=== PATIENT | female | born 1950 | race Caucasian/White ===

== ENCOUNTER 2017-03-05 11:29 | Observation (INO) ==
--- NOTE | 2017-03-05 12:50 | Emergency Department Note ---
Disposition Clinical Impression: Chest pain of uncertain etiology Atrial fibrillation Qualifiers: Atrial fibrillation type: paroxysmal Qualified Code(s): I48.0 - Paroxysmal atrial fibrillation Disposition: Admitted As Inpatient Arrhythmia/Palpitations HPI - General Chief Complaint: ED Arrhythmia/Palpitations Stated Complaint: a-fib rvr Source: patient, EMS Limitations: no limitations Nursing Notes Reviewed: Yes Vital Signs Reviewed: Yes - History of Present Illness HPI Narrative: Mrs. Browning, a 67yo female, presents from home via POV with CC: palpitations with left-sided chest heaviness sided sharp chest pain. Onset this morning, a nonradiating, and she is currently comfortable without pain during this interview. Patient states this feels identical to previous episodes of atrial fibrillation. She has a known history of atrial fibrillation, followed by Dr. Miramontes at [facility]. Rate controlled on Lopressor, anticoagulated on Coumadin for which her last INR was Tuesday, greater than 4. PMH: Hypertension, hyperlipidemia, diabetes, ACS with stents placed, hx CABG, CHF, atrial fibrillation. She did not miss any doses of metoprolol and Coumadin. - Related Data Home Medications Medication Instructions Recorded Confirmed Aspirin 81 mg PO DAILY 03/27/16 03/05/17 Ascorbate Calcium [Vitamin C] 500 mg PO DAILY 05/21/16 03/05/17 Calcium Carbonate/Vitamin D3 1 each PO DAILY 05/21/16 03/05/17 [Caltrate 600 + D Soft Chew Tab] Cholecalciferol (D-3) [Vitamin D] 1,000 unit PO DAILY 05/21/16 03/05/17 Dicyclomine [Bentyl] 10 mg PO DAILY 05/21/16 03/05/17 Duloxetine HCl [Cymbalta] 60 mg PO BID 05/21/16 03/05/17 Esomeprazole Magnesium [Nexium] 40 mg PO 05/21/16 03/05/17 Evolocumab [Repatha Syringe] 140 mg SQ Q2W 05/21/16 03/05/17 Fluticasone Propionate Nasal 50 mcg NS 05/21/16 03/05/17 [Flonase] Fluvastatin Sodium [Lescol Xl] 80 mg PO DAILY 05/21/16 03/05/17 Furosemide [Lasix] 20 mg PO DAILY 05/21/16 03/05/17 Hydrochlorothiazide [Microzide] 25 mg PO DAILY 05/21/16 03/05/17 Loratadine [Claritin] 10 mg PO DAILY 05/21/16 03/05/17 Losartan Potassium [Cozaar] 100 mg PO DAILY 05/21/16 03/05/17 Metformin HCl [Glucophage] 1,000 mg PO DAILY 05/21/16 03/05/17 Nitroglycerin [Nitrostat] 0.4 mg SL Q5M PRN 05/21/16 03/05/17 Vitamin B Complex 1 each PO DAILY PRN 05/21/16 03/05/17 cloNIDine HCl [CloNIDine HCl] 0.1 mg PO BID 05/21/16 03/05/17 clonazePAM [Klonopin] 1 mg PO TID PRN 05/21/16 03/05/17 Fenofibrate,Micronized [Lofibra] 200 mg PO DAILY 05/28/16 03/05/17 Magnesium Chloride [Magnesium Dr] 64 mg PO BID 05/28/16 03/05/17 Potassium Chloride [K-Tab ER] 40 meq PO BID 05/28/16 03/05/17 Prazosin HCl [Minipress] 2 mg PO HS 06/10/16 03/05/17 Gabapentin [Neurontin] 1,200 mg PO TID 06/11/16 03/05/17 Hydrocodone/Acetaminophen [[place] 1 tab PO Q6H PRN 10/11/16 03/05/17 5-325 Tablet] Levothyroxine [Synthroid] 50 mcg PO DAILY 03/05/17 03/05/17 Metoprolol [Lopressor] 50 mg PO BID 03/05/17 03/05/17 Warfarin [Coumadin] 0.5 mg PO Q48H 03/05/17 03/05/17 Warfarin [Coumadin] 1 mg PO Q48H 03/05/17 03/05/17 Allergies Allergy/AdvReac Type Severity Reaction Status Date / Time acetaminophen [From Percocet] Allergy Hallucinati Verified 10/11/16 21:00 ng amlodipine Allergy See Verified 10/11/16 21:00 Comments ibuprofen Allergy Nausea Verified 10/11/16 21:00 metoclopramide [From Reglan] Allergy Nausea Verified 10/11/16 21:00 morphine Allergy Difficulty Verified 10/11/16 21:00 Breathing Oxycodone [From Percocet] Allergy Difficulty Verified 10/11/16 21:00 Breathing propoxyphene Allergy Anxiety Verified 10/11/16 21:00 [From Darvocet-N] [id number] Reductase Allergy See Verified 02/07/17 18:46 Inhibitor Comments [Statins] amitriptyline [From Elavil] AdvReac Headache Verified 10/11/16 21:00 aripiprazole [From Abilify] AdvReac Anxiety Verified 10/11/16 21:00 codeine AdvReac Nausea Verified 10/11/16 21:00 guaifenesin [From Mucinex] AdvReac Headache Verified 10/11/16 21:00 Hydromorphone [From Dilaudid] AdvReac Chills Verified 10/11/16 21:00 isosorbide AdvReac Headache Verified 10/11/16 21:00 Methylphenidate AdvReac Diarrhea Verified 10/11/16 21:00 [From Ritalin] prednisone AdvReac Anxiety Verified 10/11/16 21:00 pregabalin [From Lyrica] AdvReac Diarrhea Verified 10/11/16 21:00 sucralfate AdvReac Diarrhea Verified 10/11/16 21:00 valsartan [From Diovan] AdvReac Muscle Pain Verified 10/11/16 21:00 All systems ED: reviewed and negative except as stated. Constitutional: Denies: fever, chills, weakness Cardiovascular: Reports: palpitations. Denies: chest pain, dyspnea on exertion , orthopnea, edema, syncope, paroxysmal nocturnal dyspnea Respiratory: Denies: cough, dyspnea, wheezes Gastrointestinal: Denies: nausea, vomiting, diarrhea, constipation, hematemesis , melena Genitourinary: Denies: urgency, dysuria Musculoskeletal: Denies: back pain Neurological: Denies: headache, weakness, confusion Past Medical History - Past Medical History Medical history: Reports: atrial fibrillation, CHF, diabetes, hypertension, myocardial infarction Surgical history: Reports: angioplasty/stent, cholecystectomy, coronary bypass ( CABG), hysterectomy, other Psychiatric history: Reports: anxiety, depression, panic disorder, prior suicide attempt, previous psychiatric hospitalization MOBILE UNIT ASSISTANT history: Reports: no MOBILE UNIT ASSISTANT history - Social History Smoking Status: Never smoker Smokeless Tobacco Status: No Alcohol use: Reports: none Drug use: Reports: none Physical Exam Vital signs reviewed: Afebrile, tachycardic, tachypneic, hypertensive. General: Patient is alert, oriented, and in no acute distress. HEENT: No facial asymmetry. Head is normocephalic and atraumatic. Cardiovascular: Heart tachycardic rate and regular rhythm without clicks, rubs, gallops, or murmurs. No JVD. PMI nondisplaced. No pedal edema. Capillar refill brisk. Radial and posterior tibial pulses 2+ and equal bilaterally. Respiratory: Symmetric chest rise with good respiratory effort. Bilateral breath sounds are clear without wheezing, crackles, or rhonchi. Abdomen: Bowel sounds present normoactive x-4 quadrants. Abdomen is soft, nondistended, and nontender. No organomegaly noted. Psych: Patient's affect is appropriate for situation. - General Limitations: no limitations General appearance: alert, in no apparent distress Course Course Narrative: Patient response spontaneously converted back to my evaluation. She is now sinus rhythm. Unsure why her A. Fib broke through her medication. Of greater concern however is her left-sided chest pain in a setting of her extensive cardiac history. Troponin within normal limits at 0.03. Electrolytes unremarkable. Chest x-ray unremarkable. INR is normalized to 2.1. Disposition the patient: She agrees to admission for chest pain with rule out ACS. Vital Signs Temperature 98.1 F 03/05/17 11:30 Pulse Rate 104 03/05/17 11:30 Respiratory Rate 20 03/05/17 11:30 Blood Pressure 163/115 03/05/17 11:30 O2 Sat by Pulse Oximetry 95 03/05/17 11:30 Temperature 98.2 F 03/05/17 16:05 Pulse Rate 87 03/05/17 16:05 Respiratory Rate 16 03/05/17 16:05 Blood Pressure 175/82 03/05/17 16:05 O2 Sat by Pulse Oximetry 92 03/05/17 16:05 Oxygen Delivery Oxygen Delivery Room Air Arrhythmia/Palpitations - Medical Records Medical records reviewed: Yes I reviewed the patient's medical records. - Lab Data Lab results reviewed: Yes I reviewed the patient's lab results. Result diagrams: 03/05/17 12:52 03/05/17 12:52 Lab Results 03/05/17 03/05/17 03/05/17 Range/Units 12:52 12:52 12:52 WBC 11.9 H (4.3-11.1) K/mcL RBC 5.24 H (3.82-4.97) M/mcL Hgb 13.5 (11.5-15.4) g/dL Hct 42.7 (35.3-44.9) % MCV 81.5 L (83.0-100.0) fL MCH 25.8 L (28.0-33.3) pg MCHC 31.6 (31.6-35.5) g/dL RDW 16.5 H (11.5-14.5) % Plt Count 381 (140-400) K/mcL MPV 12.5 H (9.4-12.4) fL Immature Gran % 0.4 (0-4) % Seg Neutrophils % 72.4 % Lymphocytes % 16.8 % Monocytes % 6.8 % Eosinophils % 3.0 % Basophils % 0.6 % Neutrophils # 8.6 (1.6-8.9) K/mcL Lymphocytes # 2.0 (0.6-4.6) K/mcL Monocytes # 0.8 (0.0-1.3) K/mcL Eosinophils # 0.4 (0.0-0.6) K/mcL Basophils # 0.1 (0.0-0.2) K/mcL PT 23.3 H (9.4-12.1) Seconds INR 2.1 APTT 39.4 H (26.0-36.0) Seconds Sodium 140 (136-145) mEq/L Potassium 3.6 (3.5-4.5) mEq/L Chloride 104 (98-109) mEq/L Carbon Dioxide 23 (19-29) mEq/L BUN 14 (7-20) mg/dL Creatinine 0.92 (0.57-1.11) mg/dL Est GFR ( Amer) > 60 (> 60) Est GFR (Non-Af Amer) > 60 (> 60) BUN/Creatinine Ratio 15 (6-26) Glucose 225 H (70-99) mg/dL Calculated Osmolality 298 (280-300) Calcium 9.8 (8.6-10.8) mg/dL Troponin I (0-0.03) ng/mL TSH 0.919 (0.350-4.840) mcIU/mL 03/05/17 Range/Units 12:52 WBC (4.3-11.1) K/mcL RBC (3.82-4.97) M/mcL Hgb (11.5-15.4) g/dL Hct (35.3-44.9) % MCV (83.0-100.0) fL MCH (28.0-33.3) pg MCHC (31.6-35.5) g/dL RDW (11.5-14.5) % Plt Count (140-400) K/mcL MPV (9.4-12.4) fL Immature Gran % (0-4) % Seg Neutrophils % % Lymphocytes % % Monocytes % % Eosinophils % % Basophils % % Neutrophils # (1.6-8.9) K/mcL Lymphocytes # (0.6-4.6) K/mcL Monocytes # (0.0-1.3) K/mcL Eosinophils # (0.0-0.6) K/mcL Basophils # (0.0-0.2) K/mcL PT (9.4-12.1) Seconds INR APTT (26.0-36.0) Seconds Sodium (136-145) mEq/L Potassium (3.5-4.5) mEq/L Chloride (98-109) mEq/L Carbon Dioxide (19-29) mEq/L BUN (7-20) mg/dL Creatinine (0.57-1.11) mg/dL Est GFR ( Amer) (> 60) Est GFR (Non-Af Amer) (> 60) BUN/Creatinine Ratio (6-26) Glucose (70-99) mg/dL Calculated Osmolality (280-300) Calcium (8.6-10.8) mg/dL Troponin I 0.03 (0-0.03) ng/mL TSH (0.350-4.840) mcIU/mL - Radiology Data Radiology results reviewed: Yes I reviewed the patient's radiology results. - EKG Data EKG attestation: Yes I reviewed and interpreted this EKG. EKG results narrative: EKG dated 03/12/1711: 32 show sinus tachycardia with a rate of 104. MT 137, QRS 86, QT/QTC 350/14. Prophylaxis. Q waves present in the inferior lateral leads. Specific ST-T changes. Compared to previous dated 11/04/2016 showing no acute ischemic changes or comparison. Attestation Statement - Attestation Attestation: I, Geovanni Greene, examined this patient and my medical decision-making was reviewed with the CUSTOMER MARKETING INTERN/PA/Advanced Practice Nurse/Resident Physician. I agree with the documented findings, disposition and treatment plan as described except to the extent set forth below. 67-year-old female presents with concerns of atrial fibrillation. Patient states she felt her heart rate racing today, had chest pain and shortness of breath. Patient's cardiac rhythm with EMS showed atrial fibrillation with a rapid ventricular rate. Patient converted to a sinus tachycardic rhythm upon entering the emergency department. She continues to have mild chest pain but denies associated nausea, diaphoresis, shortness of breath. Patient had initial negative troponin. Patient will be admitted the hospital for further care and evaluation of A. fib with RVR and chest pain to rule out ACS.
[2017-03-05 13:26] LABS: Basophils # 0.1 K/mcL (0.0-0.2); Basophils % 0.6 %; Eosinophils # 0.4 K/mcL (0.0-0.6); Hematocrit 42.7 % (35.3-44.9); Hemoglobin 13.5 g/dL (11.5-15.4); Immature Granulocytes % 0.4 % (0-4); Lymphocytes % 16.8 %; Mean Corpuscular HGB Conc 31.6 g/dL (31.6-35.5); Mean Corpuscular Hemoglobin 25.8 pg (28.0-33.3); Mean Corpuscular Volume 81.5 fL (83.0-100.0); Mean Platelet Volume 12.5 fL (9.4-12.4); Monocytes # 0.8 K/mcL (0.0-1.3); Monocytes % 6.8 %; Neutrophils # 8.6 K/mcL (1.6-8.9); Platelet Count 381 K/mcL (140-400); Red Blood Count 5.24 M/mcL (3.82-4.97); Red Cell Distribution Width 16.5 % (11.5-14.5); Segmented Neutrophils % 72.4 %
[2017-03-05 13:39] LABS: INR 2.1; Prothrombin Time 23.3 Seconds (9.4-12.1)
[2017-03-05 13:41] LABS: BUN/Creatinine Ratio 15 (6-26); Blood Urea Nitrogen 14 mg/dL (7-20); Calcium 9.8 mg/dL (8.6-10.8); Carbon Dioxide 23 mEq/L (19-29); Chloride 104 mEq/L (98-109); Glucose 225 mg/dL (70-99); Osmolality,Calculated 298 (280-300); Potassium 3.6 mEq/L (3.5-4.5); Sodium 140 mEq/L (136-145); eGFR For African Americans > 60 (> 60); eGFR For Non-African Americans > 60 (> 60)
[2017-03-05 13:42] LABS: Activated Partial Thrombo Time 39.4 Seconds (26.0-36.0)
[2017-03-05 14:03] LABS: Thyroid Stimulating Hormone 0.919 mcIU/mL (0.350-4.840)
[2017-03-05] MEDS ORDERED: Naloxone 0.4 MG/ML INJ IVP PRN (16:08)
--- NOTE | 2017-03-05 18:04 | Internal Med History&Physical ---
<Ingrid Olivo - Last Filed: 03/05/17 17:58> Date of Encounter: 03/05/17 Time of Encounter: 17:40 Assessment and Plan (1) Atrial fibrillation with RVR Current visit: No Status: Resolved Patient says that she awakened at 10:30 this morning and got up to the bathroom. She said that she felt nervous when she first got up. She said worshipers in the bathroom she noticed that she her heartfelt out of rhythm, she was having palpitations, she said she felt like her heart rate racing. She also reports a dull pressure behind left breast., rated 5 out of 10, with nausea and no radiation. Patient denies shortness of breath, diaphoresis or vomiting. She says that she is normally dyspneic on exertion. She does wear home O2 at night. EKG in the emergency room showed sinus tach with a rate of 104. P referral Veryl was 137, QRS was 86. There specific ST changes. No acute ischemia noted. Patient has history of A. fib in the past. She is rate controlled with beta alondra and also takes Coumadin. History of hypothyroidism. TSH is within normal limits. Last echocardiogram was in August 2016. LVEF 60%, normal LV size and systolic function, normal right ventricular size and function. Initial troponin was 0.03. Will trend through the night. Telemetry Echo in the morning Nothing by mouth after midnight sTress test in the morning (2) CAD (coronary artery disease), [place] coronary artery Current visit: No Status: Chronic Continue beta alondra and aspirin. Prior history of CABG and cardiac stents. Plan as above Qualifiers: [place] vs. transplanted heart: [place] heart Associated angina: with stable angina Qualified Code(s): I25.118 - Atherosclerotic heart disease of [place] coronary artery with other forms of angina pectoris (3) Hypertension Current visit: No Status: Chronic Chronic. Monitor labs. Continue home medications. Qualifiers: Hypertension type: essential hypertension Qualified Code(s): I10 - Essential (primary) hypertension (4) Type 2 diabetes mellitus Current visit: No Status: Chronic A1c ordered for morning. Accu-Chek over 200. Diabetic diet after stress test Sliding-scale insulin Accu-Cheks before meals at bedtime inclusion special educator Qualifiers: Diabetes mellitus complication status: with kidney complications Diabetes mellitus complication detail: with chronic kidney disease Diabetes mellitus retirement insulin use: without retirement use Chronic kidney disease stage: stage 3 (moderate) Qualified Code(s): E11.22 - Type 2 diabetes mellitus with diabetic chronic kidney disease; N18.3 - Chronic kidney disease, stage 3 ( moderate) (5) Hypothyroidism Current visit: No Status: Chronic TSH within normal limits. Continue home medication. Qualifiers: Hypothyroidism type: acquired Qualified Code(s): E03.9 - Hypothyroidism, unspecified (6) Chest pain Current visit: No Status: Acute Plan as above Qualifiers: Chest pain type: precordial chest pain Qualified Code(s): R07.2 - Precordial pain (7) GERD (gastroesophageal reflux disease) Current visit: No Status: Chronic Chronic. Continue home medication. Qualifiers: Esophagitis presence: without esophagitis Qualified Code(s): K21.9 - Gastro -esophageal reflux disease without esophagitis (8) Fibromyalgia Current visit: No Status: Chronic (9) DVT prophylaxis Current visit: No Status: Acute Patient is ambulatory. MONICA santiago. Patient is already on Coumadin. Internal Medicine - H&P: HPI Admitted From: Home Plans for Post Hospital Care: Home History of present illness: Ms. Browning is a 67 year old female with a history of anxiety, CABG, cardiac stents, hypothyroidism, hypertension, ACS, CHF, hypertension, hyperlipidemia, anxiety, rate controlled A. fib with anticoagulation. Patient states that she awakened this morning at 10:30 and had a feeling of anxiety and felt that her heart was out of rhythm. She has a history of A. fib and she said that this felt the same. She came to the emergency department and was A. fib RVR, she converted on her own. She is now normal sinus rhythm. She reported a dull pressure rated a 5 out of 10 under her left breast with nausea. There is no radiation, vomiting, diaphoresis. She said nothing made it worse and nothing made it better. Patient reports dyspnea on exertion which is normal for her. She does wear home oxygen at night she supposed to have a CPAP, however, she is noncompliant. She does report intermittent, short duration chest pressure still at this time. She also reports new peripheral edema to bilateral lower extremities. She states it is better today than it has been in the past, it is maybe +1 nonpitting. Past Med Surg Social Fam HX - Past Medical History Medical history: atrial fibrillation, CHF, diabetes, hypertension, myocardial infarction Psychiatric history: anxiety, depression, panic disorder, prior suicide attempt , previous psychiatric hospitalization - Past Surgical History Surgical History: angioplasty/stent, cholecystectomy, coronary bypass (CABG), hysterectomy, other - Social History Smoking Status: Never smoker Smokeless Tobacco Status: No Alcohol use: none Drug use: none - Family History Mother Adopted: No Family Member Ethnicity: Non- Living Status: Hx Family Cardiac Disorders: Yes Hx Family Neurologic Disorders: Yes (migraines) Father Living Status: Still Living Hx Family Cardiac Disorders: Yes Hx Family Cancer: Yes (skin cancer) Internal Medicine - H&P: Meds Aspirin 81 mg PO DAILY 03/27/16 [History] Ascorbate Calcium [Vitamin C] 500 mg PO DAILY 05/21/16 [History] Calcium Carbonate/Vitamin D3 [Caltrate 600 + D Soft Chew Tab] 1 each PO DAILY [History] Cholecalciferol (D-3) [Vitamin D] 1,000 unit PO DAILY 05/21/16 [History] Dicyclomine [Bentyl] 10 mg PO DAILY 05/21/16 [History] Duloxetine HCl [Cymbalta] 60 mg PO BID 05/21/16 [History] Esomeprazole Magnesium [Nexium] 40 mg PO HS 05/21/16 [History] Evolocumab [Repatha Syringe] 140 mg SQ Q2W 05/21/16 [History] Fluticasone Propionate Nasal [Flonase] 50 mcg NS HS 05/21/16 [History] Fluvastatin Sodium [Lescol Xl] 80 mg PO DAILY 05/21/16 [History] Furosemide [Lasix] 20 mg PO DAILY 05/21/16 [History] Hydrochlorothiazide [Microzide] 25 mg PO DAILY 05/21/16 [History] Loratadine [Claritin] 10 mg PO DAILY 05/21/16 [History] Losartan Potassium [Cozaar] 100 mg PO DAILY 05/21/16 [History] Metformin HCl [Glucophage] 1,000 mg PO DAILY 05/21/16 [History] Nitroglycerin [Nitrostat] 0.4 mg SL Q5M PRN 05/21/16 [History] Vitamin B Complex 1 each PO DAILY PRN 05/21/16 [History] cloNIDine HCl [CloNIDine HCl] 0.1 mg PO BID 05/21/16 [History] clonazePAM [Klonopin] 1 mg PO TID PRN 05/21/16 [History] Fenofibrate,Micronized [Lofibra] 200 mg PO DAILY 05/28/16 [History] Magnesium Chloride [Magnesium Dr] 64 mg PO BID 05/28/16 [History] Potassium Chloride [K-Tab ER] 40 meq PO BID 05/28/16 [History] Prazosin HCl [Minipress] 2 mg PO HS 06/10/16 [History] Gabapentin [Neurontin] 1,200 mg PO TID 06/11/16 [History] Hydrocodone/Acetaminophen [Cornelius 5-325 Tablet] 1 tab PO Q6H PRN 10/11/16 [ History] Levothyroxine [Synthroid] 50 mcg PO DAILY 03/05/17 [History] Metoprolol [Lopressor] 50 mg PO BID 03/05/17 [History] Warfarin [Coumadin] 0.5 mg PO Q48H 03/05/17 [History] Warfarin [Coumadin] 1 mg PO Q48H 03/05/17 [History] Allergies acetaminophen [From Percocet] Allergy (Verified 10/11/16 21:00) Hallucinating amlodipine Allergy (Verified 10/11/16 21:00) See Comments unknown per patient ibuprofen Allergy (Verified 10/11/16 21:00) Nausea metoclopramide [From Reglan] Allergy (Verified 10/11/16 21:00) Nausea morphine Allergy (Verified 10/11/16 21:00) Difficulty Breathing Oxycodone [From Percocet] Allergy (Verified 10/11/16 21:00) Difficulty Breathing propoxyphene [From Darvocet-N] Allergy (Verified 10/11/16 21:00) Anxiety Flggxzt-Lqa-Vlh Reductase Inhibitor [Statins] Allergy (Verified 02/07/17 18:46) See Comments worsens fibromyalgia amitriptyline [From Elavil] Adverse Reaction (Verified 10/11/16 21:00) Headache aripiprazole [From Abilify] Adverse Reaction (Verified 10/11/16 21:00) Anxiety codeine Adverse Reaction (Verified 10/11/16 21:00) Nausea guaifenesin [From Mucinex] Adverse Reaction (Verified 10/11/16 21:00) Headache Hydromorphone [From Dilaudid] Adverse Reaction (Verified 10/11/16 21:00) Chills isosorbide Adverse Reaction (Verified 10/11/16 21:00) Headache Methylphenidate [From Ritalin] Adverse Reaction (Verified 10/11/16 21:00) Diarrhea prednisone Adverse Reaction (Verified 10/11/16 21:00) Anxiety pregabalin [From Lyrica] Adverse Reaction (Verified 10/11/16 21:00) Diarrhea sucralfate Adverse Reaction (Verified 10/11/16 21:00) Diarrhea valsartan [From Diovan] Adverse Reaction (Verified 10/11/16 21:00) Muscle Pain All Systems PM: A 10-system review of systems was performed and is negative for pertinent findings except as documented above in the HPI. - Constitutional Constitutional: no chills, no fatigue, no fever(s), no weakness - EENT Eyes: no diplopia, no pain - Cardiovascular Cardiovascular ROS IM: chest pain, dyspnea on exertion, edema, irregular heart rhythm, palpitations, no diaphoresis, no dyspnea, no lightheadedness, no orthopnea, no paroxysmal nocturnal dyspnea, no syncope, no other - Respiratory Respiratory: dyspnea on exertion, no dyspnea, no wheezing, no pain on inspiration, no chest congestion - Gastrointestinal Gastrointestinal: abdominal pain, nausea, no diarrhea, no vomiting Additional comments: chronic abd pain ,pt states that noone can identify what it is. - Musculoskeletal Musculoskeletal ROS IM: no back pain, no tingling - Integumentary Integumentary IM: no rash - Neurological Neurological ROS: no confusion, no dizziness, no headache(s), no paresthesias, no tingling, no weakness - Constitutional Vitals: Temp Pulse Resp BP Pulse Ox 98.2 F 87 16 175/82 92 03/05/17 16:05 03/05/17 16:05 03/05/17 16:05 03/05/17 16:05 03/05/17 16:48 General appearance: Present: A&O X 3, pleasant, no acute distress, answers questions appropriately - Head Head exam: Present: normal inspection - Eye Eye exam: Present: normal appearance, conjuntiva pink - ENT ENT exam: Present: mucous membranes moist, normal exam, normal external ear exam - Neck Neck exam general surgery: Present: normal inspection. Absent: lymphadenopathy , tenderness - Respiratory Respiratory exam: Present: CTAB. Absent: chest wall tenderness, rales, respiratory distress, rhonchi, stridor, wheezes - Cardiovascular Cardiovascular exam: Present: RRR, +S1, +S2, tachycardia. Absent: diastolic murmur, systolic murmur - GI/Abdominal GI/Abdominal exam: Present: normal bowel sounds, soft. Absent: distended, hepatomegaly, tenderness - Extremities Exam Extremities exam: Present: normal capillary refill, normal inspection, pedal edema, warm, radial pulses palpable and symetrical. Absent: joint swelling, tenderness - Neurological Exam Neurological exam: Present: alert, oriented X3, no focal deficits, strengths equal and symetr throughout. Absent: facial droop, speech deficit Internal Med - H&P Results - Labs CBC & Chem 7: 03/05/17 12:52 03/05/17 12:52 <Serena Fitzgerald - Last Filed: 03/05/17 18:42> Date of Encounter: 03/05/17 Time of Encounter: 18:00 Internal Medicine - H&P: HPI History of present illness: Ms. Browning is a 67 year old female All Systems PM: A 10-system review of systems was performed and is negative for pertinent findings except as documented above in the HPI. - Constitutional Vitals: Temp Pulse Resp BP Pulse Ox 98.2 F 87 16 175/82 92 03/05/17 16:05 03/05/17 16:05 03/05/17 16:05 03/05/17 16:05 03/05/17 16:48 Internal Med - H&P Results - Labs CBC & Chem 7: 03/05/17 12:52 03/05/17 12:52 - Attending Attestation I examined this patient and my medical decision-making was reviewed with the nurse practitioner. I agree with the documented history of present illness, review of systems, past medical, surgical social and family histories and examination findings, disposition and treatment plan as described above except to any changes set forth below. 67-year-old female patient with history of coronary artery disease with PCI and stents and coronary artery bypass grafting, atrial fibrillation and presented to the ER with complaints of chest pain and palpitations. The symptoms began this morning. While she was in the ER she was found to be in rapid A. fib but this corrected while she was in the ER and the patient went back into normal sinus rhythm. She however continued to have dull chest pain on the left side that was nonradiating and constantly present. She denies any shortness of breath. No fever chills or night sweats. No orthopnea. Patient had a cardiac stress test and cardiac catheterization in the past. Her last cardiac stress test was at the end of 2014 or beginning of 2015 and she said that was normal. Her cardiac bypass grafting was in 2013. She has been chest pain-free since her last cardiac stress test. She is on Coumadin for anticoagulation. EKG shows A. fib without any acute ST segment changes. Chest x-ray shows no acute process. Chest pain: Precordial chest pain with high risk for coronary artery disease and ACS. Telemetry. Observation in the hospital. Trend troponins. Cardiac stress test in the morning. Coronary artery disease: Continue home medications for this condition. Atrial fibrillation with RVR: Converted spontaneously to sinus rhythm. Continue rate controlling medications. Continue Coumadin for anticoagulation. Diabetes mellitus type 2: Sliding scale insulin. Diabetic diet. Essential hypertension: Monitor blood pressure. Continue home medications.
[2017-03-05] MEDS ORDERED: Dextrose Gel 15 GM PO PRN ×2 (18:09)
[2017-03-05] MEDS ORDERED: *HR* Dextrose 50 % in Water (Syg) 50 ML SYRINGE IVP PRN (18:09)
[2017-03-05] MEDS ORDERED: D5% in Water 1,000 ML IVC PRN (18:09)
[2017-03-05] MEDS ORDERED: Vitamin B Complex/Vit C/Vit E 1 EACH TABLET PO PRN (18:12)
[2017-03-05] MEDS ORDERED: clonazePAM 1 MG TABLET PO PRN (18:12)
[2017-03-05] MEDS ORDERED: *HR* HYDROcodone/Acet 5/325 mg TABLET PO PRN (18:12)
[2017-03-05] MEDS ORDERED: Nitroglycerin 0.4 MG TAB.SUBL SL PRN (18:12)
[2017-03-05] MEDS ORDERED: EVOLOCUMAB 140 MG SQ SCH (18:15)
[2017-03-05] MEDS ORDERED: *HR* Warfarin 1 MG TABLET PO SCH (18:15)
[2017-03-05] MEDS ORDERED: Insulin LISPRO 300 UNITS/3 ML VIAL SQ SCH (21:00)
[2017-03-05] MEDS ORDERED: Fluticasone Propionate Nasal 50 MCG/SPRAY BOTTLE NS SCH (21:00)
[2017-03-05] MEDS: Gabapentin 400 MG CAPSULE PO SCH (21:39)
[2017-03-05] MEDS: cloNIDine HCl 0.1 MG TABLET PO SCH (21:40)
[2017-03-05] MEDS: MAGNESIUM CHLORIDE 64 MG PO SCH (21:44)
[2017-03-06 03:22] LABS: Basophils # 0.1 K/mcL (0.0-0.2); Basophils % 0.8 %; Eosinophils # 0.4 K/mcL (0.0-0.6); Eosinophils % 5.4 %; Hematocrit 36.2 % (35.3-44.9); Immature Granulocytes % 0.4 % (0-4); Lymphocytes # 2.5 K/mcL (0.6-4.6); Lymphocytes % 31.8 %; Mean Corpuscular HGB Conc 31.2 g/dL (31.6-35.5); Mean Corpuscular Hemoglobin 25.6 pg (28.0-33.3); Mean Corpuscular Volume 81.9 fL (83.0-100.0); Mean Platelet Volume 12.2 fL (9.4-12.4); Monocytes # 0.7 K/mcL (0.0-1.3); Monocytes % 8.2 %; Neutrophils # 4.2 K/mcL (1.6-8.9); Platelet Count 298 K/mcL (140-400); Red Blood Count 4.42 M/mcL (3.82-4.97); Red Cell Distribution Width 16.5 % (11.5-14.5); Segmented Neutrophils % 53.4 %
[2017-03-06 03:24] LABS: Hemoglobin A1C 7.6 %
[2017-03-06 03:32] LABS: BUN/Creatinine Ratio 18 (6-26); Blood Urea Nitrogen 16 mg/dL (7-20); Calcium 9.2 mg/dL (8.6-10.8); Carbon Dioxide 23 mEq/L (19-29); Chloride 107 mEq/L (98-109); Chol/HDL Ratio 3.4 (0-4.9); Cholesterol 102 mg/dL (< 200); Glucose 156 mg/dL (70-99); HDL Cholesterol 30 mg/dL (40-59); LDL Cholesterol,Calculated 53 mg/dL (0-99); Osmolality,Calculated 292 (280-300); Potassium 3.9 mEq/L (3.5-4.5); Sodium 139 mEq/L (136-145); Triglycerides 93 mg/dL (< 150); eGFR For African Americans > 60 (> 60); eGFR For Non-African Americans > 60 (> 60)
[2017-03-06 03:33] LABS: Hemoglobin 11.3 g/dL (11.5-15.4)
[2017-03-06] MEDS ORDERED: Regadenoson 0.4 MG/5 ML SYRINGE IVP ONE (06:26)
[2017-03-06] MEDS: Insulin LISPRO 300 UNITS/3 ML VIAL SQ SCH ×2 (08:13→12:08)
[2017-03-06] MEDS: MAGNESIUM CHLORIDE 64 MG PO SCH (08:14)
[2017-03-06] MEDS: cloNIDine HCl 0.1 MG TABLET PO SCH (08:14)
[2017-03-06] MEDS: Gabapentin 400 MG CAPSULE PO SCH (08:14)
[2017-03-06 08:27] LABS: Bilirubin,Urine Small (Negative); Blood,Urine Negative (Negative); Clarity,Urine Clear (Clear); Color,Urine Dark Yellow (Yellow); Glucose,Urine (UA) Normal (Normal); Ketones,Urine Negative (Negative); Leukocyte Esterase,Urine Moderate (Negative); Nitrite,Urine Negative (Negative); PH,Urine 6.5 pH Units (5.0-8.0); Protein,Urine Trace mg/dL (Neg-Trace); Specific Gravity,Urine 1.029 (1.010-1.025); Urobilinogen,Urine Normal (Normal)
[2017-03-06 08:30] LABS: Hyaline Casts,Urine None Seen per lpf (None-Few); RBC,Urine 0-3 per hpf (0-3); Squamous Epithelial Cell,Urine Many per lpf (None-Few); WBC,Urine 15-30 per hpf (0-3)
[2017-03-06 08:51] LABS: Bacteria,Urine Few per hpf (None-Few); Mucus,Urine Few (Few)
[2017-03-06] MEDS ORDERED: Cholecalciferol (D-3) 1,000 UNIT TABLET PO SCH (09:00)
[2017-03-06] MEDS ORDERED: Loratadine 10 MG TABLET PO SCH (09:00)
[2017-03-06] MEDS ORDERED: hydroCHLOROthiazide 25 MG TABLET PO SCH (09:00)
[2017-03-06] MEDS ORDERED: Fenofibrate 54 MG TABLET PO SCH (09:00)
[2017-03-06] MEDS ORDERED: Ascorbic Acid 500 MG TABLET PO SCH (09:00)
[2017-03-06] MEDS ORDERED: Furosemide 20 MG TABLET PO SCH (09:00)
[2017-03-06] MEDS ORDERED: Aspirin 81 MG TAB.CHEW PO SCH (09:00)
[2017-03-06 12:33] VITALS: BP 176/79
--- NOTE | 2017-03-06 12:47 | Electrocardiograph Report ---
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
--- NOTE | 2017-03-06 12:55 | Electrocardiograph Report ---
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
--- NOTE | 2017-03-06 13:27 | Nuclear Medicine Stress Report ---
Regadenoson Nuclear Stress Name: Kaylee Browning Date of Study: 03/06/2017 Date: 1950 Ht: 63.0 in Medical Record#: [id number] Age: 67 Wt: 203.0 lb Gender: Female Order #: [id number] Location: [facility] Room: [facility] Supervising Provider: Vee Cahmpion CNP Reading Physician: Eyad Miramontes DO, MANDO GRANADOS FASNC Ordering Physician: Glenn Cervantes DO Primary Care Physician: Fabiola Aguilar MD Stress Technologist: Zenaida Nicholson INTERMODAL CUSTOMER SERVICE, CCT Cash Grain Grower: René Pak Indications: Chest Pain Impression: Pharmacologic stress ECG is non-diagnostic for ischemia due to baseline non-specific ST and T changes. Gated EF = 71%. "Slight chest heaviness" reported during Lexiscan infusion. Perfusion imaging was negative for ischemia or infarct. History: Hypertension Prior PCI History of Coronary Artery Bypass Surgery Stress Test Summary: Stress Test Type: Pharmacologic Regadenoson 0.4mg/5ml given IV Baseline Information: Initial Heart Rate: 68 Blood Pressure: 124/72 Stress Information: Test Terminated Due to (primary): As per protocol Maximum Blood Pressure: 138/70 Maximum Heart Rate: 94 Percent Maximum Heart Rate Achieved: 61 Double Product: [id number] METS Reached: 1 Symptoms: HeaVINESS Nuclear Summary: SPECT myocardial perfusion imaging using Tc99m Sestamibi given intravenously was performed at rest and following cardiac stress testing. The resting images were obtained following initial dose of 9.3 mCi. Following stress an additional dose of 30.5 mCi was given at peak exercise or 30 seconds post regadenoson infusion. Medication Given: Time Medication Dose Units Route Findings: Stress Note * Resting ECG demonstrated normal sinus rhythm. * No baseline arrhythmias were noted. * Pharmacologic stress ECG is non-diagnostic for ischemia due to baseline non-specific ST and T changes. * No arrhythmias during stress. * "Slight chest heaviness" reported during Lexiscan infusion. * Normal hemodynamic responses to pharmacologic stress. Study Quality * Study quality is good. Gated EF % * Gated EF = 71%. Left Ventricle * The left ventricle is not dilated. LVEDV = 85 mL. NORMALS * Normal wall motion. * Normal Segmental Perfusion in rest. * Normal segmental perfusion in stress. TID * No evidence of transient ischemic dilatation. TID ratio = 1.16. Lung Uptake * There is no evidence of increase lung uptake. Updated by Eyad Miramontes DO, ROBERTA, MANDO, WENDI on 03/06/2017 1:19:50 PM electronically signed on 03/06/2017 1:21:40 PM with status of Final
--- NOTE | 2017-03-06 13:50 | ECHO - Doppler Report ---
Echocardiogram Name: Kaylee Browning Date of Study: 03/06/2017 Date: 1950 Ht: 63.0 in Medical Record#: [id number] Age: 67 Wt: 200.0 lb Gender: Female BSA: 1.93 Order #: [id number] Location: [facility] Room #: 2NE29 Reading Physician: Eyad Miramontes DO, FACC, MANDO Clubhouse Attendant: DON MccormackT, [facility] Ordering Physician: Ingrid Olivo CNP Primary Physician: Fabiola Aguilar MD Indications: Atrial fibrillation, Chest pain Impressions: LVEF 65%. Normal LV chamber size and function. Mild concentric left ventricular hypertrophy. Mild left ventricular diastolic dysfunction. Atypical septal motion consistent with post-operative status. Normal right ventricular structure and function. Mild pulmonary hypertension. No significant valvular dysfunction. Findings: Study Quality * Technically adequate exam. ECG Findings * Normal sinus rhythm. Left Ventricle * LVEF 65%. * Normal LV chamber size and function. * Mild concentric left ventricular hypertrophy. * Mild left ventricular diastolic dysfunction. * Atypical septal motion consistent with post-operative status. Right Ventricle * Normal right ventricular structure and function. Left Atrium * Moderately dilated left atrium. Right Atrium * Mildly dilated right atrium. Interatrial Septum * No evidence of PFO by color Doppler. Aortic Valve * Aortic valve not well visualized. * No aortic regurgitation. * No aortic stenosis. Mitral Valve * Normal mitral valve structure and function. * No mitral regurgitation. * No mitral stenosis. Tricuspid Valve * Normal tricuspid valve structure and function. * Trace tricuspid regurgitation. * Mild pulmonary hypertension. Pulmonic Valve * Pulmonic valve not well visualized. Aorta * Normally sized aortic root. Pericardium * The pericardium appears normal. IVC * Normal IVC dimensions and inspiratory collapse. Pulmonary Artery * Normal visualized portions of the main pulmonary artery. History Hypertension Diabetes Family History of CAD Myocardial Infarction Congestive Heart Failure Measurements: BP: 176/ 79 2D Normal Values RVIDd: 3.30 cm <2.7 cm IVSd: 1.30 cm 0.6 - 1.0 cm LVIDd: 3.80 cm 3.7 - 5.6 cm LVPWd: 1.40 cm 0.6 - 1.1 cm LVIDs: 2.80 cm 1.5 - 3.6 cm AO: 3.00 cm < 4.0 cm LA: 3.90 cm 2.0 - 4.0cm %FS: 26.30 cm >25 % LA volume: 56 Mitral Valve Dec Time:254.00 msec Peak E:.83 m/sec Peak A:1.25 m/sec E/A Ratio:0.7 Peak E' Lat Ruslan:8.02 cm/s Peak E' Med Ruslan:4.57 cm/s E/E' Lat Ratio:10.3 E/E' Med Ratio:18.1 Aortic Valve AI pressure Half-time: 389.00 msec Tricuspid Valve TV Regurg Peak Grad: 33.00mmHg TV Regurg Peak Ruslan: 2.89m/sec Updated by Eyad Miramontes DO, FACFrederick, WENDI GILMORE on 03/06/2017 1:44:24 PM electronically signed on 03/06/2017 1:44:49 PM with status of Final Wall Motion Miles: 1=Normal, 2=Hypokinesis, 3=Akinesis, 4=Dyskinesis, 5=Aneurysmal, 6=Hyperkinetic, X=Not Visualized (Blank)=Missing
--- NOTE | 2017-03-06 14:05 | Discharge Summary ---
Date of Encounter: 03/06/17 Time of Encounter: 14:02 - Discharge Diagnosis (1) Atrial fibrillation Priority: Primary Status: Acute Qualifiers: Atrial fibrillation type: paroxysmal Qualified Code(s): I48.0 - Paroxysmal atrial fibrillation (2) Chest pain Priority: Secondary Status: Acute Qualifiers: Chest pain type: precordial pain Qualified Code(s): R07.2 - Precordial pain (3) UTI (urinary tract infection) Priority: Primary Status: Acute Comments: Cipro at discharge Qualifiers: Urinary tract infection type: acute cystitis Hematuria presence: without hematuria Qualified Code(s): N30.00 - Acute cystitis without hematuria (4) Hypothyroidism Priority: Secondary Status: Chronic Qualifiers: Hypothyroidism type: acquired Qualified Code(s): E03.9 - Hypothyroidism, unspecified (5) Type 2 diabetes mellitus Priority: Secondary Status: Chronic Qualifiers: Diabetes mellitus complication status: with kidney complications Diabetes mellitus complication detail: with chronic kidney disease Diabetes mellitus shelter insulin use: without long term care administrator use Chronic kidney disease stage: stage 3 (moderate) Qualified Code(s): E11.22 - Type 2 diabetes mellitus with diabetic chronic kidney disease; N18.3 - Chronic kidney disease, stage 3 ( moderate) (6) Hypertension Priority: Secondary Status: Chronic Qualifiers: Hypertension type: essential hypertension Qualified Code(s): I10 - Essential (primary) hypertension (7) CAD (coronary artery disease), [place] coronary artery Priority: Secondary Status: Chronic Qualifiers: [place] vs. transplanted heart: [place] heart Associated angina: with stable angina Qualified Code(s): I25.118 - Atherosclerotic heart disease of [place] coronary artery with other forms of angina pectoris - Discharge Medications Prescriptions: Ciprofloxacin HCl [Cipro] 250 mg PO BID #7 tab Home Medications: Aspirin 81 mg PO DAILY 03/27/16 [History] Ascorbate Calcium [Vitamin C] 500 mg PO DAILY 05/21/16 [History] Calcium Carbonate/Vitamin D3 [Caltrate 600 + D Soft Chew Tab] 1 each PO DAILY [History] Cholecalciferol (D-3) [Vitamin D] 1,000 unit PO DAILY 05/21/16 [History] Dicyclomine [Bentyl] 10 mg PO DAILY 05/21/16 [History] Duloxetine HCl [Cymbalta] 60 mg PO BID 05/21/16 [History] Esomeprazole Magnesium [Nexium] 40 mg PO HS 05/21/16 [History] Evolocumab [Repatha Syringe] 140 mg SQ Q2W 05/21/16 [History] Fluticasone Propionate Nasal [Flonase] 50 mcg NS HS 05/21/16 [History] Fluvastatin Sodium [Lescol Xl] 80 mg PO DAILY 05/21/16 [History] Furosemide [Lasix] 20 mg PO DAILY 05/21/16 [History] Hydrochlorothiazide [Microzide] 25 mg PO DAILY 05/21/16 [History] Loratadine [Claritin] 10 mg PO DAILY 05/21/16 [History] Losartan Potassium [Cozaar] 100 mg PO DAILY 05/21/16 [History] Nitroglycerin [Nitrostat] 0.4 mg SL Q5M PRN 05/21/16 [History] Vitamin B Complex 1 each PO DAILY PRN 05/21/16 [History] cloNIDine HCl [CloNIDine HCl] 0.1 mg PO BID 05/21/16 [History] clonazePAM [Klonopin] 1 mg PO TID PRN 05/21/16 [History] Fenofibrate,Micronized [Lofibra] 200 mg PO DAILY 05/28/16 [History] Magnesium Chloride [Magnesium Dr] 64 mg PO BID 05/28/16 [History] Potassium Chloride [K-Tab ER] 40 meq PO BID 05/28/16 [History] Prazosin HCl [Minipress] 2 mg PO HS 06/10/16 [History] Gabapentin [Neurontin] 1,200 mg PO TID 06/11/16 [History] Hydrocodone/Acetaminophen [[place] 5-325 Tablet] 1 tab PO Q6H PRN 10/11/16 [ History] Levothyroxine [Synthroid] 50 mcg PO DAILY 03/05/17 [History] Metoprolol [Lopressor] 50 mg PO BID 03/05/17 [History] Ciprofloxacin HCl [Cipro] 250 mg PO BID #7 tab 03/06/17 [Rx] Warfarin [Coumadin] 1.5 mg PO MOWEFRSA@1800 tablet 03/06/17 [Rx] Warfarin [Coumadin] 3 mg PO SUTUTH@1800 tablet 03/06/17 [Rx] Allergies/Adverse Reactions: Allergies acetaminophen [From Percocet] Allergy (Verified 10/11/16 21:00) Hallucinating amlodipine Allergy (Verified 10/11/16 21:00) See Comments unknown per patient ibuprofen Allergy (Verified 10/11/16 21:00) Nausea metoclopramide [From Reglan] Allergy (Verified 10/11/16 21:00) Nausea morphine Allergy (Verified 10/11/16 21:00) Difficulty Breathing Oxycodone [From Percocet] Allergy (Verified 10/11/16 21:00) Difficulty Breathing propoxyphene [From Darvocet-N] Allergy (Verified 10/11/16 21:00) Anxiety Upqxfiw-Nhx-Hxv Reductase Inhibitor [Statins] Allergy (Verified 02/07/17 18:46) See Comments worsens fibromyalgia amitriptyline [From Elavil] Adverse Reaction (Verified 10/11/16 21:00) Headache aripiprazole [From Abilify] Adverse Reaction (Verified 10/11/16 21:00) Anxiety codeine Adverse Reaction (Verified 10/11/16 21:00) Nausea guaifenesin [From Mucinex] Adverse Reaction (Verified 10/11/16 21:00) Headache Hydromorphone [From Dilaudid] Adverse Reaction (Verified 10/11/16 21:00) Chills isosorbide Adverse Reaction (Verified 10/11/16 21:00) Headache Methylphenidate [From Ritalin] Adverse Reaction (Verified 10/11/16 21:00) Diarrhea prednisone Adverse Reaction (Verified 10/11/16 21:00) Anxiety pregabalin [From Lyrica] Adverse Reaction (Verified 10/11/16 21:00) Diarrhea sucralfate Adverse Reaction (Verified 10/11/16 21:00) Diarrhea valsartan [From Diovan] Adverse Reaction (Verified 10/11/16 21:00) Muscle Pain Procedures/tests Complete & Pending: Procedures Performed prior 72 hours Category Date Time Status NM lino perf SPECT multi [NM] Routine Exams 03/05/17 18:11 Taken ECG 12 lead ECG [ECG] Routine Y 03/05/17 21:27 Completed EV echocardiogram Routine Y 03/05/17 18:09 Completed SP pharm nuclear stress Routine Y 03/06/17 07:30 Completed Date of admission: 03/05/17 15:04 Primary care physician: Fabiola Aguilar Consults: 03/05/17 18:09 Consult to Sports Official [CONS] Routine Comment: Reason for Consult: hyperglycemia Discharging clinician: Glenn Cervantes Anticipated date of discharge: 03/06/17 - Patient Status Disposition: Home, Self-Care Condition: Good Functional capacity at discharge: independent ambulation Overall status at discharge: patient is progressing back to baseline - Discharge Instructions Follow Up With: Fabiola Aguilar MD [Primary Care Provider] - - Diet and Activity Activity: increase activity as tolerated Diet: advance to your usual diet Hospital course: Ms. Browning is a 67 year old female with multiple medical problems presented to ED due to palpitations. Her heart was racing and in ED she was found to be in rapid a fib. She also was having some chest discomfort. She was placed in observation for further evaluation and treatment. Ms. Browning was placed in observation on med [place]. She was noted to be in sinus tachycardia and ultimately her rate improved. She had no issues overnight and slight increase in troponin. On AM of 03/06 she had nuclear stress test that was negative and echo was OK. On 03/06 she was afebrile with stable vitals. At that time she was felt ready for d/c home. - Time Spent with Patient Total time spent providing and/or coordinating discharge services: 34min - Constitutional Vitals: Temp Pulse Resp BP Pulse Ox 98.3 F 69 20 176/79 93 03/06/17 12:31 03/06/17 12:31 03/06/17 12:31 03/06/17 12:31 03/06/17 12:31 General appearance: Present: A&O X 3, pleasant, no acute distress, answers questions appropriately - Head Head exam: Present: normocephalic - Eye Eye exam: Present: conjuntiva pink - ENT ENT exam: Present: mucous membranes moist - Respiratory Respiratory exam: Present: decreased breath sounds, CTAB - Cardiovascular Cardiovascular exam: Present: RRR. Absent: tachycardia - GI/Abdominal GI/Abdominal exam: Present: soft. Absent: tenderness - Extremities Exam Extremities exam: Present: warm. Absent: tenderness - Neurological Exam Neurological exam: Present: alert, oriented X3 - Skin Skin exam: Present: warm. Absent: rash
--- NOTE | 2017-03-06 14:55 | Physician Discharge Referral ---
Home Health/Hosp Referral Info Transfer to: Home Health Attending Provider: Glenn Cervantes DO Provider in Charge Post Discharge: PCP - Diagnosis (1) Atrial fibrillation Priority: Primary Status: Acute (2) Chest pain Priority: Secondary Status: Acute (3) UTI (urinary tract infection) Priority: Primary Status: Acute (4) Hypothyroidism Priority: Secondary Status: Chronic (5) Type 2 diabetes mellitus Priority: Secondary Status: Chronic (6) Hypertension Priority: Secondary Status: Chronic (7) CAD (coronary artery disease), [place] coronary artery Priority: Secondary Status: Chronic - Respiratory Orders Smoking Cessation: Smoking cessation has been advised. For more information, call the [place] Tobacco Quit Line at 5-947-MJGJ-NOW. - Diet/Nutrition Diet/Nutrition Orders: Cardiac - Activity Activity Orders: Up ad [place] - Services Needed Following services are medically necessary services: Nursing, Physical Therapy, Occupational Therapy - Transfer Medications Prescriptions: Ciprofloxacin HCl [Cipro] 250 mg PO BID #7 tab Home Medications: Aspirin 81 mg PO DAILY 03/27/16 [History] Ascorbate Calcium [Vitamin C] 500 mg PO DAILY 05/21/16 [History] Calcium Carbonate/Vitamin D3 [Caltrate 600 + D Soft Chew Tab] 1 each PO DAILY [History] Cholecalciferol (D-3) [Vitamin D] 1,000 unit PO DAILY 05/21/16 [History] Dicyclomine [Bentyl] 10 mg PO DAILY 05/21/16 [History] Duloxetine HCl [Cymbalta] 60 mg PO BID 05/21/16 [History] Esomeprazole Magnesium [Nexium] 40 mg PO HS 05/21/16 [History] Evolocumab [Repatha Syringe] 140 mg SQ Q2W 05/21/16 [History] Fluticasone Propionate Nasal [Flonase] 50 mcg NS HS 05/21/16 [History] Fluvastatin Sodium [Lescol Xl] 80 mg PO DAILY 05/21/16 [History] Furosemide [Lasix] 20 mg PO DAILY 05/21/16 [History] Hydrochlorothiazide [Microzide] 25 mg PO DAILY 05/21/16 [History] Loratadine [Claritin] 10 mg PO DAILY 05/21/16 [History] Losartan Potassium [Cozaar] 100 mg PO DAILY 05/21/16 [History] Nitroglycerin [Nitrostat] 0.4 mg SL Q5M PRN 05/21/16 [History] Vitamin B Complex 1 each PO DAILY PRN 05/21/16 [History] cloNIDine HCl [CloNIDine HCl] 0.1 mg PO BID 05/21/16 [History] clonazePAM [Klonopin] 1 mg PO TID PRN 05/21/16 [History] Fenofibrate,Micronized [Lofibra] 200 mg PO DAILY 05/28/16 [History] Magnesium Chloride [Magnesium Dr] 64 mg PO BID 05/28/16 [History] Potassium Chloride [K-Tab ER] 40 meq PO BID 05/28/16 [History] Prazosin HCl [Minipress] 2 mg PO HS 06/10/16 [History] Gabapentin [Neurontin] 1,200 mg PO TID 06/11/16 [History] Hydrocodone/Acetaminophen [[place] 5-325 Tablet] 1 tab PO Q6H PRN 10/11/16 [ History] Levothyroxine [Synthroid] 50 mcg PO DAILY 03/05/17 [History] Metoprolol [Lopressor] 50 mg PO BID 03/05/17 [History] Ciprofloxacin HCl [Cipro] 250 mg PO BID #7 tab 03/06/17 [Rx] Warfarin [Coumadin] 1.5 mg PO MOWEFRSA@1800 tablet 03/06/17 [Rx] Warfarin [Coumadin] 3 mg PO SUTUTH@1800 tablet 03/06/17 [Rx] Allergies/Adverse Reactions: Allergies acetaminophen [From Percocet] Allergy (Verified 10/11/16 21:00) Hallucinating amlodipine Allergy (Verified 10/11/16 21:00) See Comments unknown per patient ibuprofen Allergy (Verified 10/11/16 21:00) Nausea metoclopramide [From Reglan] Allergy (Verified 10/11/16 21:00) Nausea morphine Allergy (Verified 10/11/16 21:00) Difficulty Breathing Oxycodone [From Percocet] Allergy (Verified 10/11/16 21:00) Difficulty Breathing propoxyphene [From Darvocet-N] Allergy (Verified 10/11/16 21:00) Anxiety Yfhzboc-Trc-Icq Reductase Inhibitor [Statins] Allergy (Verified 02/07/17 18:46) See Comments worsens fibromyalgia amitriptyline [From Elavil] Adverse Reaction (Verified 10/11/16 21:00) Headache aripiprazole [From Abilify] Adverse Reaction (Verified 10/11/16 21:00) Anxiety codeine Adverse Reaction (Verified 10/11/16 21:00) Nausea guaifenesin [From Mucinex] Adverse Reaction (Verified 10/11/16 21:00) Headache Hydromorphone [From Dilaudid] Adverse Reaction (Verified 10/11/16 21:00) Chills isosorbide Adverse Reaction (Verified 10/11/16 21:00) Headache Methylphenidate [From Ritalin] Adverse Reaction (Verified 10/11/16 21:00) Diarrhea prednisone Adverse Reaction (Verified 10/11/16 21:00) Anxiety pregabalin [From Lyrica] Adverse Reaction (Verified 10/11/16 21:00) Diarrhea sucralfate Adverse Reaction (Verified 10/11/16 21:00) Diarrhea valsartan [From Diovan] Adverse Reaction (Verified 10/11/16 21:00) Muscle Pain Certification: Further, I certify that my clinical findings support that this patient is homebound (i.e. absences from home require considerable and taxing effort and are for medical reasons or alevism services or infrequently or short duration when for other reasons) because: Homebound Reason: Patient requires assistance of a person or device to safely leave home, Leaving home requires considerable and taxing effort due to condition, Severity of cardiac or pulmonary status limits activity tolerance Attestation: My signature below is to certify that this patient is under my care and that I, or nurse practitioner, or a physician's client account assistant working with me, has a face-to -face encounter with this patient.
[2017-03-06] MEDS ORDERED: *HR* Warfarin 3 MG TABLET PO SCH (18:00)
[2017-03-06] MEDS ORDERED: *HR* Warfarin 1 MG TABLET PO SCH (18:00)
[2017-03-07] MEDS ORDERED: *HR* Warfarin 3 MG TABLET PO SCH (18:00)
== END 2017-03-06 15:55 | disposition home health service (06) ==
LOC: EMEROO 11:29 → 2NENU 11:29
PROVIDERS: ADMIT Internal Medicine; ATTEND Internal Medicine

== ENCOUNTER 2017-04-06 14:33 | Observation (INO) ==
[2017-04-06] MEDS ORDERED: Aspirin 81 MG TAB.CHEW PO ONE (15:47)
--- NOTE | 2017-04-06 15:49 | Emergency Department Note ---
Disposition Clinical Impression: Chest pain Qualifiers: Chest pain type: unspecified Qualified Code(s): R07.9 - Chest pain, unspecified Disposition: Admitted As Inpatient Condition: Fair Referrals: Fabiola Aguilar MD [Primary Care Provider] - Forms: ED Satisfaction Letter Time of Disposition: 18:29 Chest Pain HPI - General Chief Complaint: ED Chest Pain Stated Complaint: chest pain// dr. alcala sent Time Seen by Provider: 04/06/17 15:17 Source: patient Limitations: no limitations Vital Signs Reviewed: Yes Nursing Notes Reviewed: Yes - History of Present Illness HPI Narrative: 67-year-old who comes in complaining of chest pain for the last couple of days describes as pressure-like across her chest. Patient has had previous MIs in the past. Patient states she's not had any recent workups. Pt complaint: chest pain Onset (ago): day(s) Duration: intermittent Onset: during rest Pain Location: substernal, left chest Severity: moderate Severity scale (1-10): 7 Quality: tightness, aching Pain Radiation: none Improves with: nothing Worsens with: nothing Context: recent illness Treatments prior to arrival chest pain: aspirin - Related Data Home Medications Medication Instructions Recorded Confirmed Aspirin 81 mg PO DAILY 03/27/16 03/29/17 Ascorbate Calcium [Vitamin C] 500 mg PO DAILY 05/21/16 03/29/17 Calcium Carbonate/Vitamin D3 1 each PO DAILY 05/21/16 03/29/17 [Caltrate 600 + D Soft Chew Tab] Cholecalciferol (D-3) [Vitamin D] 1,000 unit PO DAILY 05/21/16 03/29/17 Dicyclomine [Bentyl] 10 mg PO QID 05/21/16 03/29/17 Duloxetine HCl [Cymbalta] 60 mg PO BID 05/21/16 03/29/17 Esomeprazole Magnesium [Nexium] 40 mg PO HS 05/21/16 03/29/17 Evolocumab [Repatha Syringe] 140 mg SQ Q2W 05/21/16 03/29/17 Fluticasone Propionate Nasal 50 mcg NS DAILY 05/21/16 03/29/17 [Flonase] Fluvastatin Sodium [Lescol Xl] 80 mg PO QPM 05/21/16 03/29/17 Furosemide [Lasix] 20 mg PO DAILY 05/21/16 03/29/17 Hydrochlorothiazide [Microzide] 25 mg PO DAILY 05/21/16 03/29/17 Loratadine [Claritin] 10 mg PO DAILY 05/21/16 03/29/17 Nitroglycerin [Nitrostat] 0.4 mg SL Q8H 05/21/16 03/29/17 Vitamin B Complex 1 each PO DAILY PRN 05/21/16 03/29/17 cloNIDine HCl [CloNIDine HCl] 0.1 mg PO BID 05/21/16 03/29/17 clonazePAM [Klonopin] 1 mg PO TID PRN 05/21/16 03/29/17 Fenofibrate,Micronized [Lofibra] 200 mg PO DAILY 05/28/16 03/29/17 Magnesium Chloride [Magnesium Dr] 64 mg PO BID 05/28/16 03/29/17 Prazosin HCl [Minipress] 2 mg PO HS 06/10/16 03/29/17 Gabapentin [Neurontin] 1,200 mg PO TID 06/11/16 03/29/17 Metoprolol [Lopressor] 100 mg PO BID 03/05/17 03/29/17 Levothyroxine Sodium 0.5 tab PO DAILY 03/29/17 03/29/17 Potassium Chloride [K-Tab ER] 2 - 3 tab PO BID 03/29/17 03/29/17 amLODIPine [Norvasc] 5 mg PO DAILY 03/29/17 03/29/17 Previous Rx's Medication Instructions Recorded Warfarin [Coumadin] 1.5 mg PO MOWEFRSA@1800 tablet 03/06/17 Warfarin [Coumadin] 3 mg PO SUTUTH@1800 tablet 03/06/17 Ciprofloxacin [Cipro] 500 mg PO BID #14 tablet 03/29/17 Phenazopyridine HCl [Pyridium] 200 mg PO TIDAC #30 tab 03/29/17 Allergies Allergy/AdvReac Type Severity Reaction Status Date / Time acetaminophen [From Percocet] Allergy Hallucinati Verified 10/11/16 21:00 ng amlodipine Allergy See Verified 10/11/16 21:00 Comments ibuprofen Allergy Nausea Verified 10/11/16 21:00 metoclopramide [From Reglan] Allergy Nausea Verified 10/11/16 21:00 morphine Allergy Difficulty Verified 10/11/16 21:00 Breathing Oxycodone [From Percocet] Allergy Difficulty Verified 10/11/16 21:00 Breathing propoxyphene Allergy Anxiety Verified 10/11/16 21:00 [From Darvocet-N] Tfidjsu-Vvw-Dmk Reductase Allergy See Verified 02/07/17 18:46 Inhibitor Comments [Statins] amitriptyline [From Elavil] AdvReac Headache Verified 10/11/16 21:00 apixaban [From Eliquis] AdvReac Muscle Pain Verified 04/06/17 15:32 aripiprazole [From Abilify] AdvReac Anxiety Verified 10/11/16 21:00 codeine AdvReac Nausea Verified 10/11/16 21:00 guaifenesin [From Mucinex] AdvReac Headache Verified 10/11/16 21:00 Hydromorphone [From Dilaudid] AdvReac Chills Verified 10/11/16 21:00 isosorbide AdvReac Headache Verified 10/11/16 21:00 Methylphenidate AdvReac Diarrhea Verified 10/11/16 21:00 [From Ritalin] prednisone AdvReac Anxiety Verified 10/11/16 21:00 pregabalin [From Lyrica] AdvReac Diarrhea Verified 10/11/16 21:00 sucralfate AdvReac Diarrhea Verified 10/11/16 21:00 valsartan [From Diovan] AdvReac Muscle Pain Verified 10/11/16 21:00 All systems ED: reviewed and negative except as stated. Constitutional: Denies: fever, chills, weakness, weight change Eyes: Denies: eye pain, eye discharge, vision change ENT ED: Denies: ear pain, throat pain, dental pain, hearing loss, epistaxis, congestion, dysphagia Cardiovascular: Reports: chest pain. Denies: palpitations, dyspnea on exertion , edema, syncope Respiratory: Denies: cough, dyspnea, wheezes, hemoptysis, stridor Gastrointestinal: Denies: abdominal pain, nausea, vomiting, diarrhea, constipation, hematemesis, melena, hematochezia Genitourinary: Denies: dysuria, frequency, hematuria, discharge Musculoskeletal: Denies: back pain, neck pain, arthralgia, myalgia Integumentary: Denies: rash, abrasion, lesions Neurological: Denies: headache, weakness, numbness, paresthesias, confusion, abnormal gait, vertigo Psychiatric: Denies: anxiety, depression, suicidal thoughts, homicidal thoughts , auditory hallucinations, visual hallucinations Endocrine: Denies: fatigue Hematological/Lymphatic: Denies: easy bleeding, easy bruising Allergic/Immunologic: Denies: facial swelling, urticaria Chest Pain PMH - Past Medical History Medical history: Reports: arthritis, atrial fibrillation, CHF, coronary artery disease, diabetes, fibromyalgia, GERD, hyperlipidemia, hypertension, migraine, thyroid disease, other Surgical history: Reports: angioplasty/stent, cataract, cholecystectomy, coronary bypass (CABG) (x2), hysterectomy (partial with left oophorectomy), other Psychiatric history: Reports: anxiety, depression, panic disorder, prior suicide attempt, previous psychiatric hospitalization HOT BREAD BAKER history: Reports: no HOT BREAD BAKER history - Social History Smoking Status: Never smoker Alcohol use: Reports: none Drug use: Reports: none Physical Exam - General Limitations: no limitations General appearance: alert - Head Head exam: atraumatic, normocephalic, normal inspection - Eye Eye exam: Present: normal appearance, PERRL, EOMI - ENT ENT exam: normal exam, normal oropharynx, mucous membranes moist - Neck Neck exam: Present: normal inspection, full ROM, trachea midline - Respiratory Respiratory exam: Present: normal lung sounds bilaterally - Cardiovascular Cardiovascular exam: Present: regular rate, normal rhythm, normal heart sounds - Abdominal Exam Abdominal exam: Present: soft, Non-Tender. Absent: tenderness, distention, guarding, rebound, rigidity - Extremities Exam Extremities exam: Present: normal inspection, full ROM. Absent: tenderness, pedal edema - Expanded Lower Extremity Exam Neurovascular/Tendon exam: Absent: motor deficit, sensory deficit, tendon deficit Gait: observed and normal - Back Exam Back exam: Present: normal inspection, full ROM. Absent: tenderness - Neurological Exam Neurological exam: Present: alert, oriented X3 - Psychiatric Psychiatric exam: Present: normal affect, normal mood - Skin Skin exam: Present: warm, dry, intact, normal color Course - Reevaluation(s) Reevaluation #1: 67-year-old with cardiac risk factors who comes in complaining of chest pain. Workup here included a negative troponin chest x-ray was clear EKG shows no acute change. Patient will be admitted for observation. Time: 18:27 - Consultations Consultation #1: Discussed with Clarisa Castañeda nurse practitioner accepts. Time: 18:29 Vital Signs Temperature 98.1 F 04/06/17 14:35 Pulse Rate 78 04/06/17 14:35 Respiratory Rate 18 04/06/17 14:35 Blood Pressure 173/82 04/06/17 14:35 O2 Sat by Pulse Oximetry 96 04/06/17 14:35 Temperature 98.1 F 04/06/17 14:35 Pulse Rate 54 04/06/17 16:30 Respiratory Rate 16 04/06/17 16:30 Blood Pressure 153/73 04/06/17 16:30 O2 Sat by Pulse Oximetry 98 04/06/17 16:30 Oxygen Delivery Oxygen Delivery Nasal Cannula Chest Pain - Lab Data Lab results reviewed: Yes I reviewed the patient's lab results. Result diagrams: 04/06/17 16:28 04/06/17 16:28 Lab Results 04/06/17 04/06/17 04/06/17 Range/Units 16:28 16:28 16:28 WBC 9.8 (4.3-11.1) K/mcL RBC 4.72 (3.82-4.97) M/mcL Hgb 12.5 (11.5-15.4) g/dL Hct 40.7 (35.3-44.9) % MCV 86.2 (83.0-100.0) fL MCH 26.5 L (28.0-33.3) pg MCHC 30.7 L (31.6-35.5) g/dL RDW 16.8 H (11.5-14.5) % Plt Count 247 (140-400) K/mcL MPV 12.2 (9.4-12.4) fL Immature Gran % 0.3 (0-4) % Seg Neutrophils % 64.1 % Lymphocytes % 21.7 % Monocytes % 8.7 % Eosinophils % 4.2 % Basophils % 1.0 % Neutrophils # 6.3 (1.6-8.9) K/mcL Lymphocytes # 2.1 (0.6-4.6) K/mcL Monocytes # 0.9 (0.0-1.3) K/mcL Eosinophils # 0.4 (0.0-0.6) K/mcL Basophils # 0.1 (0.0-0.2) K/mcL Platelet Estimate Normal (Normal) Immature Plt Fraction 10.7 H (1.1-6.1) % Sodium 141 (136-145) mEq/L Potassium 4.0 (3.5-4.5) mEq/L Chloride 106 (98-109) mEq/L Carbon Dioxide 25 (19-29) mEq/L BUN 17 (7-20) mg/dL Creatinine 1.15 H (0.57-1.11) mg/dL Est GFR ( Amer) 57 L (> 60) Est GFR (Non-Af Amer) 47 L (> 60) BUN/Creatinine Ratio 15 (6-26) Glucose 150 H (70-99) mg/dL Calculated Osmolality 296 (280-300) Calcium 9.9 (8.6-10.8) mg/dL Troponin I 0.02 (0-0.03) ng/mL - Radiology Data Radiology results reviewed: Yes I reviewed the patient's radiology results. Chest X-Ray 04/06/17 15:47 IMPRESSION: No acute cardiopulmonary abnormality. D/ / Joseph Madison MD / Joseph Madison MD Interpreting Provider: Joseph Madison MD - EKG Data EKG attestation: Yes I reviewed and interpreted this EKG. EKG shows normal: sinus rhythm Rate: normal Rhythm: NSR Voltage: c/w LVH Interpretation: no acute changes Heart Score - Score History: Moderately Suspicious EKG: Normal Age: Greater than 65 Risk Factors: Equal/Greater than 3 risk factor or history of atherosclerotic disease Troponin: Less than normal limit HEART Score Total: 5
[2017-04-06 16:39] LABS: Basophils # 0.1 K/mcL (0.0-0.2); Eosinophils # 0.4 K/mcL (0.0-0.6); Eosinophils % 4.2 %; Hematocrit 40.7 % (35.3-44.9); Hemoglobin 12.5 g/dL (11.5-15.4); Immature Granulocytes % 0.3 % (0-4); Immature Platelets 10.7 % (1.1-6.1); Lymphocytes # 2.1 K/mcL (0.6-4.6); Lymphocytes % 21.7 %; Mean Corpuscular HGB Conc 30.7 g/dL (31.6-35.5); Mean Corpuscular Hemoglobin 26.5 pg (28.0-33.3); Mean Corpuscular Volume 86.2 fL (83.0-100.0); Mean Platelet Volume 12.2 fL (9.4-12.4); Monocytes # 0.9 K/mcL (0.0-1.3); Monocytes % 8.7 %; Neutrophils # 6.3 K/mcL (1.6-8.9); Platelet Count 247 K/mcL (140-400); Red Blood Count 4.72 M/mcL (3.82-4.97); Red Cell Distribution Width 16.8 % (11.5-14.5); Segmented Neutrophils % 64.1 %
[2017-04-06 16:49] LABS: Calcium 9.9 mg/dL (8.6-10.8)
[2017-04-06 17:16] LABS: Platelet Estimate Normal (Normal)
[2017-04-06 18:26] LABS: Prothrombin Time 22.1 Seconds (9.4-12.1)
[2017-04-06 18:30] LABS: Activated Partial Thrombo Time 34.7 Seconds (26.0-36.0)
[2017-04-07] MEDS ORDERED: clonazePAM 1 MG TABLET PO PRN (00:05)
[2017-04-07] MEDS ORDERED: *HR* Warfarin 3 MG TABLET PO SCH (00:15)
--- NOTE | 2017-04-07 00:24 | Internal Med History&Physical ---
Date of Encounter: 04/07/17 Time of Encounter: 00:18 Assessment and Plan (1) Paroxysmal a-fib Current visit: Yes Status: Acute Currently normal sinus rhythm. continue anticoagulation with Coumadin. INR 2. (2) Hypertension Current visit: No Status: Chronic Continue home medications. Qualifiers: Hypertension type: essential hypertension Qualified Code(s): I10 - Essential (primary) hypertension (3) Type 2 diabetes mellitus Current visit: No Status: Chronic Sliding scale insulin. Qualifiers: Diabetes mellitus complication status: with kidney complications Diabetes mellitus complication detail: with chronic kidney disease Diabetes mellitus superintendent terminal insulin use: without long-term use Chronic kidney disease stage: stage 3 (moderate) Qualified Code(s): E11.22 - Type 2 diabetes mellitus with diabetic chronic kidney disease; N18.3 - Chronic kidney disease, stage 3 ( moderate) (4) Chest pain Current visit: No Status: Acute Initial troponin normal. electrocardiogram is unchanged from previous. Check serial troponin's. Electrocardiogram. Telemetry monitoring. Cardiology consultation. Patient still having pain I will put nitroderm patch on. Qualifiers: Chest pain type: precordial pain Qualified Code(s): R07.2 - Precordial pain Internal Medicine - H&P: HPI Chief complaint: chest pain History of present illness: Ms. Browning is a 67 year old female with history of cabg presents emergency room stay with chest pain. For the past 2 days patient mentioned that she has been having constant pain not improving was sublingual nitroglycerin. She mentioned that her blood pressure has been elevated the past couple days systolic up to 180s. She denies any clear relation of pain with exertion. No worsening of the pain with inspiration. She had a recent stress test last month showed no evidence of reversible ischemia. She was seen by Dr. Miramontes today cause of constant pain advisor to come to emergency room for further evaluation. Past Med Surg Social Fam HX - Past Medical History Medical history: arthritis, atrial fibrillation, CHF, coronary artery disease, diabetes, fibromyalgia, GERD, hyperlipidemia, hypertension, migraine, thyroid disease, other Psychiatric history: anxiety, depression, panic disorder, prior suicide attempt , previous psychiatric hospitalization - Past Surgical History Surgical History: angioplasty/stent, cataract, cholecystectomy, coronary bypass (CABG), hysterectomy, other - Social History Smoking Status: Never smoker Smokeless Tobacco Status: No Alcohol use: none Drug use: none - Family History Mother Adopted: No Family Member Ethnicity: Non- Living Status: Hx Family Cardiac Disorders: Yes Hx Family Neurologic Disorders: Yes (migraines) Father Living Status: Still Living Hx Family Cardiac Disorders: Yes Hx Family Cancer: Yes (skin cancer) Internal Medicine - H&P: Meds Aspirin 81 mg PO DAILY 03/27/16 [History] Ascorbate Calcium [Vitamin C] 500 mg PO DAILY 05/21/16 [History] Calcium Carbonate/Vitamin D3 [Caltrate 600 + D Soft Chew Tab] 1 each PO DAILY [History] Cholecalciferol (D-3) [Vitamin D] 1,000 unit PO DAILY 05/21/16 [History] Dicyclomine [Bentyl] 10 mg PO BID 05/21/16 [History] Duloxetine HCl [Cymbalta] 60 mg PO BID 05/21/16 [History] Esomeprazole Magnesium [Nexium] 40 mg PO HS 05/21/16 [History] Evolocumab [Repatha Syringe] 140 mg SQ Q2W 05/21/16 [History] Fluticasone Propionate Nasal [Flonase] 50 mcg NS DAILY 05/21/16 [History] Fluvastatin Sodium [Lescol Xl] 80 mg PO QPM 05/21/16 [History] Furosemide [Lasix] 20 mg PO DAILY 05/21/16 [History] Hydrochlorothiazide [Microzide] 25 mg PO DAILY 05/21/16 [History] Loratadine [Claritin] 10 mg PO DAILY 05/21/16 [History] Nitroglycerin [Nitrostat] 0.4 mg SL Q5M PRN 05/21/16 [History] cloNIDine HCl [CloNIDine HCl] 0.1 mg PO BID 05/21/16 [History] clonazePAM [Klonopin] 1 mg PO TID PRN 05/21/16 [History] Fenofibrate,Micronized [Lofibra] 200 mg PO DAILY 05/28/16 [History] Magnesium Chloride [Magnesium Dr] 64 mg PO BID 05/28/16 [History] Prazosin HCl [Minipress] 2 mg PO HS 06/10/16 [History] Gabapentin [Neurontin] 1,200 mg PO TID 06/11/16 [History] Metoprolol [Lopressor] 50 mg PO BID 03/05/17 [History] Levothyroxine Sodium 75 mcg PO DAILY 03/29/17 [History] Potassium Chloride [K-Tab ER] 30 meq PO QAM 03/29/17 [History] amLODIPine [Norvasc] 5 mg PO DAILY 03/29/17 [History] Potassium Chloride [K-Tab ER] 20 meq PO QPM 04/06/17 [History] Warfarin [Coumadin] 1.5 mg PO MOTUWETHFR 04/06/17 [History] Warfarin [Coumadin] 3 mg PO SUSA 04/06/17 [History] Allergies acetaminophen [From Percocet] Allergy (Verified 10/11/16 21:00) Hallucinating amlodipine Allergy (Verified 10/11/16 21:00) See Comments unknown per patient ibuprofen Allergy (Verified 10/11/16 21:00) Nausea metoclopramide [From Reglan] Allergy (Verified 10/11/16 21:00) Nausea morphine Allergy (Verified 10/11/16 21:00) Difficulty Breathing Oxycodone [From Percocet] Allergy (Verified 10/11/16 21:00) Difficulty Breathing propoxyphene [From Darvocet-N] Allergy (Verified 10/11/16 21:00) Anxiety Btqnkjc-Obi-Oyp Reductase Inhibitor [Statins] Allergy (Verified 02/07/17 18:46) See Comments worsens fibromyalgia amitriptyline [From Elavil] Adverse Reaction (Verified 10/11/16 21:00) Headache apixaban [From Eliquis] Adverse Reaction (Verified 04/06/17 15:32) Muscle Pain aripiprazole [From Abilify] Adverse Reaction (Verified 10/11/16 21:00) Anxiety codeine Adverse Reaction (Verified 10/11/16 21:00) Nausea guaifenesin [From Mucinex] Adverse Reaction (Verified 10/11/16 21:00) Headache Hydromorphone [From Dilaudid] Adverse Reaction (Verified 10/11/16 21:00) Chills isosorbide Adverse Reaction (Verified 10/11/16 21:00) Headache Methylphenidate [From Ritalin] Adverse Reaction (Verified 10/11/16 21:00) Diarrhea prednisone Adverse Reaction (Verified 10/11/16 21:00) Anxiety pregabalin [From Lyrica] Adverse Reaction (Verified 10/11/16 21:00) Diarrhea sucralfate Adverse Reaction (Verified 10/11/16 21:00) Diarrhea valsartan [From Diovan] Adverse Reaction (Verified 10/11/16 21:00) Muscle Pain All Systems PM: A 10-system review of systems was performed and is negative for pertinent findings except as documented above in the HPI. Review of systems: 10.2 dual systems is negative except for HPI - Constitutional Vitals: Temp Pulse Resp BP Pulse Ox 99.1 F 56 16 138/84 98 04/06/17 20:18 04/06/17 20:18 04/06/17 20:18 04/06/17 20:18 04/06/17 20:18 Exam: Gen.: patient is alert oriented times 3 cardiac: normal S1 S2 no additional sounds or murmurs chest: no active wheezing or bronchial breathing abdomen soft nontender nondistended normal bowel sounds lower extremity no swelling. Neuro: no new focal deficits Internal Med - H&P Results - Labs CBC & Chem 7: 04/06/17 16:28 04/06/17 16:28
[2017-04-07 06:31] LABS: INR 1.9; Prothrombin Time 20.6 Seconds (9.4-12.1)
[2017-04-07] MEDS: Fenofibrate 54 MG TABLET PO SCH (07:58)
[2017-04-07] MEDS: Nitroglycerin 0.2 MG PATCH.TD24 TD SCH (07:58)
[2017-04-07] MEDS: amLODIPine 5 MG TABLET PO SCH (07:58)
[2017-04-07] MEDS: Ascorbic Acid 500 MG TABLET PO SCH (07:58)
[2017-04-07] MEDS: cloNIDine HCl 0.1 MG TABLET PO SCH ×2 (07:58→21:55)
[2017-04-07] MEDS: Aspirin 81 MG TAB.CHEW PO SCH (07:59)
[2017-04-07] MEDS: Loratadine 10 MG TABLET PO SCH (07:59)
[2017-04-07] MEDS: Furosemide 40 MG TABLET PO SCH (07:59)
[2017-04-07] MEDS: Gabapentin 400 MG CAPSULE PO SCH ×3 (07:59→21:56)
[2017-04-07] MEDS: Fluticasone Propionate Nasal 50 MCG/SPRAY BOTTLE NS SCH (08:08)
--- NOTE | 2017-04-07 11:18 | Cardiology Consult Note ---
Date of Encounter: 04/07/17 Time of Encounter: 10:00 Assessment and Plan (1) Chest pain Current Visit: No Status: Acute Presents with typical and atypical chest pain symptoms. Stress test one month ago negative for ischemia. LHC verses medical managment discussed. Cardiac catheterization 09/02/2016: Left main 80% hazy stenosis. LAD patent stent. D1 mild disease. Circumflex/OM on minimal disease. RCA mid 20% stenosis. SVG to OM1 patent. DE OLIVEIRA to mid LAD patent. LMCA only supplying 1st diagonal artery and there was collaterals and grafts supplying left system. Medical management was recommended for initial treatment. She is intolerant to imdur d/ t headaches. Recent hospital stay for chest pain. Better blood pressure control recommended. [facility] indication, benefit, alternatives, and risks discussed. I will discuss further with Dr. Geovanni Lindo. Qualifiers: Chest pain type: unspecified Qualified Code(s): R07.9 - Chest pain, unspecified (2) CAD (coronary artery disease), [place] coronary artery Current Visit: No Status: Chronic CAD s/p 2v CABG. Cardiac catheterization 09/02/2016: Left main 80% hazy stenosis. LAD patent stent. D1 mild disease. Circumflex/OM on minimal disease. RCA mid 20% stenosis. SVG to OM1 patent. DE OLIVEIRA to mid LAD patent. Continue asa, statin, and bb. Qualifiers: [place] vs. transplanted heart: [place] heart Associated angina: with stable angina Qualified Code(s): I25.118 - Atherosclerotic heart disease of [place] coronary artery with other forms of angina pectoris (3) PAF (paroxysmal atrial fibrillation) Current Visit: No Status: Chronic Currently NSR. Anticoagulated on coumadin. Hold coumadin for possible LHC. (4) Hypertension Current Visit: No Status: Chronic Currently hypertensive. B/p medications (losartan, HCTZ) on hold for mild FAMILIA. Recheck kidney function and start losartan if able. Started on amlodipine. Continue metoprolol and clonidine. Qualifiers: Hypertension type: essential hypertension Qualified Code(s): I10 - Essential (primary) hypertension Discussion w patient/family: The assessment and plan as outlined above was discussed with the patient and/or family members who expressed understanding and agreement. All questions were answered. Thank you for involving us in the care of your patient. Please call with any questions. History of Present Illness Consult date: 04/07/17 Requesting physician: Mark Soto Consult reason: Chest pain Chief complaint: Chest pain History of present illness: Ms. Browning is a 67 year old female with a significant past medical history for CAD s/p CABG x2 vessels, PAF on coumadin, and hypertension. She presented to the hospital with the c/o constant chest pain for 4 days. She describes heaviness across her upper chest that radiates into he left neck and shoulder. Her pain increases with physical activity and improves with rest. She reports taking SL NTG that caused her to have nausea. She c/o dyspnea on exertion. Reports chronic reproducible chest wall pain related to her fibromyalgia. She was currently being treated for UTI. She was seen one month ago at [facility] for chest pain rule out. She underwent a stress test at that time that was negative for ischemia. Previous testing: Stress test: 02/2017- Pharmacologic ECG was non-diagnostic. Perfusion imaging was negative for ischemia or infarct. Echocardiogram 05/07/2015: EF 70%. Mild concentric LVH. Mild pulmonary hypertension. Limited echocardiogram 09/01/2016: EF 60%. Normal LV size and function. Normal RV size and function. Cardiac catheterization 09/02/2016: Left main 80% hazy stenosis. LAD patent stent. D1 mild disease. Circumflex/OM on minimal disease. RCA mid 20% stenosis. SVG to OM1 patent. DE OLIVEIRA to mid LAD patent. Lexiscan nuclear stress test 05/11/2016: Gated EF 72%. Medium-sized, mild intensity, reversible perfusion defect throughout the anterior segments consistent with mild ischemia. Past Med Surg Social Fam HX - Past Medical History Attestation: Yes The following information was validated with the patient. Medical history: arthritis, atrial fibrillation, CHF, coronary artery disease, diabetes, fibromyalgia, GERD, hyperlipidemia, hypertension, migraine, thyroid disease, other Psychiatric history: anxiety, depression, panic disorder, prior suicide attempt , previous psychiatric hospitalization - Past Surgical History Surgical History: angioplasty/stent, cataract, cholecystectomy, coronary bypass (CABG), hysterectomy, other - Social History Smoking Status: Never smoker Smokeless Tobacco Status: No Alcohol use: none Drug use: none - Family History Mother Adopted: No Family Member Ethnicity: Non- Living Status: Hx Family Cardiac Disorders: Yes Hx Family Neurologic Disorders: Yes (migraines) Father Living Status: Still Living Hx Family Cardiac Disorders: Yes Hx Family Cancer: Yes (skin cancer) Medications and Allergies Aspirin 81 mg PO DAILY 03/27/16 [History] Ascorbate Calcium [Vitamin C] 500 mg PO DAILY 05/21/16 [History] Calcium Carbonate/Vitamin D3 [Caltrate 600 + D Soft Chew Tab] 1 each PO DAILY [History] Cholecalciferol (D-3) [Vitamin D] 1,000 unit PO DAILY 05/21/16 [History] Dicyclomine [Bentyl] 10 mg PO BID 05/21/16 [History] Duloxetine HCl [Cymbalta] 60 mg PO BID 05/21/16 [History] Esomeprazole Magnesium [Nexium] 40 mg PO HS 05/21/16 [History] Evolocumab [Repatha Syringe] 140 mg SQ Q2W 05/21/16 [History] Fluticasone Propionate Nasal [Flonase] 50 mcg NS DAILY 05/21/16 [History] Fluvastatin Sodium [Lescol Xl] 80 mg PO QPM 05/21/16 [History] Furosemide [Lasix] 20 mg PO DAILY 05/21/16 [History] Hydrochlorothiazide [Microzide] 25 mg PO DAILY 05/21/16 [History] Loratadine [Claritin] 10 mg PO DAILY 05/21/16 [History] Nitroglycerin [Nitrostat] 0.4 mg SL Q5M PRN 05/21/16 [History] cloNIDine HCl [CloNIDine HCl] 0.1 mg PO BID 05/21/16 [History] clonazePAM [Klonopin] 1 mg PO TID PRN 05/21/16 [History] Fenofibrate,Micronized [Lofibra] 200 mg PO DAILY 05/28/16 [History] Magnesium Chloride [Magnesium Dr] 64 mg PO BID 05/28/16 [History] Prazosin HCl [Minipress] 2 mg PO HS 06/10/16 [History] Gabapentin [Neurontin] 1,200 mg PO TID 06/11/16 [History] Metoprolol [Lopressor] 50 mg PO BID 03/05/17 [History] Levothyroxine Sodium 75 mcg PO DAILY 03/29/17 [History] Potassium Chloride [K-Tab ER] 30 meq PO QAM 03/29/17 [History] amLODIPine [Norvasc] 5 mg PO DAILY 03/29/17 [History] Potassium Chloride [K-Tab ER] 20 meq PO QPM 04/06/17 [History] Warfarin [Coumadin] 1.5 mg PO MOTUWETHFR 04/06/17 [History] Warfarin [Coumadin] 3 mg PO SUSA 04/06/17 [History] Allergies acetaminophen [From Percocet] Allergy (Verified 10/11/16 21:00) Hallucinating amlodipine Allergy (Verified 10/11/16 21:00) See Comments unknown per patient ibuprofen Allergy (Verified 10/11/16 21:00) Nausea metoclopramide [From Reglan] Allergy (Verified 10/11/16 21:00) Nausea morphine Allergy (Verified 10/11/16 21:00) Difficulty Breathing Oxycodone [From Percocet] Allergy (Verified 10/11/16 21:00) Difficulty Breathing propoxyphene [From Darvocet-N] Allergy (Verified 10/11/16 21:00) Anxiety Zncwazu-Cvu-Zec Reductase Inhibitor [Statins] Allergy (Verified 02/07/17 18:46) See Comments worsens fibromyalgia amitriptyline [From Elavil] Adverse Reaction (Verified 10/11/16 21:00) Headache apixaban [From Eliquis] Adverse Reaction (Verified 04/06/17 15:32) Muscle Pain aripiprazole [From Abilify] Adverse Reaction (Verified 10/11/16 21:00) Anxiety codeine Adverse Reaction (Verified 10/11/16 21:00) Nausea guaifenesin [From Mucinex] Adverse Reaction (Verified 10/11/16 21:00) Headache Hydromorphone [From Dilaudid] Adverse Reaction (Verified 10/11/16 21:00) Chills isosorbide Adverse Reaction (Verified 10/11/16 21:00) Headache Methylphenidate [From Ritalin] Adverse Reaction (Verified 10/11/16 21:00) Diarrhea prednisone Adverse Reaction (Verified 10/11/16 21:00) Anxiety pregabalin [From Lyrica] Adverse Reaction (Verified 10/11/16 21:00) Diarrhea sucralfate Adverse Reaction (Verified 10/11/16 21:00) Diarrhea valsartan [From Diovan] Adverse Reaction (Verified 10/11/16 21:00) Muscle Pain All Systems Review: A 10-system review of systems was performed and is negative for pertinent findings except as documented above in the HPI. Physical Examination Vital Signs, Last 4 Hours Temp Pulse Resp BP Pulse Ox 04/07/17 10:55 98.1 F 69 16 171/78 96 04/07/17 07:28 97.8 F 64 16 163/84 98 General: Conversant, No Apparent Distress HEENT: Atraumatic, Normocephaly, Mucus Membranes Moist Neck: No JVD, Normal carotid pulses Cardiac: Reg Rate and Rhythm, Normal S1 and S2, No Murmur Lungs: Normal Breath Sounds, No Wheeze, Rales, Rhonchi Neuro: Alert and responsive, No focal deficits noted Abdomen: Soft, Non-Tender Skin: No rashes noted on visualized skin Musculoskeletal: Other (reproducible chest wall pain. ) Extremities: No Clubbing, No Cyanosis, No Edema, Normal Pulses Results 04/06/17 16:28 04/06/17 16:28 Lab Results 04/07/17 04/07/17 04/07/17 00:31 06:10 06:10 INR 1.9 Troponin I 0.02 0.02 - EKG Interpretation EKG results cardiology: personally reviewed (SR with no acute ST changes.) Consult Discharge Plan - Plan Referrals: Fabiola Aguilar MD [Primary Care Provider] -
[2017-04-07 13:40] LABS: BUN/Creatinine Ratio 20 (6-26); Blood Urea Nitrogen 19 mg/dL (7-20); Carbon Dioxide 27 mEq/L (19-29); Chloride 102 mEq/L (98-109); Glucose 179 mg/dL (70-99); Osmolality,Calculated 295 (280-300); Potassium 3.5 mEq/L (3.5-4.5); Sodium 139 mEq/L (136-145); eGFR For African Americans > 60 (> 60); eGFR For Non-African Americans 57 (> 60)
[2017-04-07 14:04] LABS: INR 1.8; Prothrombin Time 20.2 Seconds (9.4-12.1)
--- NOTE | 2017-04-07 15:03 | Electrocardiograph Report ---
[place] [address] Test Date: 2017-04-06 Pat Name: Kaylee Browning Department: 103 Room: 3B22 Gender: F Manager Project: [facility] : 1950 Requested By: Himanshu Cronin Order Number: [id number] Reading MD: Doc Taylor MD Measurements Intervals [place] Rate: 76 P: 31 MO: 145 QRS: -7 QRSD: 87 T: 112 QT: 406 QTc: 436 Interpretive Statements SINUS RHYTHM LEFT ATRIAL ENLARGEMENT LEFT VENTRICULAR HYPERTROPHY AND ST-T CHANGE Poor R wave progression Electronically Signed On 04-07-2017 15:01:45 EDT by Doc Taylor MD
[2017-04-07 15:25] LABS: Bilirubin,Urine Negative (Negative); Blood,Urine Negative (Negative); Clarity,Urine Clear (Clear); Color,Urine Yellow (Yellow); Glucose,Urine (UA) Normal (Normal); Ketones,Urine Negative (Negative); Leukocyte Esterase,Urine Negative (Negative); Nitrite,Urine Negative (Negative); PH,Urine 6.5 pH Units (5.0-8.0); Protein,Urine Negative (Neg-Trace); Urobilinogen,Urine Normal (Normal)
--- NOTE | 2017-04-07 16:24 | Event Note ---
Date of Encounter: 04/07/17 Time of Encounter: 14:30 Patient seen and examined. On examination, patient sitting upright in bed watching television. Patient stating she continues to have a little bit of pressure across her chest but she states it is not overtly painful, just feels like a little bit of pressure. Chest x-ray negative. Cardiology on board. They have recommended medical management after reviewing her heart catheter from August. Patient is unable to take Imdur with side effects of headache and nausea. We will continue her nitro patch and continue upon discharge if she is able to tolerate it. We will add Ranexa back and, she was on Ranexa before but is not currently taking it and she does not remember why she would have stopped it. She claims to never heard of this medication. Renal functioning stable, not enough values for chronic kidney disease stage III diagnosis, mild acute kidney injury noted, will trend. We will observe her overnight and likely discharge tomorrow pending clinical outcomes. Patient is also endorsing dysuria and bladder spasms. In review of her chart, her urine culture from 03/29/17 was negative so unclear why the patient was given a round of Cipro. We will recheck a urinalysis. If it is normal, we will start her on bladder spasm medicine as well as Pyridium for possible interstitial cystitis or another noninfectious etiology. Recommend her follow up outpatient with the urologist. ITS Impressions Chest X-Ray 04/06/17 15:47 IMPRESSION: No acute cardiopulmonary abnormality. D/ / Joseph Madison MD / Joseph Madison MD Interpreting Provider: Joseph Madison MD
[2017-04-07] MEDS ORDERED: Ondansetron 4 MG/2 ML VIAL IVP PRN (16:29)
[2017-04-07] MEDS: Ranolazine 500 MG TAB.ER.12H PO SCH (16:54)
[2017-04-07] MEDS ORDERED: [UNRECOGNIZED DRUG - OTHER] PO SCH (18:00)
[2017-04-07] MEDS ORDERED: Warfarin perPT PO PRN (18:00)
[2017-04-07] MEDS: *HR* Warfarin 3 MG TABLET PO SCH (18:04)
[2017-04-07] MEDS ORDERED: Ranolazine 500 MG TAB.ER.12H PO SCH (21:00)
[2017-04-08] MEDS: Ranolazine 500 MG TAB.ER.12H PO SCH ×2 (05:30→17:23)
[2017-04-08 05:41] LABS: INR 1.9; Prothrombin Time 20.4 Seconds (9.4-12.1)
[2017-04-08 05:52] LABS: Calcium 9.8 mg/dL (8.6-10.8)
[2017-04-08] MEDS: Nitroglycerin 0.2 MG PATCH.TD24 TD SCH (06:27)
[2017-04-08] MEDS: Furosemide 40 MG TABLET PO SCH (08:33)
[2017-04-08] MEDS: cloNIDine HCl 0.1 MG TABLET PO SCH ×2 (08:34→21:41)
[2017-04-08] MEDS: amLODIPine 5 MG TABLET PO SCH (08:34)
[2017-04-08] MEDS: Fluticasone Propionate Nasal 50 MCG/SPRAY BOTTLE NS SCH (08:39)
[2017-04-08] MEDS: Ascorbic Acid 500 MG TABLET PO SCH (08:40)
[2017-04-08] MEDS: Fenofibrate 54 MG TABLET PO SCH (08:40)
[2017-04-08] MEDS: Gabapentin 400 MG CAPSULE PO SCH ×3 (08:40→21:40)
[2017-04-08] MEDS: Loratadine 10 MG TABLET PO SCH (08:41)
[2017-04-08] MEDS: Aspirin 81 MG TAB.CHEW PO SCH (08:41)
[2017-04-08] MEDS ORDERED: 0.9 % Sodium Chloride 1,000 ML IVC SCH ×2 (09:00→19:15)
[2017-04-08] MEDS ORDERED: 0.9 % Sodium Chloride 500 ML IVC SCH (09:49)
--- NOTE | 2017-04-08 10:20 | Cardiology Progress Note ---
Date of Encounter: 04/08/17 Time of Encounter: 10:18 Assessment and Plan (1) Chest pain Current Visit: No Status: Acute Presents with typical and atypical chest pain symptoms. Stress test one month ago negative for ischemia. LHC verses medical managment discussed. Cardiac catheterization 09/02/2016: Left main 80% hazy stenosis. LAD patent stent. D1 mild disease. Circumflex/OM on minimal disease. RCA mid 20% stenosis. SVG to OM1 patent. DE OLIVEIRA to mid LAD patent. LMCA only supplying 1st diagonal artery and there was collaterals and grafts supplying left system. Medical management was recommended for initial treatment. Dr. Doc Taylor reviewed records and recommended continued medical management if no ischemia seen on non-invasive testing. She is intolerant to imdur d/t headaches. NTG TD patch applied and she reports she is tolerating well. Continue in out-pt setting. Ranexa added. Increase to 1000 mg BID. Better blood pressure control recommended. Out-pt f/u with her assistant grocery will be coordinated by [facility] in 2-3 weeks. Cardiology will sign off. Call with questions. Qualifiers: Chest pain type: unspecified Qualified Code(s): R07.9 - Chest pain, unspecified (2) CAD (coronary artery disease), [place] coronary artery Current Visit: No Status: Chronic CAD s/p 2v CABG. Cardiac catheterization 09/02/2016: Left main 80% hazy stenosis. LAD patent stent. D1 mild disease. Circumflex/OM on minimal disease. RCA mid 20% stenosis. SVG to OM1 patent. DE OLIVEIRA to mid LAD patent. Continue asa, statin, and bb. As of note she is on repatha and lescol at home. Discontinue lipitor. Reports reaction in the past. Qualifiers: [place] vs. transplanted heart: [place] heart Associated angina: with stable angina Qualified Code(s): I25.118 - Atherosclerotic heart disease of [place] coronary artery with other forms of angina pectoris (3) PAF (paroxysmal atrial fibrillation) Current Visit: No Status: Chronic Currently NSR. Anticoagulated on coumadin. Ok to restart coumadin. No LHC planned. Goal INR 2.0-3.0. No bridging needed. (4) Hypertension Current Visit: No Status: Chronic B/p improved. B/p medications (losartan, HCTZ) on hold for mild FAMILIA. Started on amlodipine. Continue metoprolol, clonidine, and NTG patch. Qualifiers: Hypertension type: essential hypertension Qualified Code(s): I10 - Essential (primary) hypertension (5) Acute renal injury Current Visit: No Status: Acute Agree with holding losartaan and HCTZ. Consider IV hydration. Your IM care. Discussion w patient/family: The assessment and plan as outlined above was discussed with the patient and/or family members who expressed understanding and agreement. All questions were answered. Thank you for involving us in the care of your patient. Please call with any questions. Subjective Principal diagnosis: Chest pain Interval history: Reports improvement in chest pain. Describe one episode this morning when going to the bathroom. Objective Vital Signs, Last 4 Hours Temp Pulse Resp BP Pulse Ox 04/08/17 08:30 97.7 F 65 16 102/64 93 04/08/17 06:57 97.5 F L 61 14 143/85 99 General: Conversant, No Apparent Distress HEENT: Atraumatic, Normocephaly, Mucus Membranes Moist Neck: No JVD, Normal carotid pulses Cardiac: Reg Rate and Rhythm, Normal S1 and S2, No Murmur Lungs: Normal Breath Sounds, No Wheeze, Rales, Rhonchi Neuro: Alert and responsive, No focal deficits noted Abdomen: Soft, Non-Tender Skin: No rashes noted on visualized skin Musculoskeletal: No Chest Wall Tenderness Extremities: No Clubbing, No Cyanosis, No Edema, Normal Pulses Results 04/06/17 16:28 04/08/17 05:17 Lab Results 04/07/17 04/07/17 04/08/17 13:17 13:17 05:17 INR 1.8 1.9 Sodium 139 Potassium 3.5 Chloride 102 Carbon Dioxide 27 BUN 19 Creatinine 0.97 Glucose 179 H Calcium 10.0 04/08/17 05:17 INR Sodium 140 Potassium 4.0 Chloride 103 Carbon Dioxide 29 BUN 28 H Creatinine 1.79 H D Glucose 193 H Calcium 9.8 - EKG Interpretation EKG results cardiology: personally reviewed Consult Discharge Plan - Plan Referrals: Fabiola Aguilar MD [Primary Care Provider] - 04/15/17 10:45 am
[2017-04-08] MEDS ORDERED: Ranolazine 500 MG TAB.ER.12H PO SCH (10:30)
[2017-04-08 14:45] LABS: Calcium 9.4 mg/dL (8.6-10.8); Potassium 3.8 mEq/L (3.5-4.5)
[2017-04-08] MEDS: *HR* Warfarin 3 MG TABLET PO SCH (17:23)
[2017-04-08 17:52] LABS: Calcium 9.7 mg/dL (8.6-10.8); Potassium 3.9 mEq/L (3.5-4.5)
--- NOTE | 2017-04-08 19:02 | Internal Med Progress Note ---
Date of Encounter: 04/08/17 Time of Encounter: 10:30 (and 1430) - Assessment and plan (1) Acute renal injury Current Visit: No Status: Acute Assessment and plan: Unknown causation, gentle IV fluids, observe overnight, recheck in the morning. (2) Chest pain Current Visit: No Status: Resolved Assessment and plan: Patient currently denies chest pain or shortness of breath. Chest x-ray negative. Seen and evaluated by cardiology who recommended medical management. She cannot tolerate Imdur. She is tolerating nitroglycerin patch well and this will be continued upon discharge. Ranexa has also been added to her regimen and she will follow up outpatient with cardiology in 2-3 weeks. ITS Impressions Chest X-Ray 04/06/17 15:47 IMPRESSION: No acute cardiopulmonary abnormality. D/ / Joseph Madison MD / Joseph Madison MD Interpreting Provider: Joseph Madison MD Qualifiers: Chest pain type: unspecified Qualified Code(s): R07.9 - Chest pain, unspecified (3) Depression Current Visit: No Status: Chronic Assessment and plan: Patient has a flat affect. She denied suicidal ideation. She did tell her nurse however that she is close to getting to her breaking point. Her was recently admitted to residential status post TURP. She states her father is also coming home to live with her. She seems overwhelmed, we will continue to investigate an attempt to obtain resources for her. Qualifiers: Depression Type: unspecified Qualified Code(s): F32.9 - Major depressive disorder, single episode, unspecified (4) CAD (coronary artery disease), [place] coronary artery Current Visit: No Status: Chronic Qualifiers: [place] vs. transplanted heart: [place] heart Associated angina: with stable angina Qualified Code(s): I25.118 - Atherosclerotic heart disease of [place] coronary artery with other forms of angina pectoris (5) Hypertension Current Visit: No Status: Chronic Assessment and plan: Controlled, we will continue to trend Qualifiers: Hypertension type: essential hypertension Qualified Code(s): I10 - Essential (primary) hypertension (6) Type 2 diabetes mellitus Current Visit: No Status: Chronic Assessment and plan: Controlled with a recent A1c of 7.6%. Continue sliding scale while admitted. Qualifiers: Diabetes mellitus complication status: with kidney complications Diabetes mellitus complication detail: with chronic kidney disease Diabetes mellitus intermediate teacher insulin use: without intermediate teacher use Chronic kidney disease stage: stage 3 (moderate) Qualified Code(s): E11.22 - Type 2 diabetes mellitus with diabetic chronic kidney disease; N18.3 - Chronic kidney disease, stage 3 ( moderate) (7) Hypothyroidism Current Visit: No Status: Chronic Assessment and plan: TSH checked last month, normal Qualifiers: Hypothyroidism type: acquired Qualified Code(s): E03.9 - Hypothyroidism, unspecified (8) PAF (paroxysmal atrial fibrillation) Current Visit: No Status: Chronic Assessment and plan: Rate controlled. Anticoagulated with Coumadin (9) GERD (gastroesophageal reflux disease) Current Visit: No Status: Chronic Assessment and plan: Denies current symptoms Qualifiers: Esophagitis presence: without esophagitis Qualified Code(s): K21.9 - Gastro -esophageal reflux disease without esophagitis (10) DVT prophylaxis Current Visit: No Status: Acute Assessment and plan: On Coumadin. INR 1.9 today, pharmacy to dose (11) Fibromyalgia Current Visit: No Status: Chronic (12) Anxiety Current Visit: No Status: Chronic (13) UTI (urinary tract infection) Current Visit: No Status: Ruled-out Assessment and plan: Ruled out. No indication for antibiotics. Suspect she has interstitial cystitis. Started on ditropan and Pyridium, patient's dysuria is lessened greatly today. Qualifiers: Urinary tract infection type: acute cystitis Hematuria presence: without hematuria Qualified Code(s): N30.00 - Acute cystitis without hematuria (14) Diastolic heart failure Current Visit: Yes Status: Chronic Assessment and plan: Recent echocardiogram revealing preserved ejection fraction with mild diastolic dysfunction. She is on diuretics at home. She is euvolemic on examination. Chronic diastolic heart failure, no acute exacerbation - Subjective Interval history: Patient seen and examined. On examination, patient sitting upright in bed. Patient alert and oriented x3 and currently denies pain or concerns. - Constitutional Vitals: Temp Pulse Resp BP Pulse Ox 98.2 F 73 16 110/63 97 04/08/17 18:29 04/08/17 18:29 04/08/17 18:29 04/08/17 18:29 04/08/17 18:29 General appearance: Present: A&O X 3, pleasant, no acute distress, answers questions appropriately - Head Head exam: Present: atraumatic, normocephalic - Eye Eye exam: Present: PERRL, conjuntiva pink, sclera anicteric Pupils: Present: PERRL - Neck Neck exam general surgery: Present: supple, trachea midline. Absent: lymphadenopathy - Respiratory Respiratory exam: Present: CTAB. Absent: accessory muscle use, rales, respiratory distress, rhonchi, wheezes - Cardiovascular Cardiovascular exam: Present: RRR, +S1, +S2. Absent: diastolic murmur, gallop, rubs, systolic murmur - GI/Abdominal GI/Abdominal exam: Present: normal bowel sounds, soft, tenderness (lower abd), no peritoneal signs. Absent: distended - Extremities Exam Extremities exam: Present: warm, radial pulses palpable and symetrical. Absent : calf tenderness, cyanotic, pedal edema - Neurological Exam Neurological exam: Present: alert, CN II-XII intact, oriented X3, no focal deficits, strengths equal and symetr throughout. Absent: pronater drift, facial droop, speech deficit - Psychiatric Psychiatric exam: Present: flat affect. Absent: suicidal ideation - Skin Skin exam: Present: dry, intact, normal color, warm Internal Medicine: Result - Labs CBC & Chem 7: 04/06/17 16:28 04/08/17 17:35 Labs: BMP 04/08/17 04/08/17 04/08/17 05:17 14:28 17:35 Sodium 140 140 139 Potassium 4.0 3.8 3.9 Chloride 103 105 104 Carbon Dioxide 29 26 27 BUN 28 H 34 H 34 H Creatinine 1.79 H D 1.86 H 1.60 H Glucose 193 H 211 H 193 H Calcium 9.8 9.4 9.7 - ABG Interpretation ABG results: PT/INR, D-dimer PT 20.4 Seconds (9.4-12.1) H 04/08/17 05:17 Consult Discharge Plan - Plan Referrals: Fabiola Aguilar MD [Primary Care Provider] - 04/15/17 10:45 am
[2017-04-08] MEDS ORDERED: *HR* Dextrose 50 % in Water (Syg) 50 ML SYRINGE IVP PRN (19:28)
[2017-04-08] MEDS ORDERED: D5% in Water 1,000 ML IVC PRN (19:28)
[2017-04-08] MEDS ORDERED: Dextrose Gel 15 GM PO PRN ×2 (19:28)
[2017-04-08] MEDS ORDERED: Insulin LISPRO 300 UNITS/3 ML VIAL SQ SCH (21:00)
[2017-04-09] MEDS: Ranolazine 500 MG TAB.ER.12H PO SCH (06:24)
[2017-04-09 06:52] LABS: INR 2.4; Prothrombin Time 26.5 Seconds (9.4-12.1)
[2017-04-09 07:14] LABS: Calcium 9.1 mg/dL (8.6-10.8); Potassium 4.2 mEq/L (3.5-4.5)
[2017-04-09] MEDS: Fluticasone Propionate Nasal 50 MCG/SPRAY BOTTLE NS SCH (08:36)
[2017-04-09] MEDS: Gabapentin 400 MG CAPSULE PO SCH (08:37)
[2017-04-09] MEDS: cloNIDine HCl 0.1 MG TABLET PO SCH (08:37)
[2017-04-09] MEDS: Loratadine 10 MG TABLET PO SCH (08:37)
[2017-04-09] MEDS: Fenofibrate 54 MG TABLET PO SCH (08:37)
[2017-04-09] MEDS: Ascorbic Acid 500 MG TABLET PO SCH (08:37)
[2017-04-09] MEDS: Aspirin 81 MG TAB.CHEW PO SCH (08:38)
[2017-04-09] MEDS: amLODIPine 5 MG TABLET PO SCH (08:38)
[2017-04-09] MEDS: Nitroglycerin 0.2 MG PATCH.TD24 TD SCH (08:39)
[2017-04-09] MEDS: Insulin LISPRO 300 UNITS/3 ML VIAL SQ SCH ×2 (08:40→12:19)
[2017-04-09 11:38] VITALS: BP 119/70
--- NOTE | 2017-04-09 12:53 | Discharge Summary ---
Date of Encounter: 04/09/17 Time of Encounter: 10:30 - Discharge Diagnosis (1) Acute renal injury Priority: Primary Status: Acute Comments: improving on day of discharge; followup outpatient (2) Chest pain Priority: Primary Status: Resolved Comments: Patient denied chest pain or shortness of breath while admitted. Chest x-ray negative. Seen and evaluated by cardiology who recommended medical management. She cannot tolerate Imdur. She is tolerating nitroglycerin patch well and this will be continued upon discharge. Ranexa has also been added to her regimen and she will follow up outpatient with cardiology in 2-3 weeks. ITS Impressions Chest X-Ray 04/06/17 15:47 IMPRESSION: No acute cardiopulmonary abnormality. D/ / Joseph Madison MD / Joseph Madison MD Interpreting Provider: Joseph Madison MD Qualifiers: Chest pain type: unspecified Qualified Code(s): R07.9 - Chest pain, unspecified (3) Depression Priority: Secondary Status: Chronic Comments: Patient denies suicidal ideation. She did tell her nurse however that she is close to getting to her breaking point. Her was recently admitted to correction status post TURP. She states her father is also coming home to live with her. She seems overwhelmed, and she was given resources per aids social worker Qualifiers: Depression Type: unspecified Qualified Code(s): F32.9 - Major depressive disorder, single episode, unspecified (4) CAD (coronary artery disease), [place] coronary artery Priority: Secondary Status: Chronic Qualifiers: [place] vs. transplanted heart: [place] heart Associated angina: with stable angina Qualified Code(s): I25.118 - Atherosclerotic heart disease of [place] coronary artery with other forms of angina pectoris (5) Hypertension Priority: Secondary Status: Chronic Comments: Controlled, follow-up outpatient Qualifiers: Hypertension type: essential hypertension Qualified Code(s): I10 - Essential (primary) hypertension (6) Type 2 diabetes mellitus Priority: Secondary Status: Chronic Comments: Controlled with a recent A1c of 7.6%. Follow-up outpatient Qualifiers: Diabetes mellitus complication status: with kidney complications Diabetes mellitus complication detail: with chronic kidney disease Diabetes mellitus nursing home insulin use: without nursing home use Chronic kidney disease stage: stage 3 (moderate) Qualified Code(s): E11.22 - Type 2 diabetes mellitus with diabetic chronic kidney disease; N18.3 - Chronic kidney disease, stage 3 ( moderate) (7) Hypothyroidism Priority: Secondary Status: Chronic Comments: TSH checked last month, normal Qualifiers: Hypothyroidism type: acquired Qualified Code(s): E03.9 - Hypothyroidism, unspecified (8) PAF (paroxysmal atrial fibrillation) Priority: Secondary Status: Chronic Comments: Rate controlled. Anticoagulated with Coumadin (9) GERD (gastroesophageal reflux disease) Priority: Secondary Status: Chronic Comments: Denied current symptoms Qualifiers: Esophagitis presence: without esophagitis Qualified Code(s): K21.9 - Gastro -esophageal reflux disease without esophagitis (10) DVT prophylaxis Priority: Primary Status: Acute Comments: Therapeutic on Coumadin (11) Fibromyalgia Priority: Secondary Status: Chronic (12) Anxiety Priority: Secondary Status: Chronic (13) UTI (urinary tract infection) Priority: Primary Status: Ruled-out Comments: Ruled out. No indication for antibiotics. Suspect she has interstitial cystitis. Started on ditropan and Pyridium, patient's dysuria is lessened greatly. Recommend follow-up with a urologist Qualifiers: Urinary tract infection type: acute cystitis Hematuria presence: without hematuria Qualified Code(s): N30.00 - Acute cystitis without hematuria (14) Diastolic heart failure Priority: Secondary Status: Chronic Comments: Recent echocardiogram revealing preserved ejection fraction with mild diastolic dysfunction. She is on diuretics at home. She is euvolemic on examination. Chronic diastolic heart failure, no acute exacerbation (15) Caregiver role strain Priority: Primary Status: Acute - Discharge Medications Prescriptions: Nitroglycerin 0.2 mg TD 0730 PRN #14 patch.td24 PRN Reason: Chest Pain Oxybutynin [Ditropan] 2.5 mg PO BID #30 tablet Phenazopyridine [Pyridium] 200 mg PO TID PRN #40 tablet PRN Reason: Dysuria Ranolazine [Ranexa] 1,000 mg PO Q12H #120 tab.er.12h Home Medications: Aspirin 81 mg PO DAILY 03/27/16 [History] Ascorbate Calcium [Vitamin C] 500 mg PO DAILY 05/21/16 [History] Calcium Carbonate/Vitamin D3 [Caltrate 600 + D Soft Chew Tab] 1 each PO DAILY [History] Cholecalciferol (D-3) [Vitamin D] 1,000 unit PO DAILY 05/21/16 [History] Dicyclomine [Bentyl] 10 mg PO BID 05/21/16 [History] Duloxetine HCl [Cymbalta] 60 mg PO BID 05/21/16 [History] Esomeprazole Magnesium [Nexium] 40 mg PO HS 05/21/16 [History] Evolocumab [Repatha Syringe] 140 mg SQ Q2W 05/21/16 [History] Fluticasone Propionate Nasal [Flonase] 50 mcg NS DAILY 05/21/16 [History] Fluvastatin Sodium [Lescol Xl] 80 mg PO QPM 05/21/16 [History] Furosemide [Lasix] 20 mg PO DAILY 05/21/16 [History] Hydrochlorothiazide [Microzide] 25 mg PO DAILY 05/21/16 [History] Loratadine [Claritin] 10 mg PO DAILY 05/21/16 [History] Nitroglycerin [Nitrostat] 0.4 mg SL Q5M PRN 05/21/16 [History] cloNIDine HCl [CloNIDine HCl] 0.1 mg PO BID 05/21/16 [History] clonazePAM [Klonopin] 1 mg PO TID PRN 05/21/16 [History] Fenofibrate,Micronized [Lofibra] 200 mg PO DAILY 05/28/16 [History] Magnesium Chloride [Magnesium Dr] 64 mg PO BID 05/28/16 [History] Prazosin HCl [Minipress] 2 mg PO HS 06/10/16 [History] Gabapentin [Neurontin] 1,200 mg PO TID 06/11/16 [History] Metoprolol [Lopressor] 50 mg PO BID 03/05/17 [History] Levothyroxine Sodium 75 mcg PO DAILY 03/29/17 [History] Potassium Chloride [K-Tab ER] 30 meq PO QAM 03/29/17 [History] amLODIPine [Norvasc] 5 mg PO DAILY 03/29/17 [History] Potassium Chloride [K-Tab ER] 20 meq PO QPM 04/06/17 [History] Warfarin [Coumadin] 1.5 mg PO MOTUWETHFR 04/06/17 [History] Warfarin [Coumadin] 3 mg PO SUSA 04/06/17 [History] Nitroglycerin 0.2 mg TD 0730 PRN #14 patch.td24 04/09/17 [Rx] Oxybutynin [Ditropan] 2.5 mg PO BID #30 tablet 04/09/17 [Rx] Phenazopyridine [Pyridium] 200 mg PO TID PRN #40 tablet 04/09/17 [Rx] Ranolazine [Ranexa] 1,000 mg PO Q12H #120 tab.er.12h 04/09/17 [Rx] Allergies/Adverse Reactions: Allergies acetaminophen [From Percocet] Allergy (Verified 10/11/16 21:00) Hallucinating amlodipine Allergy (Verified 10/11/16 21:00) See Comments unknown per patient ibuprofen Allergy (Verified 10/11/16 21:00) Nausea metoclopramide [From Reglan] Allergy (Verified 10/11/16 21:00) Nausea morphine Allergy (Verified 10/11/16 21:00) Difficulty Breathing Oxycodone [From Percocet] Allergy (Verified 10/11/16 21:00) Difficulty Breathing propoxyphene [From Darvocet-N] Allergy (Verified 10/11/16 21:00) Anxiety [id number] Reductase Inhibitor [Statins] Allergy (Verified 02/07/17 18:46) See Comments worsens fibromyalgia amitriptyline [From Elavil] Adverse Reaction (Verified 10/11/16 21:00) Headache apixaban [From Eliquis] Adverse Reaction (Verified 04/06/17 15:32) Muscle Pain aripiprazole [From Abilify] Adverse Reaction (Verified 10/11/16 21:00) Anxiety codeine Adverse Reaction (Verified 10/11/16 21:00) Nausea guaifenesin [From Mucinex] Adverse Reaction (Verified 10/11/16 21:00) Headache Hydromorphone [From Dilaudid] Adverse Reaction (Verified 10/11/16 21:00) Chills isosorbide Adverse Reaction (Verified 10/11/16 21:00) Headache Methylphenidate [From Ritalin] Adverse Reaction (Verified 10/11/16 21:00) Diarrhea prednisone Adverse Reaction (Verified 10/11/16 21:00) Anxiety pregabalin [From Lyrica] Adverse Reaction (Verified 10/11/16 21:00) Diarrhea sucralfate Adverse Reaction (Verified 10/11/16 21:00) Diarrhea valsartan [From Diovan] Adverse Reaction (Verified 10/11/16 21:00) Muscle Pain Date of admission: 04/06/17 18:35 Primary care physician: Fabiola Aguilar Consults: 04/07/17 00:03 Consult to Cardiology [CONS] Routine Comment: Consulting Provider: [facility] Reason for Consult: chest pain Call Completed: No 04/08/17 20:19 Consult to Records Management Director [CONS] Routine Reason for SW Consult: Caregiver role strain needs resources Discharging clinician: Nicki Card Anticipated date of discharge: 04/09/17 - Patient Status Disposition: Home, Self-Care Condition: Fair Functional capacity at discharge: independent ambulation Overall status at discharge: patient is progressing back to baseline - Discharge Instructions Follow Up With: Fabiola Aguilar MD [Primary Care Provider] - 04/15/17 10:45 am [facility] [Provider Group] Additional Instructions: Follow-up with primary care provider as scheduled. Follow-up with cardiology in 2-3 weeks - Diet and Activity Activity: increase activity as tolerated Diet: diabetic diet, low fat, low cholesterol, low salt diet Hospital course: Ms. Browning is a 67 year old female with past medical history of diastolic heart failure, atrial fibrillation on Coumadin, CAD status post CABG, diabetes, fibromyalgia, GERD, hyperlipidemia, hypertension, migraines, thyroid disease, panic disorder, previous psychiatric hospitalization, prior suicide attempt. Patient presented to the emergency department chief complaint chest pain 2 days. Patient stated the pain was constant and did not improve with her sublingual nitroglycerin. She also noted that her blood pressure was elevated with systolic up to the 180s. Patient had a negative stress test last month. She was seen by her service center representative on the day of presentation for a follow-up appointment and was directed to present to the emergency department due to the constant pain. Workup in the emergency department unremarkable. Chest x-ray negative. Patient was admitted to the hospitalist service for further evaluation and management. Patient denied chest pain or shortness of breath throughout this admission. She was seen and evaluated by cardiology who recommended medical management. Of note, she cannot tolerate Imdur secondary to headache and nausea. She was tolerating nitroglycerin patch while admitted and this was continued upon discharge. Cardiology also added Ranexa to her regimen and she will follow up outpatient with them. During this admission, patient continued to endorse dysuria. She was seen several weeks ago for the same complaint and despite having a negative urine culture on 03/29/17, she was treated with a round of Cipro. Repeat urinalysis normal. No indication for antibiotics. Upon further discussion with the patient, her symptoms are consistent with interstitial cystitis and she was started on dig or dutta and Pyridium and her dysuria resolved. She did have mild acute kidney injury that started to resolve on day of discharge with gentle IV fluids. She was euvolemic on examination. Just prior to discharge, patient informed staff that she did not want to go home. She stated that she wanted to stay in the hospital. She stated that she "would not mind going down to 1A." she stated that her was recently placed in inpatient rehabilitation after he had a urological surgery. She stated that she is tired and does not want to visit him in the correction. She states that her father was recently sent home from a correction. She states that he lives in the same apartment complex as a dining room server and she states that she does not want help him out either. She simply does not want to see her , take care of her , or see her father or take care of her father. She states that she is tired and does not want do it. She requested to stay in the hospital so that she could have a break from her caregiver duties. She denied suicidal ideation. She denied a planned. When told that we cannot provide respite care from an inpatient perspective, patient stating that she would "get to my breaking point soon." Patient stating that she was not currently at her breaking point and again she denied suicidal ideation with several different providers. She was discharged on a Tuesday so the on-call aids social worker was called and on the next Tuesday, she will be mailing the patient a lot of helpful resources regarding resources available to her and possible respite care. There was no indication for psychiatry consult or for an inpatient psychiatric hospitalization given that she was not suicidal or homicidal. She simply stated that she was tired and did not want to take care of her or her father. She needs resources and possibly respite care. She was discharged home in stable condition with close outpatient follow-up recommended. ITS Impressions Chest X-Ray 04/06/17 15:47 IMPRESSION: No acute cardiopulmonary abnormality. D/ / Joseph Madison MD / Joseph Madison MD Interpreting Provider: Joseph Madison MD - Time Spent with Patient Total time spent providing and/or coordinating discharge services: - Constitutional Vitals: Temp Pulse Resp BP Pulse Ox 98.1 F 55 16 119/70 95 04/09/17 11:37 04/09/17 11:37 04/09/17 11:37 04/09/17 11:37 04/09/17 11:37 General appearance: Present: A&O X 3, pleasant, no acute distress, answers questions appropriately - Head Head exam: Present: atraumatic, normocephalic - Eye Eye exam: Present: PERRL, conjuntiva pink, sclera anicteric Pupils: Present: PERRL - Neck Neck exam general surgery: Present: supple, trachea midline. Absent: lymphadenopathy - Respiratory Respiratory exam: Present: CTAB. Absent: accessory muscle use, rales, respiratory distress, rhonchi, wheezes - Cardiovascular Cardiovascular exam: Present: RRR, +S1, +S2. Absent: diastolic murmur, gallop, rubs, systolic murmur - GI/Abdominal GI/Abdominal exam: Present: normal bowel sounds, soft, no peritoneal signs. Absent: distended, tenderness - Extremities Exam Extremities exam: Present: warm, radial pulses palpable and symetrical. Absent : calf tenderness, cyanotic, pedal edema - Neurological Exam Neurological exam: Present: alert, CN II-XII intact, oriented X3, no focal deficits, strengths equal and symetr throughout. Absent: pronater drift, facial droop, speech deficit - Psychiatric Psychiatric exam: Present: depressed. Absent: suicidal ideation - Skin Skin exam: Present: dry, intact, pallor, warm
[2017-04-09] MEDS ORDERED: *HR* Warfarin 3 MG TABLET PO SCH (18:00)
[2017-04-10 16:14] LABS: CK-BB (CK isoenzymes) 0 % (0-0); CK-MB (CK isoenzymes) 0 % (0-4); CK-MM (CK-isoenzymes) 100 % (96-100)
[2017-04-10 16:14] LABS: CK-BB (CK isoenzymes) 0 % (0-0); CK-MB (CK isoenzymes) 0 % (0-4); CK-MM (CK-isoenzymes) 100 % (96-100)
[2017-04-11 09:17] LABS: CK Total (Ck Isoenzymes) 85 U/L (20-180)
[2017-04-11 09:17] LABS: CK Total (Ck Isoenzymes) 94 U/L (20-180)
== END 2017-04-09 14:23 | disposition home health service (06) ==
LOC: 3BNU 14:33 → EMEROO 14:33 → 3BNU 19:31
PROVIDERS: ADMIT Nurse Practitioner Acute Care; ATTEND Nurse Practitioner Family

== ENCOUNTER 2017-04-19 11:38 | Observation (INO) ==
[2017-04-19] MEDS ORDERED: Ondansetron 4 MG/2 ML VIAL IVP ONE (11:42)
[2017-04-19] MEDS ORDERED: diazePAM 10 MG/2 ML SYRINGE IVP ONE (11:42)
--- NOTE | 2017-04-19 11:45 | Emergency Department Note ---
Disposition Clinical Impression: Vertigo Disposition: Admitted As Inpatient Condition: Good Referrals: NO,PCP [Non-Partnered Physician] - Forms: ED Satisfaction Letter Time of Disposition: 13:32 Dizziness HPI - General Chief Complaint: ED Dizziness Stated Complaint: Dizziness, PAZ Time Seen by Provider: 04/19/17 11:43 Source: patient, EMS Mode of arrival: EMS Limitations: no limitations Nursing Notes Reviewed: Yes Vital Signs Reviewed: Yes - History of Present Illness HPI Narrative: Patient presents by EMS from home complaining of dizziness. She describes the "room spinning." She also notes nausea without vomiting. Headache. Constipation. Symptoms present for the past 2 weeks since she was started on Ranexa and topical nitroglycerin patch. She denies focal weakness. Pt Subjective Complaint: dizziness Onset (ago): week(s) Timing: sudden onset, intermittent Description: "room spinning" History of similar episodes: No History of trauma: No Severity: severe Improves with: remaining still, other (Closing eyes) Worsens with: movement, position Associated symptoms: Reports: nausea - Related Data Home Medications Medication Instructions Recorded Confirmed Aspirin 81 mg PO DAILY 03/27/16 04/06/17 Ascorbate Calcium [Vitamin C] 500 mg PO DAILY 05/21/16 04/06/17 Calcium Carbonate/Vitamin D3 1 each PO DAILY 05/21/16 04/06/17 [Caltrate 600 + D Soft Chew Tab] Cholecalciferol (D-3) [Vitamin D] 1,000 unit PO DAILY 05/21/16 04/06/17 Dicyclomine [Bentyl] 10 mg PO BID 05/21/16 04/06/17 Duloxetine HCl [Cymbalta] 60 mg PO BID 05/21/16 04/06/17 Esomeprazole Magnesium [Nexium] 40 mg PO HS 05/21/16 04/06/17 Evolocumab [Repatha Syringe] 140 mg SQ Q2W 05/21/16 04/06/17 Fluticasone Propionate Nasal 50 mcg NS DAILY 05/21/16 04/06/17 [Flonase] Fluvastatin Sodium [Lescol Xl] 80 mg PO QPM 05/21/16 04/06/17 Furosemide [Lasix] 20 mg PO DAILY 05/21/16 04/06/17 Hydrochlorothiazide [Microzide] 25 mg PO DAILY 05/21/16 04/06/17 Loratadine [Claritin] 10 mg PO DAILY 05/21/16 04/06/17 Nitroglycerin [Nitrostat] 0.4 mg SL Q5M PRN 05/21/16 04/06/17 cloNIDine HCl [CloNIDine HCl] 0.1 mg PO BID 05/21/16 04/06/17 clonazePAM [Klonopin] 1 mg PO TID PRN 05/21/16 04/06/17 Fenofibrate,Micronized [Lofibra] 200 mg PO DAILY 05/28/16 04/06/17 Magnesium Chloride [Magnesium Dr] 64 mg PO BID 05/28/16 04/06/17 Prazosin HCl [Minipress] 2 mg PO HS 06/10/16 04/06/17 Gabapentin [Neurontin] 1,200 mg PO TID 06/11/16 04/06/17 Metoprolol [Lopressor] 50 mg PO BID 03/05/17 04/06/17 Levothyroxine Sodium 75 mcg PO DAILY 03/29/17 04/06/17 Potassium Chloride [K-Tab ER] 30 meq PO QAM 03/29/17 04/06/17 amLODIPine [Norvasc] 5 mg PO DAILY 03/29/17 04/06/17 Potassium Chloride [K-Tab ER] 20 meq PO QPM 04/06/17 04/06/17 Warfarin [Coumadin] 1.5 mg PO MOTUWETHFR 04/06/17 04/06/17 Warfarin [Coumadin] 3 mg PO SUSA 04/06/17 04/06/17 Previous Rx's Medication Instructions Recorded Nitroglycerin 0.2 mg TD 0730 PRN #14 patch.td24 04/09/17 Oxybutynin [Ditropan] 2.5 mg PO BID #30 tablet 04/09/17 Phenazopyridine [Pyridium] 200 mg PO TID PRN #40 tablet 04/09/17 Ranolazine [Ranexa] 1,000 mg PO Q12H #120 tab.er.12h 04/09/17 Azithromycin [Azithromycin 6-Tab 250 mg PO PER PKG DI #6 tab 04/10/17 Pack] Benzonatate [Tessalon] 200 mg PO TID PRN #30 capsule 04/10/17 GuaiFENesin ER [Mucinex] 1,200 mg PO BID #20 tbbp.12hr 04/10/17 Allergies Allergy/AdvReac Type Severity Reaction Status Date / Time acetaminophen [From Percocet] Allergy Hallucinati Verified 10/11/16 21:00 ng amlodipine Allergy See Verified 10/11/16 21:00 Comments ibuprofen Allergy Nausea Verified 10/11/16 21:00 metoclopramide [From Reglan] Allergy Nausea Verified 10/11/16 21:00 morphine Allergy Difficulty Verified 10/11/16 21:00 Breathing Oxycodone [From Percocet] Allergy Difficulty Verified 10/11/16 21:00 Breathing propoxyphene Allergy Anxiety Verified 10/11/16 21:00 [From Darvocet-N] Lwhtcje-Pyl-Zdd Reductase Allergy See Verified 02/07/17 18:46 Inhibitor Comments [Statins] amitriptyline [From Elavil] AdvReac Headache Verified 10/11/16 21:00 apixaban [From Eliquis] AdvReac Muscle Pain Verified 04/06/17 15:32 aripiprazole [From Abilify] AdvReac Anxiety Verified 10/11/16 21:00 codeine AdvReac Nausea Verified 10/11/16 21:00 guaifenesin [From Mucinex] AdvReac Headache Verified 10/11/16 21:00 Hydromorphone [From Dilaudid] AdvReac Chills Verified 10/11/16 21:00 isosorbide AdvReac Headache Verified 10/11/16 21:00 Methylphenidate AdvReac Diarrhea Verified 10/11/16 21:00 [From Ritalin] prednisone AdvReac Anxiety Verified 10/11/16 21:00 pregabalin [From Lyrica] AdvReac Diarrhea Verified 10/11/16 21:00 sucralfate AdvReac Diarrhea Verified 10/11/16 21:00 valsartan [From Diovan] AdvReac Muscle Pain Verified 10/11/16 21:00 All systems ED: reviewed and negative except as stated. Constitutional: Reports: as per HPI Eyes: Reports: as per HPI ENT ED: Reports: as per HPI Cardiovascular: Reports: as per HPI Respiratory: Reports: as per HPI Gastrointestinal: Reports: nausea, constipation Genitourinary: Reports: as per HPI Musculoskeletal: Reports: as per HPI Integumentary: Reports: as per HPI Neurological: Reports: headache, other (Dizziness) Psychiatric: Reports: as per HPI Endocrine: Reports: as per HPI Hematological/Lymphatic: Reports: as per HPI Allergic/Immunologic: Reports: as per HPI Past Medical History - Past Medical History Source: patient Medical history: Reports: arthritis, atrial fibrillation, CHF, coronary artery disease, diabetes, fibromyalgia, GERD, hyperlipidemia, hypertension, migraine, thyroid disease, other Surgical history: Reports: angioplasty/stent, cataract, cholecystectomy, coronary bypass (CABG), hysterectomy, other Psychiatric history: Reports: anxiety, depression, panic disorder, prior suicide attempt, previous psychiatric hospitalization [employer] 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[employer]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 - Social History Smoking Status: Never smoker Smokeless Tobacco Status: No Alcohol use: Reports: none Drug use: Reports: none Physical Exam Patient holding her eyes tightly shut - General Limitations: no limitations General appearance: alert, in no apparent distress - Head Head exam: atraumatic - Eye Eye exam: Present: normal appearance, PERRL - ENT ENT exam: normal exam - Neck Neck exam: Present: normal inspection, full ROM - Chest Chest inspection: Present: normal inspection, symmetric chest wall rise - Respiratory Respiratory exam: Present: normal lung sounds bilaterally - Cardiovascular Cardiovascular exam: Present: regular rate, normal rhythm, normal heart sounds - Rectal Exam Rectal exam: Present: deferred - Extremities Exam Extremities exam: Present: normal inspection - Neurological Exam Neurological exam: Present: alert, oriented X3, CN II-XII intact - Psychiatric Psychiatric exam: Present: anxious - Skin Skin exam: Present: warm, dry, intact Course Course Narrative: Patient presents with positional intermittent dizziness over the past 2 weeks. She has a nonfocal neurologic examination. She thinks her symptoms are secondary to starting Ranexa 2 weeks ago. Workup including head CT and labs initiated. I will treat the patient with meclizine, Valium, Zofran - Reevaluation(s) Reevaluation #1: Patient resting comfortably. Appears in no acute distress Reevaluation #2: Patient ambulated but felt dizzy. I we will request admission to the medicine service because the patient lives at home alone and is a fall risk Vital Signs Temperature 98.4 F 04/19/17 11:39 Pulse Rate 71 04/19/17 11:39 Respiratory Rate 20 04/19/17 11:39 Blood Pressure 197/74 04/19/17 11:39 O2 Sat by Pulse Oximetry 96 04/19/17 11:39 Temperature 98.4 F 04/19/17 11:39 Pulse Rate 59 04/19/17 12:47 Respiratory Rate 18 04/19/17 12:47 Blood Pressure 193/93 04/19/17 12:47 O2 Sat by Pulse Oximetry 94 04/19/17 12:47 Oxygen Delivery Oxygen Delivery Room Air Dizziness - Lab Data Lab results reviewed: Yes I reviewed the patient's lab results. Result diagrams: 04/19/17 11:56 04/19/17 11:56 Lab Results 04/19/17 04/19/17 04/19/17 Range/Units 11:56 11:56 11:56 WBC 10.3 (4.3-11.1) K/mcL RBC 4.11 (3.82-4.97) M/mcL Hgb 10.9 L (11.5-15.4) g/dL Hct 34.5 L (35.3-44.9) % MCV 83.9 (83.0-100.0) fL MCH 26.5 L (28.0-33.3) pg MCHC 31.6 (31.6-35.5) g/dL RDW 17.0 H (11.5-14.5) % Plt Count 359 (140-400) K/mcL MPV 11.5 (9.4-12.4) fL Immature Gran % 0.4 (0-4) % Seg Neutrophils % 65.7 % Lymphocytes % 17.5 % Monocytes % 9.3 % Eosinophils % 6.3 % Basophils % 0.8 % Neutrophils # 6.8 (1.6-8.9) K/mcL Lymphocytes # 1.8 (0.6-4.6) K/mcL Monocytes # 1.0 (0.0-1.3) K/mcL Eosinophils # 0.7 H (0.0-0.6) K/mcL Basophils # 0.1 (0.0-0.2) K/mcL PT 17.5 H (9.4-12.1) Seconds INR 1.6 Sodium 139 (136-145) mEq/L Potassium 4.0 (3.5-4.5) mEq/L Chloride 106 (98-109) mEq/L Carbon Dioxide 25 (19-29) mEq/L BUN 16 (7-20) mg/dL Creatinine 1.01 (0.57-1.11) mg/dL Est GFR ( Amer) > 60 (> 60) Est GFR (Non-Af Amer) 55 L (> 60) BUN/Creatinine Ratio 16 (6-26) Glucose 158 H (70-99) mg/dL Calculated Osmolality 292 (280-300) Calcium 9.8 (8.6-10.8) mg/dL Magnesium 1.4 L (1.6-2.6) mg/dL Total Bilirubin 0.5 (0.2-1.2) mg/dL AST 17 (5-34) Units/L ALT 11 (0-55) Units/L Alkaline Phosphatase 73 (38-126) Units/L Troponin I (0-0.03) ng/mL Serum Total Protein 7.1 (6.0-8.3) g/dL Albumin 3.5 (3.5-5.0) g/dL Globulin 3.6 H (2.4-3.5) g/dL Albumin/Globulin Ratio 1.0 L (1.1-2.2) 04/19/17 Range/Units 11:56 WBC (4.3-11.1) K/mcL RBC (3.82-4.97) M/mcL Hgb (11.5-15.4) g/dL Hct (35.3-44.9) % MCV (83.0-100.0) fL MCH (28.0-33.3) pg MCHC (31.6-35.5) g/dL RDW (11.5-14.5) % Plt Count (140-400) K/mcL MPV (9.4-12.4) fL Immature Gran % (0-4) % Seg Neutrophils % % Lymphocytes % % Monocytes % % Eosinophils % % Basophils % % Neutrophils # (1.6-8.9) K/mcL Lymphocytes # (0.6-4.6) K/mcL Monocytes # (0.0-1.3) K/mcL Eosinophils # (0.0-0.6) K/mcL Basophils # (0.0-0.2) K/mcL PT (9.4-12.1) Seconds INR Sodium (136-145) mEq/L Potassium (3.5-4.5) mEq/L Chloride (98-109) mEq/L Carbon Dioxide (19-29) mEq/L BUN (7-20) mg/dL Creatinine (0.57-1.11) mg/dL Est GFR ( Amer) (> 60) Est GFR (Non-Af Amer) (> 60) BUN/Creatinine Ratio (6-26) Glucose (70-99) mg/dL Calculated Osmolality (280-300) Calcium (8.6-10.8) mg/dL Magnesium (1.6-2.6) mg/dL Total Bilirubin (0.2-1.2) mg/dL AST (5-34) Units/L ALT (0-55) Units/L Alkaline Phosphatase (38-126) Units/L Troponin I 0.01 (0-0.03) ng/mL Serum Total Protein (6.0-8.3) g/dL Albumin (3.5-5.0) g/dL Globulin (2.4-3.5) g/dL Albumin/Globulin Ratio (1.1-2.2) - Radiology Data Radiology results reviewed: Yes I reviewed the patient's radiology results. - EKG Data EKG attestation: Yes I reviewed and interpreted this EKG. EKG results narrative: Normal sinus rhythm rate 61 MN 162 QRS 100 QT/QTc 460/463 left atrial enlargement left ventricular hypertrophy
[2017-04-19 12:02] LABS: Basophils # 0.1 K/mcL (0.0-0.2); Basophils % 0.8 %; Eosinophils # 0.7 K/mcL (0.0-0.6); Eosinophils % 6.3 %; Hematocrit 34.5 % (35.3-44.9); Hemoglobin 10.9 g/dL (11.5-15.4); Immature Granulocytes % 0.4 % (0-4); Lymphocytes # 1.8 K/mcL (0.6-4.6); Lymphocytes % 17.5 %; Mean Corpuscular HGB Conc 31.6 g/dL (31.6-35.5); Mean Corpuscular Hemoglobin 26.5 pg (28.0-33.3); Mean Corpuscular Volume 83.9 fL (83.0-100.0); Mean Platelet Volume 11.5 fL (9.4-12.4); Monocytes % 9.3 %; Neutrophils # 6.8 K/mcL (1.6-8.9); Platelet Count 359 K/mcL (140-400); Red Blood Count 4.11 M/mcL (3.82-4.97); Segmented Neutrophils % 65.7 %
[2017-04-19 12:08] LABS: INR 1.6; Prothrombin Time 17.5 Seconds (9.4-12.1)
[2017-04-19 12:17] LABS: Alanine Aminotransferase 11 Units/L (0-55); Albumin 3.5 g/dL (3.5-5.0); Alkaline Phosphatase 73 Units/L (38-126); Aspartate Amino Transferase 17 Units/L (5-34); BUN/Creatinine Ratio 16 (6-26); Bilirubin,Total 0.5 mg/dL (0.2-1.2); Blood Urea Nitrogen 16 mg/dL (7-20); Calcium 9.8 mg/dL (8.6-10.8); Carbon Dioxide 25 mEq/L (19-29); Chloride 106 mEq/L (98-109); Globulin 3.6 g/dL (2.4-3.5); Glucose 158 mg/dL (70-99); Magnesium 1.4 mg/dL (1.6-2.6); Osmolality,Calculated 292 (280-300); Sodium 139 mEq/L (136-145); Total Protein 7.1 g/dL (6.0-8.3); eGFR For African Americans > 60 (> 60); eGFR For Non-African Americans 55 (> 60)
[2017-04-19] MEDS ORDERED: Naloxone 0.4 MG/ML INJ IVP PRN (15:50)
[2017-04-19] MEDS ORDERED: Acetaminophen 325 MG TABLET PO PRN (15:50)
[2017-04-19] MEDS ORDERED: clonazePAM 1 MG TABLET PO PRN (15:52)
[2017-04-19] MEDS ORDERED: Nitroglycerin 0.4 MG TAB.SUBL SL PRN (15:52)
[2017-04-19] MEDS ORDERED: Nitroglycerin 0.2 MG PATCH.TD24 TD SCH (16:17)
--- NOTE | 2017-04-19 16:21 | Internal Med History&Physical ---
<Kamlesh Villatoro T - Last Filed: 04/19/17 18:06> Date of Encounter: 04/19/17 Internal Medicine - H&P: HPI History of present illness: Ms. Browning is a 67 year old female Internal Medicine - H&P: Meds Aspirin 81 mg PO DAILY 03/27/16 [History] Ascorbate Calcium [Vitamin C] 500 mg PO DAILY 05/21/16 [History] Calcium Carbonate/Vitamin D3 [Caltrate 600 + D Soft Chew Tab] 1 tab PO DAILY [History] Cholecalciferol (D-3) [Vitamin D] 1,000 unit PO DAILY 05/21/16 [History] Dicyclomine [Bentyl] 10 mg PO BID 05/21/16 [History] Duloxetine HCl [Cymbalta] 60 mg PO BID 05/21/16 [History] Esomeprazole Magnesium [Nexium] 40 mg PO HS 05/21/16 [History] Evolocumab [Repatha Syringe] 140 mg SQ Q2W 05/21/16 [History] Fluticasone Propionate Nasal [Flonase] 1 spray NS DAILY 05/21/16 [History] Fluvastatin Sodium [Lescol Xl] 80 mg PO QPM 05/21/16 [History] Furosemide [Lasix] 20 mg PO DAILY 05/21/16 [History] Hydrochlorothiazide [Microzide] 25 mg PO DAILY 05/21/16 [History] Loratadine [Claritin] 10 mg PO DAILY 05/21/16 [History] Nitroglycerin [Nitrostat] 0.4 mg SL Q5M PRN 05/21/16 [History] cloNIDine HCl [CloNIDine HCl] 0.1 mg PO BID 05/21/16 [History] clonazePAM [Klonopin] 1 mg PO TID PRN 05/21/16 [History] Fenofibrate,Micronized [Lofibra] 200 mg PO DAILY 05/28/16 [History] Magnesium Chloride [Magnesium Dr] 64 mg PO BID 05/28/16 [History] Prazosin HCl [Minipress] 2 mg PO HS 06/10/16 [History] Gabapentin [Neurontin] 1,200 mg PO TID 06/11/16 [History] Metoprolol [Lopressor] 50 mg PO BID 03/05/17 [History] Levothyroxine Sodium 75 mcg PO DAILY 03/29/17 [History] Potassium Chloride [K-Tab ER] 30 meq PO QAM 03/29/17 [History] amLODIPine [Norvasc] 5 mg PO DAILY 03/29/17 [History] Potassium Chloride [K-Tab ER] 20 meq PO QPM 04/06/17 [History] Warfarin [Coumadin] 1.5 mg PO MOTUWETHFR 04/06/17 [History] Warfarin [Coumadin] 3 mg PO SUSA 04/06/17 [History] Nitroglycerin 0.2 mg TD 0730 PRN #14 patch.td24 04/09/17 [Rx] Oxybutynin [Ditropan] 2.5 mg PO BID #30 tablet 04/09/17 [Rx] Phenazopyridine [Pyridium] 200 mg PO TID PRN #40 tablet 04/09/17 [Rx] Ranolazine [Ranexa] 1,000 mg PO Q12H #120 tab.er.12h 04/09/17 [Rx] Benzonatate [Tessalon] 200 mg PO TID PRN #30 capsule 04/10/17 [Rx] GuaiFENesin ER [Mucinex] 1,200 mg PO BID #20 tbbp.12hr 04/10/17 [Rx] Allergies acetaminophen [From Percocet] Allergy (Verified 10/11/16 21:00) Hallucinating ibuprofen Allergy (Verified 10/11/16 21:00) Nausea metoclopramide [From Reglan] Allergy (Verified 10/11/16 21:00) Nausea morphine Allergy (Verified 10/11/16 21:00) Difficulty Breathing Oxycodone [From Percocet] Allergy (Verified 10/11/16 21:00) Difficulty Breathing propoxyphene [From Darvocet-N] Allergy (Verified 10/11/16 21:00) Anxiety Jrbteir-Cyf-Lfb Reductase Inhibitor [Statins] Allergy (Verified 02/07/17 18:46) See Comments worsens fibromyalgia amitriptyline [From Elavil] Adverse Reaction (Verified 10/11/16 21:00) Headache apixaban [From Eliquis] Adverse Reaction (Verified 04/06/17 15:32) Muscle Pain aripiprazole [From Abilify] Adverse Reaction (Verified 10/11/16 21:00) Anxiety codeine Adverse Reaction (Verified 10/11/16 21:00) Nausea guaifenesin [From Mucinex] Adverse Reaction (Verified 10/11/16 21:00) Headache Hydromorphone [From Dilaudid] Adverse Reaction (Verified 10/11/16 21:00) Chills isosorbide Adverse Reaction (Verified 10/11/16 21:00) Headache Methylphenidate [From Ritalin] Adverse Reaction (Verified 10/11/16 21:00) Diarrhea prednisone Adverse Reaction (Verified 10/11/16 21:00) Anxiety pregabalin [From Lyrica] Adverse Reaction (Verified 10/11/16 21:00) Diarrhea sucralfate Adverse Reaction (Verified 10/11/16 21:00) Diarrhea valsartan [From Diovan] Adverse Reaction (Verified 10/11/16 21:00) Muscle Pain All Systems PM: A 10-system review of systems was performed and is negative for pertinent findings except as documented above in the HPI. - Constitutional Vitals: Temp Pulse Resp BP Pulse Ox 97.8 F 59 15 178/72 90 04/19/17 15:33 04/19/17 15:33 04/19/17 15:33 04/19/17 15:33 04/19/17 15:33 Internal Med - H&P Results - Labs CBC & Chem 7: 04/19/17 11:56 04/19/17 11:56 - Attending Attestation Patient is independently seen and examined Plan of care discussed with MELO Rodríguez Ms. Browning is a 67 year old female with past medical history of diastolic heart failure, atrial fibrillation on Coumadin, CAD status post CABG, diabetes, fibromyalgia, GERD, hyperlipidemia, hypertension, migraines, thyroid disease, panic disorder, previous psychiatric hospitalization, prior suicide attempt. Recently discharged after being worked up for chest pain with a negative stress test, represented with complains of dizziness and almost falling, described as vertigo-like. During prior admission, documentation reveals patient did not want to be discharged home as she claims she lived alone and her was in SNF. Physical exam: VSS at this time, no nystagmus, ataxic gait, no facial paralysis , no speech deficits, chest is clear, abdomen is benign, no pedal edema Labs and imaging reviewed, unremarkable Assessment: Vertigo-Obtain Head MRI, possibly BPPV, hold nitro, renexa, monitor BP. Fall risk. Other chronic medical conditions are stable, rest of details as in [employer] documentation <MarcosDiamond - Last Filed: 04/19/17 18:08> Date of Encounter: 04/19/17 Time of Encounter: 16:18 Assessment and Plan (1) Vertigo Current visit: Yes Status: Acute Patient reports dizziness, lightheadedness, nausea and headache daily since her discharge on 04/09. She reports it starts soon after taking her morning medications, and then gets better in the late afternoon. She reports the room spins and she also feels like she might pass out. It gets worse with position change and head movement. She thinks it is related to her new medications, Ranexa and/or the nitro patch. Head CT negative for acute abnormality. Will hold both Ranexa and nitro patch. MRI of head and brain without contrast orthostatic vital signs. (2) Hypertension Current visit: Yes Status: Chronic Patient has been hypertensive since arrival with blood pressures running 150s- 190s/80s-90s. Holding her nitro patch due to dizziness which started when she started the nitro patch. Continue other home medications and will have Hydralazine PRN for SBP > 160 or DBP > 100. Qualifiers: Hypertension type: essential hypertension Qualified Code(s): I10 - Essential (primary) hypertension (3) Type 2 diabetes mellitus Current visit: Yes Status: Chronic diabetic, heart healthy diet check blood sugars ACHS sliding scale correction dose ACHS hypoglycemic protocol. Qualifiers: Diabetes mellitus complication status: without complication Diabetes mellitus detention insulin use: without detention use Qualified Code(s): E11.9 - Type 2 diabetes mellitus without complications (4) Coronary artery disease Current visit: Yes Status: Chronic Patient with history of CAD s/p CABG and stent placement. She did not tolerate imdur due to headaches and was recently started on nitro patch and Ranexa during previous hospitalization (discharge 04/09). Patient reports she has been having dizziness, lightheadedness, headache and nausea since her discharge. Will hold the nitro and Ranexa. Continue aspirin, metoprolol, statin, and fenofibrate. Qualifiers: Coronary Disease-Associated Artery/Lesion type: bypass graft, autologous vein Associated angina: without angina Qualified Code(s): I25.810 - Atherosclerosis of coronary artery bypass graft(s) without angina pectoris (5) Paroxysmal a-fib Current visit: Yes Status: Acute Patient in NSR at this time. Continue home dose of metoprolol for rate control and coumadin for anti-coagulation. (6) Diastolic heart failure Current visit: Yes Status: Chronic Patient with diastolic congestive heart failure. Appears euvolemic on exam. Continue home dose of lasix. Qualifiers: Heart failure chronicity: chronic Qualified Code(s): I50.32 - Chronic diastolic (congestive) heart failure (7) DVT prophylaxis Current visit: Yes Status: Acute anti-embolic stockings Patient on coumadine for afib. additional pharmacologic prophylaxis contraindicated. Internal Medicine - H&P: HPI Chief complaint: dizziness Admitted From: Emergency Dept Plans for Post Hospital Care: Home History of present illness: Ms. Browning is a 67 year old female with A. fib on Coumadin, diastolic congestive heart failure, coronary artery disease status post CABG and stent placement, diabetes, hypertension, hyperlipidemia, hypothyroid, anxiety, and depression presented to the emergency department today with complaints of dizziness and lightheadedness, nausea and headache. Patient reports that she was discharged 10 days ago a new medication which includes Ranexa and a nitroglycerin patch and since that time she has been experiencing dizziness and headaches on a daily basis, starting after taking her morning medication and and getting better in the afternoon. Today she has nausea which seems to worsen as the dizziness worsens headache also goes away once the dizziness goes away. She describes a sensation of the room spinning, as well as feeling lightheaded and like she might pass out. She denies any chest pain, palpitations, increased shortness of breath, numbness or tingling, focal weakness, vomiting, abdominal pain, or diarrhea. Evaluation in the emergency department included a head CT which was negative for any acute abnormality. Labs revealed anemia which is consistent with her recent baseline, hypomagnesemia with magnesium of 1.4. On exam, patient alert and oriented, in no acute distress. Cranial nerves intact, no nystagmus, no pronator drift, and strength equal bilaterally. Lungs are clear bilaterally to auscultation, heart had regular rate and rhythm. Past Med Surg Social Fam HX - Past Medical History Medical history: arthritis, atrial fibrillation, CHF, coronary artery disease, diabetes, fibromyalgia, GERD, hyperlipidemia, hypertension, migraine, thyroid disease, other Psychiatric history: anxiety, depression, panic disorder, prior suicide attempt , previous psychiatric hospitalization - Past Surgical History Surgical History: angioplasty/stent, cataract, cholecystectomy, coronary bypass (CABG), hysterectomy, other - Social History Smoking Status: Never smoker Smokeless Tobacco Status: No Alcohol use: none Drug use: none - Family History Mother Adopted: No Family Member Ethnicity: Non- Living Status: Hx Family Cardiac Disorders: Yes Hx Family Neurologic Disorders: Yes (migraines) Father Living Status: Still Living Hx Family Cardiac Disorders: Yes Hx Family Cancer: Yes (skin cancer) All Systems PM: A 10-system review of systems was performed and is negative for pertinent findings except as documented above in the HPI. - Constitutional Constitutional: no chills, no fever(s), no night sweats - EENT Eyes: no change in vision, no discharge, no pain, no photophobia Ears: no ear discharge, no ear pain, no tinnitus Nose, mouth and throat: no dysphagia, no nasal discharge, no neck pain, no sore throat - Cardiovascular Cardiovascular ROS IM: lightheadedness, no chest pain, no diaphoresis, no dyspnea, no palpitations, no syncope - Respiratory Respiratory: no cough, no dyspnea, no wheezing, no excessive phlegm production - Gastrointestinal Gastrointestinal: nausea, no abdominal pain, no diarrhea, no hematemesis, no hematochezia, no melena, no vomiting - Genitourinary Genitourinary: no change in urinary stream, no dysuria, no flank pain, no hematuria - Musculoskeletal Musculoskeletal ROS IM: no numbness, no tingling - Integumentary Integumentary IM: no rash, no unusual bruising - Neurological Neurological ROS: dizziness, no confusion, no convulsions, no focal weakness, no numbness, no tingling, no tremor(s) - Hematologic/Lymphatic Hematologic/Lymphatic: no easy bruising - Constitutional Vitals: Temp Pulse Resp BP Pulse Ox 97.8 F 59 15 178/72 90 04/19/17 15:33 04/19/17 15:33 04/19/17 15:33 04/19/17 15:33 04/19/17 15:33 General appearance: Present: A&O X 3, pleasant - Head Head exam: Present: atraumatic, normocephalic - Eye Eye exam: Present: PERRL, conjuntiva pink, sclera anicteric. Absent: nystagmus Pupils: Present: PERRL - Neck Neck exam general surgery: Present: supple, trachea midline. Absent: lymphadenopathy - Respiratory Respiratory exam: Present: CTAB. Absent: accessory muscle use, rales, rhonchi, wheezes - Cardiovascular Cardiovascular exam: Present: RRR, +S1, +S2. Absent: diastolic murmur, gallop, rubs, systolic murmur - GI/Abdominal GI/Abdominal exam: Present: normal bowel sounds, soft, no peritoneal signs. Absent: distended, tenderness - Extremities Exam Extremities exam: Present: warm, radial pulses palpable and symetrical. Absent : calf tenderness, cyanotic, pedal edema - Neurological Exam Neurological exam: Present: CN II-XII intact, oriented X3, no focal deficits. Absent: pronater drift, facial droop, speech deficit - Skin Skin exam: Present: dry, intact Internal Med - H&P Results - Labs CBC & Chem 7: 04/19/17 11:56 04/19/17 11:56 Labs: All Lab Results (24 Hours) 04/19/17 04/19/17 04/19/17 Range/Units 11:56 11:56 11:56 WBC 10.3 (4.3-11.1) K/mcL RBC 4.11 (3.82-4.97) M/mcL Hgb 10.9 L (11.5-15.4) g/dL Hct 34.5 L (35.3-44.9) % MCV 83.9 (83.0-100.0) fL MCH 26.5 L (28.0-33.3) pg MCHC 31.6 (31.6-35.5) g/dL RDW 17.0 H (11.5-14.5) % Plt Count 359 (140-400) K/mcL MPV 11.5 (9.4-12.4) fL Immature Gran % 0.4 (0-4) % Seg Neutrophils % 65.7 % Lymphocytes % 17.5 % Monocytes % 9.3 % Eosinophils % 6.3 % Basophils % 0.8 % Neutrophils # 6.8 (1.6-8.9) K/mcL Lymphocytes # 1.8 (0.6-4.6) K/mcL Monocytes # 1.0 (0.0-1.3) K/mcL Eosinophils # 0.7 H (0.0-0.6) K/mcL Basophils # 0.1 (0.0-0.2) K/mcL PT 17.5 H (9.4-12.1) Seconds INR 1.6 Sodium 139 (136-145) mEq/L Potassium 4.0 (3.5-4.5) mEq/L Chloride 106 (98-109) mEq/L Carbon Dioxide 25 (19-29) mEq/L BUN 16 (7-20) mg/dL Creatinine 1.01 (0.57-1.11) mg/dL Est GFR ( Amer) > 60 (> 60) Est GFR (Non-Af Amer) 55 L (> 60) BUN/Creatinine Ratio 16 (6-26) Glucose 158 H (70-99) mg/dL Calculated Osmolality 292 (280-300) Calcium 9.8 (8.6-10.8) mg/dL Magnesium 1.4 L (1.6-2.6) mg/dL Total Bilirubin 0.5 (0.2-1.2) mg/dL AST 17 (5-34) Units/L ALT 11 (0-55) Units/L Alkaline Phosphatase 73 (38-126) Units/L Troponin I (0-0.03) ng/mL Serum Total Protein 7.1 (6.0-8.3) g/dL Albumin 3.5 (3.5-5.0) g/dL Globulin 3.6 H (2.4-3.5) g/dL Albumin/Globulin Ratio 1.0 L (1.1-2.2) 04/19/17 Range/Units 11:56 WBC (4.3-11.1) K/mcL RBC (3.82-4.97) M/mcL Hgb (11.5-15.4) g/dL Hct (35.3-44.9) % MCV (83.0-100.0) fL MCH (28.0-33.3) pg MCHC (31.6-35.5) g/dL RDW (11.5-14.5) % Plt Count (140-400) K/mcL MPV (9.4-12.4) fL Immature Gran % (0-4) % Seg Neutrophils % % Lymphocytes % % Monocytes % % Eosinophils % % Basophils % % Neutrophils # (1.6-8.9) K/mcL Lymphocytes # (0.6-4.6) K/mcL Monocytes # (0.0-1.3) K/mcL Eosinophils # (0.0-0.6) K/mcL Basophils # (0.0-0.2) K/mcL PT (9.4-12.1) Seconds INR Sodium (136-145) mEq/L Potassium (3.5-4.5) mEq/L Chloride (98-109) mEq/L Carbon Dioxide (19-29) mEq/L BUN (7-20) mg/dL Creatinine (0.57-1.11) mg/dL Est GFR ( Amer) (> 60) Est GFR (Non-Af Amer) (> 60) BUN/Creatinine Ratio (6-26) Glucose (70-99) mg/dL Calculated Osmolality (280-300) Calcium (8.6-10.8) mg/dL Magnesium (1.6-2.6) mg/dL Total Bilirubin (0.2-1.2) mg/dL AST (5-34) Units/L ALT (0-55) Units/L Alkaline Phosphatase (38-126) Units/L Troponin I 0.01 (0-0.03) ng/mL Serum Total Protein (6.0-8.3) g/dL Albumin (3.5-5.0) g/dL Globulin (2.4-3.5) g/dL Albumin/Globulin Ratio (1.1-2.2) - Diagnostic Studies CT scan - head Additional comments: Head CT 04/19/17 11:41 IMPRESSION: No acute intracranial abnormality. D/ / Alpesh Love MD / Alpesh Love MD Interpreting Provider: Alpesh Love MD
[2017-04-19] MEDS ORDERED: D5% in Water 1,000 ML IVC PRN (16:39)
[2017-04-19] MEDS ORDERED: Dextrose Gel 15 GM PO PRN ×2 (16:39)
[2017-04-19] MEDS ORDERED: *HR* Dextrose 50 % in Water (Syg) 50 ML SYRINGE IVP PRN (16:39)
[2017-04-19] MEDS: amLODIPine 5 MG TABLET PO SCH (16:58)
[2017-04-19] MEDS ORDERED: *HR* Warfarin 3 MG TABLET PO SCH (18:00)
[2017-04-19] MEDS ORDERED: Ranolazine 500 MG TAB.ER.12H PO SCH (18:00)
[2017-04-19] MEDS: cloNIDine HCl 0.1 MG TABLET PO SCH (21:24)
[2017-04-19] MEDS: Gabapentin 400 MG CAPSULE PO SCH (21:24)
[2017-04-19] MEDS: Insulin LISPRO 300 UNITS/3 ML VIAL SQ SCH (21:27)
[2017-04-20 04:42] LABS: Basophils # 0.1 K/mcL (0.0-0.2); Basophils % 0.9 %; Eosinophils # 0.7 K/mcL (0.0-0.6); Eosinophils % 8.3 %; Hematocrit 35.2 % (35.3-44.9); Immature Granulocytes % 0.4 % (0-4); Lymphocytes # 2.3 K/mcL (0.6-4.6); Lymphocytes % 28.5 %; Mean Corpuscular HGB Conc 31.3 g/dL (31.6-35.5); Mean Corpuscular Hemoglobin 26.4 pg (28.0-33.3); Mean Corpuscular Volume 84.4 fL (83.0-100.0); Mean Platelet Volume 11.9 fL (9.4-12.4); Monocytes # 0.6 K/mcL (0.0-1.3); Monocytes % 7.3 %; Neutrophils # 4.4 K/mcL (1.6-8.9); Platelet Count 337 K/mcL (140-400); Red Blood Count 4.17 M/mcL (3.82-4.97); Red Cell Distribution Width 17.2 % (11.5-14.5); Segmented Neutrophils % 54.6 %
[2017-04-20 04:53] LABS: BUN/Creatinine Ratio 15 (6-26); Blood Urea Nitrogen 14 mg/dL (7-20); Calcium 9.7 mg/dL (8.6-10.8); Carbon Dioxide 24 mEq/L (19-29); Chloride 106 mEq/L (98-109); Glucose 126 mg/dL (70-99); Osmolality,Calculated 288 (280-300); Potassium 4.1 mEq/L (3.5-4.5); Sodium 138 mEq/L (136-145); eGFR For African Americans > 60 (> 60); eGFR For Non-African Americans 58 (> 60)
[2017-04-20] MEDS: Insulin LISPRO 300 UNITS/3 ML VIAL SQ SCH ×4 (07:57→21:16)
[2017-04-20] MEDS: cloNIDine HCl 0.1 MG TABLET PO SCH ×2 (09:56→21:19)
[2017-04-20] MEDS: Aspirin 81 MG TAB.CHEW PO SCH (09:56)
[2017-04-20] MEDS: Gabapentin 400 MG CAPSULE PO SCH ×3 (09:57→21:19)
[2017-04-20] MEDS: Furosemide 20 MG TABLET PO SCH (09:57)
[2017-04-20] MEDS: hydroCHLOROthiazide 25 MG TABLET PO SCH (09:57)
[2017-04-20] MEDS: Magnesium Oxide 400 MG TABLET PO SCH (09:57)
[2017-04-20] MEDS: amLODIPine 5 MG TABLET PO SCH (09:58)
[2017-04-20] MEDS: Fenofibrate 54 MG TABLET PO SCH (09:58)
[2017-04-20] MEDS: Fluticasone Propionate Nasal 50 MCG/SPRAY BOTTLE NS SCH (09:59)
--- NOTE | 2017-04-20 11:50 | Internal Med Progress Note ---
Date of Encounter: 04/20/17 Time of Encounter: 09:15 - Assessment and plan (1) Vertigo Current Visit: Yes Status: Acute Assessment and plan: Likely secondary to recent addition of Ranexa and nitroglycerin patch to her regimen. She could not start Imdur because of a past intolerance with nausea and vomiting as a reaction. Both of these medications has been held, her dizziness has improved but she is not back to her baseline. We will observe overnight and possibly discharge tomorrow pending clinical outcomes. Meclizine as needed. Head CT negative. No signs of acute infection. Brain MRI also negative for acute processes. ITS Impressions Head CT 04/19/17 11:41 IMPRESSION: No acute intracranial abnormality. D/ / Alpesh Love MD / Alpesh Love MD Interpreting Provider: Alpesh Love MD Brain MRI 04/19/17 16:21 IMPRESSION: Mild chronic white matter microvascular ischemic changes. D/ / Julio Cesar To MD / Julio Cesar To MD Interpreting Provider: Julio Cesar To MD (2) CAD (coronary artery disease), [place] coronary artery Current Visit: No Status: Chronic Assessment and plan: Patient denies chest pain or shortness of breath Qualifiers: [place] vs. transplanted heart: [place] heart Associated angina: with stable angina Qualified Code(s): I25.118 - Atherosclerotic heart disease of [place] coronary artery with other forms of angina pectoris (3) Hypertension Current Visit: Yes Status: Chronic Assessment and plan: uncontrolled. At home, she is on Clonidine 0.1mg BID, amlodipine 5mg daily, Ranexa 1000mg BID, metoprolol 50mg BID, HCTZ 25mg daily, furosemide 20mg daily. We are holding her Ranexa as this may be contributing to her dizziness. Will increase her amlodipine. Cannot increase metoprolol as her HR has been in the high 50s. Will also consider increasing her clonidine. Qualifiers: Hypertension type: essential hypertension Qualified Code(s): I10 - Essential (primary) hypertension (4) Type 2 diabetes mellitus Current Visit: No Status: Chronic Assessment and plan: Controlled with a recent A1c of 7.6%. Continue sliding scale while admitted. Qualifiers: Diabetes mellitus complication status: with kidney complications Diabetes mellitus complication detail: with chronic kidney disease Diabetes mellitus alf insulin use: without long term care administrator use Chronic kidney disease stage: stage 3 (moderate) Qualified Code(s): E11.22 - Type 2 diabetes mellitus with diabetic chronic kidney disease; N18.3 - Chronic kidney disease, stage 3 ( moderate) (5) Hypomagnesemia Current Visit: No Status: Acute Assessment and plan: Repleted, we will recheck with a.m. labs. (6) Hypothyroidism Current Visit: No Status: Chronic Assessment and plan: TSH checked last month, normal Qualifiers: Hypothyroidism type: acquired Qualified Code(s): E03.9 - Hypothyroidism, unspecified (7) PAF (paroxysmal atrial fibrillation) Current Visit: No Status: Chronic Assessment and plan: Rate controlled, anticoagulated with Coumadin, subtherapeutic. Pharmacy to dose Coumadin, will add IPCs for DVT prophylaxis while admitted until she is therapeutic. (8) GERD (gastroesophageal reflux disease) Current Visit: No Status: Chronic Assessment and plan: Denies current symptoms Qualifiers: Esophagitis presence: without esophagitis Qualified Code(s): K21.9 - Gastro -esophageal reflux disease without esophagitis (9) DVT prophylaxis Current Visit: Yes Status: Acute Assessment and plan: Subtherapeutic INR on Coumadin, will add IPCs until therapeutic (10) Accelerated essential hypertension Current Visit: No Status: Resolved Assessment and plan: See prior note for hypertension (11) Fibromyalgia Current Visit: No Status: Chronic (12) Acute renal injury Current Visit: No Status: Acute Assessment and plan: Very mild, creatinine normal. In review for chart, she has had some normal renal functioning values over the last several months although she appears to be trending towards chronic kidney disease, will trend while admitted and have her follow up outpatient. (13) Anxiety Current Visit: No Status: Chronic Assessment and plan: Mood and affect stable (14) Depression Current Visit: No Status: Chronic Qualifiers: Depression Type: unspecified Qualified Code(s): F32.9 - Major depressive disorder, single episode, unspecified (15) Diastolic heart failure Current Visit: Yes Status: Chronic Assessment and plan: Chronic diastolic heart failure. No acute exacerbation. Euvolemic on examination and denies shortness of breath above her norm. Home furosemide dosage continued, will monitor. Qualifiers: Heart failure chronicity: chronic Qualified Code(s): I50.32 - Chronic diastolic (congestive) heart failure (16) Caregiver role strain Current Visit: No Status: Acute Assessment and plan: Last time she was admitted, patient was struggling with her recently being placed in an ECF for dementia as well as her father recently being discharged home, her father lives in an adjacent apartment to her ears. Patient was having caregiver strain because she did not feel that she wanted to visit her in the long-term every day and she also did not want to take care of her father. At this point, her remains in a long-term and her father is now back in an ECF. She states things are better but she is still stressed out and again states that she would like to stay in the hospital as long as possible. She will be observed overnight for her dizziness and her Ranexa and nitroglycerin patch have been held as possible causes, will trend. - Subjective Interval history: Patient seen and examined. On examination, patient initially asleep and awakened easily to voice. Patient stating she ate her breakfast and slept well last night. She states that she is still dizzy with ambulation- she states that she feels off balance. While supine in bed, she is still endorsing mild dizziness. Denies sensation of room spinning. She overall states she is feeling better, but is not back to her baseline. - Constitutional Vitals: Temp Pulse Resp BP Pulse Ox 98.3 F 59 15 179/75 93 04/20/17 11:02 04/20/17 11:02 04/20/17 11:02 04/20/17 11:02 04/20/17 11:02 General appearance: Present: A&O X 3, pleasant, no acute distress, obese, answers questions appropriately - Head Head exam: Present: atraumatic, normocephalic - Eye Eye exam: Present: EOMI, PERRL, conjuntiva pink, sclera anicteric. Absent: nystagmus Pupils: Present: PERRL - Neck Neck exam general surgery: Present: supple, trachea midline. Absent: lymphadenopathy - Respiratory Respiratory exam: Present: CTAB. Absent: accessory muscle use, rales, respiratory distress, rhonchi, wheezes - Cardiovascular Cardiovascular exam: Present: RRR, +S1, +S2. Absent: diastolic murmur, gallop, rubs, systolic murmur - GI/Abdominal GI/Abdominal exam: Present: normal bowel sounds, soft, no peritoneal signs. Absent: distended, tenderness - Extremities Exam Extremities exam: Present: warm, radial pulses palpable and symetrical. Absent : calf tenderness, cyanotic, pedal edema - Neurological Exam Neurological exam: Present: alert, CN II-XII intact, oriented X3, no focal deficits, strengths equal and symetr throughout. Absent: pronater drift, facial droop, speech deficit - Expanded Neurological Exam Neurological exam expanded: Present: protecting the airway Patient oriented to: Present: person, place, time Speech: Present: fluid speech Cranial Nerves: EOM's intact PM: Normal, gag reflex PM: Normal, nystagmus PM: Normal Cerebellar function: finger to nose: Normal Neuro motor strength exam: LUE: 5, RUE: 5, LLE: 5, RLE: 5 Coma Scale Eye Opening: Spontaneous Coma Scale Motor Response: Obeys Commands Coma Scale Verbal Response: Oriented Coma Scale Total: 15 - Skin Skin exam: Present: dry, intact, pallor, warm Internal Medicine: Result - Labs CBC & Chem 7: 04/20/17 04:14 04/20/17 04:14 Labs: Short CBC 04/20/17 Range/Units 04:14 WBC 8.1 (4.3-11.1) K/mcL Hgb 11.0 L (11.5-15.4) g/dL Hct 35.2 L (35.3-44.9) % Plt Count 337 (140-400) K/mcL Neutrophils # 4.4 (1.6-8.9) K/mcL BMP 04/20/17 04:14 Sodium 138 Potassium 4.1 Chloride 106 Carbon Dioxide 24 BUN 14 Creatinine 0.96 Glucose 126 H Calcium 9.7 - ABG Interpretation ABG results: PT/INR, D-dimer PT 17.5 Seconds (9.4-12.1) H 04/19/17 11:56 - Impressions Impressions Brain MRI 04/19/17 16:21 IMPRESSION: Mild chronic white matter microvascular ischemic changes. D/ / Julio Cesar To MD / Julio Cesar To MD Interpreting Provider: Julio Cesar To MD Consult Discharge Plan - Plan Referrals: Fabiola Aguilar MD [Primary Care Provider] -
[2017-04-20] MEDS ORDERED: amLODIPine 5 MG TABLET PO ONE (12:18)
[2017-04-20 12:51] LABS: INR 1.8; Prothrombin Time 19.3 Seconds (9.4-12.1)
--- NOTE | 2017-04-20 17:20 | Electrocardiograph Report ---
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 : 1950 Requested By: Shon Montero Order Number: [id number] Reading MD: Haris Marx MD Measurements Intervals [place] Rate: 61 P: 31 GA: 162 QRS: -10 QRSD: 100 T: 98 QT: 460 QTc: 463 Interpretive Statements SINUS RHYTHM WITH OCCASIONAL SUPRAVENTRICULAR PREMATURE COMPLEXES POSSIBLE LEFT ATRIAL ENLARGEMENT LEFT VENTRICULAR HYPERTROPHY AND ST-T CHANGE Electronically Signed On 04-20-2017 17:18:31 EDT by Haris Marx MD
[2017-04-20] MEDS ORDERED: Warfarin perPT PO PRN (18:00)
[2017-04-20] MEDS ORDERED: *HR* Warfarin 3 MG TABLET PO SCH (18:00)
[2017-04-21 03:15] LABS: INR 1.6; Prothrombin Time 17.6 Seconds (9.4-12.1)
[2017-04-21 03:31] LABS: BUN/Creatinine Ratio 17 (6-26); Blood Urea Nitrogen 18 mg/dL (7-20); Calcium 9.8 mg/dL (8.6-10.8); Carbon Dioxide 28 mEq/L (19-29); Chloride 102 mEq/L (98-109); Glucose 145 mg/dL (70-99); Magnesium 1.5 mg/dL (1.6-2.6); Osmolality,Calculated 290 (280-300); Potassium 3.9 mEq/L (3.5-4.5); Sodium 138 mEq/L (136-145); eGFR For African Americans > 60 (> 60); eGFR For Non-African Americans 52 (> 60)
[2017-04-21] MEDS: Insulin LISPRO 300 UNITS/3 ML VIAL SQ SCH ×3 (07:26→17:55)
[2017-04-21] MEDS ORDERED: amLODIPine 5 MG TABLET PO SCH (09:00)
[2017-04-21] MEDS: Aspirin 81 MG TAB.CHEW PO SCH (09:49)
[2017-04-21] MEDS: Fluticasone Propionate Nasal 50 MCG/SPRAY BOTTLE NS SCH (09:50)
[2017-04-21] MEDS: hydroCHLOROthiazide 25 MG TABLET PO SCH (09:50)
[2017-04-21] MEDS: Furosemide 20 MG TABLET PO SCH (09:50)
[2017-04-21] MEDS: Magnesium Oxide 400 MG TABLET PO SCH (09:51)
[2017-04-21] MEDS: Gabapentin 400 MG CAPSULE PO SCH ×2 (09:51→14:05)
[2017-04-21] MEDS: Fenofibrate 54 MG TABLET PO SCH (09:52)
[2017-04-21] MEDS ORDERED: cloNIDine HCl 0.1 MG TABLET PO SCH (15:00)
[2017-04-21 15:32] VITALS: BP 134/67
--- NOTE | 2017-04-21 16:10 | Consult Note ---
Date of Encounter: 04/21/17 Time of Encounter: 15:30 Assessment & Recommendation (1) Major depression, recurrent Status: Acute Assessment & Recommendation: Patient may benefit from elective psychiatric hospitalization for stabilization of her depression. Thank you for consultation Qualifiers: Active/Remission status: currently active Major depression episode severity : severe Psychotic features: without psychotic features Qualified Code(s): F33.2 - Major depressive disorder, recurrent severe without psychotic features History of Present Illness Patient: new to practice Requesting Physician: Nicki Barnes Reason for consult: Severe depression History of present illness: Ms. Browning is a 67 year old female admitted to the hospital for evaluation and treatment of dizziness and vertigo. Patient has complex medical history and history of psychiatric treatment for depression and she is actively treated and followed up in a mental health clinic. Psychiatric consultation was requested to evaluate its severe depression and possible need for inpatient stabilization. Patient is stressed I would by multiple stressors including current placement of her in [place] [facility] and she she felt overwhelmed by his stressors and expressed need for stabilization in the hospital. Patient had previous hospitalization and she benefits from treatments in that the environment. She did not express any suicidal thoughts or intentions. CC: Nicki Barnes Past Med Surg Social Fam HX - Past Medical History Medical history: arthritis, atrial fibrillation, CHF, coronary artery disease, diabetes, fibromyalgia, GERD, hyperlipidemia, hypertension, migraine, thyroid disease, other - Past Psychiatric History Psychiatric history: Reports: depression, previous psychiatric hospitalization - Past Surgical History Surgical History: angioplasty/stent, cataract, cholecystectomy, coronary bypass (CABG), hysterectomy, other - Social History Smoking Status: Never smoker Smokeless Tobacco Status: No Alcohol use: none Drug use: none - Family History Mother Adopted: No Family Member Ethnicity: Non- Living Status: Hx Family Cardiac Disorders: Yes Hx Family Neurologic Disorders: Yes (migraines) Father Living Status: Still Living Hx Family Cardiac Disorders: Yes Hx Family Cancer: Yes (skin cancer) Medications & Allergies Aspirin 81 mg PO DAILY 03/27/16 [History] Ascorbate Calcium [Vitamin C] 500 mg PO DAILY 05/21/16 [History] Calcium Carbonate/Vitamin D3 [Caltrate 600 + D Soft Chew Tab] 1 tab PO DAILY [History] Cholecalciferol (D-3) [Vitamin D] 1,000 unit PO DAILY 05/21/16 [History] Dicyclomine [Bentyl] 10 mg PO BID 05/21/16 [History] Duloxetine HCl [Cymbalta] 60 mg PO BID 05/21/16 [History] Esomeprazole Magnesium [Nexium] 40 mg PO HS 05/21/16 [History] Evolocumab [Repatha Syringe] 140 mg SQ Q2W 05/21/16 [History] Fluticasone Propionate Nasal [Flonase] 1 spray NS DAILY 05/21/16 [History] Fluvastatin Sodium [Lescol Xl] 80 mg PO QPM 05/21/16 [History] Furosemide [Lasix] 20 mg PO DAILY 05/21/16 [History] Hydrochlorothiazide [Microzide] 25 mg PO DAILY 05/21/16 [History] Loratadine [Claritin] 10 mg PO DAILY 05/21/16 [History] Nitroglycerin [Nitrostat] 0.4 mg SL Q5M PRN 05/21/16 [History] clonazePAM [Klonopin] 1 mg PO TID PRN 05/21/16 [History] Fenofibrate,Micronized [Lofibra] 200 mg PO DAILY 05/28/16 [History] Prazosin HCl [Minipress] 2 mg PO HS 06/10/16 [History] Gabapentin [Neurontin] 1,200 mg PO TID 06/11/16 [History] Levothyroxine Sodium 75 mcg PO DAILY 03/29/17 [History] Potassium Chloride [K-Tab ER] 30 meq PO QAM 03/29/17 [History] Potassium Chloride [K-Tab ER] 20 meq PO QPM 04/06/17 [History] Warfarin [Coumadin] 1.5 mg PO MOTUWETHFR 04/06/17 [History] Warfarin [Coumadin] 3 mg PO SUSA 04/06/17 [History] Oxybutynin [Ditropan] 2.5 mg PO BID #30 tablet 04/09/17 [Rx] Phenazopyridine [Pyridium] 200 mg PO TID PRN #40 tablet 04/09/17 [Rx] Benzonatate [Tessalon] 200 mg PO TID PRN #30 capsule 04/10/17 [Rx] GuaiFENesin ER [Mucinex] 1,200 mg PO BID #20 tbbp.12hr 04/10/17 [Rx] Metoprolol [Lopressor] 12.5 mg PO BID #30 tablet 04/21/17 [Rx] amLODIPine [Norvasc] 10 mg PO DAILY 04/21/17 [History] cloNIDine HCl [CloNIDine HCl] 0.1 mg PO TID #90 tablet 04/21/17 [Rx] Allergies acetaminophen [From Percocet] Allergy (Verified 10/11/16 21:00) Hallucinating ibuprofen Allergy (Verified 10/11/16 21:00) Nausea metoclopramide [From Reglan] Allergy (Verified 10/11/16 21:00) Nausea morphine Allergy (Verified 10/11/16 21:00) Difficulty Breathing Oxycodone [From Percocet] Allergy (Verified 10/11/16 21:00) Difficulty Breathing propoxyphene [From Darvocet-N] Allergy (Verified 10/11/16 21:00) Anxiety Oxjyqok-Eyr-Agk Reductase Inhibitor [Statins] Allergy (Verified 02/07/17 18:46) See Comments worsens fibromyalgia amitriptyline [From Elavil] Adverse Reaction (Verified 10/11/16 21:00) Headache apixaban [From Eliquis] Adverse Reaction (Verified 04/06/17 15:32) Muscle Pain aripiprazole [From Abilify] Adverse Reaction (Verified 10/11/16 21:00) Anxiety codeine Adverse Reaction (Verified 10/11/16 21:00) Nausea guaifenesin [From Mucinex] Adverse Reaction (Verified 10/11/16 21:00) Headache Hydromorphone [From Dilaudid] Adverse Reaction (Verified 10/11/16 21:00) Chills isosorbide Adverse Reaction (Verified 10/11/16 21:00) Headache Methylphenidate [From Ritalin] Adverse Reaction (Verified 10/11/16 21:00) Diarrhea prednisone Adverse Reaction (Verified 10/11/16 21:00) Anxiety pregabalin [From Lyrica] Adverse Reaction (Verified 10/11/16 21:00) Diarrhea sucralfate Adverse Reaction (Verified 10/11/16 21:00) Diarrhea valsartan [From Diovan] Adverse Reaction (Verified 10/11/16 21:00) Muscle Pain Mental Status Exam Patient orientation: Yes Person, Yes Time, Yes Place Level of alertness: Alert Patient appearance: Appropriate, Well Groomed Behavior: calm, cooperative, anxious, tearful Psychomotor activity: Slowed Eye contact: Maintains Eye Contact Mood description: Euthymic/stable, Depressed Affect description: congruent with mood, constricted Speech pattern: Normal rate, Normal rhythm, Normal tone Speech volume: Normal Thought process: Linear, Goal Oriented Thought content: No Suicidal ideation, No Homicidal ideation, No Overt delusions Perceptual disturbances: No Auditory hallucinations, No Visual hallucinations Attention span: Capable of Focused Attention Memory description: Grossly Intact Patient reliability: Reliable Historian Intelligence estimate: Average Judgment: Limited Insight: Partial Results - Vital Signs Vital signs: Temp Pulse Resp BP Pulse Ox 97.7 F 70 12 134/67 95 04/21/17 15:31 04/21/17 15:31 04/21/17 15:31 04/21/17 15:31 04/21/17 15:31 - Labs Labs: Laboratory Last Values WBC 8.1 K/mcL (4.3-11.1) 04/20/17 04:14 RBC 4.17 M/mcL (3.82-4.97) 04/20/17 04:14 Hgb 11.0 g/dL (11.5-15.4) L 04/20/17 04:14 Hct 35.2 % (35.3-44.9) L 04/20/17 04:14 MCV 84.4 fL (83.0-100.0) 04/20/17 04:14 MCH 26.4 pg (28.0-33.3) L 04/20/17 04:14 MCHC 31.3 g/dL (31.6-35.5) L 04/20/17 04:14 RDW 17.2 % (11.5-14.5) H 04/20/17 04:14 Plt Count 337 K/mcL (140-400) 04/20/17 04:14 MPV 11.9 fL (9.4-12.4) 04/20/17 04:14 Immature Gran % 0.4 % (0-4) 04/20/17 04:14 Seg Neutrophils % 54.6 % 04/20/17 04:14 Lymphocytes % 28.5 % 04/20/17 04:14 Monocytes % 7.3 % 04/20/17 04:14 Eosinophils % 8.3 % 04/20/17 04:14 Basophils % 0.9 % 04/20/17 04:14 Neutrophils # 4.4 K/mcL (1.6-8.9) 04/20/17 04:14 Lymphocytes # 2.3 K/mcL (0.6-4.6) 04/20/17 04:14 Monocytes # 0.6 K/mcL (0.0-1.3) 04/20/17 04:14 Eosinophils # 0.7 K/mcL (0.0-0.6) H 04/20/17 04:14 Basophils # 0.1 K/mcL (0.0-0.2) 04/20/17 04:14 PT 17.6 Seconds (9.4-12.1) H 04/21/17 03:01 INR 1.6 04/21/17 03:01 Sodium 138 mEq/L (136-145) 04/21/17 03:01 Potassium 3.9 mEq/L (3.5-4.5) 04/21/17 03:01 Chloride 102 mEq/L (98-109) 04/21/17 03:01 Carbon Dioxide 28 mEq/L (19-29) 04/21/17 03:01 BUN 18 mg/dL (7-20) 04/21/17 03:01 Creatinine 1.06 mg/dL (0.57-1.11) 04/21/17 03:01 Est GFR ( Amer) > 60 (> 60) 04/21/17 03:01 Est GFR (Non-Af Amer) 52 (> 60) L 04/21/17 03:01 BUN/Creatinine Ratio 17 (6-26) 04/21/17 03:01 Glucose 145 mg/dL (70-99) H 04/21/17 03:01 POC Glucose 208 (58-89) H 04/21/17 10:53 Calculated Osmolality 290 (280-300) 04/21/17 03:01 Calcium 9.8 mg/dL (8.6-10.8) 04/21/17 03:01 Magnesium 1.5 mg/dL (1.6-2.6) L 04/21/17 03:01 Total Bilirubin 0.5 mg/dL (0.2-1.2) 04/19/17 11:56 AST 17 Units/L (5-34) 04/19/17 11:56 ALT 11 Units/L (0-55) 04/19/17 11:56 Alkaline Phosphatase 73 Units/L (38-126) 04/19/17 11:56 Troponin I 0.01 ng/mL (0-0.03) 04/19/17 11:56 Serum Total Protein 7.1 g/dL (6.0-8.3) 04/19/17 11:56 Albumin 3.5 g/dL (3.5-5.0) 04/19/17 11:56 Globulin 3.6 g/dL (2.4-3.5) H 04/19/17 11:56 Albumin/Globulin Ratio 1.0 (1.1-2.2) L 04/19/17 11:56 Consult Discharge Plan - Plan Instructions: Vertigo (GEN), Hypertension (GEN), Dizziness (GEN) Additional Instructions: Follow-up with primary care provider as scheduled Referrals: Fabiola Aguilar MD [Primary Care Provider] - 04/27/17 3:30 pm Prescriptions: cloNIDine HCl [CloNIDine HCl] 0.1 mg PO TID #90 tablet Metoprolol [Lopressor] 12.5 mg PO BID #30 tablet
[2017-04-21] MEDS ORDERED: *HR* Warfarin 3 MG TABLET PO ONE (18:00)
--- NOTE | 2017-04-21 18:28 | Discharge Summary ---
Date of Encounter: 04/21/17 Time of Encounter: 09:30 - Discharge Diagnosis (1) Vertigo Priority: Primary Status: Resolved (2) CAD (coronary artery disease), [place] coronary artery Priority: Secondary Status: Chronic Comments: patient denied chest pain or shortness of breath. Qualifiers: [place] vs. transplanted heart: [place] heart Associated angina: with stable angina Qualified Code(s): I25.118 - Atherosclerotic heart disease of [place] coronary artery with other forms of angina pectoris (3) Hypertension Priority: Secondary Status: Chronic Comments: uncontrolled. At home, she is on Clonidine 0.1mg BID- increased to TID, amlodipine 5mg daily- increased to 10mg daily. Ranexa 1000mg BID- stopped 2/2 side effects, metoprolol 50mg BID, HCTZ 25mg daily, furosemide 20mg daily. Normotensive at time of discharge with improved heart rate of 70 Qualifiers: Hypertension type: essential hypertension Qualified Code(s): I10 - Essential (primary) hypertension (4) Type 2 diabetes mellitus Priority: Secondary Status: Chronic Comments: Controlled with a recent A1c of 7.6%. 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 Follow-up outpatient. Potassium normal. (6) Hypothyroidism Priority: Secondary Status: Chronic Comments: TSH checked last month, normal Qualifiers: Hypothyroidism type: acquired Qualified Code(s): E03.9 - Hypothyroidism, unspecified (7) PAF (paroxysmal atrial fibrillation) Priority: Secondary Status: Chronic Comments: Rate controlled, anticoagulated with Coumadin, subtherapeutic. IPCs for DVT prophylaxis while admitted. Follow-up outpatient. (8) GERD (gastroesophageal reflux disease) Priority: Secondary Status: Chronic Comments: Denied current symptoms Qualifiers: Esophagitis presence: without esophagitis Qualified Code(s): K21.9 - Gastro -esophageal reflux disease without esophagitis (9) DVT prophylaxis Priority: Primary Status: Acute Comments: Subtherapeutic INR on Coumadin, IPCs added as well (10) Accelerated essential hypertension Priority: Primary Status: Resolved (11) Fibromyalgia Priority: Secondary Status: Chronic (12) Acute renal injury Priority: Primary Status: Acute Comments: Very mild, creatinine normal. In review for chart, she has had some normal renal functioning values over the last several months although she appears to be trending towards chronic kidney disease, remained stable while admitted. Follow-up outpatient. Creatinine remained normal. (13) Anxiety Priority: Secondary Status: Chronic (14) Depression Priority: Secondary Status: Chronic Comments: Uncontrolled. While she denies suicidal ideation, she stated she was severely depressed and wanted to be transferred to inpatient psychiatric unit. Qualifiers: Depression Type: unspecified Qualified Code(s): F32.9 - Major depressive disorder, single episode, unspecified (15) Diastolic heart failure Priority: Secondary Status: Chronic Comments: Chronic diastolic heart failure. No acute exacerbation. Euvolemic on examination and denied shortness of breath above her norm. Home furosemide dosage continued. Qualifiers: Heart failure chronicity: chronic Qualified Code(s): I50.32 - Chronic diastolic (congestive) heart failure (16) Caregiver role strain Priority: Primary Status: Acute - Discharge Medications Prescriptions: amLODIPine [Norvasc] 10 mg PO DAILY #60 tablet cloNIDine HCl [CloNIDine HCl] 0.1 mg PO TID #90 tablet Metoprolol [Lopressor] 12.5 mg PO BID #30 tablet Home Medications: Aspirin 81 mg PO DAILY 03/27/16 [History] Ascorbate Calcium [Vitamin C] 500 mg PO DAILY 05/21/16 [History] Calcium Carbonate/Vitamin D3 [Caltrate 600 + D Soft Chew Tab] 1 tab PO DAILY [History] Cholecalciferol (D-3) [Vitamin D] 1,000 unit PO DAILY 05/21/16 [History] Dicyclomine [Bentyl] 10 mg PO BID 05/21/16 [History] Duloxetine HCl [Cymbalta] 60 mg PO BID 05/21/16 [History] Esomeprazole Magnesium [Nexium] 40 mg PO HS 05/21/16 [History] Evolocumab [Repatha Syringe] 140 mg SQ Q2W 05/21/16 [History] Fluticasone Propionate Nasal [Flonase] 1 spray NS DAILY 05/21/16 [History] Fluvastatin Sodium [Lescol Xl] 80 mg PO QPM 05/21/16 [History] Furosemide [Lasix] 20 mg PO DAILY 05/21/16 [History] Hydrochlorothiazide [Microzide] 25 mg PO DAILY 05/21/16 [History] Loratadine [Claritin] 10 mg PO DAILY 05/21/16 [History] Nitroglycerin [Nitrostat] 0.4 mg SL Q5M PRN 05/21/16 [History] clonazePAM [Klonopin] 1 mg PO TID PRN 05/21/16 [History] Fenofibrate,Micronized [Lofibra] 200 mg PO DAILY 05/28/16 [History] Magnesium Chloride [Magnesium Dr] 64 mg PO BID 05/28/16 [History] Prazosin HCl [Minipress] 2 mg PO HS 06/10/16 [History] Gabapentin [Neurontin] 1,200 mg PO TID 06/11/16 [History] Levothyroxine Sodium 75 mcg PO DAILY 03/29/17 [History] Potassium Chloride [K-Tab ER] 30 meq PO QAM 03/29/17 [History] Potassium Chloride [K-Tab ER] 20 meq PO QPM 04/06/17 [History] Warfarin [Coumadin] 1.5 mg PO MOTUWETHFR 04/06/17 [History] Warfarin [Coumadin] 3 mg PO SUSA 04/06/17 [History] Nitroglycerin 0.2 mg TD 0730 PRN #14 patch.td24 04/09/17 [Rx] Oxybutynin [Ditropan] 2.5 mg PO BID #30 tablet 04/09/17 [Rx] Phenazopyridine [Pyridium] 200 mg PO TID PRN #40 tablet 04/09/17 [Rx] Benzonatate [Tessalon] 200 mg PO TID PRN #30 capsule 04/10/17 [Rx] GuaiFENesin ER [Mucinex] 1,200 mg PO BID #20 tbbp.12hr 04/10/17 [Rx] Metoprolol [Lopressor] 12.5 mg PO BID #30 tablet 04/21/17 [Rx] amLODIPine [Norvasc] 10 mg PO DAILY #60 tablet 04/21/17 [Rx] cloNIDine HCl [CloNIDine HCl] 0.1 mg PO TID #90 tablet 04/21/17 [Rx] Allergies/Adverse Reactions: Allergies acetaminophen [From Percocet] Allergy (Verified 10/11/16 21:00) Hallucinating ibuprofen Allergy (Verified 10/11/16 21:00) Nausea metoclopramide [From Reglan] Allergy (Verified 10/11/16 21:00) Nausea morphine Allergy (Verified 10/11/16 21:00) Difficulty Breathing Oxycodone [From Percocet] Allergy (Verified 10/11/16 21:00) Difficulty Breathing propoxyphene [From Darvocet-N] Allergy (Verified 10/11/16 21:00) Anxiety Paxazpb-Ylz-Tgs Reductase Inhibitor [Statins] Allergy (Verified 02/07/17 18:46) See Comments worsens fibromyalgia amitriptyline [From Elavil] Adverse Reaction (Verified 10/11/16 21:00) Headache apixaban [From Eliquis] Adverse Reaction (Verified 04/06/17 15:32) Muscle Pain aripiprazole [From Abilify] Adverse Reaction (Verified 10/11/16 21:00) Anxiety codeine Adverse Reaction (Verified 10/11/16 21:00) Nausea guaifenesin [From Mucinex] Adverse Reaction (Verified 10/11/16 21:00) Headache Hydromorphone [From Dilaudid] Adverse Reaction (Verified 10/11/16 21:00) Chills isosorbide Adverse Reaction (Verified 10/11/16 21:00) Headache Methylphenidate [From Ritalin] Adverse Reaction (Verified 10/11/16 21:00) Diarrhea prednisone Adverse Reaction (Verified 10/11/16 21:00) Anxiety pregabalin [From Lyrica] Adverse Reaction (Verified 10/11/16 21:00) Diarrhea sucralfate Adverse Reaction (Verified 10/11/16 21:00) Diarrhea valsartan [From Diovan] Adverse Reaction (Verified 10/11/16 21:00) Muscle Pain Procedures/tests Complete & Pending: Procedures Performed prior 72 hours Category Date Time Status MR head/brain wo con [MR] Routine MRI 04/19/17 16:21 Completed Date of admission: 04/19/17 14:30 Primary care physician: Fabiola Aguilar Consults: 04/20/17 16:24 Consult to Psychiatry [CONS] Routine Consulting Provider: Psychiatry Clara Reason for Consult: flat affect. patient stating she is severely depressed. denies suicidal ideations as they are against her islam. patient requesting inpatient psychiatric admission. Time Notified: 16:25 Call Completed: Yes Discharging clinician: Nicki Card Anticipated date of discharge: 04/21/17 (transferring down to 1A) - Patient Status Disposition: Transfer Psychiatric Hosp Condition: Good Functional capacity at discharge: independent ambulation Overall status at discharge: patient is progressing back to baseline - Discharge Instructions Follow Up With: Fabiola Aguilar MD [Primary Care Provider] - 04/27/17 3:30 pm Additional Instructions: Follow-up with primary care provider as scheduled - Diet and Activity Activity: increase activity as tolerated Diet: diabetic diet, low fat, low cholesterol, low salt diet Hospital course: Ms. Browning is a 67 year old female with past medical history of diastolic heart failure, atrial fibrillation on Coumadin, CAD status post CABG, diabetes, fibromyalgia, GERD, hyperlipidemia, hypertension, migraines, thyroid disease, panic disorder, previous psychiatric hospitalization, prior suicide attempt. Patient was recently discharged after being worked up for chest pain and during that admission, she had a negative stress test. She was started on Ranexa and on a nitroglycerin patch as she was unable to tolerate Imdur secondary to nausea and vomiting. She presented to the emergency department chief complaint dizziness and almost falling with vertigo-like symptoms. During this admission from last week as well as during this admission, patient continually stated that she was experiencing caregiver role strain and stated that she was extremely stressed. Her is recently placed in a half-way as was her father and she stated that she was too stressed out with all of the paperwork and having to travel a lot to visit them, and she stated that she needed time off. Workup in the emergency department unremarkable. Head CT negative. Patient was admitted to the hospitalist service for further evaluation and management. Brain MRI negative for acute processes. Patient had no focal neurological weakness is present during this admission. Her symptoms abated by the second day of admission as her Ranexa and nitroglycerin patch were both held. Likely the causative factors. Blood pressure is difficult to control, her metoprolol was decreased secondary to bradycardia and her blood pressure was uncontrolled so her clonidine and her amlodipine dosages were both increased. She was normotensive at time of discharge. Acute neurological etiologies were ruled out and this was likely side effect of the 2 new medications that were stopped and then her symptoms subsided. We were preparing to discharge her, when the patient stated that she wanted to be admitted down to the psychiatric inpatient unit. She stated that she was extremely depressed. She denied suicidal ideation but stated that she still wanted to be inpatient psychiatric unit. Psychiatry was brought on board who agreed to take her down in the psychiatric unit. She is discharged on inpatient psychiatry in stable condition with close outpatient follow-up recommended. ITS Impressions Head CT 04/19/17 11:41 IMPRESSION: No acute intracranial abnormality. D/ / Alpesh Love MD / Alpesh Love MD Interpreting Provider: Alpesh Love MD Brain MRI 04/19/17 16:21 IMPRESSION: Mild chronic white matter microvascular ischemic changes. D/ / Julio Cesar To MD / Julio Cesar To MD Interpreting Provider: Julio Cesar To MD - Time Spent with Patient Total time spent providing and/or coordinating discharge services: - Constitutional Vitals: Temp Pulse Resp BP Pulse Ox 97.7 F 70 12 134/67 95 04/21/17 15:31 04/21/17 15:31 04/21/17 15:31 04/21/17 15:31 04/21/17 15:31 General appearance: Present: A&O X 3, pleasant, no acute distress, obese, answers questions appropriately - Head Head exam: Present: atraumatic, normocephalic - Eye Eye exam: Present: PERRL, conjuntiva pink, sclera anicteric Pupils: Present: PERRL - Neck Neck exam general surgery: Present: supple, trachea midline. Absent: lymphadenopathy - Respiratory Respiratory exam: Present: CTAB. Absent: accessory muscle use, rales, respiratory distress, rhonchi, wheezes - Cardiovascular Cardiovascular exam: Present: RRR, +S1, +S2. Absent: diastolic murmur, gallop, rubs, systolic murmur - GI/Abdominal GI/Abdominal exam: Present: normal bowel sounds, soft, no peritoneal signs. Absent: distended, tenderness - Extremities Exam Extremities exam: Present: warm, radial pulses palpable and symetrical. Absent : calf tenderness, cyanotic, pedal edema - Neurological Exam Neurological exam: Present: alert, CN II-XII intact, normal gait, oriented X3, no focal deficits, strengths equal and symetr throughout. Absent: pronater drift, facial droop, speech deficit - Psychiatric Psychiatric exam: Present: depressed, flat affect. Absent: suicidal ideation - Skin Skin exam: Present: dry, intact, normal color, warm
[2017-04-23] MEDS ORDERED: *HR* Warfarin 3 MG TABLET PO SCH ×2 (18:00)
== END 2017-04-21 20:30 ==
LOC: 3BNU 11:38 → EMEROO 11:38 → 3BNU 15:20
PROVIDERS: ADMIT Internal Medicine; ATTEND Nurse Practitioner Family

== ENCOUNTER 2017-07-05 13:04 | Observation (INO) ==
--- NOTE | 2017-07-05 13:29 | Emergency Department Note ---
Disposition Clinical Impression: Chest pain Qualifiers: Chest pain type: unspecified Qualified Code(s): R07.9 - Chest pain, unspecified Disposition: Still a Patient Condition: Fair Forms: ED Satisfaction Letter Time of Disposition: 14:06 Chest Pain HPI - General Chief Complaint: ED Chest Pain Stated Complaint: Chest Pain Time Seen by Provider: 07/05/17 13:26 Source: patient, EMS Limitations: no limitations - History of Present Illness HPI Narrative: Alert and oriented nontoxic-appearing 67-year-old female presents for evaluation of substernal chest pain that awoke her from her sleep earlier this morning. She rates his pain a 4 out of 10 on a 10 point scale describes it as sharp in nature. There is no radiation of this pain. There is no migration of this pain. The pain is made worsened with exertion and is alleviated with rest. She denies any dyspnea, hemoptysis, cough, fever, or abdominal pain. She does complain of being slightly nauseated. Pt complaint: chest pain Onset (ago): hour(s) Duration: constant Onset: awoke with symptoms Pain Location: substernal Severity: moderate Severity scale (1-10): 4 Quality: sharp Pain Radiation: none Improves with: rest Worsens with: exertion Associated symptoms: Reports: nausea. Denies: dyspnea, palpitations, fever, cough Treatments prior to arrival chest pain: aspirin (Aspirin, 324 mg given by EMS personnel) - Related Data Home Medications Medication Instructions Recorded Confirmed Aspirin 81 mg PO DAILY 03/27/16 04/21/17 Ascorbate Calcium [Vitamin C] 500 mg PO DAILY 05/21/16 04/21/17 Calcium Carbonate/Vitamin D3 1 tab PO DAILY 05/21/16 04/21/17 [Caltrate 600 + D Soft Chew Tab] Cholecalciferol (D-3) [Vitamin D] 1,000 unit PO DAILY 05/21/16 04/21/17 Dicyclomine [Bentyl] 10 mg PO BID 05/21/16 04/21/17 Esomeprazole Magnesium [Nexium] 40 mg PO HS 05/21/16 04/21/17 Evolocumab [Repatha Syringe] 140 mg SQ Q2W 05/21/16 04/21/17 Fluticasone Propionate Nasal 1 spray NS DAILY 05/21/16 04/21/17 [Flonase] Fluvastatin Sodium [Lescol Xl] 80 mg PO QPM 05/21/16 04/21/17 Furosemide [Lasix] 20 mg PO DAILY 05/21/16 04/21/17 Hydrochlorothiazide [Microzide] 25 mg PO DAILY 05/21/16 04/21/17 Loratadine [Claritin] 10 mg PO DAILY 05/21/16 04/21/17 Nitroglycerin [Nitrostat] 0.4 mg SL Q5M PRN 05/21/16 04/21/17 clonazePAM [Klonopin] 1 mg PO TID PRN 05/21/16 04/21/17 Fenofibrate,Micronized [Lofibra] 200 mg PO DAILY 05/28/16 04/21/17 Gabapentin [Neurontin] 1,200 mg PO TID 06/11/16 04/21/17 Levothyroxine Sodium 75 mcg PO DAILY 03/29/17 04/21/17 Potassium Chloride [K-Tab ER] 30 meq PO QAM 03/29/17 04/21/17 Potassium Chloride [K-Tab ER] 20 meq PO QPM 04/06/17 04/21/17 Warfarin [Coumadin] 1.5 mg PO MOTUWETHFR 04/06/17 04/21/17 Warfarin [Coumadin] 3 mg PO SUSA 04/06/17 04/21/17 amLODIPine [Norvasc] 10 mg PO DAILY 04/21/17 04/21/17 Previous Rx's Medication Instructions Recorded Oxybutynin [Ditropan] 2.5 mg PO BID #30 tablet 04/09/17 Phenazopyridine [Pyridium] 200 mg PO TID PRN #40 tablet 04/09/17 Metoprolol [Lopressor] 12.5 mg PO BID #30 tablet 04/21/17 cloNIDine HCl [CloNIDine HCl] 0.1 mg PO TID #90 tablet 04/21/17 DULoxetine [Cymbalta] 90 mg PO DAILY #90 capsule. 04/27/17 Escitalopram [Lexapro] 10 mg PO DAILY #30 tablet 04/27/17 Prazosin HCl [Minipress] 2 mg PO HS #30 capsule 04/27/17 traZODone [TraZODone] 50 mg PO HS PRN #30 tablet 04/27/17 Allergies Allergy/AdvReac Type Severity Reaction Status Date / Time acetaminophen [From Percocet] Allergy Hallucinati Verified 10/11/16 21:00 ng ibuprofen Allergy Nausea Verified 10/11/16 21:00 metoclopramide [From Reglan] Allergy Nausea Verified 10/11/16 21:00 morphine Allergy Difficulty Verified 10/11/16 21:00 Breathing Oxycodone [From Percocet] Allergy Difficulty Verified 10/11/16 21:00 Breathing propoxyphene Allergy Anxiety Verified 10/11/16 21:00 [From Darvocet-N] Fzmosrq-Pao-Jdo Reductase Allergy See Verified 02/07/17 18:46 Inhibitor Comments [Statins] amitriptyline [From Elavil] AdvReac Headache Verified 10/11/16 21:00 apixaban [From Eliquis] AdvReac Muscle Pain Verified 04/06/17 15:32 aripiprazole [From Abilify] AdvReac Anxiety Verified 10/11/16 21:00 codeine AdvReac Nausea Verified 10/11/16 21:00 guaifenesin [From Mucinex] AdvReac Headache Verified 10/11/16 21:00 Hydromorphone [From Dilaudid] AdvReac Chills Verified 10/11/16 21:00 isosorbide AdvReac Headache Verified 10/11/16 21:00 Methylphenidate AdvReac Diarrhea Verified 10/11/16 21:00 [From Ritalin] prednisone AdvReac Anxiety Verified 10/11/16 21:00 pregabalin [From Lyrica] AdvReac Diarrhea Verified 10/11/16 21:00 sucralfate AdvReac Diarrhea Verified 10/11/16 21:00 valsartan [From Diovan] AdvReac Muscle Pain Verified 10/11/16 21:00 All systems ED: reviewed and negative except as stated. Constitutional: Denies: fever, chills, weakness, weight change Eyes: Denies: eye pain, eye discharge, vision change ENT ED: Denies: ear pain, throat pain, dental pain, hearing loss, epistaxis, congestion, dysphagia Cardiovascular: Reports: as per HPI, chest pain. Denies: palpitations, dyspnea on exertion, edema, syncope Respiratory: Denies: cough, dyspnea, wheezes, hemoptysis, stridor Gastrointestinal: Reports: as per HPI, nausea. Denies: abdominal pain, vomiting , diarrhea, constipation, hematemesis, melena, hematochezia Genitourinary: Denies: dysuria, frequency, hematuria, discharge Musculoskeletal: Denies: back pain, neck pain, arthralgia, myalgia Integumentary: Denies: rash, abrasion, lesions Neurological: Denies: headache, weakness, numbness, paresthesias, confusion, abnormal gait, vertigo Psychiatric: Denies: anxiety, depression, suicidal thoughts, homicidal thoughts , auditory hallucinations, visual hallucinations Endocrine: Denies: fatigue Hematological/Lymphatic: Denies: easy bleeding, easy bruising Allergic/Immunologic: Denies: facial swelling, urticaria Chest Pain PMH - Past Medical History Medical history: Reports: arthritis, atrial fibrillation, CHF, coronary artery disease, diabetes, fibromyalgia, GERD, hyperlipidemia, hypertension, migraine, thyroid disease, other Surgical history: Reports: angioplasty/stent, cataract, cholecystectomy, coronary bypass (CABG), hysterectomy, other Psychiatric history: Reports: depression, prior suicide attempt, previous psychiatric hospitalization JAIL GUARD history: Reports: no JAIL GUARD history - Social History Smoking Status: Never smoker Alcohol use: Reports: none Drug use: Reports: none Physical Exam - General Limitations: no limitations General appearance: alert, in no apparent distress - Head Head exam: atraumatic, normocephalic, normal inspection - Eye Eye exam: Present: normal appearance, PERRL, EOMI. Absent: nystagmus - ENT ENT exam: mucous membranes moist - Neck Neck exam: Present: normal inspection, full ROM, trachea midline - Chest Chest inspection: Present: normal inspection, symmetric chest wall rise - Respiratory Respiratory exam: Present: normal lung sounds bilaterally. Absent: respiratory distress, wheezes, stridor, accessory muscle use, prolonged expiratory phase - Cardiovascular Cardiovascular exam: Present: regular rate, normal rhythm, normal heart sounds - Abdominal Exam Abdominal exam: Present: soft, Non-Tender, normal bowel sounds - Extremities Exam Extremities exam: Present: normal inspection, full ROM. Absent: tenderness, pedal edema - Neurological Exam Neurological exam: Present: alert, oriented X3 - Psychiatric Psychiatric exam: Present: normal affect, normal mood - Skin Skin exam: Present: warm, dry, intact, normal color Course Vital Signs Temperature 98.2 F 07/05/17 13:05 Pulse Rate 64 07/05/17 13:05 Respiratory Rate 17 07/05/17 13:05 Blood Pressure 128/79 07/05/17 13:05 O2 Sat by Pulse Oximetry 95 07/05/17 13:05 Temperature 98.2 F 07/05/17 13:05 Pulse Rate 64 07/05/17 13:42 Respiratory Rate 18 07/05/17 13:42 Blood Pressure 133/74 07/05/17 13:42 O2 Sat by Pulse Oximetry 99 07/05/17 13:42 Oxygen Delivery Oxygen Delivery Nasal Cannula Chest Pain - Medical Records Medical records reviewed: Yes I reviewed the patient's medical records. - Lab Data Result diagrams: 07/05/17 13:24 07/05/17 13:24 Lab Results 07/05/17 07/05/17 07/05/17 Range/Units 13:24 13:24 13:24 WBC 10.9 (4.3-11.1) K/mcL RBC 4.73 (3.82-4.97) M/mcL Hgb 12.2 (11.5-15.4) g/dL Hct 38.8 (35.3-44.9) % MCV 82.0 L (83.0-100.0) fL MCH 25.8 L (28.0-33.3) pg MCHC 31.4 L (31.6-35.5) g/dL RDW 14.6 H (11.5-14.5) % Plt Count 358 (140-400) K/mcL MPV 11.1 (9.4-12.4) fL Immature Gran % 0.5 (0-4) % Seg Neutrophils % 69.1 % Lymphocytes % 16.7 % Monocytes % 8.1 % Eosinophils % 4.9 % Basophils % 0.7 % Neutrophils # 7.6 (1.6-8.9) K/mcL Lymphocytes # 1.8 (0.6-4.6) K/mcL Monocytes # 0.9 (0.0-1.3) K/mcL Eosinophils # 0.5 (0.0-0.6) K/mcL Basophils # 0.1 (0.0-0.2) K/mcL PT 77.5 H* (9.4-12.1) Seconds INR 6.9 H* APTT 62.7 H (26.0-36.0) Seconds Sodium 139 (136-145) mEq/L Potassium 3.3 L (3.5-4.5) mEq/L Chloride 102 (98-109) mEq/L Carbon Dioxide 27 (19-29) mEq/L BUN 17 (7-20) mg/dL Creatinine 1.14 H (0.57-1.11) mg/dL Est GFR ( Amer) 58 L (> 60) Est GFR (Non-Af Amer) 48 L (> 60) BUN/Creatinine Ratio 15 (6-26) Glucose 283 H (70-99) mg/dL Calculated Osmolality 300 (280-300) Calcium 9.9 (8.6-10.8) mg/dL Troponin I (0-0.03) ng/mL B-Natriuretic Peptide (0-100) pg/mL 07/05/17 07/05/17 Range/Units 13:24 13:24 WBC (4.3-11.1) K/mcL RBC (3.82-4.97) M/mcL Hgb (11.5-15.4) g/dL Hct (35.3-44.9) % MCV (83.0-100.0) fL MCH (28.0-33.3) pg MCHC (31.6-35.5) g/dL RDW (11.5-14.5) % Plt Count (140-400) K/mcL MPV (9.4-12.4) fL Immature Gran % (0-4) % Seg Neutrophils % % Lymphocytes % % Monocytes % % Eosinophils % % Basophils % % Neutrophils # (1.6-8.9) K/mcL Lymphocytes # (0.6-4.6) K/mcL Monocytes # (0.0-1.3) K/mcL Eosinophils # (0.0-0.6) K/mcL Basophils # (0.0-0.2) K/mcL PT (9.4-12.1) Seconds INR APTT (26.0-36.0) Seconds Sodium (136-145) mEq/L Potassium (3.5-4.5) mEq/L Chloride (98-109) mEq/L Carbon Dioxide (19-29) mEq/L BUN (7-20) mg/dL Creatinine (0.57-1.11) mg/dL Est GFR ( Amer) (> 60) Est GFR (Non-Af Amer) (> 60) BUN/Creatinine Ratio (6-26) Glucose (70-99) mg/dL Calculated Osmolality (280-300) Calcium (8.6-10.8) mg/dL Troponin I 0.00 (0-0.03) ng/mL B-Natriuretic Peptide 35 (0-100) pg/mL S.[email or web address] - Nicole Situation: Demographics, MOA Background: Presenting Complaint, Relevant PMH, Meds, & Allergies Assessment: Vital Signs, Course and respsone to treatment, Exam Concerns, Patient/Family Expectation, Pertinant Lab Results, Outstanding Labs Recommendation: Barrier(s) to disposition, Recommendation based on pending studies, treatments, or consults SDago Report Given to: Dr. Jerad Rivera Repor Time: 14:05
[2017-07-05 13:32] LABS: Basophils # 0.1 K/mcL (0.0-0.2); Basophils % 0.7 %; Eosinophils # 0.5 K/mcL (0.0-0.6); Eosinophils % 4.9 %; Hematocrit 38.8 % (35.3-44.9); Hemoglobin 12.2 g/dL (11.5-15.4); Immature Granulocytes % 0.5 % (0-4); Lymphocytes # 1.8 K/mcL (0.6-4.6); Lymphocytes % 16.7 %; Mean Corpuscular HGB Conc 31.4 g/dL (31.6-35.5); Mean Corpuscular Hemoglobin 25.8 pg (28.0-33.3); Mean Platelet Volume 11.1 fL (9.4-12.4); Monocytes # 0.9 K/mcL (0.0-1.3); Monocytes % 8.1 %; Neutrophils # 7.6 K/mcL (1.6-8.9); Platelet Count 358 K/mcL (140-400); Red Blood Count 4.73 M/mcL (3.82-4.97); Red Cell Distribution Width 14.6 % (11.5-14.5); Segmented Neutrophils % 69.1 %
[2017-07-05 13:39] LABS: Activated Partial Thrombo Time 62.7 Seconds (26.0-36.0)
[2017-07-05 13:43] LABS: Calcium 9.9 mg/dL (8.6-10.8); Potassium 3.3 mEq/L (3.5-4.5)
[2017-07-05 13:51] LABS: INR 6.9; Prothrombin Time 77.5 Seconds (9.4-12.1)
--- NOTE | 2017-07-05 14:57 | Emergency Department Note ---
Disposition Clinical Impression: Chest pain Qualifiers: Chest pain type: unspecified Qualified Code(s): R07.9 - Chest pain, unspecified Disposition: Admitted As Inpatient Condition: Fair Time of Disposition: 15:11 Chest Pain HPI - General Chief Complaint: ED Chest Pain Stated Complaint: Chest Pain Time Seen by Provider: 07/05/17 13:26 Source: patient, EMS Limitations: no limitations Vital Signs Reviewed: Yes Nursing Notes Reviewed: Yes - History of Present Illness HPI Narrative: Patient is a 67-year-old female with a history of CABG 3 years ago complains of chest pain started 7 hours ago. Patient states pain workup and sleep with chest pressure mid substernal 6/10 with no radiation to neck or arms. Patient took aspirin and nitroglycerin patch. Patient states pain was reduced to 3/10. Patient states she does not take nitroglycerin pills because makes her vomit. Patient is allergic to isosorbide Pain Location: substernal Severity scale (1-10): 0 Quality: sharp Improves with: rest Worsens with: exertion Associated symptoms: Reports: nausea. Denies: dyspnea, palpitations, fever, cough - Related Data Home Medications Medication Instructions Recorded Confirmed Aspirin 81 mg PO DAILY 03/27/16 07/05/17 Ascorbate Calcium [Vitamin C] 500 mg PO DAILY 05/21/16 07/05/17 Calcium Carbonate/Vitamin D3 1 tab PO DAILY 05/21/16 07/05/17 [Caltrate 600 + D Soft Chew Tab] Cholecalciferol (D-3) [Vitamin D] 1,000 unit PO DAILY 05/21/16 07/05/17 Dicyclomine [Bentyl] 10 mg PO BID 05/21/16 07/05/17 Esomeprazole Magnesium [Nexium] 40 mg PO HS 05/21/16 07/05/17 Evolocumab [Repatha Syringe] 140 mg SQ Q2W 05/21/16 07/05/17 Fluticasone Propionate Nasal 1 spray NS DAILY 05/21/16 07/05/17 [Flonase] Fluvastatin Sodium [Lescol Xl] 80 mg PO QPM 05/21/16 07/05/17 Furosemide [Lasix] 20 mg PO DAILY 05/21/16 07/05/17 Hydrochlorothiazide [Microzide] 25 mg PO DAILY 05/21/16 07/05/17 Loratadine [Claritin] 10 mg PO DAILY 05/21/16 07/05/17 Nitroglycerin [Nitrostat] 0.4 mg SL Q5M PRN 05/21/16 07/05/17 clonazePAM [Klonopin] 1 mg PO TID PRN 05/21/16 07/05/17 Fenofibrate,Micronized [Lofibra] 200 mg PO DAILY 05/28/16 07/05/17 Gabapentin [Neurontin] 1,200 mg PO TID 06/11/16 07/05/17 Levothyroxine Sodium 112.5 mcg PO QAM 03/29/17 07/05/17 Potassium Chloride [K-Tab ER] 30 meq PO QAM 03/29/17 07/05/17 Potassium Chloride [K-Tab ER] 20 meq PO QPM 04/06/17 07/05/17 Warfarin [Coumadin] 1.5 mg PO TUSA 04/06/17 07/05/17 Warfarin [Coumadin] 3 mg PO SUMOWEFR 04/06/17 07/05/17 amLODIPine [Norvasc] 5 mg PO DAILY 04/21/17 07/05/17 Losartan Potassium [Cozaar] 100 mg PO DAILY 07/05/17 07/05/17 Magnesium 60 mg PO DAILY 07/05/17 07/05/17 Metformin HCl [Glucophage] 1,000 mg PO QAM 07/05/17 07/05/17 Vitamin B Complex [B Complex] 1 each PO DAILY 07/05/17 07/05/17 Previous Rx's Medication Instructions Recorded Oxybutynin [Ditropan] 2.5 mg PO BID #30 tablet 04/09/17 Metoprolol [Lopressor] 12.5 mg PO BID #30 tablet 04/21/17 cloNIDine HCl [CloNIDine HCl] 0.1 mg PO TID #90 tablet 04/21/17 DULoxetine [Cymbalta] 90 mg PO DAILY #90 capsule. 04/27/17 Escitalopram [Lexapro] 10 mg PO DAILY #30 tablet 04/27/17 Prazosin HCl [Minipress] 2 mg PO HS #30 capsule 04/27/17 traZODone [TraZODone] 50 mg PO HS PRN #30 tablet 04/27/17 Allergies Allergy/AdvReac Type Severity Reaction Status Date / Time acetaminophen [From Percocet] Allergy Hallucinati Verified 10/11/16 21:00 ng ibuprofen Allergy Nausea Verified 10/11/16 21:00 metoclopramide [From Reglan] Allergy Nausea Verified 10/11/16 21:00 morphine Allergy Difficulty Verified 10/11/16 21:00 Breathing Oxycodone [From Percocet] Allergy Difficulty Verified 10/11/16 21:00 Breathing propoxyphene Allergy Anxiety Verified 10/11/16 21:00 [From Darvocet-N] [id number] Reductase Allergy See Verified 02/07/17 18:46 Inhibitor Comments [Statins] amitriptyline [From Elavil] AdvReac Headache Verified 10/11/16 21:00 apixaban [From Eliquis] AdvReac Muscle Pain Verified 04/06/17 15:32 aripiprazole [From Abilify] AdvReac Anxiety Verified 10/11/16 21:00 codeine AdvReac Nausea Verified 10/11/16 21:00 guaifenesin [From Mucinex] AdvReac Headache Verified 10/11/16 21:00 Hydromorphone [From Dilaudid] AdvReac Chills Verified 10/11/16 21:00 isosorbide AdvReac Headache Verified 10/11/16 21:00 Methylphenidate AdvReac Diarrhea Verified 10/11/16 21:00 [From Ritalin] prednisone AdvReac Anxiety Verified 10/11/16 21:00 pregabalin [From Lyrica] AdvReac Diarrhea Verified 10/11/16 21:00 sucralfate AdvReac Diarrhea Verified 10/11/16 21:00 valsartan [From Diovan] AdvReac Muscle Pain Verified 10/11/16 21:00 All systems ED: reviewed and negative except as stated. Review of Systems: As Per HPI Constitutional: Denies: fever, chills, weakness, weight change Eyes: Denies: eye pain, eye discharge, vision change ENT ED: Denies: ear pain, throat pain, dental pain, hearing loss, epistaxis, congestion, dysphagia Cardiovascular: Reports: as per HPI, chest pain. Denies: palpitations, dyspnea on exertion, edema, syncope Respiratory: Denies: cough, dyspnea, wheezes, hemoptysis, stridor Gastrointestinal: Reports: as per HPI, nausea. Denies: abdominal pain, vomiting , diarrhea, constipation, hematemesis, melena, hematochezia Genitourinary: Denies: dysuria, frequency, hematuria, discharge Musculoskeletal: Denies: back pain, neck pain, arthralgia, myalgia Integumentary: Denies: rash, abrasion, lesions Neurological: Denies: headache, weakness, numbness, paresthesias, confusion, abnormal gait, vertigo Psychiatric: Denies: anxiety, depression, suicidal thoughts, homicidal thoughts , auditory hallucinations, visual hallucinations Endocrine: Denies: fatigue Hematological/Lymphatic: Denies: easy bleeding, easy bruising Allergic/Immunologic: Denies: facial swelling, urticaria Chest Pain PMH - Past Medical History Medical history: Reports: arthritis, atrial fibrillation, CHF, coronary artery disease, diabetes, fibromyalgia, GERD, hyperlipidemia, hypertension, migraine, thyroid disease, other Surgical history: Reports: angioplasty/stent, cataract, cholecystectomy, coronary bypass (CABG), hysterectomy, other Psychiatric history: Reports: depression, prior suicide attempt, previous psychiatric hospitalization [employer] history: Reports: no [employer] history - Social History Smoking Status: Never smoker Alcohol use: Reports: none Drug use: Reports: none Physical Exam 67-year-old female is alert and oriented 3 and in no acute distress. Patient laying in the bed comfortably and nondiaphoretic - General Limitations: no limitations General appearance: alert, in no apparent distress - Head Head exam: atraumatic, normocephalic, normal inspection - Eye Eye exam: Present: normal appearance, PERRL, EOMI - ENT ENT exam: normal exam, normal oropharynx, mucous membranes moist - Neck Neck exam: Absent: normal inspection (Patient has midline sternal scar from CABG ) - Chest Chest inspection: Present: normal inspection, symmetric chest wall rise - Respiratory Respiratory exam: Present: normal lung sounds bilaterally. Absent: respiratory distress, wheezes - Cardiovascular Cardiovascular exam: Present: regular rate, normal rhythm, normal heart sounds - Abdominal Exam Abdominal exam: Present: soft, Non-Tender. Absent: tenderness, distention, guarding, rebound, rigidity - Extremities Exam Extremities exam: Present: normal inspection, full ROM. Absent: tenderness, pedal edema - Expanded Lower Extremity Exam Neurovascular/Tendon exam: Present: normal capillary refill - Back Exam Back exam: Present: normal inspection. Absent: tenderness, CVA tenderness (R), CVA tenderness (L) - Neurological Exam Neurological exam: Present: alert, oriented X3, CN II-XII intact Course - Reevaluation(s) Reevaluation #1: Patient seen and examined. CBC, BMP, troponin, chest x-ray ordered, BNP and PT- INR ordered as well because patient on Coumadin. Time: 13:13 Reevaluation #2: Patient's pain is down from 6/10-3/10 still no blood with her nitroglycerin patch on. We will change in place Nitropaste. Patient otherwise is doing well. Time: 15:00 - Consultations Consultation #1: Dr. Lindo of cardiology was consulted and he requests admission to medicine and he will see her in for 1511 hrs. Time: 15:10 Consultation #2: Dr. Waller the hospitalist has accepted the patient for admission Time: 17:00 Vital Signs Temperature 98.2 F 07/05/17 13:05 Pulse Rate 64 07/05/17 13:05 Respiratory Rate 17 07/05/17 13:05 Blood Pressure 128/79 07/05/17 13:05 O2 Sat by Pulse Oximetry 95 07/05/17 13:05 Temperature 98.2 F 07/05/17 13:05 Pulse Rate 58 07/05/17 18:30 Respiratory Rate 18 07/05/17 18:56 Blood Pressure 138/86 07/05/17 18:56 O2 Sat by Pulse Oximetry 98 07/05/17 18:30 Oxygen Delivery Oxygen Delivery Nasal Cannula Chest Pain - [facility] Narrative Medical decision making narrative: Patient with history of CABG present with chest pain concerning for ACS/HI/ unstable angina. Also and in differential is pulmonary embolism, the patient does not complain of any shortness of breath. Patient does complain of dyspnea on exertion with worsening chest pain. Patient's O2 sats are normal for her. Patient states pain currently 3/10. Patient took aspirin and nitroglycerin patch at home. Patient is has vomiting with nitroglycerin pills. Patient is on Coumadin. Patient's labs refracted no elevation of troponin, EKG showed no signs of ischemia. Patient's INR was supratherapeutic at 6.9. Patient shows an elevation of her BUN and creatinine for acute kidney injury. Chest x-ray shows enlarged cardiac silhouette which per her read as been seen on previous x-rays and is currently stable. No other abnormalities found. Spoke to cardiology. Dr. Lindo of cardiology states admitted to medicine and they will see her on the floor. Patient being admitted for an STEMI/unstable angina Patient was accepted for admission Dr. Waller the hospitalist has accepted the patient for admission - Lab Data Lab results reviewed: Yes I reviewed the patient's lab results. Lab results narrative: Short CBC 07/05/17 Range/Units 13:24 WBC 10.9 (4.3-11.1) K/mcL Hgb 12.2 (11.5-15.4) g/dL Hct 38.8 (35.3-44.9) % Plt Count 358 (140-400) K/mcL Neutrophils # 7.6 (1.6-8.9) K/mcL BMP 07/05/17 Range/Units 13:24 Sodium 139 (136-145) mEq/L Potassium 3.3 L (3.5-4.5) mEq/L Chloride 102 (98-109) mEq/L Carbon Dioxide 27 (19-29) mEq/L BUN 17 (7-20) mg/dL Creatinine 1.14 H (0.57-1.11) mg/dL Glucose 283 H (70-99) mg/dL Calcium 9.9 (8.6-10.8) mg/dL Cardiac Enzymes 07/05/17 Range/Units 13:24 Troponin I 0.00 (0-0.03) ng/mL Result diagrams: 07/05/17 13:24 07/05/17 13:24 Lab Results 07/05/17 07/05/17 07/05/17 Range/Units 13:24 13:24 13:24 WBC 10.9 (4.3-11.1) K/mcL RBC 4.73 (3.82-4.97) M/mcL Hgb 12.2 (11.5-15.4) g/dL Hct 38.8 (35.3-44.9) % MCV 82.0 L (83.0-100.0) fL MCH 25.8 L (28.0-33.3) pg MCHC 31.4 L (31.6-35.5) g/dL RDW 14.6 H (11.5-14.5) % Plt Count 358 (140-400) K/mcL MPV 11.1 (9.4-12.4) fL Immature Gran % 0.5 (0-4) % Seg Neutrophils % 69.1 % Lymphocytes % 16.7 % Monocytes % 8.1 % Eosinophils % 4.9 % Basophils % 0.7 % Neutrophils # 7.6 (1.6-8.9) K/mcL Lymphocytes # 1.8 (0.6-4.6) K/mcL Monocytes # 0.9 (0.0-1.3) K/mcL Eosinophils # 0.5 (0.0-0.6) K/mcL Basophils # 0.1 (0.0-0.2) K/mcL PT 77.5 H* (9.4-12.1) Seconds INR 6.9 H* APTT 62.7 H (26.0-36.0) Seconds Sodium 139 (136-145) mEq/L Potassium 3.3 L (3.5-4.5) mEq/L Chloride 102 (98-109) mEq/L Carbon Dioxide 27 (19-29) mEq/L BUN 17 (7-20) mg/dL Creatinine 1.14 H (0.57-1.11) mg/dL Est GFR ( Amer) 58 L (> 60) Est GFR (Non-Af Amer) 48 L (> 60) BUN/Creatinine Ratio 15 (6-26) Glucose 283 H (70-99) mg/dL Calculated Osmolality 300 (280-300) Calcium 9.9 (8.6-10.8) mg/dL Troponin I (0-0.03) ng/mL B-Natriuretic Peptide (0-100) pg/mL Urine Color (Yellow) Urine Clarity (Clear) Urine pH (5.0-8.0) pH Units Ur Specific [place] (1.010-1.025) Urine Protein (Neg-Trace) mg/dL Urine Glucose (UA) (Normal) mg/dL Urine Ketones (Negative) mg/dL Urine Blood (Negative) Urine Nitrite (Negative) Urine Bilirubin (Negative) Urine Urobilinogen (Normal) mg/dL Ur Leukocyte Esterase (Negative) Ur Culture Indicated? (NO) 07/05/17 07/05/17 07/05/17 Range/Units 13:24 13:24 15:17 WBC (4.3-11.1) K/mcL RBC (3.82-4.97) M/mcL Hgb (11.5-15.4) g/dL Hct (35.3-44.9) % MCV (83.0-100.0) fL MCH (28.0-33.3) pg MCHC (31.6-35.5) g/dL RDW (11.5-14.5) % Plt Count (140-400) K/mcL MPV (9.4-12.4) fL Immature Gran % (0-4) % Seg Neutrophils % % Lymphocytes % % Monocytes % % Eosinophils % % Basophils % % Neutrophils # (1.6-8.9) K/mcL Lymphocytes # (0.6-4.6) K/mcL Monocytes # (0.0-1.3) K/mcL Eosinophils # (0.0-0.6) K/mcL Basophils # (0.0-0.2) K/mcL PT (9.4-12.1) Seconds INR APTT (26.0-36.0) Seconds Sodium (136-145) mEq/L Potassium (3.5-4.5) mEq/L Chloride (98-109) mEq/L Carbon Dioxide (19-29) mEq/L BUN (7-20) mg/dL Creatinine (0.57-1.11) mg/dL Est GFR ( Amer) (> 60) Est GFR (Non-Af Amer) (> 60) BUN/Creatinine Ratio (6-26) Glucose (70-99) mg/dL Calculated Osmolality (280-300) Calcium (8.6-10.8) mg/dL Troponin I 0.00 (0-0.03) ng/mL B-Natriuretic Peptide 35 (0-100) pg/mL Urine Color Yellow (Yellow) Urine Clarity Clear (Clear) Urine pH 6.0 (5.0-8.0) pH Units Ur Specific [place] 1.027 H (1.010-1.025) Urine Protein Negative (Neg-Trace) mg/dL Urine Glucose (UA) >=1000 H (Normal) mg/dL Urine Ketones Negative (Negative) mg/dL Urine Blood Negative (Negative) Urine Nitrite Negative (Negative) Urine Bilirubin Negative (Negative) Urine Urobilinogen Normal (Normal) mg/dL Ur Leukocyte Esterase Negative (Negative) Ur Culture Indicated? NO (NO) - Radiology Data Radiology results reviewed: Yes I reviewed the patient's radiology results. Chest X-Ray 07/05/17 13:13 IMPRESSION: 1. Persistently enlarged cardiac silhouette. 2. Otherwise, no acute cardiopulmonary abnormality. D/ / Genaro Lisa MD / Genaro Lisa MD Interpreting Provider: Genaro Lisa MD - EKG Data EKG attestation: Yes I reviewed and interpreted this EKG. EKG results narrative: EKG taken 2016 at 1306 hrs. shows sinus rhythm at a rate of [address] patient's in any leads, patient has inverted T waves in 1 aVL which are seen on previous EKG taken 04/19/2017 which shows no signs ischemia Heart Score - Score History: Moderately Suspicious EKG: Non Specific repolarisation Disturbance Age: Greater than 65 Risk Factors: Equal/Greater than 3 risk factor or history of atherosclerotic disease Troponin: Less than normal limit HEART Score Total: 6
[2017-07-05] MEDS ORDERED: Nitroglycerin 0.4 MG TAB.SUBL SL PRN ×2 (15:01→20:03)
[2017-07-05] MEDS ORDERED: Nitroglycerin 1 INCH/GM PACKET TP ONE (15:01)
[2017-07-05 15:33] LABS: Bilirubin,Urine Negative (Negative); Blood,Urine Negative (Negative); Clarity,Urine Clear (Clear); Color,Urine Yellow (Yellow); Glucose,Urine (UA) >=1000 mg/dL (Normal); Ketones,Urine Negative (Negative); Leukocyte Esterase,Urine Negative (Negative); Nitrite,Urine Negative (Negative); Protein,Urine Negative (Neg-Trace); Specific Gravity,Urine 1.027 (1.010-1.025); Urobilinogen,Urine Normal (Normal)
--- NOTE | 2017-07-05 15:52 | Emergency Department Note ---
START Narrative - START START: I examined this patient and my medical decision-making was reviewed with the Resident Physician. I agree with the documented findings, disposition and treatment plan as described except to the extent set forth below. Chest pain, could represent anginal significance. Plan to admit for provocative testing versus stranding of cardiac biomarkers. EKG stable at time of admission.
[2017-07-05] MEDS ORDERED: Naloxone 0.4 MG/ML INJ IVP PRN (20:00)
[2017-07-05] MEDS ORDERED: Ondansetron 4 MG/2 ML VIAL IVP PRN (20:00)
[2017-07-05] MEDS ORDERED: traZODone 50 MG TABLET PO PRN (20:03)
--- NOTE | 2017-07-05 20:07 | Internal Med History&Physical ---
Date of Encounter: 07/05/17 Time of Encounter: 20:00 Assessment and Plan (1) Chest pain Current visit: No Status: Acute Atypical chest pain - rule out ACS Continue Aspirin, TriCor Troponin - negative, cycle troponin EKG - no acute ST-T changes, sinus rhythm BN peptide - 35 Chest x-ray - cardiomegaly, otherwise negative Cardiology consult Cardiac telemetry, continue to monitor closely Qualifiers: Chest pain type: unspecified Qualified Code(s): R07.9 - Chest pain, unspecified (2) CAD (coronary artery disease), [place] coronary artery Current visit: No Status: Chronic Coronary artery disease status post CABG and status post stents - stable Recent stress test negative for ischemia Seen by cardiology recently, recommend optimal medical management Qualifiers: [place] vs. transplanted heart: [place] heart Associated angina: with stable angina Qualified Code(s): I25.118 - Atherosclerotic heart disease of [place] coronary artery with other forms of angina pectoris (3) Hypertension Current visit: No Status: Chronic Essential hypertension, controlled, continue home meds, monitor Qualifiers: Hypertension type: essential hypertension Qualified Code(s): I10 - Essential (primary) hypertension (4) Type 2 diabetes mellitus Current visit: No Status: Chronic Diabetes mellitus type 2, [id number], hyperglycemia Continue glucose checks, insulin sliding scale Qualifiers: Diabetes mellitus complication status: with kidney complications Diabetes mellitus complication detail: with chronic kidney disease Diabetes mellitus jail insulin use: without predatory animal exterminator use Chronic kidney disease stage: stage 3 (moderate) Qualified Code(s): E11.22 - Type 2 diabetes mellitus with diabetic chronic kidney disease; N18.3 - Chronic kidney disease, stage 3 ( moderate) (5) Atrial fibrillation Current visit: No Status: Chronic Chronic atrial fibrillation - rate controlled Continue Metoprolol Patient is anticoagulated with Warfarin, INR is supratherapeutic, hold Warfarin Qualifiers: Atrial fibrillation type: chronic Qualified Code(s): I48.2 - Chronic atrial fibrillation (6) Supratherapeutic INR Current visit: Yes Status: Acute Supratherapeutic INR - no active bleeding, H&H stable Hold Warfarin, repeat labs in a.m. Vit K if patient develops any signs of bleeding (7) Hyperlipidemia Current visit: Yes Status: Chronic Patient is on TriCor, Repatha and Fluvastatin at home Qualifiers: Hyperlipidemia type: unspecified Qualified Code(s): E78.5 - Hyperlipidemia , unspecified Internal Medicine - H&P: HPI Chief complaint: Chest pain Admitted From: Emergency Dept Plans for Post Hospital Care: Home History of present illness: Ms. Browning is a 67 year old female with past medical history of coronary artery disease status post stent, status post CABG, CHF, atrial fibrillation, diabetes , hyperlipidemia, GERD, hypertension, thyroid disease and migraine headache. Patient presents to the ED with complaint of chest pain that started this morning at around 7:30 AM. Patient examined on the med/surg floor. She is awake and alert. She is able to provide all history. Family member is at bedside. Patient states she developed chest pain suddenly this morning. She describes it as chest pressure which is substernal. No radiation to neck or arms. She did take aspirin and nitroglycerin which helped with the pain. No aggravating factors. Patient complained of mild nausea. Denies shortness of breath, denies palpitations denies cough or any other problems. No other associated symptoms. ` Initial workup in the ED is negative. Troponin is EKG shows normal sinus rhythm with no acute ST-T changes. ED physician has discussed with Dr. Lindo of cardiology. Advised to admit patient. Patient does have supratherapeutic INR. CODE STATUS full code. Past Med Surg Social Fam HX - Past Medical History Medical history: arthritis, atrial fibrillation, CHF, coronary artery disease, diabetes, fibromyalgia, GERD, hyperlipidemia, hypertension, migraine, thyroid disease, other Psychiatric history: depression, prior suicide attempt, previous psychiatric hospitalization - Past Surgical History Surgical History: angioplasty/stent, cataract, cholecystectomy, coronary bypass (CABG), hysterectomy, other - Social History Smoking Status: Never smoker Smokeless Tobacco Status: No Alcohol use: none Drug use: none - Family History Mother Adopted: No Family Member Ethnicity: Non- Living Status: Hx Family Cardiac Disorders: Yes Hx Family Neurologic Disorders: Yes (migraines) Father Living Status: Still Living Hx Family Cardiac Disorders: Yes Hx Family Cancer: Yes (skin cancer) Internal Medicine - H&P: Meds Aspirin 81 mg PO DAILY 03/27/16 [History] Ascorbate Calcium [Vitamin C] 500 mg PO DAILY 05/21/16 [History] Calcium Carbonate/Vitamin D3 [Caltrate 600 + D Soft Chew Tab] 1 tab PO DAILY [History] Cholecalciferol (D-3) [Vitamin D] 1,000 unit PO DAILY 05/21/16 [History] Dicyclomine [Bentyl] 10 mg PO BID 05/21/16 [History] Esomeprazole Magnesium [Nexium] 40 mg PO HS 05/21/16 [History] Evolocumab [Repatha Syringe] 140 mg SQ Q2W 05/21/16 [History] Fluticasone Propionate Nasal [Flonase] 1 spray NS DAILY 05/21/16 [History] Fluvastatin Sodium [Lescol Xl] 80 mg PO QPM 05/21/16 [History] Furosemide [Lasix] 20 mg PO DAILY 05/21/16 [History] Hydrochlorothiazide [Microzide] 25 mg PO DAILY 05/21/16 [History] Loratadine [Claritin] 10 mg PO DAILY 05/21/16 [History] Nitroglycerin [Nitrostat] 0.4 mg SL Q5M PRN 05/21/16 [History] clonazePAM [Klonopin] 1 mg PO TID PRN 05/21/16 [History] Fenofibrate,Micronized [Lofibra] 200 mg PO DAILY 05/28/16 [History] Gabapentin [Neurontin] 1,200 mg PO TID 06/11/16 [History] Levothyroxine Sodium 112.5 mcg PO QAM 03/29/17 [History] Potassium Chloride [K-Tab ER] 30 meq PO QAM 03/29/17 [History] Potassium Chloride [K-Tab ER] 20 meq PO QPM 04/06/17 [History] Warfarin [Coumadin] 1.5 mg PO TUSA 04/06/17 [History] Warfarin [Coumadin] 3 mg PO SUMOWETHFR 04/06/17 [History] Oxybutynin [Ditropan] 2.5 mg PO BID #30 tablet 04/09/17 [Rx] Metoprolol [Lopressor] 12.5 mg PO BID #30 tablet 04/21/17 [Rx] amLODIPine [Norvasc] 5 mg PO DAILY 04/21/17 [History] cloNIDine HCl [CloNIDine HCl] 0.1 mg PO TID #90 tablet 04/21/17 [Rx] DULoxetine [Cymbalta] 90 mg PO DAILY #90 capsule. 04/27/17 [Rx] Escitalopram [Lexapro] 10 mg PO DAILY #30 tablet 04/27/17 [Rx] Prazosin HCl [Minipress] 2 mg PO HS #30 capsule 04/27/17 [Rx] traZODone [TraZODone] 50 mg PO HS PRN #30 tablet 04/27/17 [Rx] Losartan Potassium [Cozaar] 100 mg PO DAILY 07/05/17 [History] Magnesium 60 mg PO DAILY 07/05/17 [History] Metformin HCl [Glucophage] 1,000 mg PO QAM 07/05/17 [History] Vitamin B Complex [B Complex] 1 each PO DAILY 07/05/17 [History] 3 Allergy/AdvReac Type Severity Reaction Status Date / Time acetaminophen [From Percocet] Allergy Hallucinati Verified 10/11/16 21:00 ng ibuprofen Allergy Nausea Verified 10/11/16 21:00 metoclopramide [From Reglan] Allergy Nausea Verified 10/11/16 21:00 morphine Allergy Difficulty Verified 10/11/16 21:00 Breathing Oxycodone [From Percocet] Allergy Difficulty Verified 10/11/16 21:00 Breathing propoxyphene Allergy Anxiety Verified 10/11/16 21:00 [From Darvocet-N] Yecbhdl-Jre-Igi Reductase Allergy See Verified 02/07/17 18:46 Inhibitor Comments [Statins] amitriptyline [From Elavil] AdvReac Headache Verified 10/11/16 21:00 apixaban [From Eliquis] AdvReac Muscle Pain Verified 04/06/17 15:32 aripiprazole [From Abilify] AdvReac Anxiety Verified 10/11/16 21:00 codeine AdvReac Nausea Verified 10/11/16 21:00 guaifenesin [From Mucinex] AdvReac Headache Verified 10/11/16 21:00 Hydromorphone [From Dilaudid] AdvReac Chills Verified 10/11/16 21:00 isosorbide AdvReac Headache Verified 10/11/16 21:00 Methylphenidate AdvReac Diarrhea Verified 10/11/16 21:00 [From Ritalin] prednisone AdvReac Anxiety Verified 10/11/16 21:00 pregabalin [From Lyrica] AdvReac Diarrhea Verified 10/11/16 21:00 sucralfate AdvReac Diarrhea Verified 10/11/16 21:00 valsartan [From Diovan] AdvReac Muscle Pain Verified 10/11/16 21:00 All Systems PM: A 10-system review of systems was performed and is negative for pertinent findings except as documented above in the HPI. - Constitutional Constitutional: no fatigue, no fever(s), no weakness - EENT Eyes: no blurry vision - Cardiovascular Cardiovascular ROS IM: chest pain, lightheadedness, no dyspnea, no dyspnea on exertion, no edema, no orthopnea - Respiratory Respiratory: no cough, no dyspnea, no hemoptysis, no chest congestion - Gastrointestinal Gastrointestinal: no abdominal pain, no belching, no bloating, no cramping, no diarrhea, no melena, no nausea, no vomiting - Genitourinary Genitourinary: no dysuria - Musculoskeletal Musculoskeletal ROS IM: back pain - Neurological Neurological ROS: no abnormal gait, no confusion, no convulsions, no disequilibrium, no dizziness, no loss of vision, no numbness, no tingling - Constitutional Vitals: Temp Pulse Resp BP Pulse Ox 98.1 F 58 16 104/62 95 07/05/17 19:25 07/05/17 19:25 07/05/17 19:25 07/05/17 19:25 07/05/17 19:25 General appearance: Present: A&O X 3, pleasant, no acute distress, answers questions appropriately - Head Head exam: Present: atraumatic - Eye Eye exam: Present: EOMI - ENT ENT exam: Present: mucous membranes moist - Respiratory Respiratory exam: Present: CTAB. Absent: chest wall tenderness, rales, rhonchi , wheezes, tachypnea - Cardiovascular Cardiovascular exam: Present: RRR, +S1, +S2 - GI/Abdominal GI/Abdominal exam: Present: soft. Absent: distended, firm, guarding, tenderness - Extremities Exam Extremities exam: Present: radial pulses palpable and symmetrical. Absent: calf tenderness, cyanotic, pedal edema - Neurological Exam Neurological exam: Present: alert, oriented X3, no focal deficits. Absent: facial droop, speech deficit Internal Med - H&P Results - Labs CBC & Chem 7: 07/05/17 13:24 07/05/17 13:24
[2017-07-05] MEDS ORDERED: D5% in Water 1,000 ML IVC PRN (20:31)
[2017-07-05] MEDS ORDERED: *HR* Dextrose 50 % in Water (Syg) 50 ML SYRINGE IVP PRN (20:31)
[2017-07-05] MEDS ORDERED: Dextrose Gel 15 GM PO PRN ×2 (20:31)
[2017-07-05] MEDS: Insulin LISPRO 300 UNITS/3 ML VIAL SQ SCH (21:49)
[2017-07-05] MEDS: Gabapentin 400 MG CAPSULE PO SCH (21:49)
[2017-07-06 02:30] LABS: INR 7.2; Prothrombin Time 80.7 Seconds (9.4-12.1)
[2017-07-06 02:31] LABS: BUN/Creatinine Ratio 20 (6-26); Blood Urea Nitrogen 20 mg/dL (7-20); Calcium 9.6 mg/dL (8.6-10.8); Carbon Dioxide 30 mEq/L (19-29); Chloride 103 mEq/L (98-109); Chol/HDL Ratio 2.5 (0-4.9); Cholesterol 94 mg/dL (< 200); Glucose 197 mg/dL (70-99); HDL Cholesterol 37 mg/dL (40-59); LDL Cholesterol,Calculated 43 mg/dL (0-99); Magnesium 1.2 mg/dL (1.6-2.6); Osmolality,Calculated 298 (280-300); Potassium 3.5 mEq/L (3.5-4.5); Sodium 140 mEq/L (136-145); Triglycerides 71 mg/dL (< 150); eGFR For African Americans > 60 (> 60); eGFR For Non-African Americans 55 (> 60)
[2017-07-06] MEDS: Famotidine 20 MG/2 ML VIAL IVP SCH ×2 (05:56→16:35)
[2017-07-06] MEDS: Insulin LISPRO 300 UNITS/3 ML VIAL SQ SCH ×4 (08:07→20:24)
--- NOTE | 2017-07-06 08:47 | Cardiology Consult Note ---
Date of Encounter: 07/06/17 Time of Encounter: 08:41 Assessment and Plan (1) CAD (coronary artery disease), [place] coronary artery Current Visit: No Status: Chronic H/o 2V CABG. Last LHC 08/2016 showed patent 2/2 bypass grafts there was a hazy 80% stenosis in the LMCA. The patent bypass grafts supplied the LAD and LCX territory. The LMCA may have effected a small om branch. Medical management was recommended. Recent TTE showed preserved EF. Echocardiogram 05/07/2015: EF 70%. Mild concentric LVH. Mild pulmonary hypertension. Reports symptoms improved with the addition of NTg patch up until yesterday morning. Continue asa, stain, and bb. Continue NTG patch. Intolerant to imdur and ranexa. Qualifiers: [place] vs. transplanted heart: [place] heart Associated angina: with stable angina Qualified Code(s): I25.118 - Atherosclerotic heart disease of [place] coronary artery with other forms of angina pectoris (2) Chest pain Current Visit: No Status: Acute Atypical chest pain symptoms. Troponin negative x3 and EKG with no change from previous. Patient reports depression and panic attacks since recent of her father. Recommend continued treatment of anxiety and depression. Patient has known CAD as described above. No indication for repeat LHC at this time. She is on maximal tolerable medical therapy from heart standpoint. Intolerant to imdur and ranexa due to side effects. Continue NTG patch. Close -out pt follow-up recommended. Qualifiers: Chest pain type: unspecified Qualified Code(s): R07.9 - Chest pain, unspecified (3) PAF (paroxysmal atrial fibrillation) Current Visit: No Status: Chronic H/o PAF. Reported HR 150 at home. HR 64 bpm NSR on presentation. 24 hour telemetry shows avg HR 62 bpm. Minimum hr 50 bpm at 0130. Maximum was 84 bpm at 1200. No recurrent afib seen. Continue coumadin therapy. Restart once INR 3.0 or less. Currently supra-therapeutic. Reports missing coumadin clinic appt recently. Last INR 06/13/17. Importance of compliance discussed and she voiced understanding. Discussion w patient/family: The assessment and plan as outlined above was discussed with the patient and/or family members who expressed understanding and agreement. All questions were answered. Thank you for involving us in the care of your patient. Please call with any questions. History of Present Illness Consult date: 07/06/17 Requesting physician: Mendoza Carpenter Consult reason: Chest pain Chief complaint: Chest pain History of present illness: Ms. Browning is a 67 year old female with a past medical history significant for CAD s/p CABG x2 vessels, PAF on coumadin, and hypertension. She presents to [facility] with recurrent chest pain. Multiple hospital admissions for chest pain. Last HC 08/2016 showed patent 2/2 bypass grafts. There was 80% hazy left main disease. Bypass to the LAD and Cx was patent. Medical managment recommended. She is unfortunatly intolerant to imdur and ranexa due to dizziness. She was started on NTG patch and was tolerating well. During this hospital stay troponin negative x 3. EKG with no acute change. She is found to have supratherapeutic INR at 7.2. she c/o sharp left sided non radiating pain that was associated with palpitations and SOB that woke her from her sleep yesterday morning. She took her morning meds and applied her NTG patch. States that he symptoms faded away shortly after. She says she is having frequent panic attacks after he father suddenly one month ago. Her was also placed in a correction. She did take her vital sign at home and found HR in the 150's and b/p 150/ 100. Previous testing: Stress test: 02/2017- Pharmacologic ECG was non-diagnostic. Perfusion imaging was negative for ischemia or infarct. Echocardiogram 05/07/2015: EF 70%. Mild concentric LVH. Mild pulmonary hypertension. Limited echocardiogram 09/01/2016: EF 60%. Normal LV size and function. Normal RV size and function. Cardiac catheterization 09/02/2016: Left main 80% hazy stenosis. LAD patent stent. D1 mild disease. Circumflex/OM on minimal disease. RCA mid 20% stenosis. SVG to OM 1 patent. DE OLIVEIRA to mid LAD patent. Lexiscan nuclear stress test 05/11/2016: Gated EF 72%. Medium-sized, mild intensity, reversible perfusion defect throughout the anterior segments consistent with mild ischemia. Past Med Surg Social Fam HX - Past Medical History Medical history: arthritis, atrial fibrillation, CHF, coronary artery disease, diabetes, fibromyalgia, GERD, hyperlipidemia, hypertension, migraine, thyroid disease, other Psychiatric history: depression, prior suicide attempt, previous psychiatric hospitalization - Past Surgical History Surgical History: angioplasty/stent, cataract, cholecystectomy, coronary bypass (CABG), hysterectomy, other - Social History Smoking Status: Never smoker Smokeless Tobacco Status: No Alcohol use: none Drug use: none - Family History Mother Adopted: No Family Member Ethnicity: Non- Living Status: Hx Family Cardiac Disorders: Yes Hx Family Neurologic Disorders: Yes (migraines) Father Living Status: Still Living Hx Family Cardiac Disorders: Yes Hx Family Cancer: Yes (skin cancer) Medications and Allergies Aspirin 81 mg PO DAILY 03/27/16 [History] Ascorbate Calcium [Vitamin C] 500 mg PO DAILY 05/21/16 [History] Calcium Carbonate/Vitamin D3 [Caltrate 600 + D Soft Chew Tab] 1 tab PO DAILY [History] Cholecalciferol (D-3) [Vitamin D] 1,000 unit PO DAILY 05/21/16 [History] Dicyclomine [Bentyl] 10 mg PO BID 05/21/16 [History] Esomeprazole Magnesium [Nexium] 40 mg PO HS 05/21/16 [History] Evolocumab [Repatha Syringe] 140 mg SQ Q2W 05/21/16 [History] Fluticasone Propionate Nasal [Flonase] 1 spray NS DAILY 05/21/16 [History] Fluvastatin Sodium [Lescol Xl] 80 mg PO QPM 05/21/16 [History] Furosemide [Lasix] 20 mg PO DAILY 05/21/16 [History] Hydrochlorothiazide [Microzide] 25 mg PO DAILY 05/21/16 [History] Loratadine [Claritin] 10 mg PO DAILY 05/21/16 [History] Nitroglycerin [Nitrostat] 0.4 mg SL Q5M PRN 05/21/16 [History] clonazePAM [Klonopin] 1 mg PO TID PRN 05/21/16 [History] Fenofibrate,Micronized [Lofibra] 200 mg PO DAILY 05/28/16 [History] Gabapentin [Neurontin] 1,200 mg PO TID 06/11/16 [History] Levothyroxine Sodium 112.5 mcg PO QAM 03/29/17 [History] Potassium Chloride [K-Tab ER] 30 meq PO QAM 03/29/17 [History] Potassium Chloride [K-Tab ER] 20 meq PO QPM 04/06/17 [History] Warfarin [Coumadin] 1.5 mg PO TUSA 04/06/17 [History] Warfarin [Coumadin] 3 mg PO SUMOWETHFR 04/06/17 [History] Oxybutynin [Ditropan] 2.5 mg PO BID #30 tablet 04/09/17 [Rx] Metoprolol [Lopressor] 12.5 mg PO BID #30 tablet 04/21/17 [Rx] amLODIPine [Norvasc] 5 mg PO DAILY 04/21/17 [History] cloNIDine HCl [CloNIDine HCl] 0.1 mg PO TID #90 tablet 04/21/17 [Rx] DULoxetine [Cymbalta] 90 mg PO DAILY #90 capsule. 04/27/17 [Rx] Escitalopram [Lexapro] 10 mg PO DAILY #30 tablet 04/27/17 [Rx] Prazosin HCl [Minipress] 2 mg PO HS #30 capsule 04/27/17 [Rx] traZODone [TraZODone] 50 mg PO HS PRN #30 tablet 04/27/17 [Rx] Losartan Potassium [Cozaar] 100 mg PO DAILY 07/05/17 [History] Magnesium 60 mg PO DAILY 07/05/17 [History] Metformin HCl [Glucophage] 1,000 mg PO QAM 07/05/17 [History] Vitamin B Complex [B Complex] 1 each PO DAILY 07/05/17 [History] 3 Allergy/AdvReac Type Severity Reaction Status Date / Time acetaminophen [From Percocet] Allergy Hallucinati Verified 10/11/16 21:00 ng ibuprofen Allergy Nausea Verified 10/11/16 21:00 metoclopramide [From Reglan] Allergy Nausea Verified 10/11/16 21:00 morphine Allergy Difficulty Verified 10/11/16 21:00 Breathing Oxycodone [From Percocet] Allergy Difficulty Verified 10/11/16 21:00 Breathing propoxyphene Allergy Anxiety Verified 10/11/16 21:00 [From Darvocet-N] Eazeief-Oyk-Abo Reductase Allergy See Verified 02/07/17 18:46 Inhibitor Comments [Statins] amitriptyline [From Elavil] AdvReac Headache Verified 10/11/16 21:00 apixaban [From Eliquis] AdvReac Muscle Pain Verified 04/06/17 15:32 aripiprazole [From Abilify] AdvReac Anxiety Verified 10/11/16 21:00 codeine AdvReac Nausea Verified 10/11/16 21:00 guaifenesin [From Mucinex] AdvReac Headache Verified 10/11/16 21:00 Hydromorphone [From Dilaudid] AdvReac Chills Verified 10/11/16 21:00 isosorbide AdvReac Headache Verified 10/11/16 21:00 Methylphenidate AdvReac Diarrhea Verified 10/11/16 21:00 [From Ritalin] prednisone AdvReac Anxiety Verified 10/11/16 21:00 pregabalin [From Lyrica] AdvReac Diarrhea Verified 10/11/16 21:00 sucralfate AdvReac Diarrhea Verified 10/11/16 21:00 valsartan [From Diovan] AdvReac Muscle Pain Verified 10/11/16 21:00 All Systems Review: A 10-system review of systems was performed and is negative for pertinent findings except as documented above in the HPI. Physical Examination Vital Signs, Last 4 Hours Temp Pulse Resp BP Pulse Ox 07/06/17 06:41 98.4 F 62 14 136/82 98 General: Conversant, No Apparent Distress HEENT: Atraumatic, Normocephaly, Mucus Membranes Moist Neck: No JVD, Normal carotid pulses Cardiac: Reg Rate and Rhythm, Normal S1 and S2, No Murmur Lungs: Normal Breath Sounds, No Wheeze, Rales, Rhonchi Neuro: Alert and responsive, No focal deficits noted Abdomen: Soft, Non-Tender Skin: No rashes noted on visualized skin Musculoskeletal: No Chest Wall Tenderness Extremities: No Clubbing, No Cyanosis, No Edema, Normal Pulses Results 07/05/17 13:24 07/06/17 01:57 Lab Results 07/05/17 07/06/17 07/06/17 20:34 01:57 01:57 INR 7.2 H* Sodium Potassium Chloride Carbon Dioxide BUN Creatinine Glucose Calcium Magnesium Troponin I 0.01 0.01 07/06/17 01:57 INR Sodium 140 Potassium 3.5 Chloride 103 Carbon Dioxide 30 H BUN 20 Creatinine 1.00 Glucose 197 H Calcium 9.6 Magnesium 1.2 L Troponin I Chest X-Ray 07/05/17 13:13 IMPRESSION: 1. Persistently enlarged cardiac silhouette. 2. Otherwise, no acute cardiopulmonary abnormality. D/ / Genaro Lisa MD / Genaro Lisa MD Interpreting Provider: Genaro Lisa MD - Imaging and Cardiology Echo: report reviewed Cardiac cath: report reviewed - EKG Interpretation EKG results cardiology: personally reviewed (NSR with no acute ST changes. LVH as seen on previous EKG.) Consult Discharge Plan - Plan Referrals: Fabiloa Aguilar MD [Primary Care Provider] -
[2017-07-06] MEDS: Aspirin 81 MG TAB.CHEW PO SCH (10:54)
[2017-07-06] MEDS: Cholecalciferol (D-3) 1,000 UNIT TABLET PO SCH (10:55)
[2017-07-06] MEDS: Fenofibrate 54 MG TABLET PO SCH (10:55)
[2017-07-06] MEDS: Furosemide 40 MG TABLET PO SCH (10:56)
[2017-07-06] MEDS: amLODIPine 5 MG TABLET PO SCH (10:56)
[2017-07-06] MEDS: Ascorbic Acid 500 MG TABLET PO SCH (10:56)
[2017-07-06] MEDS: hydroCHLOROthiazide 25 MG TABLET PO SCH (10:57)
[2017-07-06] MEDS: Gabapentin 400 MG CAPSULE PO SCH ×3 (10:58→20:23)
[2017-07-06] MEDS: Vitamin B Complex/Vit C/Vit E 1 EACH TABLET PO SCH (10:58)
[2017-07-06] MEDS: MAGNESIUM PO SCH (11:07)
[2017-07-06] MEDS ORDERED: Magnesium Sulfate 2 GM in D5% in Water 100 ML IVPB ONE (13:04)
[2017-07-06] MEDS: hydrOXYzine pamoate 25 MG CAPSULE PO PRN (14:03)
--- NOTE | 2017-07-06 15:56 | Electrocardiograph Report ---
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
--- NOTE | 2017-07-06 18:25 | Internal Med Progress Note ---
Date of Encounter: 07/06/17 Time of Encounter: 13:50 - Assessment and plan (1) Chest pain Current Visit: No Status: Acute Assessment and plan: Patient presents with atypical chest pain symptoms 3/10 chest pressure that has been constant for the last 2 days. Resume nausea or vomiting, no diaphoresis or shortness of breath. Pain is located in the left chest immediately left sternal border with no radiation. She reports it is better with rest and worse with exertion. She also reports increasing anxiety recently her father one month ago has dementia and has been placed in a alf. She states that she is lonely at home has no one to talk to. Physical history two-vessel CABG, left heart catheter done 2015 showed patent bypass grafts and a hazy 80% stenosis in the LMCA. Troponins are negative 3, EKG with no change from prior. She has been seen by cardiology in the see no indication for repeat LHC. She has been tried on Imdur and Ranexa and is intolerant due to side effects. She will continue Nitropatch. She will be followed closely by cardiology in the clinic. Continue telemetry Nitroglycerin patches as needed for pain Monitor labs and vital signs Patient will most likely discharge in the morning. Qualifiers: Chest pain type: unspecified Qualified Code(s): R07.9 - Chest pain, unspecified (2) CAD (coronary artery disease), [place] coronary artery Current Visit: Yes Status: Chronic Assessment and plan: Plan as above. Qualifiers: [place] vs. transplanted heart: [place] heart Associated angina: with stable angina Qualified Code(s): I25.118 - Atherosclerotic heart disease of [place] coronary artery with other forms of angina pectoris (3) Hypertension Current Visit: Yes Status: Chronic Assessment and plan: Well-controlled in inpatient setting. Continue home medications. Qualifiers: Hypertension type: essential hypertension Qualified Code(s): I10 - Essential (primary) hypertension (4) Type 2 diabetes mellitus Current Visit: No Status: Chronic Assessment and plan: A1c 7.6 in February. We will reorder for the morning. Continue sliding scale insulin, diabetic diet, Accu-Cheks before meals at bedtime. Qualifiers: Diabetes mellitus complication status: with kidney complications Diabetes mellitus complication detail: with chronic kidney disease Diabetes mellitus prison insulin use: without exterminator use Chronic kidney disease stage: stage 3 (moderate) Qualified Code(s): E11.22 - Type 2 diabetes mellitus with diabetic chronic kidney disease; N18.3 - Chronic kidney disease, stage 3 ( moderate) (5) Paroxysmal a-fib Current Visit: Yes Status: Acute Assessment and plan: Primary history. Patient states that her heart rate was 150 at home. Rate was within normal limits and EKG was normal sinus. Per cardiology, 24-hour telemetry shows average heart rate of 62 with a minimum of 15 and a maximum of 84. There has been no A. fib since admission. Continue Coumadin therapy. Currently she is supratherapeutic and will need to be restarted once the INR reaches 3.0 or less. Patient states that she missed a Coumadin clinic appointment recently and her last INR was 06/13/2017. Patient verbalized understanding of importance of ensuring all lab draws and appointments are done. (6) Diastolic heart failure Current Visit: Yes Status: Chronic Assessment and plan: History. No acute exacerbation at this time. Qualifiers: Heart failure chronicity: chronic Qualified Code(s): I50.32 - Chronic diastolic (congestive) heart failure (7) Supratherapeutic INR Current Visit: Yes Status: Acute Assessment and plan: INR is elevated at this time. Patient reports that she had missed a Coumadin clinic appointment recently. Patient will need to hold Coumadin, frequent lab draws, restart Coumadin when INR is 3.0 or less. (8) DVT prophylaxis Current Visit: Yes Status: Acute Assessment and plan: Patient is supratherapeutic on Coumadin. She is also ambulatory in the room. - Time Spent With Patient less than 15 minutes - Subjective Interval history: Patient was seen and assessed at 1350. Patient reports 3/10 pressure in left chest immediately left of the sternal border. She denies nausea, vomiting, diaphoresis or shortness of breath. His been constant for the last 2 days. She states it is better with rest, worse with exertion. Patient reports increased anxiety recently due to of father and worsening health condition of who is now in a alf with advanced dementia. She has been seen by cardiology and they have signed off. We will continue to monitor patient most likely discharge in the morning. Patient states that she is having anxiety and that her Klonopin is not really helping. We will attempt Vistaril tonight and see how it affects her. - Constitutional Vitals: Temp Pulse Resp BP Pulse Ox 97.5 F L 62 14 133/79 91 07/06/17 14:56 07/06/17 14:56 07/06/17 14:56 07/06/17 14:56 07/06/17 14:56 General appearance: Present: A&O X 3, pleasant, no acute distress, obese, answers questions appropriately - Head Head exam: Present: atraumatic, normal inspection, normocephalic - Eye Eye exam: Present: normal appearance, conjuntiva pink, sclera anicteric - Neck Neck exam general surgery: Present: supple, trachea midline. Absent: lymphadenopathy - Respiratory Respiratory exam: Present: CTAB. Absent: accessory muscle use, rales, rhonchi, wheezes - Cardiovascular Cardiovascular exam: Present: RRR, +S1, +S2. Absent: diastolic murmur, gallop, rubs, systolic murmur - GI/Abdominal GI/Abdominal exam: Present: normal bowel sounds, soft, no peritoneal signs. Absent: distended, hepatomegaly, tenderness - Extremities Exam Extremities exam: Present: normal inspection, warm, radial pulses palpable and symmetrical. Absent: calf tenderness, cyanotic, pedal edema - Neurological Exam Neurological exam: Present: alert, oriented X3, no focal deficits. Absent: altered, facial droop, speech deficit - Skin Skin exam: Present: dry, intact, normal color, warm. Absent: rash Internal Medicine: Result - Labs CBC & Chem 7: 07/05/17 13:24 07/06/17 01:57 Labs: BMP 07/06/17 01:57 Sodium 140 Potassium 3.5 Chloride 103 Carbon Dioxide 30 H BUN 20 Creatinine 1.00 Glucose 197 H Calcium 9.6 Cardiac Enzymes 07/05/17 07/06/17 07/06/17 Range/Units 20:34 01:57 08:53 Troponin I 0.01 0.01 0.01 (0-0.03) ng/mL - ABG Interpretation ABG results: PT/INR, D-dimer PT 80.7 Seconds (9.4-12.1) H* 07/06/17 01:57 Consult Discharge Plan - Plan Referrals: Fabiola Aguilar MD [Primary Care Provider] -
[2017-07-06 19:19] LABS: Basophils # 0.1 K/mcL (0.0-0.2); Eosinophils # 0.5 K/mcL (0.0-0.6); Eosinophils % 5.5 %; Hematocrit 38.1 % (35.3-44.9); Hemoglobin 12.1 g/dL (11.5-15.4); Immature Granulocytes % 0.5 % (0-4); Lymphocytes # 2.3 K/mcL (0.6-4.6); Lymphocytes % 23.3 %; Mean Corpuscular HGB Conc 31.8 g/dL (31.6-35.5); Mean Corpuscular Volume 81.9 fL (83.0-100.0); Mean Platelet Volume 11.2 fL (9.4-12.4); Monocytes # 0.7 K/mcL (0.0-1.3); Monocytes % 6.8 %; Neutrophils # 6.1 K/mcL (1.6-8.9); Platelet Count 347 K/mcL (140-400); Red Blood Count 4.65 M/mcL (3.82-4.97); Red Cell Distribution Width 14.6 % (11.5-14.5); Segmented Neutrophils % 62.9 %
[2017-07-06 19:27] LABS: INR 5.5; Prothrombin Time 61.2 Seconds (9.4-12.1)
[2017-07-07] MEDS: Famotidine 20 MG/2 ML VIAL IVP SCH (05:52)
[2017-07-07 07:00] LABS: Potassium 3.6 mEq/L (3.5-4.5)
[2017-07-07 07:01] LABS: Prothrombin Time 51.3 Seconds (9.4-12.1)
[2017-07-07 07:02] LABS: INR 4.6
[2017-07-07 07:21] LABS: Basophils # 0.1 K/mcL (0.0-0.2); Basophils % 0.9 %; Eosinophils # 0.5 K/mcL (0.0-0.6); Eosinophils % 5.5 %; Hematocrit 37.1 % (35.3-44.9); Hemoglobin 11.7 g/dL (11.5-15.4); Immature Granulocytes % 0.4 % (0-4); Lymphocytes # 2.9 K/mcL (0.6-4.6); Lymphocytes % 29.6 %; Mean Corpuscular HGB Conc 31.5 g/dL (31.6-35.5); Mean Corpuscular Hemoglobin 26.4 pg (28.0-33.3); Mean Corpuscular Volume 83.7 fL (83.0-100.0); Mean Platelet Volume 11.9 fL (9.4-12.4); Monocytes # 0.7 K/mcL (0.0-1.3); Monocytes % 7.1 %; Neutrophils # 5.5 K/mcL (1.6-8.9); Platelet Count 317 K/mcL (140-400); Red Blood Count 4.43 M/mcL (3.82-4.97); Red Cell Distribution Width 14.8 % (11.5-14.5); Segmented Neutrophils % 56.5 %
[2017-07-07] MEDS: Vitamin B Complex/Vit C/Vit E 1 EACH TABLET PO SCH (09:25)
[2017-07-07] MEDS: amLODIPine 5 MG TABLET PO SCH (09:25)
[2017-07-07] MEDS: Fenofibrate 54 MG TABLET PO SCH (09:25)
[2017-07-07] MEDS: Gabapentin 400 MG CAPSULE PO SCH (09:25)
[2017-07-07] MEDS: Cholecalciferol (D-3) 1,000 UNIT TABLET PO SCH (09:25)
[2017-07-07] MEDS: hydroCHLOROthiazide 25 MG TABLET PO SCH (09:26)
[2017-07-07] MEDS: Ascorbic Acid 500 MG TABLET PO SCH (09:27)
[2017-07-07] MEDS: Furosemide 40 MG TABLET PO SCH (09:27)
[2017-07-07] MEDS: Aspirin 81 MG TAB.CHEW PO SCH (09:28)
[2017-07-07] MEDS: Insulin LISPRO 300 UNITS/3 ML VIAL SQ SCH ×2 (09:28→13:32)
[2017-07-07] MEDS: MAGNESIUM PO SCH (09:29)
[2017-07-07 10:23] LABS: Hemoglobin A1C 7.3 %
[2017-07-07] MEDS: hydrOXYzine pamoate 25 MG CAPSULE PO PRN (10:53)
[2017-07-07 11:07] VITALS: BP 135/78
--- NOTE | 2017-07-07 12:08 | Discharge Summary ---
Date of Encounter: 07/07/17 Time of Encounter: 08:45 - Discharge Diagnosis (1) Chest pain Priority: Primary Status: Acute Comments: Pt denies chest pain today. She will continue nitroglycerin patch and follow up with cardiology in the clinic. Qualifiers: Chest pain type: unspecified Qualified Code(s): R07.9 - Chest pain, unspecified (2) CAD (coronary artery disease), [place] coronary artery Priority: Secondary Status: Chronic Comments: Continue home medications. Pt is pain free today. Qualifiers: [place] vs. transplanted heart: [place] heart Associated angina: with stable angina Qualified Code(s): I25.118 - Atherosclerotic heart disease of [place] coronary artery with other forms of angina pectoris (3) Hypertension Priority: Secondary Status: Chronic Comments: Well controlled in inpatient setting. continue normal home medications. Qualifiers: Hypertension type: essential hypertension Qualified Code(s): I10 - Essential (primary) hypertension (4) Type 2 diabetes mellitus Priority: Secondary Status: Chronic Comments: A1c 7.3. Continue home medications and accuchecks at home. Qualifiers: Diabetes mellitus complication status: with kidney complications Diabetes mellitus complication detail: with chronic kidney disease Diabetes mellitus senior living insulin use: without senior living use Chronic kidney disease stage: stage 3 (moderate) Qualified Code(s): E11.22 - Type 2 diabetes mellitus with diabetic chronic kidney disease; N18.3 - Chronic kidney disease, stage 3 ( moderate) (5) Paroxysmal a-fib Priority: Secondary Status: Chronic Comments: Per pt history, NSR on monitor, apical regular. Pt will continue coumadin. I spoke with Briana, pharmacist, at Coumadin clinic today. Pt will need to go there tomorrow for doses for the weekend. Briana recommends that she take 1.5mg po daily on tuesday, Tuesday, and Tuesday. If she does not go tomorrow, she will have to go on Tuesday. (6) Diastolic heart failure Priority: Secondary Status: Chronic Comments: Per pt history. No acute exacerbation. Continue home medications. Qualifiers: Heart failure chronicity: chronic Qualified Code(s): I50.32 - Chronic diastolic (congestive) heart failure (7) Supratherapeutic INR Priority: Secondary Status: Acute Comments: 4.6 today. Pt will need decreased dose on the weekend, and will need to follow up with Coumadin clinic either tomorrow or Tuesday. (8) DVT prophylaxis Priority: Secondary Status: Acute Comments: Pt on Coumadin. Pt is also ambulatory (9) CKD (chronic kidney disease) stage 3, GFR 30-59 ml/min Priority: Secondary Status: Chronic Comments: Chronic. Avoid nephrotoxins. Follow up with PCP. (10) Anxiety Priority: Secondary Status: Chronic Comments: Continue home medications. STop Klonipin and start Hydroxyzine. (11) Depression Priority: Secondary Status: Chronic Comments: Chronic. Continue home medications. Qualifiers: Depression Type: major depressive disorder Major depression recurrence: recurrent Active/Remission status: currently active Major depression episode severity: severe Psychotic features: without psychotic features Qualified Code(s): F33.2 - Major depressive disorder, recurrent severe without psychotic features - Discharge Medications Prescriptions: hydrOXYzine pamoate [HydrOXYzine Pamoate] 25 mg PO BID PRN #10 PRN Reason: Anxiety Home Medications: Aspirin 81 mg PO DAILY 03/27/16 [History] Ascorbate Calcium [Vitamin C] 500 mg PO DAILY 05/21/16 [History] Calcium Carbonate/Vitamin D3 [Caltrate 600 + D Soft Chew Tab] 1 tab PO DAILY [History] Cholecalciferol (D-3) [Vitamin D] 1,000 unit PO DAILY 05/21/16 [History] Dicyclomine [Bentyl] 10 mg PO BID 05/21/16 [History] Esomeprazole Magnesium [Nexium] 40 mg PO HS 05/21/16 [History] Evolocumab [Repatha Syringe] 140 mg SQ Q2W 05/21/16 [History] Fluticasone Propionate Nasal [Flonase] 1 spray NS DAILY 05/21/16 [History] Fluvastatin Sodium [Lescol Xl] 80 mg PO QPM 05/21/16 [History] Furosemide [Lasix] 20 mg PO DAILY 05/21/16 [History] Hydrochlorothiazide [Microzide] 25 mg PO DAILY 05/21/16 [History] Loratadine [Claritin] 10 mg PO DAILY 05/21/16 [History] Nitroglycerin [Nitrostat] 0.4 mg SL Q5M PRN 05/21/16 [History] Fenofibrate,Micronized [Lofibra] 200 mg PO DAILY 05/28/16 [History] Gabapentin [Neurontin] 1,200 mg PO TID 06/11/16 [History] Levothyroxine Sodium 112.5 mcg PO QAM 03/29/17 [History] Potassium Chloride [K-Tab ER] 30 meq PO QAM 03/29/17 [History] Potassium Chloride [K-Tab ER] 20 meq PO QPM 04/06/17 [History] Warfarin [Coumadin] 1.5 mg PO TUSA 04/06/17 [History] Warfarin [Coumadin] 3 mg PO SUMOWEFR 04/06/17 [History] Oxybutynin [Ditropan] 2.5 mg PO BID #30 tablet 04/09/17 [Rx] Metoprolol [Lopressor] 12.5 mg PO BID #30 tablet 04/21/17 [Rx] amLODIPine [Norvasc] 5 mg PO DAILY 04/21/17 [History] cloNIDine HCl [CloNIDine HCl] 0.1 mg PO TID #90 tablet 04/21/17 [Rx] DULoxetine [Cymbalta] 90 mg PO DAILY #90 capsule. 04/27/17 [Rx] Escitalopram [Lexapro] 10 mg PO DAILY #30 tablet 04/27/17 [Rx] Prazosin HCl [Minipress] 2 mg PO HS #30 capsule 04/27/17 [Rx] traZODone [TraZODone] 50 mg PO HS PRN #30 tablet 04/27/17 [Rx] Losartan Potassium [Cozaar] 100 mg PO DAILY 07/05/17 [History] Magnesium 60 mg PO DAILY 07/05/17 [History] Metformin HCl [Glucophage] 1,000 mg PO QAM 07/05/17 [History] Vitamin B Complex [B Complex] 1 each PO DAILY 07/05/17 [History] hydrOXYzine pamoate [HydrOXYzine Pamoate] 25 mg PO BID PRN #10 07/07/17 [Rx] Allergies/Adverse Reactions: 3 Allergy/AdvReac Type Severity Reaction Status Date / Time acetaminophen [From Percocet] Allergy Hallucinati Verified 10/11/16 21:00 ng ibuprofen Allergy Nausea Verified 10/11/16 21:00 metoclopramide [From Reglan] Allergy Nausea Verified 10/11/16 21:00 morphine Allergy Difficulty Verified 10/11/16 21:00 Breathing Oxycodone [From Percocet] Allergy Difficulty Verified 10/11/16 21:00 Breathing propoxyphene Allergy Anxiety Verified 10/11/16 21:00 [From Darvocet-N] Awsssqh-Cen-Rgg Reductase Allergy See Verified 02/07/17 18:46 Inhibitor Comments [Statins] amitriptyline [From Elavil] AdvReac Headache Verified 10/11/16 21:00 apixaban [From Eliquis] AdvReac Muscle Pain Verified 04/06/17 15:32 aripiprazole [From Abilify] AdvReac Anxiety Verified 10/11/16 21:00 codeine AdvReac Nausea Verified 10/11/16 21:00 guaifenesin [From Mucinex] AdvReac Headache Verified 10/11/16 21:00 Hydromorphone [From Dilaudid] AdvReac Chills Verified 10/11/16 21:00 isosorbide AdvReac Headache Verified 10/11/16 21:00 Methylphenidate AdvReac Diarrhea Verified 10/11/16 21:00 [From Ritalin] prednisone AdvReac Anxiety Verified 10/11/16 21:00 pregabalin [From Lyrica] AdvReac Diarrhea Verified 10/11/16 21:00 sucralfate AdvReac Diarrhea Verified 10/11/16 21:00 valsartan [From Diovan] AdvReac Muscle Pain Verified 10/11/16 21:00 Procedures/tests Complete & Pending: Procedures Performed prior 72 hours Category Date Time Status ECG 12 lead ECG [ECG] AM 0600 Y 07/06/17 06:00 Ordered Date of admission: 07/05/17 18:15 Primary care physician: Fabiola Aguilar Consults: 07/05/17 20:07 Consult to Cardiology [CONS] Routine Comment: Consulting Provider: Cardiology Clara Reason for Consult: chest pain Call Completed: Yes 07/06/17 11:46 Consult to Materials Engineering Technician [CONS] Routine Reason for SW Consult: Possible need to change HH Discharging clinician: Ingrid Olivo Anticipated date of discharge: 07/07/17 - Patient Status Disposition: Home, Self-Care Condition: Fair Overall status at discharge: patient is back to baseline - Discharge Instructions Follow Up With: Fabiola Aguilar MD [Primary Care Provider] - Additional Instructions: Follow up with PCP in the next 7-10 days for a follow up visit. Return to the ER as needed for any other problems or concerns or if your symptoms return or worsen. Take your medications as you normally would. Resume your normal activities as tolerated. You need to go to the Coumadin clinic tomorrow. You will need to take 1.5mg on Tuesday, Tuesday and Tuesday. If you do not make it to the coumadin clinic tomorrow, you have to go Tuesday. You do not need an appointment. - Diet and Activity Activity: resume usual activities as tolerated Diet: advance to your usual diet Hospital course: Ms. Browning is a 67 year old female with history of anxiety, depression, paroxysmal A. fib, diastolic heart failure, hypertension, type 2 diabetes, coronary artery disease who presented to the emergency department with chest pain. She presented with 3/10 chest pain that has been constant for 2 days prior to arrival, onset approximately 1 week before that was intermittent. She denies nausea, vomiting, diaphoresis, or shortness of breath. The pain was located in the left chest immediately left of the sternal border without radiation. She stated that the pain was better with rest and worse with exertion. Patient has multiple life stressors recently including the of her father one month ago and her has dementia and is in a [facility], she is struggling with being able to see him and balance daily life. Patient arrives with supratherapeutic INR 6.9. Coumadin was stopped and at this time INRs 4.6. Patient has been nonadherent with appointments at Coumadin clinic due to depression from above-mentioned sources. I called the Coumadin clinic to discuss plan of care, they wanted to hold Coumadin again today, take 1.5 mg for the next 3 days, they would like for her to come tomorrow for a visit , however she does not she definitely has to go on Tuesday. Patient reports that she has been taking clonazepam 1 mg 4 anxiety, she states is not really helping. I have switched her particular correction to hydroxyzine 25 mg by mouth twice a day only as needed. She reports that she did get good relief from that yesterday. I have encouraged her to discard the clonazepam and we discussed that she should not take them together due to the risk of respiratory suppression. She verbalized understanding. Patient has a history of two-vessel CABG with a left heart catheter done in August, showed patent bypass grafts and a hazy 80% stenosis in the LMCA. Her troponins were negative 3, EKG with no change from prior. She was evaluated by cardiology and there was no indication for any further treatment or repeat [facility]. She is intolerant of Imdur and Ranexa due to side effects and will continue using nitroglycerin patches as needed. She will need close following in the clinic with cardiology. Patient appears to have some degree of CKD. Creatinine is 1.13, GFR is 48. This actually appears to be near patient's baseline. She will need to follow-up with primary care closer monitoring of renal function. All other labs are within normal limits, her vital signs are stable. Patient is ready for discharge. - Time Spent with Patient Total time spent providing and/or coordinating discharge services: Less than 30 minutes - Constitutional Vitals: Temp Pulse Resp BP Pulse Ox 98.3 F 61 16 135/78 93 07/07/17 11:02 07/07/17 11:02 07/07/17 11:02 07/07/17 11:02 07/07/17 11:02 General appearance: Present: A&O X 3, pleasant, no acute distress, obese, answers questions appropriately - Head Head exam: Present: atraumatic, normal inspection, normocephalic - Eye Eye exam: Present: conjuntiva pink, sclera anicteric - Neck Neck exam general surgery: Present: normal inspection, supple, trachea midline. Absent: lymphadenopathy - Respiratory Respiratory exam: Present: CTAB. Absent: accessory muscle use, rales, rhonchi, wheezes - Cardiovascular Cardiovascular exam: Present: RRR, +S1, +S2. Absent: diastolic murmur, gallop, rubs, systolic murmur - GI/Abdominal GI/Abdominal exam: Present: normal bowel sounds, soft, no peritoneal signs. Absent: distended, hepatomegaly, tenderness - Extremities Exam Extremities exam: Present: normal capillary refill, warm, radial pulses palpable and symmetrical. Absent: calf tenderness, cyanotic, pedal edema - Neurological Exam Neurological exam: Present: oriented X3, no focal deficits. Absent: facial droop, speech deficit - Skin Skin exam: Present: dry, intact, normal color, warm
--- NOTE | 2017-07-07 16:28 | Physician Discharge Referral ---
Home Health/Hosp Referral Info Transfer to: Home Health Provider in Charge Post Discharge: PCP - Diagnosis (1) Chest pain Priority: Primary Status: Acute (2) CAD (coronary artery disease), [place] coronary artery Priority: Secondary Status: Chronic (3) Hypertension Priority: Secondary Status: Chronic (4) Type 2 diabetes mellitus Priority: Secondary Status: Chronic (5) Paroxysmal a-fib Priority: Secondary Status: Chronic (6) Diastolic heart failure Priority: Secondary Status: Chronic (7) Supratherapeutic INR Priority: Secondary Status: Acute (8) DVT prophylaxis Priority: Secondary Status: Acute (9) CKD (chronic kidney disease) stage 3, GFR 30-59 ml/min Priority: Secondary Status: Chronic (10) Anxiety Priority: Secondary Status: Chronic (11) Depression Priority: Secondary Status: Chronic - Respiratory Orders Oxygen / L per min Smoking Cessation: Smoking cessation has been advised. For more information, call the [place] Tobacco Quit Line at 2-739-OHCT-NOW. - Diet/Nutrition Diet/Nutrition Orders: Regular - Activity Activity Orders: Up ad [place] - Services Needed Following services are medically necessary services: Nursing, Home Health Aide, Physical Therapy, Occupational Therapy - Transfer Medications Prescriptions: hydrOXYzine pamoate [HydrOXYzine Pamoate] 25 mg PO BID PRN #10 PRN Reason: Anxiety Home Medications: Aspirin 81 mg PO DAILY 03/27/16 [History] Ascorbate Calcium [Vitamin C] 500 mg PO DAILY 05/21/16 [History] Calcium Carbonate/Vitamin D3 [Caltrate 600 + D Soft Chew Tab] 1 tab PO DAILY [History] Cholecalciferol (D-3) [Vitamin D] 1,000 unit PO DAILY 05/21/16 [History] Dicyclomine [Bentyl] 10 mg PO BID 05/21/16 [History] Esomeprazole Magnesium [Nexium] 40 mg PO HS 05/21/16 [History] Evolocumab [Repatha Syringe] 140 mg SQ Q2W 05/21/16 [History] Fluticasone Propionate Nasal [Flonase] 1 spray NS DAILY 05/21/16 [History] Fluvastatin Sodium [Lescol Xl] 80 mg PO QPM 05/21/16 [History] Furosemide [Lasix] 20 mg PO DAILY 05/21/16 [History] Hydrochlorothiazide [Microzide] 25 mg PO DAILY 05/21/16 [History] Loratadine [Claritin] 10 mg PO DAILY 05/21/16 [History] Nitroglycerin [Nitrostat] 0.4 mg SL Q5M PRN 05/21/16 [History] Fenofibrate,Micronized [Lofibra] 200 mg PO DAILY 05/28/16 [History] Gabapentin [Neurontin] 1,200 mg PO TID 06/11/16 [History] Levothyroxine Sodium 112.5 mcg PO QAM 03/29/17 [History] Potassium Chloride [K-Tab ER] 30 meq PO QAM 03/29/17 [History] Potassium Chloride [K-Tab ER] 20 meq PO QPM 04/06/17 [History] Warfarin [Coumadin] 1.5 mg PO TUSA 04/06/17 [History] Warfarin [Coumadin] 3 mg PO SUMOWETHFR 04/06/17 [History] Oxybutynin [Ditropan] 2.5 mg PO BID #30 tablet 04/09/17 [Rx] Metoprolol [Lopressor] 12.5 mg PO BID #30 tablet 04/21/17 [Rx] amLODIPine [Norvasc] 5 mg PO DAILY 04/21/17 [History] cloNIDine HCl [CloNIDine HCl] 0.1 mg PO TID #90 tablet 04/21/17 [Rx] DULoxetine [Cymbalta] 90 mg PO DAILY #90 capsule. 04/27/17 [Rx] Escitalopram [Lexapro] 10 mg PO DAILY #30 tablet 04/27/17 [Rx] Prazosin HCl [Minipress] 2 mg PO HS #30 capsule 04/27/17 [Rx] traZODone [TraZODone] 50 mg PO HS PRN #30 tablet 04/27/17 [Rx] Losartan Potassium [Cozaar] 100 mg PO DAILY 07/05/17 [History] Magnesium 60 mg PO DAILY 07/05/17 [History] Metformin HCl [Glucophage] 1,000 mg PO QAM 07/05/17 [History] Vitamin B Complex [B Complex] 1 each PO DAILY 07/05/17 [History] hydrOXYzine pamoate [HydrOXYzine Pamoate] 25 mg PO BID PRN #10 07/07/17 [Rx] Allergies/Adverse Reactions: 3 Allergy/AdvReac Type Severity Reaction Status Date / Time acetaminophen [From Percocet] Allergy Hallucinati Verified 10/11/16 21:00 ng ibuprofen Allergy Nausea Verified 10/11/16 21:00 metoclopramide [From Reglan] Allergy Nausea Verified 10/11/16 21:00 morphine Allergy Difficulty Verified 10/11/16 21:00 Breathing Oxycodone [From Percocet] Allergy Difficulty Verified 10/11/16 21:00 Breathing propoxyphene Allergy Anxiety Verified 10/11/16 21:00 [From Darvocet-N] [id number]-Hds Reductase Allergy See Verified 02/07/17 18:46 Inhibitor Comments [Statins] amitriptyline [From Elavil] AdvReac Headache Verified 10/11/16 21:00 apixaban [From Eliquis] AdvReac Muscle Pain Verified 04/06/17 15:32 aripiprazole [From Abilify] AdvReac Anxiety Verified 10/11/16 21:00 codeine AdvReac Nausea Verified 10/11/16 21:00 guaifenesin [From Mucinex] AdvReac Headache Verified 10/11/16 21:00 Hydromorphone [From Dilaudid] AdvReac Chills Verified 10/11/16 21:00 isosorbide AdvReac Headache Verified 10/11/16 21:00 Methylphenidate AdvReac Diarrhea Verified 10/11/16 21:00 [From Ritalin] prednisone AdvReac Anxiety Verified 10/11/16 21:00 pregabalin [From Lyrica] AdvReac Diarrhea Verified 10/11/16 21:00 sucralfate AdvReac Diarrhea Verified 10/11/16 21:00 valsartan [From Diovan] AdvReac Muscle Pain Verified 10/11/16 21:00 Certification: Further, I certify that my clinical findings support that this patient is homebound (i.e. absences from home require considerable and taxing effort and are for medical reasons or caodaism services or infrequently or short duration when for other reasons) because: Homebound Reason: Patient requires assistance of a person or device to safely leave home Attestation: My signature below is to certify that this patient is under my care and that I, or nurse practitioner, or a physician's political science research assistant working with me, has a face-to -face encounter with this patient.
--- NOTE | 2017-07-11 17:26 | Electrocardiograph Report ---
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
== END 2017-07-07 15:03 | disposition home or self-care (01) ==
LOC: 3BNU 13:04 → EMEROO 13:04 → 3BNU 19:01
PROVIDERS: ADMIT Internal Medicine; ATTEND Registered Nurse

== ENCOUNTER 2017-12-08 23:32 | Observation (INO) ==
[2017-12-09 01:04] LABS: Basophils # 0.1 K/mcL (0.0-0.2); Basophils % 0.9 %; Eosinophils # 0.8 K/mcL (0.0-0.6); Eosinophils % 6.4 %; Hematocrit 39.4 % (35.3-44.9); Hemoglobin 12.5 g/dL (11.5-15.4); Immature Granulocytes % 0.5 % (0-4); Lymphocytes # 3.4 K/mcL (0.6-4.6); Lymphocytes % 28.6 %; Mean Corpuscular HGB Conc 31.7 g/dL (31.6-35.5); Mean Corpuscular Volume 85.1 fL (83.0-100.0); Monocytes % 7.9 %; Neutrophils # 6.7 K/mcL (1.6-8.9); Platelet Count 370 K/mcL (140-400); Red Blood Count 4.63 M/mcL (3.82-4.97); Segmented Neutrophils % 55.7 %
[2017-12-09 01:23] LABS: BUN/Creatinine Ratio 22 (6-26); Blood Urea Nitrogen 22 mg/dL (8-23); Calcium 9.4 mg/dL (8.6-10.3); Carbon Dioxide 27 mEq/L (23-29); Chloride 98 mEq/L (98-107); Glucose 274 mg/dL (70-105); Osmolality,Calculated 301 (280-300); Potassium 3.1 mEq/L (3.5-5.1); Sodium 139 mEq/L (136-145); eGFR For African Americans > 60 (> 60); eGFR For Non-African Americans 55 (> 60)
[2017-12-09 01:26] LABS: Bilirubin,Urine Small (Negative); Blood,Urine Negative (Negative); Clarity,Urine Clear (Clear); Color,Urine Yellow (Yellow); Glucose,Urine (UA) Normal (Normal); Ketones,Urine Negative (Negative); Leukocyte Esterase,Urine Small (Negative); Nitrite,Urine Negative (Negative); PH,Urine 6.5 pH Units (5.0-8.0); Protein,Urine Negative (Neg-Trace); Specific Gravity,Urine 1.019 (1.010-1.025); Urobilinogen,Urine Normal (Normal)
[2017-12-09 01:29] LABS: Bacteria,Urine None Seen per hpf (None-Few); Hyaline Casts,Urine None Seen per lpf (None-Few); Squamous Epithelial Cell,Urine Moderate per lpf (None-Few)
[2017-12-09] MEDS ORDERED: *HR* FentaNYL (PF) 100 MCG/2 ML VIAL IVP ONE (03:51)
--- NOTE | 2017-12-09 04:17 | Emergency Department Note ---
Disposition Clinical Impression: Chest pain Qualifiers: Chest pain type: unspecified Qualified Code(s): R07.9 - Chest pain, unspecified Disposition: Home, Self-Care Condition: Good Referrals: Fabiola Aguilar MD [Primary Care Provider] - Time of Disposition: 06:28 Chest Pain HPI - General Chief Complaint: ED General Medical Stated Complaint: hypotension Time Seen by Provider: 12/09/17 00:54 Source: patient Limitations: no limitations Vital Signs Reviewed: Yes Nursing Notes Reviewed: Yes - History of Present Illness HPI Narrative: 67-year-old female complains of low blood pressure, and chest pressure. She states her chest pressure started approximately 5 hours prior to her arrival. She mentioned she was sorting through some bills, and moving boxes when the pressure started. She states it has been consistent. She had checked her blood pressure and mentions it was 97/50. She has not contacted her primary care provider's office, which had advised her to come to the emergency department. She does mention that she is having some difficulty breathing. She does mention a history of syncope, and states that she had 2 episodes in the past 2 weeks. Most recent was approximate 4 days ago, when she was at home and passed out momentarily. The week prior to that, she was moving, with her daughter, head pain short syncopal episode as well. She denies any fall to the ground, prolonged downtime, weakness, confusion, numbness, tingling. She does mention a history of CABG; she is followed by Dr. Miramontes, last seen 3 months ago; past medical history also includes A. fib, for which he takes Coumadin, diabetes, thyroid disorder. Pt complaint: chest pain Severity scale (1-10): 4 - Related Data Home Medications Medication Instructions Recorded Confirmed Aspirin 81 mg PO DAILY 03/27/16 07/05/17 Ascorbate Calcium [Vitamin C] 500 mg PO DAILY 05/21/16 07/05/17 Calcium Carbonate/Vitamin D3 1 tab PO DAILY 05/21/16 07/05/17 [Caltrate 600 + D Soft Chew Tab] Cholecalciferol (D-3) [Vitamin D] 1,000 unit PO DAILY 05/21/16 07/05/17 Dicyclomine [Bentyl] 10 mg PO BID 05/21/16 07/05/17 Esomeprazole Magnesium [Nexium] 40 mg PO HS 05/21/16 07/05/17 Evolocumab [Repatha Syringe] 140 mg SQ Q2W 05/21/16 07/05/17 Fluticasone Propionate Nasal 1 spray NS DAILY 05/21/16 07/05/17 [Flonase] Fluvastatin Sodium [Lescol Xl] 80 mg PO QPM 05/21/16 07/05/17 Furosemide [Lasix] 20 mg PO DAILY 05/21/16 07/05/17 Hydrochlorothiazide [Microzide] 25 mg PO DAILY 05/21/16 07/05/17 Loratadine [Claritin] 10 mg PO DAILY 05/21/16 07/05/17 Nitroglycerin [Nitrostat] 0.4 mg SL Q5M PRN 05/21/16 07/05/17 Fenofibrate,Micronized [Lofibra] 200 mg PO DAILY 05/28/16 07/05/17 Gabapentin [Neurontin] 1,200 mg PO TID 06/11/16 07/05/17 Levothyroxine Sodium 112.5 mcg PO QAM 03/29/17 07/05/17 Potassium Chloride [K-Tab ER] 30 meq PO QAM 03/29/17 07/05/17 Potassium Chloride [K-Tab ER] 20 meq PO QPM 04/06/17 07/05/17 Warfarin [Coumadin] 1.5 mg PO TUSA 04/06/17 07/05/17 Warfarin [Coumadin] 3 mg PO SUMOWETHFR 04/06/17 07/05/17 amLODIPine [Norvasc] 5 mg PO DAILY 04/21/17 07/05/17 Losartan Potassium [Cozaar] 100 mg PO DAILY 07/05/17 07/05/17 Magnesium 60 mg PO DAILY 07/05/17 07/05/17 Metformin HCl [Glucophage] 1,000 mg PO QAM 07/05/17 07/05/17 Vitamin B Complex [B Complex] 1 each PO DAILY 07/05/17 07/05/17 Previous Rx's Medication Instructions Recorded Oxybutynin [Ditropan] 2.5 mg PO BID #30 tablet 04/09/17 Metoprolol [Lopressor] 12.5 mg PO BID #30 tablet 04/21/17 cloNIDine HCl [CloNIDine HCl] 0.1 mg PO TID #90 tablet 04/21/17 DULoxetine [Cymbalta] 90 mg PO DAILY #90 capsule. 04/27/17 Escitalopram [Lexapro] 10 mg PO DAILY #30 tablet 04/27/17 Prazosin HCl [Minipress] 2 mg PO HS #30 capsule 04/27/17 traZODone [TraZODone] 50 mg PO HS PRN #30 tablet 04/27/17 hydrOXYzine pamoate [HydrOXYzine 25 mg PO BID PRN #10 07/07/17 Pamoate] Allergies Allergy/AdvReac Type Severity Reaction Status Date / Time acetaminophen [From Percocet] Allergy Hallucinati Verified 10/11/16 21:00 ng ibuprofen Allergy Nausea Verified 10/11/16 21:00 metoclopramide [From Reglan] Allergy Nausea Verified 10/11/16 21:00 morphine Allergy Difficulty Verified 10/11/16 21:00 Breathing Oxycodone [From Percocet] Allergy Difficulty Verified 10/11/16 21:00 Breathing propoxyphene Allergy Anxiety Verified 10/11/16 21:00 [From Darvocet-N] Uvqylnb-[id number]-Auf Reductase Allergy See Verified 02/07/17 18:46 Inhibitor Comments [Statins] amitriptyline [From Elavil] AdvReac Headache Verified 10/11/16 21:00 apixaban [From Eliquis] AdvReac Muscle Pain Verified 04/06/17 15:32 aripiprazole [From Abilify] AdvReac Anxiety Verified 10/11/16 21:00 codeine AdvReac Nausea Verified 10/11/16 21:00 guaifenesin [From Mucinex] AdvReac Headache Verified 10/11/16 21:00 Hydromorphone [From Dilaudid] AdvReac Chills Verified 10/11/16 21:00 isosorbide AdvReac Headache Verified 10/11/16 21:00 Methylphenidate AdvReac Diarrhea Verified 10/11/16 21:00 [From Ritalin] prednisone AdvReac Anxiety Verified 10/11/16 21:00 pregabalin [From Lyrica] AdvReac Diarrhea Verified 10/11/16 21:00 sucralfate AdvReac Diarrhea Verified 10/11/16 21:00 valsartan [From Diovan] AdvReac Muscle Pain Verified 10/11/16 21:00 Review of Systems: All systems ED: reviewed and negative except as stated. Constitutional: Denies: fever, chills ENT ED: Denies: throat pain Cardiovascular:see HPI Respiratory: Denies: see HPI, wheezes Gastrointestinal: Denies: nausea, vomiting Musculoskeletal: Denies: back pain, neck pain Integumentary: Denies: rash Neurological: Denies: headache, weakness Endocrine: Denies: fatigue Hematological/Lymphatic: Denies: easy bleeding Allergic/Immunologic: Denies: facial swelling All systems ED: reviewed and negative except as stated. 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 Absent: conjunctival injection - ENT ENT exam: normal exam, normal oropharynx, mucous membranes moist - Neck Neck exam: Present: normal inspection - Chest Chest inspection: Present: normal inspection, symmetric chest wall rise - Respiratory Respiratory exam: Present: normal lung sounds bilaterally. Absent: respiratory distress, wheezes, stridor, accessory muscle use - Cardiovascular Cardiovascular exam: Present: regular rate, normal rhythm, normal heart sounds - Abdominal Exam Abdominal exam: Present: soft, Non-Tender - Extremities Exam Extremities exam: Present: normal inspection, full ROM, normal capillary refill - Back Exam Back exam: Present: full ROM - Neurological Exam Neurological exam: Present: alert, oriented X3 - Psychiatric Psychiatric exam: Present: normal affect, normal mood - Skin Skin exam: Present: warm, dry, intact, normal color, rash. Absent: cyanosis, diaphoresis Course Course Narrative: 67-year-old female diabetic with known history of CAD presents with chest pressure, difficulty breathing, shortness of breath. Her symptoms appear to have been started with exertion. She also describes 2 episodes of syncope in the past 2 weeks. She has history of A. fib, CABG, thyroid disorders, CHF. Vitals within normal limits. EKG appears to be consistent with her past. I do feel her history is concerning no episodes, hypertension, chest pressure. Initial orders placed by nursing protocol. We will add in coags, TSH, and BNP. - Reevaluation(s) Reevaluation #1: Discussed with Dr. Sifuentes who agreed for decision to admit. Time: 04:26 Vital Signs Temperature 98.8 F 12/08/17 23:33 Pulse Rate 83 12/08/17 23:33 Respiratory Rate 16 12/08/17 23:33 Blood Pressure 157/78 12/08/17 23:33 O2 Sat by Pulse Oximetry 94 12/08/17 23:33 Temperature 98.8 F 12/08/17 23:33 Pulse Rate 74 12/09/17 04:42 Respiratory Rate 18 12/09/17 04:42 Blood Pressure 152/83 12/09/17 04:42 O2 Sat by Pulse Oximetry 91 12/09/17 04:42 Oxygen Delivery Oxygen Delivery Room Air Chest Pain - MDM Narrative Medical decision making narrative: Chest X-Ray 12/09/17 00:54 IMPRESSION: No acute cardiopulmonary abnormality. Cardiomegaly. D/ / Kamran Crystal MD / Kamran Crystal MD Interpreting Provider: Kamran Crystal MD Laboratory Tests 12/09/17 12/09/17 12/09/17 00:10 00:10 00:10 WBC 12.0 H RBC 4.63 Hgb 12.5 Hct 39.4 MCV 85.1 MCH 27.0 L MCHC 31.7 RDW 15.0 H Plt Count 370 MPV 12.0 Immature Gran % 0.5 Seg Neutrophils % 55.7 Lymphocytes % 28.6 Monocytes % 7.9 Eosinophils % 6.4 Basophils % 0.9 Neutrophils # 6.7 Lymphocytes # 3.4 Monocytes # 1.0 Eosinophils # 0.8 H Basophils # 0.1 PT INR APTT Sodium 139 Potassium 3.1 L Chloride 98 Carbon Dioxide 27 BUN 22 Creatinine 1.01 Est GFR ( Amer) > 60 Est GFR (Non-Af Amer) 55 L BUN/Creatinine Ratio 22 Glucose 274 H Calculated Osmolality 301 H Calcium 9.4 Troponin I < 0.03 B-Natriuretic Peptide TSH Urine Color Urine Clarity Urine pH Ur Specific [place] Urine Protein Urine Glucose (UA) Urine Ketones Urine Blood Urine Nitrite Urine Bilirubin Urine Urobilinogen Ur Leukocyte Esterase Urine Microscopic RBC Urine Microscopic WBC Ur Squamous Epith Cells Urine Bacteria Hyaline Casts Ur Culture Indicated? 12/09/17 12/09/17 12/09/17 00:10 00:10 00:10 WBC RBC Hgb Hct MCV MCH MCHC RDW Plt Count MPV Immature Gran % Seg Neutrophils % Lymphocytes % Monocytes % Eosinophils % Basophils % Neutrophils # Lymphocytes # Monocytes # Eosinophils # Basophils # PT 22.5 H INR 2.1 APTT 39.3 H Sodium Potassium Chloride Carbon Dioxide BUN Creatinine Est GFR ( Amer) Est GFR (Non-Af Amer) BUN/Creatinine Ratio Glucose Calculated Osmolality Calcium Troponin I B-Natriuretic Peptide 74 TSH 1.585 Urine Color Urine Clarity Urine pH Ur Specific [place] Urine Protein Urine Glucose (UA) Urine Ketones Urine Blood Urine Nitrite Urine Bilirubin Urine Urobilinogen Ur Leukocyte Esterase Urine Microscopic RBC Urine Microscopic WBC Ur Squamous Epith Cells Urine Bacteria Hyaline Casts Ur Culture Indicated? 12/09/17 01:09 WBC RBC Hgb Hct MCV MCH MCHC RDW Plt Count MPV Immature Gran % Seg Neutrophils % Lymphocytes % Monocytes % Eosinophils % Basophils % Neutrophils # Lymphocytes # Monocytes # Eosinophils # Basophils # PT INR APTT Sodium Potassium Chloride Carbon Dioxide BUN Creatinine Est GFR ( Amer) Est GFR (Non-Af Amer) BUN/Creatinine Ratio Glucose Calculated Osmolality Calcium Troponin I B-Natriuretic Peptide TSH Urine Color Yellow Urine Clarity Clear Urine pH 6.5 Ur Specific [place] 1.019 Urine Protein Negative Urine Glucose (UA) Normal Urine Ketones Negative Urine Blood Negative Urine Nitrite Negative Urine Bilirubin Small H Urine Urobilinogen Normal Ur Leukocyte Esterase Small H Urine Microscopic RBC 5-15 H Urine Microscopic WBC 5-15 H Ur Squamous Epith Cells Moderate H Urine Bacteria None Seen Hyaline Casts None Seen Ur Culture Indicated? YES A - Lab Data Lab results reviewed: Yes I reviewed the patient's lab results. Result diagrams: 12/09/17 00:10 12/09/17 00:10 Lab Results 12/09/17 12/09/17 12/09/17 Range/Units 00:10 00:10 00:10 WBC 12.0 H (4.3-11.1) K/mcL RBC 4.63 (3.82-4.97) M/mcL Hgb 12.5 (11.5-15.4) g/dL Hct 39.4 (35.3-44.9) % MCV 85.1 (83.0-100.0) fL MCH 27.0 L (28.0-33.3) pg MCHC 31.7 (31.6-35.5) g/dL RDW 15.0 H (11.5-14.5) % Plt Count 370 (140-400) K/mcL MPV 12.0 (9.4-12.4) fL Immature Gran % 0.5 (0-4) % Seg Neutrophils % 55.7 % Lymphocytes % 28.6 % Monocytes % 7.9 % Eosinophils % 6.4 % Basophils % 0.9 % Neutrophils # 6.7 (1.6-8.9) K/mcL Lymphocytes # 3.4 (0.6-4.6) K/mcL Monocytes # 1.0 (0.0-1.3) K/mcL Eosinophils # 0.8 H (0.0-0.6) K/mcL Basophils # 0.1 (0.0-0.2) K/mcL PT (9.4-12.1) Seconds INR APTT (26.0-36.0) Seconds Sodium 139 (136-145) mEq/L Potassium 3.1 L (3.5-5.1) mEq/L Chloride 98 (98-107) mEq/L Carbon Dioxide 27 (23-29) mEq/L BUN 22 (8-23) mg/dL Creatinine 1.01 (0.60-1.20) mg/dL Est GFR ( Amer) > 60 (> 60) Est GFR (Non-Af Amer) 55 L (> 60) BUN/Creatinine Ratio 22 (6-26) Glucose 274 H (70-105) mg/dL Calculated Osmolality 301 H (280-300) Calcium 9.4 (8.6-10.3) mg/dL Troponin I < 0.03 (< 0.04) ng/mL B-Natriuretic Peptide (Less than 100) pg/mL TSH (0.340-5.600) mcIU/mL Urine Color (Yellow) Urine Clarity (Clear) Urine pH (5.0-8.0) pH Units Ur Specific [place] (1.010-1.025) Urine Protein (Neg-Trace) mg/dL Urine Glucose (UA) (Normal) mg/dL Urine Ketones (Negative) mg/dL Urine Blood (Negative) Urine Nitrite (Negative) Urine Bilirubin (Negative) Urine Urobilinogen (Normal) mg/dL Ur Leukocyte Esterase (Negative) Urine Microscopic RBC (0-3) per hpf Urine Microscopic WBC (0-3) per hpf Ur Squamous Epith Cells (None-Few) per lpf Urine Bacteria (None-Few) per hpf Hyaline Casts (None-Few) per lpf Ur Culture Indicated? (NO) 12/09/17 12/09/17 12/09/17 Range/Units 00:10 00:10 00:10 WBC (4.3-11.1) K/mcL RBC (3.82-4.97) M/mcL Hgb (11.5-15.4) g/dL Hct (35.3-44.9) % MCV (83.0-100.0) fL MCH (28.0-33.3) pg MCHC (31.6-35.5) g/dL RDW (11.5-14.5) % Plt Count (140-400) K/mcL MPV (9.4-12.4) fL Immature Gran % (0-4) % Seg Neutrophils % % Lymphocytes % % Monocytes % % Eosinophils % % Basophils % % Neutrophils # (1.6-8.9) K/mcL Lymphocytes # (0.6-4.6) K/mcL Monocytes # (0.0-1.3) K/mcL Eosinophils # (0.0-0.6) K/mcL Basophils # (0.0-0.2) K/mcL PT 22.5 H (9.4-12.1) Seconds INR 2.1 APTT 39.3 H (26.0-36.0) Seconds Sodium (136-145) mEq/L Potassium (3.5-5.1) mEq/L Chloride (98-107) mEq/L Carbon Dioxide (23-29) mEq/L BUN (8-23) mg/dL Creatinine (0.60-1.20) mg/dL Est GFR ( Amer) (> 60) Est GFR (Non-Af Amer) (> 60) BUN/Creatinine Ratio (6-26) Glucose (70-105) mg/dL Calculated Osmolality (280-300) Calcium (8.6-10.3) mg/dL Troponin I (< 0.04) ng/mL B-Natriuretic Peptide 74 (Less than 100) pg/mL TSH 1.585 (0.340-5.600) mcIU/mL Urine Color (Yellow) Urine Clarity (Clear) Urine pH (5.0-8.0) pH Units Ur Specific [place] (1.010-1.025) Urine Protein (Neg-Trace) mg/dL Urine Glucose (UA) (Normal) mg/dL Urine Ketones (Negative) mg/dL Urine Blood (Negative) Urine Nitrite (Negative) Urine Bilirubin (Negative) Urine Urobilinogen (Normal) mg/dL Ur Leukocyte Esterase (Negative) Urine Microscopic RBC (0-3) per hpf Urine Microscopic WBC (0-3) per hpf Ur Squamous Epith Cells (None-Few) per lpf Urine Bacteria (None-Few) per hpf Hyaline Casts (None-Few) per lpf Ur Culture Indicated? (NO) 12/09/17 Range/Units 01:09 WBC (4.3-11.1) K/mcL RBC (3.82-4.97) M/mcL Hgb (11.5-15.4) g/dL Hct (35.3-44.9) % MCV (83.0-100.0) fL MCH (28.0-33.3) pg MCHC (31.6-35.5) g/dL RDW (11.5-14.5) % Plt Count (140-400) K/mcL MPV (9.4-12.4) fL Immature Gran % (0-4) % Seg Neutrophils % % Lymphocytes % % Monocytes % % Eosinophils % % Basophils % % Neutrophils # (1.6-8.9) K/mcL Lymphocytes # (0.6-4.6) K/mcL Monocytes # (0.0-1.3) K/mcL Eosinophils # (0.0-0.6) K/mcL Basophils # (0.0-0.2) K/mcL PT (9.4-12.1) Seconds INR APTT (26.0-36.0) Seconds Sodium (136-145) mEq/L Potassium (3.5-5.1) mEq/L Chloride (98-107) mEq/L Carbon Dioxide (23-29) mEq/L BUN (8-23) mg/dL Creatinine (0.60-1.20) mg/dL Est GFR ( Amer) (> 60) Est GFR (Non-Af Amer) (> 60) BUN/Creatinine Ratio (6-26) Glucose (70-105) mg/dL Calculated Osmolality (280-300) Calcium (8.6-10.3) mg/dL Troponin I (< 0.04) ng/mL B-Natriuretic Peptide (Less than 100) pg/mL TSH (0.340-5.600) mcIU/mL Urine Color Yellow (Yellow) Urine Clarity Clear (Clear) Urine pH 6.5 (5.0-8.0) pH Units Ur Specific [place] 1.019 (1.010-1.025) Urine Protein Negative (Neg-Trace) mg/dL Urine Glucose (UA) Normal (Normal) mg/dL Urine Ketones Negative (Negative) mg/dL Urine Blood Negative (Negative) Urine Nitrite Negative (Negative) Urine Bilirubin Small H (Negative) Urine Urobilinogen Normal (Normal) mg/dL Ur Leukocyte Esterase Small H (Negative) Urine Microscopic RBC 5-15 H (0-3) per hpf Urine Microscopic WBC 5-15 H (0-3) per hpf Ur Squamous Epith Cells Moderate H (None-Few) per lpf Urine Bacteria None Seen (None-Few) per hpf Hyaline Casts None Seen (None-Few) per lpf Ur Culture Indicated? YES A (NO) - Radiology Data Radiology results reviewed: Yes I reviewed the patient's radiology results. - EKG Data EKG attestation: Yes I reviewed and interpreted this EKG. EKG results narrative: normal rate and rhythm. Nonspecific ST-T changes Attestation Statement - Attestation Attestation: I, Delonte Sifuentes MD, personally evaluated this patient and discussed their management with the midlevel provicer, PAC/V[employer]. I reviewed the midlevel provider 's note and agree with the documented findings, medical decision making, and plan of care. 67-year-old female with history of CABG and multiple coronary artery stents presents to the emergency department complaining that her blood pressure is been running low for the past few weeks. It was low at home this evening and she called her PCP who advised her to come to the emergency department to be checked. She has not had hypotension here in the emergency department. She also complains however of some chest pressure and discomfort and some shortness of breath. She also states that she has had 2 episodes of passing out over the past week. On examination patient is a well-developed well-nourished well-appearing elderly female in no acute distress. She is alert and oriented 3. There is no cyanosis or diaphoresis. Chest is nontender to palpation. Breath sounds are clear and equal bilaterally. Heart regular rate and rhythm. Abdomen is soft and nontender with normal bowel sounds. Labs reviewed. Chest x-ray negative. EKG shows a normal sinus rhythm with some nonspecific ST and T-wave changes however no significant change from prior EKG. The hospitalist, Dr. Catalan, was consulted and accepted admission of the patient.
[2017-12-09 04:23] LABS: INR 2.1; Prothrombin Time 22.5 Seconds (9.4-12.1)
[2017-12-09 04:26] LABS: Activated Partial Thrombo Time 39.3 Seconds (26.0-36.0)
[2017-12-09] MEDS ORDERED: Naloxone 0.4 MG/ML INJ IVP PRN (05:54)
[2017-12-09] MEDS ORDERED: traZODone 50 MG TABLET PO PRN (05:57)
[2017-12-09] MEDS ORDERED: hydrOXYzine pamoate 25 MG CAPSULE PO PRN (05:57)
[2017-12-09] MEDS ORDERED: Nitroglycerin 0.4 MG TAB.SUBL SL PRN (05:57)
[2017-12-09] MEDS ORDERED: EVOLOCUMAB 140 MG SQ SCH (06:00)
--- NOTE | 2017-12-09 06:08 | Internal Med History&Physical ---
Date of Encounter: 12/09/17 Time of Encounter: 06:05 Assessment and Plan (1) Chest pain of uncertain etiology Current visit: No Status: Acute 67-year-old female who has multiple comorbid conditions Admitted with chest pain/shortness of breath. Previous extensive cardiac history EKG: Nonspecific ST-T changes Echocardiogram: 02/2017: EF 65%, normal right ventricular structure and function , mild pulmonary hypertension. Stress test: 02/2017: EF 72%, there is a medium-sized mild intermittent intensity reversible perfusion defect to anterior wall. Patient had a cardiac catheter after this Plan: Admit as observation. Cycle troponin. Restart home medication. If troponin positive then please call cardiology. Of note: I have examined this patient in the emergency department room #15 Patient's son was at bedside. Plan of care explained at length. Patient verbalizes understanding. (2) Atrial fibrillation Current visit: No Status: Chronic Patient is known to have atrial fibrillation. Rate control: Metoprolol Anticoagulation: Warfarin Qualifiers: Atrial fibrillation type: chronic Qualified Code(s): I48.2 - Chronic atrial fibrillation (3) CAD (coronary artery disease), [place] coronary artery Current visit: No Status: Chronic See above Qualifiers: [place] vs. transplanted heart: [place] heart Associated angina: with stable angina Qualified Code(s): I25.118 - Atherosclerotic heart disease of [place] coronary artery with other forms of angina pectoris (4) GERD (gastroesophageal reflux disease) Current visit: No Status: Chronic Possible GERD exacerbation Patient may need outpatient EGD. Qualifiers: Esophagitis presence: without esophagitis Qualified Code(s): K21.9 - Gastro -esophageal reflux disease without esophagitis (5) Hyperlipidemia Current visit: No Status: Chronic On statin Qualifiers: Hyperlipidemia type: unspecified Qualified Code(s): E78.5 - Hyperlipidemia , unspecified (6) Hypertension Current visit: No Status: Chronic Blood pressure is within acceptable range. Qualifiers: Hypertension type: essential hypertension Qualified Code(s): I10 - Essential (primary) hypertension Internal Medicine - H&P: HPI Chief complaint: chest pain Admitted From: Emergency Dept Plans for Post Hospital Care: Home History of present illness: Ms. Browning is a 67 year old female whose primary care doctor is Dr. Alexandra Card and her material coordinator is Dr. Miramontes. Patient has background history of diabetes, hypertension, dyslipidemia, coronary artery disease with stent and morbid obesity. Patient woke up this morning and noted that she has ongoing retrosternal chest discomfort which was nonradiating and localized not associated with the any radiation to begin with. Patient noted that F her chest pain was radiating to left arm. Patient also complains of shortness of breath/occasional dizziness but denies any symptoms of passing out. Patient denies abdominal pain, nausea, vomiting, dizziness and diarrhea. Patient was evaluated in the emergency room and basic labs were drawn along with that x-ray chest was done. Patient has a extensive cardiac history and in view of that patient was hospitalized for chest pain to rule out myocardial infarction protocol. Reason for admission is chest pain to rule out myocardial infarction Family history: Noncontributory Past Med Surg Social Fam HX - Past Medical History Medical history: arthritis, atrial fibrillation, CHF, coronary artery disease, diabetes, fibromyalgia, GERD, hyperlipidemia, hypertension, migraine, thyroid disease, other Psychiatric history: depression, prior suicide attempt, previous psychiatric hospitalization - Past Surgical History Surgical History: angioplasty/stent, cataract, cholecystectomy, coronary bypass (CABG), hysterectomy, other - Social History Smoking Status: Never smoker Smokeless Tobacco Status: No Alcohol use: none Drug use: none - Family History Mother Adopted: No Family Member Ethnicity: Non- Living Status: Hx Family Cardiac Disorders: Yes Hx Family Neurologic Disorders: Yes (migraines) Father Living Status: Still Living Hx Family Cardiac Disorders: Yes Hx Family Cancer: Yes (skin cancer) Internal Medicine - H&P: Meds Aspirin 81 mg PO DAILY 03/27/16 [History] Ascorbate Calcium [Vitamin C] 500 mg PO DAILY 05/21/16 [History] Calcium Carbonate/Vitamin D3 [Caltrate 600 + D Soft Chew Tab] 1 tab PO DAILY [History] Cholecalciferol (D-3) [Vitamin D] 1,000 unit PO DAILY 05/21/16 [History] Dicyclomine [Bentyl] 10 mg PO BID 05/21/16 [History] Esomeprazole Magnesium [Nexium] 40 mg PO HS 05/21/16 [History] Evolocumab [Repatha Syringe] 140 mg SQ Q2W 05/21/16 [History] Fluticasone Propionate Nasal [Flonase] 1 spray NS DAILY 05/21/16 [History] Fluvastatin Sodium [Lescol Xl] 80 mg PO QPM 05/21/16 [History] Furosemide [Lasix] 20 mg PO DAILY 05/21/16 [History] Hydrochlorothiazide [Microzide] 25 mg PO DAILY 05/21/16 [History] Loratadine [Claritin] 10 mg PO DAILY 05/21/16 [History] Nitroglycerin [Nitrostat] 0.4 mg SL Q5M PRN 05/21/16 [History] Fenofibrate,Micronized [Lofibra] 200 mg PO DAILY 05/28/16 [History] Gabapentin [Neurontin] 1,200 mg PO TID 06/11/16 [History] Levothyroxine Sodium 112.5 mcg PO QAM 03/29/17 [History] Potassium Chloride [K-Tab ER] 30 meq PO QAM 03/29/17 [History] Potassium Chloride [K-Tab ER] 20 meq PO QPM 04/06/17 [History] Warfarin [Coumadin] 1.5 mg PO [facility]USA 04/06/17 [History] Warfarin [Coumadin] 3 mg PO [facility] 04/06/17 [History] Oxybutynin [Ditropan] 2.5 mg PO BID #30 tablet 04/09/17 [Rx] Metoprolol [Lopressor] 12.5 mg PO BID #30 tablet 04/21/17 [Rx] amLODIPine [Norvasc] 5 mg PO DAILY 04/21/17 [History] cloNIDine HCl [CloNIDine HCl] 0.1 mg PO TID #90 tablet 04/21/17 [Rx] DULoxetine [Cymbalta] 90 mg PO DAILY #90 capsule. 04/27/17 [Rx] Escitalopram [Lexapro] 10 mg PO DAILY #30 tablet 04/27/17 [Rx] Prazosin HCl [Minipress] 2 mg PO HS #30 capsule 04/27/17 [Rx] traZODone [TraZODone] 50 mg PO HS PRN #30 tablet 04/27/17 [Rx] Losartan Potassium [Cozaar] 100 mg PO DAILY 07/05/17 [History] Magnesium 60 mg PO DAILY 07/05/17 [History] Metformin HCl [Glucophage] 1,000 mg PO QAM 07/05/17 [History] Vitamin B Complex [B Complex] 1 each PO DAILY 07/05/17 [History] hydrOXYzine pamoate [HydrOXYzine Pamoate] 25 mg PO BID PRN #10 07/07/17 [Rx] 3 Allergy/AdvReac Type Severity Reaction Status Date / Time acetaminophen [From Percocet] Allergy Hallucinati Verified 10/11/16 21:00 ng ibuprofen Allergy Nausea Verified 10/11/16 21:00 metoclopramide [From Reglan] Allergy Nausea Verified 10/11/16 21:00 morphine Allergy Difficulty Verified 10/11/16 21:00 Breathing Oxycodone [From Percocet] Allergy Difficulty Verified 10/11/16 21:00 Breathing propoxyphene Allergy Anxiety Verified 10/11/16 21:00 [From Darvocet-N] Udyqupy-Fnj-[id number] Reductase Allergy See Verified 02/07/17 18:46 Inhibitor Comments [Statins] amitriptyline [From Elavil] AdvReac Headache Verified 10/11/16 21:00 apixaban [From Eliquis] AdvReac Muscle Pain Verified 04/06/17 15:32 aripiprazole [From Abilify] AdvReac Anxiety Verified 10/11/16 21:00 codeine AdvReac Nausea Verified 10/11/16 21:00 guaifenesin [From Mucinex] AdvReac Headache Verified 10/11/16 21:00 Hydromorphone [From Dilaudid] AdvReac Chills Verified 10/11/16 21:00 isosorbide AdvReac Headache Verified 10/11/16 21:00 Methylphenidate AdvReac Diarrhea Verified 10/11/16 21:00 [From Ritalin] prednisone AdvReac Anxiety Verified 10/11/16 21:00 pregabalin [From Lyrica] AdvReac Diarrhea Verified 10/11/16 21:00 sucralfate AdvReac Diarrhea Verified 10/11/16 21:00 valsartan [From Diovan] AdvReac Muscle Pain Verified 10/11/16 21:00 All Systems PM: A 10-system review of systems was performed and is negative for pertinent findings except as documented above in the HPI. - Constitutional Constitutional: no chills, no fever(s), no night sweats - EENT Eyes: no change in vision, no discharge, no pain, no photophobia Ears: no ear discharge, no ear pain, no tinnitus Nose, mouth and throat: no dysphagia, no nasal discharge, no neck pain, no sore throat - Cardiovascular Cardiovascular ROS IM: chest pain, diaphoresis, dyspnea, lightheadedness, syncope - Respiratory Respiratory: no cough, no dyspnea, no wheezing, no excessive phlegm production - Gastrointestinal Gastrointestinal: no abdominal pain, no diarrhea, no hematemesis, no hematochezia, no melena, no nausea, no vomiting - Genitourinary Genitourinary: no change in urinary stream, no dysuria, no flank pain, no hematuria - Musculoskeletal Musculoskeletal ROS IM: no numbness, no tingling - Integumentary Integumentary IM: no rash, no unusual bruising - Neurological Neurological ROS: no confusion, no convulsions, no focal weakness, no numbness, no tingling, no tremor(s) - Hematologic/Lymphatic Hematologic/Lymphatic: no easy bruising - Constitutional Vitals: Temp Pulse Resp BP Pulse Ox 98.8 F 74 18 152/83 91 12/08/17 23:33 12/09/17 04:42 12/09/17 04:42 12/09/17 04:42 12/09/17 04:42 - Head Head exam: Present: atraumatic, normocephalic - Eye Eye exam: Present: PERRL, conjuntiva pink, sclera anicteric Pupils: Present: PERRL - Neck Neck exam general surgery: Present: supple, trachea midline. Absent: lymphadenopathy - Respiratory Respiratory exam: Present: CTAB. Absent: accessory muscle use, rales, rhonchi, wheezes - Cardiovascular Cardiovascular exam: Present: RRR, +S1, +S2. Absent: diastolic murmur, gallop, rubs, systolic murmur - GI/Abdominal GI/Abdominal exam: Present: normal bowel sounds, soft, no peritoneal signs. Absent: distended, tenderness - Extremities Exam Extremities exam: Present: warm, radial pulses palpable and symmetrical. Absent : calf tenderness, cyanotic, pedal edema - Neurological Exam Neurological exam: Present: CN II-XII intact, oriented X3, no focal deficits. Absent: pronater drift, facial droop, speech deficit - Skin Skin exam: Present: dry, intact Internal Med - H&P Results - Labs CBC & Chem 7: 12/09/17 00:10 12/09/17 00:10
[2017-12-09] MEDS ORDERED: cloNIDine HCl 0.1 MG TABLET PO SCH (09:00)
[2017-12-09] MEDS ORDERED: Ascorbic Acid 500 MG TABLET PO SCH (09:00)
[2017-12-09] MEDS ORDERED: Loratadine 10 MG TABLET PO SCH (09:00)
[2017-12-09] MEDS ORDERED: Aspirin 81 MG TAB.CHEW PO SCH (09:00)
[2017-12-09] MEDS ORDERED: MAGNESIUM PO SCH (09:00)
[2017-12-09] MEDS ORDERED: Gabapentin 400 MG CAPSULE PO SCH (09:00)
[2017-12-09] MEDS ORDERED: hydroCHLOROthiazide 25 MG TABLET PO SCH (09:00)
[2017-12-09] MEDS ORDERED: Cholecalciferol (D-3) 1,000 UNIT TABLET PO SCH (09:00)
[2017-12-09] MEDS ORDERED: amLODIPine 5 MG TABLET PO SCH (09:00)
[2017-12-09] MEDS ORDERED: Furosemide 40 MG TABLET PO SCH (09:00)
--- NOTE | 2017-12-09 11:21 | Discharge Summary ---
Date of Encounter: 12/09/17 Time of Encounter: 11:17 - Discharge Diagnosis (1) Chest pain Priority: Primary Status: Acute Qualifiers: Chest pain type: unspecified Qualified Code(s): R07.9 - Chest pain, unspecified (2) Atrial fibrillation Priority: Secondary Status: Chronic Qualifiers: Atrial fibrillation type: paroxysmal Qualified Code(s): I48.0 - Paroxysmal atrial fibrillation (3) GERD (gastroesophageal reflux disease) Priority: Secondary Status: Chronic Qualifiers: Esophagitis presence: without esophagitis Qualified Code(s): K21.9 - Gastro -esophageal reflux disease without esophagitis (4) Hyperlipidemia Priority: Secondary Status: Chronic Qualifiers: Hyperlipidemia type: unspecified Qualified Code(s): E78.5 - Hyperlipidemia , unspecified (5) Hypertension Priority: Secondary Status: Chronic Qualifiers: Hypertension type: essential hypertension Qualified Code(s): I10 - Essential (primary) hypertension - Discharge Medications Home Medications: Aspirin 81 mg PO DAILY 03/27/16 [History] Ascorbate Calcium [Vitamin C] 500 mg PO DAILY 05/21/16 [History] Calcium Carbonate/Vitamin D3 [Caltrate 600 + D Soft Chew Tab] 1 tab PO DAILY [History] Cholecalciferol (D-3) [Vitamin D] 1,000 unit PO DAILY 05/21/16 [History] Dicyclomine [Bentyl] 10 mg PO BID 05/21/16 [History] Esomeprazole Magnesium [Nexium] 40 mg PO HS 05/21/16 [History] Evolocumab [Repatha Syringe] 140 mg SQ Q2W 05/21/16 [History] Fluticasone Propionate Nasal [Flonase] 1 spray NS DAILY 05/21/16 [History] Furosemide [Lasix] 20 mg PO DAILY 05/21/16 [History] Hydrochlorothiazide [Microzide] 25 mg PO DAILY 05/21/16 [History] Loratadine [Claritin] 10 mg PO DAILY 05/21/16 [History] Nitroglycerin [Nitrostat] 0.4 mg SL Q5M PRN 05/21/16 [History] Gabapentin [Neurontin] 600 mg PO TID 06/11/16 [History] Levothyroxine Sodium 112.5 mcg PO QAM 03/29/17 [History] Potassium Chloride [K-Tab ER] 30 meq PO QAM 03/29/17 [History] Potassium Chloride [K-Tab ER] 20 meq PO QPM 04/06/17 [History] Warfarin [Coumadin] 1.5 mg PO SUTUWESA 04/06/17 [History] Warfarin [Coumadin] 3 mg PO MOFR 04/06/17 [History] Oxybutynin [Ditropan] 2.5 mg PO BID #30 tablet 04/09/17 [Rx] cloNIDine HCl [CloNIDine HCl] 0.1 mg PO TID #90 tablet 04/21/17 [Rx] Escitalopram [Lexapro] 10 mg PO DAILY #30 tablet 04/27/17 [Rx] Prazosin HCl [Minipress] 2 mg PO HS #30 capsule 04/27/17 [Rx] Losartan Potassium [Cozaar] 100 mg PO DAILY 07/05/17 [History] Magnesium 60 mg PO DAILY 07/05/17 [History] Metformin HCl [Glucophage] 1,000 mg PO QAM 07/05/17 [History] Vitamin B Complex [B Complex] 1 each PO DAILY 07/05/17 [History] hydrOXYzine pamoate [HydrOXYzine Pamoate] 25 mg PO BID PRN #10 07/07/17 [Rx] Amlodipine Besylate 10 mg PO DAILY 12/09/17 [History] Duloxetine HCl [Cymbalta] 60 mg PO BID 12/09/17 [History] Metoprolol [Lopressor] 25 mg PO BID 12/09/17 [History] Warfarin [Coumadin] 2.5 mg PO TH 12/09/17 [History] Allergies/Adverse Reactions: 3 Allergy/AdvReac Type Severity Reaction Status Date / Time acetaminophen [From Percocet] Allergy Hallucinati Verified 10/11/16 21:00 ng ibuprofen Allergy Nausea Verified 10/11/16 21:00 metoclopramide [From Reglan] Allergy Nausea Verified 10/11/16 21:00 morphine Allergy Difficulty Verified 10/11/16 21:00 Breathing Oxycodone [From Percocet] Allergy Difficulty Verified 10/11/16 21:00 Breathing propoxyphene Allergy Anxiety Verified 10/11/16 21:00 [From Darvocet-N] Rdzvqpy-Vgx-Vbu Reductase Allergy See Verified 02/07/17 18:46 Inhibitor Comments [Statins] amitriptyline [From Elavil] AdvReac Headache Verified 10/11/16 21:00 apixaban [From Eliquis] AdvReac Muscle Pain Verified 04/06/17 15:32 aripiprazole [From Abilify] AdvReac Anxiety Verified 10/11/16 21:00 codeine AdvReac Nausea Verified 10/11/16 21:00 guaifenesin [From Mucinex] AdvReac Headache Verified 10/11/16 21:00 Hydromorphone [From Dilaudid] AdvReac Chills Verified 10/11/16 21:00 isosorbide AdvReac Headache Verified 10/11/16 21:00 Methylphenidate AdvReac Diarrhea Verified 10/11/16 21:00 [From Ritalin] prednisone AdvReac Anxiety Verified 10/11/16 21:00 pregabalin [From Lyrica] AdvReac Diarrhea Verified 10/11/16 21:00 sucralfate AdvReac Diarrhea Verified 10/11/16 21:00 valsartan [From Diovan] AdvReac Muscle Pain Verified 10/11/16 21:00 - Notes to Outpatient Provider She might benefit from an EGD since she does have GERD and already takes PPI. Date of admission: 12/09/17 05:45 Primary care physician: Fabiola Aguilar - Patient Status Disposition: Home, Self-Care Functional capacity at discharge: independent ambulation - Discharge Instructions Instructions: Chest Pain (DC) Follow Up With: Fabiola Aguilar MD [Primary Care Provider] - - Diet and Activity Activity: increase activity as tolerated Diet: advance to your usual diet Hospital course: Ms. Browning is a 67 year old female who has a background history of diabetes, hypertension, dyslipidemia, coronary artery disease with stent and morbid obesity. came in to ED w being woken up from sleep w chest pain that was midsternal and radiating to arm. She was observed in ED on telemetry and serial trop were checked. She is now pain free and CEx3 have been negative. She will need close follow up ( arranged per patient) w her PCP upon DC. She might benefit from an EGD since she does have GERD and already takes PPI. - Time Spent with Patient Total time spent providing and/or coordinating discharge services: Greater than 30 minutes (greater than 50% of time spent in Face to face counselling) - Constitutional Vitals: Temp Pulse Resp BP Pulse Ox 98.1 F 74 16 148/78 93 12/09/17 08:04 12/09/17 08:04 12/09/17 08:04 12/09/17 08:04 12/09/17 08:04 Exam: HEENT - PERRRLA EOMI CTA Bilaterally S1S2 WNL, no MRG abdomen- S NT ND
[2017-12-09 11:27] VITALS: BP 153/81
[2017-12-09] MEDS ORDERED: FLUVASTATIN SODIUM 80 MG PO SCH (18:00)
[2017-12-09] MEDS ORDERED: *HR* Warfarin 3 MG TABLET PO SCH (18:00)
[2017-12-10] MEDS ORDERED: *HR* Warfarin 3 MG TABLET PO SCH (18:00)
--- NOTE | 2017-12-11 11:06 | Electrocardiograph Report ---
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
== END 2017-12-09 13:10 | disposition home or self-care (01) ==
LOC: EMEROO 23:32 → 2SOUTHHOLD 23:32
PROVIDERS: ADMIT Internal Medicine; ATTEND Internal Medicine

== ENCOUNTER 2018-04-13 12:37 | Inpatient (IN) ==
[2018-04-13] MEDS ORDERED: 0.9 % Sodium Chloride 500 ML IVC ONE (12:51)
[2018-04-13 13:08] LABS: Basophils # 0.1 K/mcL (0.0-0.2); Basophils % 0.7 %; Eosinophils # 0.7 K/mcL (0.0-0.6); Hematocrit 38.2 % (35.3-44.9); Hemoglobin 12.3 g/dL (11.5-15.4); Immature Granulocytes % 0.6 % (0-4); Lymphocytes # 2.5 K/mcL (0.6-4.6); Lymphocytes % 22.8 %; Mean Corpuscular HGB Conc 32.2 g/dL (31.6-35.5); Mean Corpuscular Hemoglobin 27.5 pg (28.0-33.3); Mean Corpuscular Volume 85.3 fL (83.0-100.0); Mean Platelet Volume 11.4 fL (9.4-12.4); Monocytes # 0.8 K/mcL (0.0-1.3); Monocytes % 7.7 %; Neutrophils # 6.7 K/mcL (1.6-8.9); Platelet Count 278 K/mcL (140-400); Red Blood Count 4.48 M/mcL (3.82-4.97); Red Cell Distribution Width 16.1 % (11.5-14.5); Segmented Neutrophils % 62.2 %
--- NOTE | 2018-04-13 13:21 | Emergency Department Note ---
Disposition Clinical Impression: Bradycardia, Weakness, Acute kidney injury Disposition: Admitted As Inpatient Condition: Fair Time of Disposition: 19:19 General Adult HPI - General Chief complaint: ED General Medical Stated complaint: weakness Time Seen by Provider: 04/13/18 12:39 Source: patient, EMS Nursing Notes Reviewed: Yes Vital Signs Reviewed: Yes - History of Present Illness HPI Narrative: 60-year-old female presents from home for evaluation of generalized weakness. Onset today. Associated with mild lightheadedness. She measured her blood pressure home in the diastolic was in the 40s. She is not sure about her heart rate or the systolic blood pressure. She is concerned as, on EMS vitals, her blood pressure was low and her heart rate was slow. PMH: CAD with ACS; stent 3, 2X CABG. atrial fibrillation on Coumadin. Congestive heart failure. Diabetes, GERD, hypertension, hyperlipidemia, hypothyroidism, fibromyalgia. Next ROS: Positive: As above Negative: Fever, chills, nausea, vomiting, chest pain, palpitations, dyspnea, diaphoresis, abdominal pain, changes in bowel or bladder habits, unusual back pain. Pain Scale: 0 - Related Data Home Medications Medication Instructions Recorded Confirmed Aspirin 81 mg PO DAILY 03/27/16 04/13/18 Ascorbate Calcium [Vitamin C] 500 mg PO DAILY 05/21/16 04/13/18 Calcium Carbonate/Vitamin D3 1 tab PO DAILY 05/21/16 04/13/18 [Caltrate 600 + D Soft Chew Tab] Cholecalciferol (D-3) [Vitamin D] 1,000 unit PO DAILY 05/21/16 04/13/18 Dicyclomine [Bentyl] 10 mg PO BID 05/21/16 04/13/18 Esomeprazole Magnesium [Nexium] 40 mg PO HS 05/21/16 04/13/18 Evolocumab [Repatha Syringe] 140 mg SQ Q2W 05/21/16 04/13/18 Fluticasone Propionate Nasal 1 spray NS DAILY 05/21/16 04/13/18 [Flonase] Furosemide [Lasix] 20 mg PO DAILY 05/21/16 04/13/18 Hydrochlorothiazide [Microzide] 25 mg PO DAILY 05/21/16 04/13/18 Loratadine [Claritin] 10 mg PO DAILY 05/21/16 04/13/18 Nitroglycerin [Nitrostat] 0.4 mg SL Q5M PRN 05/21/16 04/13/18 Gabapentin [Neurontin] 600 mg PO TID 06/11/16 04/13/18 Levothyroxine Sodium 112.5 mcg PO QAM 03/29/17 04/13/18 Potassium Chloride [K-Tab ER] 30 meq PO QAM 03/29/17 04/13/18 Potassium Chloride [K-Tab ER] 20 meq PO QPM 04/06/17 04/13/18 Warfarin [Coumadin] 1.5 mg PO MOTUWEFRSA 04/06/17 04/13/18 Warfarin [Coumadin] 3 mg PO SUTH 04/06/17 04/13/18 Losartan Potassium [Cozaar] 100 mg PO DAILY 07/05/17 04/13/18 Magnesium 60 mg PO DAILY 07/05/17 04/13/18 Metformin HCl [Glucophage] 1,000 mg PO BID 07/05/17 04/13/18 Vitamin B Complex [B Complex] 1 each PO DAILY 07/05/17 04/13/18 Amlodipine Besylate 10 mg PO DAILY 12/09/17 04/13/18 Duloxetine HCl [Cymbalta] 60 mg PO BID 12/09/17 04/13/18 Metoprolol [Lopressor] 25 mg PO BID 12/09/17 04/13/18 Previous Rx's Medication Instructions Recorded Oxybutynin [Ditropan] 2.5 mg PO BID #30 tablet 04/09/17 cloNIDine HCl [CloNIDine HCl] 0.1 mg PO TID #90 tablet 04/21/17 Escitalopram [Lexapro] 10 mg PO DAILY #30 tablet 04/27/17 Prazosin HCl [Minipress] 2 mg PO HS #30 capsule 04/27/17 hydrOXYzine pamoate [HydrOXYzine 25 mg PO BID PRN #10 07/07/17 Pamoate] Allergies Allergy/AdvReac Type Severity Reaction Status Date / Time acetaminophen [From Percocet] Allergy Hallucinati Verified 04/13/18 14:09 ng ibuprofen Allergy Nausea Verified 04/13/18 14:09 metoclopramide [From Reglan] Allergy Nausea Verified 04/13/18 14:09 morphine Allergy Difficulty Verified 04/13/18 14:09 Breathing Oxycodone [From Percocet] Allergy Difficulty Verified 04/13/18 14:09 Breathing propoxyphene Allergy Anxiety Verified 04/13/18 14:09 [From Darvocet-N] Iygkciz-Mrj-Sct Reductase Allergy See Verified 04/13/18 14:09 Inhibitor Comments [Statins] amitriptyline [From Elavil] AdvReac Headache Verified 04/13/18 14:09 apixaban [From Eliquis] AdvReac Muscle Pain Verified 04/13/18 14:09 aripiprazole [From Abilify] AdvReac Anxiety Verified 04/13/18 14:09 codeine AdvReac Nausea Verified 04/13/18 14:09 guaifenesin [From Mucinex] AdvReac Headache Verified 04/13/18 14:09 Hydromorphone [From Dilaudid] AdvReac Chills Verified 04/13/18 14:09 isosorbide AdvReac Headache Verified 04/13/18 14:09 Methylphenidate AdvReac Diarrhea Verified 04/13/18 14:09 [From Ritalin] prednisone AdvReac Anxiety Verified 04/13/18 14:09 pregabalin [From Lyrica] AdvReac Diarrhea Verified 04/13/18 14:09 sucralfate AdvReac Diarrhea Verified 04/13/18 14:09 valsartan [From Diovan] AdvReac Muscle Pain Verified 04/13/18 14:09 All systems ED: reviewed and negative except as stated. 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 Head: atraumatic, normocephalic Eye: normal appearance, no scleral icterus, no conjunctival injection ENT: mucous membranes moist, normal external ear exam Neck: normal inspection, trachea midline, full ROM Chest: normal inspection, symmetric chest rise Respiratory: Good respiratory effort. Bilateral breath sounds are clear without wheezing, crackles, or rhonchi. Cardiovascular: Regular rate and rhythm. No clicks, rubs, gallops, or murmors. Normal heart sounds. Abdomen: Bowel sounds present normoactive x-4 quadrants. Abdomen is soft, nondistended, and nontender. No guarding or rebound. No organomegaly noted. Musculoskeletal: Spontaneously moving all extremities. Skin: warm, dry, intact. Neuro: Alert and oriented x4. Sensation light touch intact. Strength 5/5 and equal in upper and lower extremities. Cranial nerves II through XII intact. Psych: Patient's affect is appropriate for situation. - General General appearance: alert Course Course Narrative: Patient's heart rate is bradycardic in the 50s. Rate limiting medication of metoprolol 25mg PO BID and amlodipine 10mg PO daily. Additional antihypertensives include cozaar 100mg PO daily, lasix 25 mg by mouth daily, and hydrochlorothiazide 25 mg by mouth daily. Lab work shows acute kidney injury. Suspect this is a combination of dehydration as well as multiple antihypertensives. Patient has been bradycardic throughout her stay. Suspect this could be a combination of her acute kidney injury combined with her 2 rate limiting medications. At one point, she was bradycardic to the 40s and given atropine. No heart blocks and EKG. Troponin is within normal limits I discussed the patient with the admitting hospitalist, Dr. Alford. He requests cardiology consult given patient's bradycardia. He is agreeable to accept the patient with cardiology consult. I discussed the patient with Dr. Miramontes who is happy to follow the patient with internal medicine admission. Cardiology consult placed. EKG #1 EKG dated 04/13/18 at 12:40 interpreted as sinus bradycardia with a rate of 51. MA 124, QRS 96, QTC 444. LVH. Left axis. T-wave inversion in lead 1 and aVL which is present on comparative EKG. Compared to previous EKG dated 12/08/2017 showing no acute ischemic changes or comparison. EKG #2 EKG dated 04/13/18 at 14:40 interpreted as sinus bradycardia with a rate of 40. MA 172, QRS 89, QTC 427. Left axis. LVH. Nonspecific ST-T changes. Compared to EKG #1 as well as EKG dated 12/08/2017 showing no acute ischemic changes comparison. Chest X-Ray 04/13/18 12:50 IMPRESSION: No acute process. D/ / Kamran Poon MD / Kamran Poon MD Interpreting Provider: Kamran Poon MD Vital Signs Temperature 98.4 F 04/13/18 12:39 Pulse Rate 52 04/13/18 12:39 Respiratory Rate 18 04/13/18 12:39 Blood Pressure 132/71 04/13/18 12:39 O2 Sat by Pulse Oximetry 99 04/13/18 12:39 Temperature 97.6 F 04/13/18 18:50 Pulse Rate 55 04/13/18 18:50 Respiratory Rate 18 04/13/18 18:50 Blood Pressure 103/67 04/13/18 18:50 O2 Sat by Pulse Oximetry 95 04/13/18 18:50 Oxygen Delivery Oxygen Delivery Nasal Cannula Medical Decision Making - Lab Data Result diagrams: 04/13/18 12:50 04/13/18 12:50 Lab Results 04/13/18 04/13/18 04/13/18 Range/Units 12:50 12:50 12:54 WBC 10.8 (4.3-11.1) K/mcL RBC 4.48 (3.82-4.97) M/mcL Hgb 12.3 (11.5-15.4) g/dL Hct 38.2 (35.3-44.9) % MCV 85.3 (83.0-100.0) fL MCH 27.5 L (28.0-33.3) pg MCHC 32.2 (31.6-35.5) g/dL RDW 16.1 H (11.5-14.5) % Plt Count 278 (140-400) K/mcL MPV 11.4 (9.4-12.4) fL Immature Gran % 0.6 (0-4) % Seg Neutrophils % 62.2 % Lymphocytes % 22.8 % Monocytes % 7.7 % Eosinophils % 6.0 % Basophils % 0.7 % Neutrophils # 6.7 (1.6-8.9) K/mcL Lymphocytes # 2.5 (0.6-4.6) K/mcL Monocytes # 0.8 (0.0-1.3) K/mcL Eosinophils # 0.7 H (0.0-0.6) K/mcL Basophils # 0.1 (0.0-0.2) K/mcL Sodium 136 (136-145) mEq/L Potassium 3.7 (3.5-5.1) mEq/L Chloride 100 (98-107) mEq/L Carbon Dioxide 24 (23-29) mEq/L BUN 27 H (8-23) mg/dL Creatinine 1.44 H (0.60-1.20) mg/dL Est GFR ( Amer) 44 L (> 60) Est GFR (Non-Af Amer) 36 L (> 60) BUN/Creatinine Ratio 19 (6-26) Glucose 201 H (70-105) mg/dL POC Glucose (70-99) mg/dL Calculated Osmolality 293 (280-300) Calcium 9.5 (8.6-10.3) mg/dL Magnesium 1.2 L (1.6-2.6) mg/dL Total Bilirubin 0.4 (0.3-1.0) mg/dL AST 27 (13-39) Units/L ALT 29 (7-52) Units/L Alkaline Phosphatase 90 (34-104) Units/L Troponin I < 0.03 (< 0.04) ng/mL B-Natriuretic Peptide 30 (Less than 100) pg/mL Serum Total Protein 7.1 (6.4-8.9) g/dL Albumin 3.9 (3.5-5.7) g/dL Globulin 3.2 (2.4-3.5) g/dL Albumin/Globulin Ratio 1.2 (1.1-2.2) Urine Color (Yellow) Urine Clarity (Clear) Urine pH (5.0-8.0) pH Units Ur Specific [place] (1.010-1.025) Urine Protein (Neg-Trace) mg/dL Urine Glucose (UA) (Normal) mg/dL Urine Ketones (Negative) mg/dL Urine Blood (Negative) Urine Nitrite (Negative) Urine Bilirubin (Negative) Urine Urobilinogen (Normal) mg/dL Ur Leukocyte Esterase (Negative) Ur Culture Indicated? (NO) 04/13/18 04/13/18 Range/Units 13:05 13:37 WBC (4.3-11.1) K/mcL RBC (3.82-4.97) M/mcL Hgb (11.5-15.4) g/dL Hct (35.3-44.9) % MCV (83.0-100.0) fL MCH (28.0-33.3) pg MCHC (31.6-35.5) g/dL RDW (11.5-14.5) % Plt Count (140-400) K/mcL MPV (9.4-12.4) fL Immature Gran % (0-4) % Seg Neutrophils % % Lymphocytes % % Monocytes % % Eosinophils % % Basophils % % Neutrophils # (1.6-8.9) K/mcL Lymphocytes # (0.6-4.6) K/mcL Monocytes # (0.0-1.3) K/mcL Eosinophils # (0.0-0.6) K/mcL Basophils # (0.0-0.2) K/mcL Sodium (136-145) mEq/L Potassium (3.5-5.1) mEq/L Chloride (98-107) mEq/L Carbon Dioxide (23-29) mEq/L BUN (8-23) mg/dL Creatinine (0.60-1.20) mg/dL Est GFR ( Amer) (> 60) Est GFR (Non-Af Amer) (> 60) BUN/Creatinine Ratio (6-26) Glucose (70-105) mg/dL POC Glucose 198 H (70-99) mg/dL Calculated Osmolality (280-300) Calcium (8.6-10.3) mg/dL Magnesium (1.6-2.6) mg/dL Total Bilirubin (0.3-1.0) mg/dL AST (13-39) Units/L ALT (7-52) Units/L Alkaline Phosphatase (34-104) Units/L Troponin I (< 0.04) ng/mL B-Natriuretic Peptide (Less than 100) pg/mL Serum Total Protein (6.4-8.9) g/dL Albumin (3.5-5.7) g/dL Globulin (2.4-3.5) g/dL Albumin/Globulin Ratio (1.1-2.2) Urine Color Yellow (Yellow) Urine Clarity Clear (Clear) Urine pH 6.0 (5.0-8.0) pH Units Ur Specific [place] 1.017 (1.010-1.025) Urine Protein Negative (Neg-Trace) mg/dL Urine Glucose (UA) Normal (Normal) mg/dL Urine Ketones Negative (Negative) mg/dL Urine Blood Negative (Negative) Urine Nitrite Negative (Negative) Urine Bilirubin Negative (Negative) Urine Urobilinogen Normal (Normal) mg/dL Ur Leukocyte Esterase Negative (Negative) Ur Culture Indicated? NO (NO)
[2018-04-13 13:30] LABS: Troponin I < 0.03 ng/mL (< 0.04)
[2018-04-13 13:32] LABS: Alanine Aminotransferase 29 Units/L (7-52); Albumin 3.9 g/dL (3.5-5.7); Albumin/Globulin Ratio 1.2 (1.1-2.2); Alkaline Phosphatase 90 Units/L (34-104); Aspartate Amino Transferase 27 Units/L (13-39); BUN/Creatinine Ratio 19 (6-26); Bilirubin,Total 0.4 mg/dL (0.3-1.0); Blood Urea Nitrogen 27 mg/dL (8-23); Calcium 9.5 mg/dL (8.6-10.3); Carbon Dioxide 24 mEq/L (23-29); Chloride 100 mEq/L (98-107); Globulin 3.2 g/dL (2.4-3.5); Glucose 201 mg/dL (70-105); Magnesium 1.2 mg/dL (1.6-2.6); Osmolality,Calculated 293 (280-300); Potassium 3.7 mEq/L (3.5-5.1); Sodium 136 mEq/L (136-145); Total Protein 7.1 g/dL (6.4-8.9); eGFR For African Americans 44 (> 60); eGFR For Non-African Americans 36 (> 60)
[2018-04-13 13:59] LABS: Bilirubin,Urine Negative (Negative); Blood,Urine Negative (Negative); Clarity,Urine Clear (Clear); Color,Urine Yellow (Yellow); Glucose,Urine (UA) Normal (Normal); Ketones,Urine Negative (Negative); Leukocyte Esterase,Urine Negative (Negative); Nitrite,Urine Negative (Negative); Protein,Urine Negative (Neg-Trace); Specific Gravity,Urine 1.017 (1.010-1.025); Urobilinogen,Urine Normal (Normal)
[2018-04-13] MEDS ORDERED: *HR* Atropine Sulfate 1 MG/10 ML SYRINGE IVP ONE (14:27)
--- NOTE | 2018-04-13 14:49 | Emergency Department Note ---
Disposition Clinical Impression: Bradycardia Disposition: Admitted As Inpatient Referrals: Fabiola Aguilar MD [Primary Care Provider] - Forms: ED Satisfaction Letter, Work/School Release General Adult HPI - General Chief complaint: ED General Medical Stated complaint: weakness Time Seen by Provider: 04/13/18 12:39 Source: patient, EMS - History of Present Illness Pain Scale: 3 - Related Data Home Medications Medication Instructions Recorded Confirmed Aspirin 81 mg PO DAILY 03/27/16 04/13/18 Ascorbate Calcium [Vitamin C] 500 mg PO DAILY 05/21/16 04/13/18 Calcium Carbonate/Vitamin D3 1 tab PO DAILY 05/21/16 04/13/18 [Caltrate 600 + D Soft Chew Tab] Cholecalciferol (D-3) [Vitamin D] 1,000 unit PO DAILY 05/21/16 04/13/18 Dicyclomine [Bentyl] 10 mg PO BID 05/21/16 04/13/18 Esomeprazole Magnesium [Nexium] 40 mg PO HS 05/21/16 04/13/18 Evolocumab [Repatha Syringe] 140 mg SQ Q2W 05/21/16 04/13/18 Fluticasone Propionate Nasal 1 spray NS DAILY 05/21/16 04/13/18 [Flonase] Furosemide [Lasix] 20 mg PO DAILY 05/21/16 04/13/18 Hydrochlorothiazide [Microzide] 25 mg PO DAILY 05/21/16 04/13/18 Loratadine [Claritin] 10 mg PO DAILY 05/21/16 04/13/18 Nitroglycerin [Nitrostat] 0.4 mg SL Q5M PRN 05/21/16 04/13/18 Gabapentin [Neurontin] 600 mg PO TID 06/11/16 04/13/18 Levothyroxine Sodium 112.5 mcg PO QAM 03/29/17 04/13/18 Potassium Chloride [K-Tab ER] 30 meq PO QAM 03/29/17 04/13/18 Potassium Chloride [K-Tab ER] 20 meq PO QPM 04/06/17 04/13/18 Warfarin [Coumadin] 1.5 mg PO MOTUWEFRSA 04/06/17 04/13/18 Warfarin [Coumadin] 3 mg PO SUTH 04/06/17 04/13/18 Losartan Potassium [Cozaar] 100 mg PO DAILY 07/05/17 04/13/18 Magnesium 60 mg PO DAILY 07/05/17 04/13/18 Metformin HCl [Glucophage] 1,000 mg PO BID 07/05/17 04/13/18 Vitamin B Complex [B Complex] 1 each PO DAILY 07/05/17 04/13/18 Amlodipine Besylate 10 mg PO DAILY 12/09/17 04/13/18 Duloxetine HCl [Cymbalta] 60 mg PO BID 12/09/17 04/13/18 Metoprolol [Lopressor] 25 mg PO BID 12/09/17 04/13/18 Previous Rx's Medication Instructions Recorded Oxybutynin [Ditropan] 2.5 mg PO BID #30 tablet 04/09/17 cloNIDine HCl [CloNIDine HCl] 0.1 mg PO TID #90 tablet 04/21/17 Escitalopram [Lexapro] 10 mg PO DAILY #30 tablet 04/27/17 Prazosin HCl [Minipress] 2 mg PO HS #30 capsule 04/27/17 hydrOXYzine pamoate [HydrOXYzine 25 mg PO BID PRN #10 07/07/17 Pamoate] Allergies Allergy/AdvReac Type Severity Reaction Status Date / Time acetaminophen [From Percocet] Allergy Hallucinati Verified 04/13/18 14:09 ng ibuprofen Allergy Nausea Verified 04/13/18 14:09 metoclopramide [From Reglan] Allergy Nausea Verified 04/13/18 14:09 morphine Allergy Difficulty Verified 04/13/18 14:09 Breathing Oxycodone [From Percocet] Allergy Difficulty Verified 04/13/18 14:09 Breathing propoxyphene Allergy Anxiety Verified 04/13/18 14:09 [From Darvocet-N] Wxbzzlw-Jee-Qyt Reductase Allergy See Verified 04/13/18 14:09 Inhibitor Comments [Statins] amitriptyline [From Elavil] AdvReac Headache Verified 04/13/18 14:09 apixaban [From Eliquis] AdvReac Muscle Pain Verified 04/13/18 14:09 aripiprazole [From Abilify] AdvReac Anxiety Verified 04/13/18 14:09 codeine AdvReac Nausea Verified 04/13/18 14:09 guaifenesin [From Mucinex] AdvReac Headache Verified 04/13/18 14:09 Hydromorphone [From Dilaudid] AdvReac Chills Verified 04/13/18 14:09 isosorbide AdvReac Headache Verified 04/13/18 14:09 Methylphenidate AdvReac Diarrhea Verified 04/13/18 14:09 [From Ritalin] prednisone AdvReac Anxiety Verified 04/13/18 14:09 pregabalin [From Lyrica] AdvReac Diarrhea Verified 04/13/18 14:09 sucralfate AdvReac Diarrhea Verified 04/13/18 14:09 valsartan [From Diovan] AdvReac Muscle Pain Verified 04/13/18 14:09 Past Medical History - Past Medical History Medical history: Reports: arthritis, atrial fibrillation, CHF, coronary artery disease, diabetes, fibromyalgia, GERD, hyperlipidemia, hypertension, migraine, thyroid disease, other Surgical history: Reports: angioplasty/stent, cataract, cholecystectomy, coronary bypass (CABG), hysterectomy, other Psychiatric history: Reports: depression, prior suicide attempt, previous psychiatric hospitalization 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 history - Social History Smoking Status: Never smoker Smokeless Tobacco Status: No Alcohol use: Reports: none Drug use: Reports: none Physical Exam - General General appearance: alert Course Vital Signs Temperature 98.4 F 04/13/18 12:39 Pulse Rate 52 04/13/18 12:39 Respiratory Rate 18 04/13/18 12:39 Blood Pressure 132/71 04/13/18 12:39 O2 Sat by Pulse Oximetry 99 04/13/18 12:39 Temperature 98.4 F 04/13/18 12:39 Pulse Rate 54 04/13/18 14:14 Respiratory Rate 18 04/13/18 14:14 Blood Pressure 143/63 04/13/18 14:14 O2 Sat by Pulse Oximetry 97 04/13/18 14:14 Oxygen Delivery Oxygen Delivery Nasal Cannula Medical Decision Making - Lab Data Result diagrams: 04/13/18 12:50 04/13/18 12:50 Lab Results 04/13/18 04/13/18 04/13/18 Range/Units 12:50 12:50 12:54 WBC 10.8 (4.3-11.1) K/mcL RBC 4.48 (3.82-4.97) M/mcL Hgb 12.3 (11.5-15.4) g/dL Hct 38.2 (35.3-44.9) % MCV 85.3 (83.0-100.0) fL MCH 27.5 L (28.0-33.3) pg MCHC 32.2 (31.6-35.5) g/dL RDW 16.1 H (11.5-14.5) % Plt Count 278 (140-400) K/mcL MPV 11.4 (9.4-12.4) fL Immature Gran % 0.6 (0-4) % Seg Neutrophils % 62.2 % Lymphocytes % 22.8 % Monocytes % 7.7 % Eosinophils % 6.0 % Basophils % 0.7 % Neutrophils # 6.7 (1.6-8.9) K/mcL Lymphocytes # 2.5 (0.6-4.6) K/mcL Monocytes # 0.8 (0.0-1.3) K/mcL Eosinophils # 0.7 H (0.0-0.6) K/mcL Basophils # 0.1 (0.0-0.2) K/mcL Sodium 136 (136-145) mEq/L Potassium 3.7 (3.5-5.1) mEq/L Chloride 100 (98-107) mEq/L Carbon Dioxide 24 (23-29) mEq/L BUN 27 H (8-23) mg/dL Creatinine 1.44 H (0.60-1.20) mg/dL Est GFR ( Amer) 44 L (> 60) Est GFR (Non-Af Amer) 36 L (> 60) BUN/Creatinine Ratio 19 (6-26) Glucose 201 H (70-105) mg/dL POC Glucose (70-99) mg/dL Calculated Osmolality 293 (280-300) Calcium 9.5 (8.6-10.3) mg/dL Magnesium 1.2 L (1.6-2.6) mg/dL Total Bilirubin 0.4 (0.3-1.0) mg/dL AST 27 (13-39) Units/L ALT 29 (7-52) Units/L Alkaline Phosphatase 90 (34-104) Units/L Troponin I < 0.03 (< 0.04) ng/mL B-Natriuretic Peptide 30 (Less than 100) pg/mL Serum Total Protein 7.1 (6.4-8.9) g/dL Albumin 3.9 (3.5-5.7) g/dL Globulin 3.2 (2.4-3.5) g/dL Albumin/Globulin Ratio 1.2 (1.1-2.2) Urine Color (Yellow) Urine Clarity (Clear) Urine pH (5.0-8.0) pH Units Ur Specific [place] (1.010-1.025) Urine Protein (Neg-Trace) mg/dL Urine Glucose (UA) (Normal) mg/dL Urine Ketones (Negative) mg/dL Urine Blood (Negative) Urine Nitrite (Negative) Urine Bilirubin (Negative) Urine Urobilinogen (Normal) mg/dL Ur Leukocyte Esterase (Negative) Ur Culture Indicated? (NO) 04/13/18 04/13/18 Range/Units 13:05 13:37 WBC (4.3-11.1) K/mcL RBC (3.82-4.97) M/mcL Hgb (11.5-15.4) g/dL Hct (35.3-44.9) % MCV (83.0-100.0) fL MCH (28.0-33.3) pg MCHC (31.6-35.5) g/dL RDW (11.5-14.5) % Plt Count (140-400) K/mcL MPV (9.4-12.4) fL Immature Gran % (0-4) % Seg Neutrophils % % Lymphocytes % % Monocytes % % Eosinophils % % Basophils % % Neutrophils # (1.6-8.9) K/mcL Lymphocytes # (0.6-4.6) K/mcL Monocytes # (0.0-1.3) K/mcL Eosinophils # (0.0-0.6) K/mcL Basophils # (0.0-0.2) K/mcL Sodium (136-145) mEq/L Potassium (3.5-5.1) mEq/L Chloride (98-107) mEq/L Carbon Dioxide (23-29) mEq/L BUN (8-23) mg/dL Creatinine (0.60-1.20) mg/dL Est GFR ( Amer) (> 60) Est GFR (Non-Af Amer) (> 60) BUN/Creatinine Ratio (6-26) Glucose (70-105) mg/dL POC Glucose 198 H (70-99) mg/dL Calculated Osmolality (280-300) Calcium (8.6-10.3) mg/dL Magnesium (1.6-2.6) mg/dL Total Bilirubin (0.3-1.0) mg/dL AST (13-39) Units/L ALT (7-52) Units/L Alkaline Phosphatase (34-104) Units/L Troponin I (< 0.04) ng/mL B-Natriuretic Peptide (Less than 100) pg/mL Serum Total Protein (6.4-8.9) g/dL Albumin (3.5-5.7) g/dL Globulin (2.4-3.5) g/dL Albumin/Globulin Ratio (1.1-2.2) Urine Color Yellow (Yellow) Urine Clarity Clear (Clear) Urine pH 6.0 (5.0-8.0) pH Units Ur Specific [place] 1.017 (1.010-1.025) Urine Protein Negative (Neg-Trace) mg/dL Urine Glucose (UA) Normal (Normal) mg/dL Urine Ketones Negative (Negative) mg/dL Urine Blood Negative (Negative) Urine Nitrite Negative (Negative) Urine Bilirubin Negative (Negative) Urine Urobilinogen Normal (Normal) mg/dL Ur Leukocyte Esterase Negative (Negative) Ur Culture Indicated? NO (NO) Attestation Statement - Attestation Attestation: I examined this patient and my medical decision-making was reviewed with the Resident Physician. I agree with the documented findings, disposition and treatment plan as described except to the extent set forth below. 68 year old female prente to the ED with complaitns of waekness and appears to be bradycardiac at bedside and is on mutliple medications for cardiac disease and rate control. PAtinet states that this has been an ongoing process and has mutliple cardiac procedures secondary to blockages and has CABG and stents placed. PAtinet has been as low as 44 at bedside and states that she is feeling increasingly more fatigued. We have treated her with a dose of atropine for treatment and have done a cardiac workup which is essentially at baseline aside from mild kindney injury. Admit ot medicine.
--- NOTE | 2018-04-13 18:08 | Internal Med History&Physical ---
Date of Encounter: 04/13/18 Time of Encounter: 15:00 Internal Medicine - H&P: HPI Chief complaint: Chest pain Admitted From: Home Plans for Post Hospital Care: Home History of present illness: Patient is a 68-year-old female with past medical history significant for arterial disease (CABG 2/stents 3), ischemic cardiomyopathy, atrial fibrillation on Coumadin, hypertension, hyperlipidemia, diabetes and hypothyroid who presents to the ER on 04/13/18 due to bradycardia and chest pain. Patient reports a 2 day history of left sided chest pain which she describes a sharp without any provoking or relieving factors lasting for minutes. Patient also reported associated symptoms of dizziness. In addition patient states that her heart rate has been low. In the ER, she was found to be bradycardic with heart rate in the 40s and was given 1 dose of atropine. Her first set of cardiac biomarkers were negative. Patient was also found to have acute renal failure with creatinine of 1.44 and GFR of 36. Patient will be admitted to medical surgical floor for bradycardia and chest pain. Past Med Surg Social Fam HX - Past Medical History Medical history: arthritis, atrial fibrillation, CHF, coronary artery disease, diabetes, fibromyalgia, GERD, hyperlipidemia, hypertension, migraine, thyroid disease, other Additional medical history: IBS, DDD Psychiatric history: depression, prior suicide attempt, previous psychiatric hospitalization - Past Surgical History Surgical History: angioplasty/stent, cataract, cholecystectomy, coronary bypass (CABG), hysterectomy, other Additional surgical history: heart stent x6, Double Bypass 2014 - Social History Smoking Status: Never smoker Smokeless Tobacco Status: No Alcohol use: none Drug use: none - Family History Mother Adopted: No Family Member Ethnicity: Non- Living Status: Hx Family Cardiac Disorders: Yes Hx Family Neurologic Disorders: Yes (migraines) Father Living Status: Still Living Hx Family Cardiac Disorders: Yes Hx Family Cancer: Yes (skin cancer) Internal Medicine - H&P: Meds Aspirin 81 mg PO DAILY 03/27/16 [History] Ascorbate Calcium [Vitamin C] 500 mg PO DAILY 05/21/16 [History] Calcium Carbonate/Vitamin D3 [Caltrate 600 + D Soft Chew Tab] 1 tab PO DAILY [History] Cholecalciferol (D-3) [Vitamin D] 1,000 unit PO DAILY 05/21/16 [History] Dicyclomine [Bentyl] 10 mg PO BID 05/21/16 [History] Esomeprazole Magnesium [Nexium] 40 mg PO HS 05/21/16 [History] Evolocumab [Repatha Syringe] 140 mg SQ Q2W 05/21/16 [History] Fluticasone Propionate Nasal [Flonase] 1 spray NS DAILY 05/21/16 [History] Furosemide [Lasix] 20 mg PO DAILY 05/21/16 [History] Hydrochlorothiazide [Microzide] 25 mg PO DAILY 05/21/16 [History] Loratadine [Claritin] 10 mg PO DAILY 05/21/16 [History] Nitroglycerin [Nitrostat] 0.4 mg SL Q5M PRN 05/21/16 [History] Gabapentin [Neurontin] 600 mg PO TID 06/11/16 [History] Levothyroxine Sodium 112.5 mcg PO QAM 03/29/17 [History] Potassium Chloride [K-Tab ER] 30 meq PO QAM 03/29/17 [History] Potassium Chloride [K-Tab ER] 20 meq PO QPM 04/06/17 [History] Warfarin [Coumadin] 1.5 mg PO MOTUWEFRSA 04/06/17 [History] Warfarin [Coumadin] 3 mg PO SUTH 04/06/17 [History] Oxybutynin [Ditropan] 2.5 mg PO BID #30 tablet 04/09/17 [Rx] cloNIDine HCl [CloNIDine HCl] 0.1 mg PO TID #90 tablet 04/21/17 [Rx] Escitalopram [Lexapro] 10 mg PO DAILY #30 tablet 04/27/17 [Rx] Prazosin HCl [Minipress] 2 mg PO HS #30 capsule 04/27/17 [Rx] Losartan Potassium [Cozaar] 100 mg PO DAILY 07/05/17 [History] Magnesium 60 mg PO DAILY 07/05/17 [History] Metformin HCl [Glucophage] 1,000 mg PO BID 07/05/17 [History] Vitamin B Complex [B Complex] 1 each PO DAILY 07/05/17 [History] hydrOXYzine pamoate [HydrOXYzine Pamoate] 25 mg PO BID PRN #10 07/07/17 [Rx] Amlodipine Besylate 10 mg PO DAILY 12/09/17 [History] Duloxetine HCl [Cymbalta] 60 mg PO BID 12/09/17 [History] Metoprolol [Lopressor] 25 mg PO BID 12/09/17 [History] 3 Allergy/AdvReac Type Severity Reaction Status Date / Time acetaminophen [From Percocet] Allergy Hallucinati Verified 04/13/18 14:09 ng ibuprofen Allergy Nausea Verified 04/13/18 14:09 metoclopramide [From Reglan] Allergy Nausea Verified 04/13/18 14:09 morphine Allergy Difficulty Verified 04/13/18 14:09 Breathing Oxycodone [From Percocet] Allergy Difficulty Verified 04/13/18 14:09 Breathing propoxyphene Allergy Anxiety Verified 04/13/18 14:09 [From Darvocet-N] [id number] Reductase Allergy See Verified 04/13/18 14:09 Inhibitor Comments [Statins] amitriptyline [From Elavil] AdvReac Headache Verified 04/13/18 14:09 apixaban [From Eliquis] AdvReac Muscle Pain Verified 04/13/18 14:09 aripiprazole [From Abilify] AdvReac Anxiety Verified 04/13/18 14:09 codeine AdvReac Nausea Verified 04/13/18 14:09 guaifenesin [From Mucinex] AdvReac Headache Verified 04/13/18 14:09 Hydromorphone [From Dilaudid] AdvReac Chills Verified 04/13/18 14:09 isosorbide AdvReac Headache Verified 04/13/18 14:09 Methylphenidate AdvReac Diarrhea Verified 04/13/18 14:09 [From Ritalin] prednisone AdvReac Anxiety Verified 04/13/18 14:09 pregabalin [From Lyrica] AdvReac Diarrhea Verified 04/13/18 14:09 sucralfate AdvReac Diarrhea Verified 04/13/18 14:09 valsartan [From Diovan] AdvReac Muscle Pain Verified 04/13/18 14:09 All Systems PM: A 10-system review of systems was performed and is negative for pertinent findings except as documented above in the HPI. - Constitutional Vitals: Temp Pulse Resp BP Pulse Ox 97.4 F L 48 18 109/57 96 04/13/18 16:20 04/13/18 16:20 04/13/18 16:20 04/13/18 16:20 04/13/18 16:20 General appearance: Present: A&O X 3, no acute distress - Eye Eye exam: Present: normal appearance - ENT ENT exam: Present: mucous membranes moist - Respiratory Respiratory exam: Present: CTAB. Absent: accessory muscle use, rales, rhonchi, wheezes - Cardiovascular Cardiovascular exam: Present: RRR, +S1, +S2. Absent: diastolic murmur, gallop, rubs, systolic murmur - GI/Abdominal GI/Abdominal exam: Present: normal bowel sounds, soft, no peritoneal signs. Absent: distended, tenderness - Extremities Exam Extremities exam: Absent: pedal edema - Neurological Exam Neurological exam: Present: oriented X3 - Psychiatric Psychiatric exam: Present: normal mood - Skin Skin exam: Present: normal color. Absent: pallor Internal Med - H&P Results - Labs CBC & Chem 7: 04/13/18 12:50 04/13/18 12:50 - Assessment and plan (1) Chest pain Current Visit: No Status: Acute Assessment and plan: Patient with history of CABG 2/stents 3 reports of left-sided chest pain First set of cardiac biomarkers negative Will trend troponins and monitor on telemetry Cardiology consulted and appreciate recommendations Qualifiers: Ischemic chest pain type: unspecified angina pectoris type Qualified Code(s ): I25.9 - Chronic ischemic heart disease, unspecified (2) Bradycardia Current Visit: Yes Status: Acute Assessment and plan: Patient with heart rate in the 40s and was given atropine 1 in the ER Cardiology consulted and appreciate recommendations (3) Acute renal injury Current Visit: No Status: Acute Assessment and plan: Patient with a creatinine of 1.44 Patient already given 500 mL bolus in the ER Will monitor (4) CAD (coronary artery disease), [place] coronary artery Current Visit: No Status: Chronic Assessment and plan: Patient with CABG and coronary arterial stent as above Continue home medications Qualifiers: Associated angina: angina presence unspecified Qualified Code(s): I25.10 - Atherosclerotic heart disease of [place] coronary artery without angina pectoris (5) Hypertension Current Visit: No Status: Chronic Assessment and plan: Controlled; continue home medications Qualifiers: Hypertension type: essential hypertension Qualified Code(s): I10 - Essential (primary) hypertension (6) Type 2 diabetes mellitus Current Visit: No Status: Chronic Assessment and plan: Continue home medications Qualifiers: Chronic kidney disease stage: unspecified stage Qualified Code(s): E11.22 - Type 2 diabetes mellitus with diabetic chronic kidney disease; Z79.4 - snf (current) use of insulin (7) Hypothyroidism Current Visit: No Status: Chronic Assessment and plan: Continue home medications Qualifiers: Hypothyroidism type: unspecified Qualified Code(s): E03.9 - Hypothyroidism , unspecified (8) GERD (gastroesophageal reflux disease) Current Visit: No Status: Chronic Assessment and plan: Continue home medications Qualifiers: Esophagitis presence: esophagitis presence not specified Qualified Code(s) : K21.9 - Gastro-esophageal reflux disease without esophagitis (9) Atrial fibrillation Current Visit: No Status: Chronic Qualifiers: Atrial fibrillation type: unspecified Qualified Code(s): I48.91 - Unspecified atrial fibrillation (10) Diastolic heart failure Current Visit: No Status: Chronic Assessment and plan: Patient euvolemic; will hold oral Lasix due to acute renal failure above Qualifiers: Heart failure chronicity: chronic Qualified Code(s): I50.32 - Chronic diastolic (congestive) heart failure (11) Hyperlipidemia Current Visit: No Status: Chronic Assessment and plan: Continue home medication Qualifiers: Hyperlipidemia type: unspecified Qualified Code(s): E78.5 - Hyperlipidemia , unspecified (12) DVT prophylaxis Current Visit: No Status: Acute Assessment and plan: Continue home dose of Coumadin - Time Spent With Patient Total time spent is greater than 50% in coordination of care (as documented) at patient's floor/unit and/or counseling patient:
[2018-04-13] MEDS ORDERED: Naloxone 0.4 MG/ML INJ IVP PRN (18:23)
[2018-04-13] MEDS ORDERED: hydrOXYzine pamoate 25 MG CAPSULE PO PRN (18:25)
[2018-04-13] MEDS ORDERED: Nitroglycerin 0.4 MG TAB.SUBL SL PRN (18:25)
[2018-04-13] MEDS ORDERED: EVOLOCUMAB 140 MG SQ SCH (18:30)
[2018-04-13] MEDS: cloNIDine HCl 0.1 MG TABLET PO SCH (20:34)
[2018-04-13] MEDS: Gabapentin 300 MG CAPSULE PO SCH (20:36)
[2018-04-13 21:19] LABS: INR 1.3; Prothrombin Time 14.6 Seconds (9.4-12.1)
[2018-04-14 01:13] LABS: Basophils # 0.1 K/mcL (0.0-0.2); Basophils % 0.9 %; Eosinophils # 0.8 K/mcL (0.0-0.6); Eosinophils % 7.2 %; Hematocrit 34.7 % (35.3-44.9); Hemoglobin 11.3 g/dL (11.5-15.4); Immature Granulocytes % 0.5 % (0-4); Lymphocytes # 3.1 K/mcL (0.6-4.6); Lymphocytes % 30.2 %; Mean Corpuscular HGB Conc 32.6 g/dL (31.6-35.5); Mean Corpuscular Volume 86.1 fL (83.0-100.0); Mean Platelet Volume 11.5 fL (9.4-12.4); Monocytes # 0.7 K/mcL (0.0-1.3); Monocytes % 6.5 %; Neutrophils # 5.7 K/mcL (1.6-8.9); Platelet Count 226 K/mcL (140-400); Red Blood Count 4.03 M/mcL (3.82-4.97); Red Cell Distribution Width 15.8 % (11.5-14.5); Segmented Neutrophils % 54.7 %
[2018-04-14 01:29] LABS: Calcium 8.6 mg/dL (8.6-10.3); Potassium 3.6 mEq/L (3.5-5.1)
--- NOTE | 2018-04-14 07:20 | Electrocardiograph Report ---
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
[2018-04-14] MEDS ORDERED: MAGNESIUM PO SCH (09:00)
--- NOTE | 2018-04-14 09:17 | Cardiology Consult Note ---
Date of Encounter: 04/14/18 Time of Encounter: 08:00 Assessment and Plan (1) FAMILIA (acute kidney injury) Current Visit: Yes Status: Acute Per cardiology: -Creatinine 1.44 on admission. -Baseline about 0.8-1.1. -Reports poor oral intake. -Management per primary service. -Consider log loader helper consult, patient states is unsure of what foods to eat for her comorbidities. (2) Bradycardia Current Visit: Yes Status: Acute Per cardiology: -HR 50 per ECG on admission. -FAMILIA on admission, on BB at home. Currently on hold. -Average HR 57, SB. -Denies dizziness, lightheadedness. -Of note, BP 90-100s this am also. Morning anti-hypertensive medications were held. -Continue telemetry. -Continue to hold BB until HR normalizes. Consider addition of BB prior to discharge. (3) Atypical chest pain Current Visit: Yes Status: Acute Per cardiology: -Reports 2 episodes of chest pain while at rest. States lasted a few minutes and resolved spontaneously. -Denies current chest pain. -Troponins negative x4. -TTE 02/2017 LVEF 65%, no segmental wall motion abnormalities. -Stress 02/2017 negative for ischemia. -[facility] 2016 with 2/2 patent bypass grafts. -ECG with no acute ischemic changes. -INtolerant to imdur and ranexa -Will check limited TTE to assess LVEF, wall motion. -Can consider outpatient stress for recurrence of chest pain. (4) PAF (paroxysmal atrial fibrillation) Current Visit: No Status: Chronic Per cardiology: -Known history of PAF> -ON coumadin for anticoagulation, INR subtherapeutic on admission. -FOllows with anticoagulation clinic. -Currently SB, average HR 57. -Was on BB in outpatient setting, currently being held for bradycardia. -Coumadin per pharmacy dosing inpatient -Continue to monitor telemetry. (5) Coronary artery disease Current Visit: No Status: Chronic Per cardiology: -Known CAD s/p CABG 2013 with DE OLIVEIRA to LAD, and SVG to OM. -On asa, BB. -Recent testing as above. -Intolerant to statins, imdur, and ranexa. Qualifiers: Coronary Disease-Associated Artery/Lesion type: [place] artery [place] vs. transplanted heart: [place] heart Associated angina: without angina Qualified Code(s): I25.10 - Atherosclerotic heart disease of [place] coronary artery without angina pectoris Discussion w patient/family: The assessment and plan as outlined above was discussed with the patient who expressed understanding and agreement. All questions were answered. Thank you for involving us in the care of your patient. Please call with any questions. Discussed and reviewed with . History of Present Illness Consult date: 04/13/18 Requesting physician: Aamir Bridges Consult reason: bradycardia Chief complaint: weakness, low BP History of present illness: Ms. Browning is a 68 year old female with a relevant past medical history of CAD s/ p CABG 2014, diastolic CHF, DM, HTN, GERD, hypothyroidism, depression/anxiety, bells palsy, chrohns disease, fibromyalgia, PAF on coumadin who presented to [facility] with complaints of weakness, fatigue for 2 days. Also noticed low BPs and HRs at home, however patient is unable to quantify. Patient reports had 2 episodes of chest pain while at rest, states were sharp and lasted a few minutes. Denies aggravating or alleviating factors. Denies exertional symptoms. States different from previous angina. Denies current chest pain. Patient denies dizziness, lightheadedness, or falls. However, patient does report she felt unsteady on her feet. Of note, patient also reports has not been eating and drinking well. States has not been drinking water at all. Past Med Surg Social Fam HX - Past Medical History Attestation: Yes The following information was validated with the patient. Source: patient, old records reviewed Medical history: arthritis, atrial fibrillation, CHF, coronary artery disease, diabetes, fibromyalgia, GERD, hyperlipidemia, hypertension, migraine, thyroid disease, other Additional medical history: IBS, DDD Psychiatric history: depression, prior suicide attempt, previous psychiatric hospitalization - Past Surgical History Surgical History: angioplasty/stent, cataract, cholecystectomy, coronary bypass (CABG), hysterectomy, other Additional surgical history: heart stent x6, Double Bypass 2014 - Social History Smoking Status: Never smoker Smokeless Tobacco Status: No Alcohol use: none Drug use: none - Family History Mother Adopted: No Family Member Ethnicity: Non- Living Status: Hx Family Cardiac Disorders: Yes Hx Family Neurologic Disorders: Yes (migraines) Father Living Status: Still Living Hx Family Cardiac Disorders: Yes Hx Family Cancer: Yes (skin cancer) Medications and Allergies Aspirin 81 mg PO DAILY 03/27/16 [History] Ascorbate Calcium [Vitamin C] 500 mg PO DAILY 05/21/16 [History] Calcium Carbonate/Vitamin D3 [Caltrate 600 + D Soft Chew Tab] 1 tab PO DAILY [History] Cholecalciferol (D-3) [Vitamin D] 1,000 unit PO DAILY 05/21/16 [History] Dicyclomine [Bentyl] 10 mg PO BID 05/21/16 [History] Esomeprazole Magnesium [Nexium] 40 mg PO HS 05/21/16 [History] Evolocumab [Repatha Syringe] 140 mg SQ Q2W 05/21/16 [History] Fluticasone Propionate Nasal [Flonase] 1 spray NS DAILY 05/21/16 [History] Furosemide [Lasix] 20 mg PO DAILY 05/21/16 [History] Hydrochlorothiazide [Microzide] 25 mg PO DAILY 05/21/16 [History] Loratadine [Claritin] 10 mg PO DAILY 05/21/16 [History] Nitroglycerin [Nitrostat] 0.4 mg SL Q5M PRN 05/21/16 [History] Gabapentin [Neurontin] 600 mg PO TID 06/11/16 [History] Levothyroxine Sodium 112.5 mcg PO QAM 03/29/17 [History] Potassium Chloride [K-Tab ER] 30 meq PO QAM 03/29/17 [History] Potassium Chloride [K-Tab ER] 20 meq PO QPM 04/06/17 [History] Warfarin [Coumadin] 1.5 mg PO MOTUWEFRSA 04/06/17 [History] Warfarin [Coumadin] 3 mg PO SUTH 04/06/17 [History] Oxybutynin [Ditropan] 2.5 mg PO BID #30 tablet 04/09/17 [Rx] cloNIDine HCl [CloNIDine HCl] 0.1 mg PO TID #90 tablet 04/21/17 [Rx] Escitalopram [Lexapro] 10 mg PO DAILY #30 tablet 04/27/17 [Rx] Prazosin HCl [Minipress] 2 mg PO HS #30 capsule 04/27/17 [Rx] Losartan Potassium [Cozaar] 100 mg PO DAILY 07/05/17 [History] Magnesium 60 mg PO DAILY 07/05/17 [History] Metformin HCl [Glucophage] 1,000 mg PO BID 07/05/17 [History] Vitamin B Complex [B Complex] 1 each PO DAILY 07/05/17 [History] hydrOXYzine pamoate [HydrOXYzine Pamoate] 25 mg PO BID PRN #10 07/07/17 [Rx] Amlodipine Besylate 10 mg PO DAILY 12/09/17 [History] Duloxetine HCl [Cymbalta] 60 mg PO BID 12/09/17 [History] Metoprolol [Lopressor] 25 mg PO BID 12/09/17 [History] 3 Allergy/AdvReac Type Severity Reaction Status Date / Time acetaminophen [From Percocet] Allergy Hallucinati Verified 04/13/18 14:09 ng ibuprofen Allergy Nausea Verified 04/13/18 14:09 metoclopramide [From Reglan] Allergy Nausea Verified 04/13/18 14:09 morphine Allergy Difficulty Verified 04/13/18 14:09 Breathing Oxycodone [From Percocet] Allergy Difficulty Verified 04/13/18 14:09 Breathing propoxyphene Allergy Anxiety Verified 04/13/18 14:09 [From Darvocet-N] [id number]-Cps Reductase Allergy See Verified 04/13/18 14:09 Inhibitor Comments [Statins] amitriptyline [From Elavil] AdvReac Headache Verified 04/13/18 14:09 apixaban [From Eliquis] AdvReac Muscle Pain Verified 04/13/18 14:09 aripiprazole [From Abilify] AdvReac Anxiety Verified 04/13/18 14:09 codeine AdvReac Nausea Verified 04/13/18 14:09 guaifenesin [From Mucinex] AdvReac Headache Verified 04/13/18 14:09 Hydromorphone [From Dilaudid] AdvReac Chills Verified 04/13/18 14:09 isosorbide AdvReac Headache Verified 04/13/18 14:09 Methylphenidate AdvReac Diarrhea Verified 04/13/18 14:09 [From Ritalin] prednisone AdvReac Anxiety Verified 04/13/18 14:09 pregabalin [From Lyrica] AdvReac Diarrhea Verified 04/13/18 14:09 sucralfate AdvReac Diarrhea Verified 04/13/18 14:09 valsartan [From Diovan] AdvReac Muscle Pain Verified 04/13/18 14:09 All Systems Review: The remainder of the systems were reviewed and are negative - Constitutional Constitutional: fatigue, weakness - Cardiovascular Cardiovascular: as per HPI, chest pain at rest, slow heart rate Physical Examination Vital Signs, Last 4 Hours Temp Pulse Resp BP Pulse Ox 04/14/18 07:05 98.0 F 57 15 106/66 98 General: Conversant, No Apparent Distress HEENT: Atraumatic, Normocephaly, Mucus Membranes Moist Neck: No JVD, Normal carotid pulses Cardiac: Reg Rate and Rhythm, Normal S1 and S2, No Murmur Lungs: Normal Breath Sounds, No Wheeze, Rales, Rhonchi Neuro: Alert and responsive, No focal deficits noted Abdomen: Soft, Non-Tender Skin: No rashes noted on visualized skin Musculoskeletal: No Chest Wall Tenderness Extremities: No Clubbing, No Cyanosis, No Edema, Normal Pulses Results 04/14/18 00:44 04/14/18 00:44 Lab Results Impressions Chest X-Ray 04/13/18 12:50 IMPRESSION: No acute process. D/ / Kamran Poon MD / Karman Poon MD Interpreting Provider: Kamran Poon MD Active Medications Amlodipine Besylate (Norvasc) 10 mg PO DAILY [facility]ISABETH Stop: 10/14/18 09:01 Ascorbic Acid (Vitamin C) 500 mg PO DAILY ELISABETH Stop: 10/14/18 09:01 Aspirin (Aspirin) 81 mg PO DAILY [facility]ABETH Stop: 10/14/18 09:01 Calcium Carbonate (Tums) 500 mg PO DAILY EL[facility]ABETH Stop: 10/14/18 09:01 Clonidine HCl (Clonidine Hcl) 0.1 mg PO TID ELISABETH Stop: 10/13/18 21:01 Last Admin: 04/13/18 20:34 Dose: 0.1 mg Dicyclomine HCl (Bentyl) 10 mg PO BID ELISABETH Stop: 10/13/18 21:01 Last Admin: 04/13/18 20:34 Dose: 10 mg Duloxetine HCl (Cymbalta) 60 mg PO BID [facility]ABETH Stop: 10/13/18 21:01 Last Admin: 04/13/18 20:34 Dose: 60 mg Escitalopram Oxalate (Lexapro) 10 mg PO DAILY [facility]ABETH Stop: 10/14/18 09:01 Fluticasone Propionate (Flonase) 50 mcg NS DAILY [facility] PRN Reason: Protocol Stop: 10/14/18 09:01 Gabapentin (Neurontin) 600 mg PO HS [facility] Stop: 10/13/18 21:01 Last Admin: 04/13/18 20:36 Dose: 600 mg Hydroxyzine Pamoate (Hydroxyzine Pamoate) 25 mg PO BID PRN PRN Reason: Anxiety Stop: 10/13/18 18:26 Levothyroxine Sodium (Synthroid) 112.5 mcg PO QAM@0630 [facility] Stop: 10/14/18 06:31 Last Admin: 04/14/18 05:54 Dose: 112.5 mcg Loratadine (Claritin) 10 mg PO DAILY [facility] PRN Reason: Protocol Stop: 10/14/18 09:01 Losartan Potassium (Cozaar) 100 mg PO DAILY [facility] Stop: 10/14/18 09:01 Metoprolol Tartrate (Lopressor) 25 mg PO BID [facility] Stop: 10/13/18 21:01 Last Admin: 04/13/18 20:37 Dose: 25 mg Naloxone HCl (Narcan) 0.4 mg IVP Q2MIN PRN PRN Reason: SEE COMMENTS Stop: 10/13/18 18:24 Nitroglycerin (Nitroglycerin) 0.4 mg SL Q5M PRN PRN Reason: Chest Pain Stop: 10/13/18 18:26 Omeprazole (Prilosec) 40 mg PO HS [facility] Stop: 10/13/18 21:01 Last Admin: 04/13/18 20:37 Dose: 40 mg Oxybutynin Chloride (Ditropan) 2.5 mg PO BID [facility] PRN Reason: Protocol Stop: 10/13/18 21:01 Last Admin: 04/13/18 20:35 Dose: 2.5 mg Pharmacy Profile Note (Patient Taking Own Medication) 0 each SQ Q2W [facility]ABETH Stop: 10/13/18 18:31 Last Admin: 04/13/18 19:59 Dose: Not Given Pharmacy Profile Note (Patient Taking Own Medication) 0 each PO DAILY [facility] Stop: 10/14/18 09:01 Prazosin HCl (Minipress) 2 mg PO HS [facility] Stop: 10/13/18 21:01 Last Admin: 04/13/18 20:37 Dose: 2 mg Vitamin D (Vitamin D) 1,000 unit PO DAILY [facility] Stop: 10/14/18 09:01 Warfarin Sodium (Coumadin) 1.5 mg PO MoTuWeFrSa@1800 [facility] Stop: 10/14/18 18:01 Warfarin Sodium (Coumadin) 3 mg PO SuTh@1800 [facility] Stop: 10/16/18 18:01 Laboratory Tests 10/06/17 12/09/17 04/13/18 11:39 00:10 12:50 Hgb INR Creatinine 0.84 1.01 1.44 H Troponin I < 0.03 04/13/18 04/13/18 04/14/18 18:49 20:36 00:44 Hgb INR 1.3 Creatinine Troponin I < 0.03 < 0.03 04/14/18 04/14/18 04/14/18 00:44 00:44 06:19 Hgb 11.3 L INR Creatinine 1.28 H Troponin I < 0.03 - Imaging and Cardiology Chest Xray: report reviewed Stress Test: report reviewed Echo: report reviewed Cardiac cath: report reviewed - EKG Interpretation EKG results cardiology: personally reviewed (ECG with SB, HR 50.), other ( Telemetry reviewed with average HR previous 12 hours noted to be 57, SB.) Consult Discharge Plan - Plan Referrals: Fabiola Aguilar MD [Primary Care Provider] -
[2018-04-14] MEDS: Aspirin 81 MG TAB.CHEW PO SCH (09:41)
[2018-04-14] MEDS: Loratadine 10 MG TABLET PO SCH (09:41)
[2018-04-14] MEDS: Cholecalciferol (D-3) 1,000 UNIT TABLET PO SCH (09:42)
[2018-04-14] MEDS: amLODIPine 5 MG TABLET PO SCH (09:42)
[2018-04-14] MEDS: cloNIDine HCl 0.1 MG TABLET PO SCH ×2 (09:42→11:36)
[2018-04-14] MEDS: Ascorbic Acid 500 MG TABLET PO SCH (09:42)
[2018-04-14] MEDS: Fluticasone Propionate Nasal 50 MCG/SPRAY BOTTLE NS SCH (09:43)
[2018-04-14] MEDS ORDERED: Acetaminophen 325 MG TABLET PO PRN (16:50)
[2018-04-14] MEDS ORDERED: *HR* Warfarin 3 MG TABLET PO ONE (18:00)
[2018-04-14] MEDS ORDERED: *HR* Warfarin 3 MG TABLET PO SCH (18:00)
[2018-04-14] MEDS ORDERED: Warfarin perPT PO PRN (18:00)
--- NOTE | 2018-04-14 18:22 | Electrocardiograph Report ---
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
[2018-04-14] MEDS: Gabapentin 300 MG CAPSULE PO SCH (20:26)
[2018-04-15 04:24] LABS: Basophils # 0.1 K/mcL (0.0-0.2); Basophils % 0.8 %; Eosinophils # 0.8 K/mcL (0.0-0.6); Eosinophils % 8.6 %; Hematocrit 37.1 % (35.3-44.9); Hemoglobin 12.2 g/dL (11.5-15.4); Immature Granulocytes % 0.7 % (0-4); Lymphocytes # 2.7 K/mcL (0.6-4.6); Mean Corpuscular HGB Conc 32.9 g/dL (31.6-35.5); Mean Corpuscular Hemoglobin 27.9 pg (28.0-33.3); Mean Corpuscular Volume 84.7 fL (83.0-100.0); Mean Platelet Volume 11.7 fL (9.4-12.4); Monocytes # 0.6 K/mcL (0.0-1.3); Monocytes % 6.7 %; Neutrophils # 4.8 K/mcL (1.6-8.9); Platelet Count 258 K/mcL (140-400); Red Blood Count 4.38 M/mcL (3.82-4.97); Red Cell Distribution Width 15.7 % (11.5-14.5); Segmented Neutrophils % 53.2 %
[2018-04-15 04:25] LABS: INR 1.7; Prothrombin Time 18.5 Seconds (9.4-12.1)
[2018-04-15 04:28] LABS: BUN/Creatinine Ratio 21 (6-26); Blood Urea Nitrogen 15 mg/dL (8-23); Calcium 9.5 mg/dL (8.6-10.3); Carbon Dioxide 25 mEq/L (23-29); Chloride 103 mEq/L (98-107); Glucose 130 mg/dL (70-105); Magnesium 1.7 mg/dL (1.6-2.6); Osmolality,Calculated 289 (280-300); Potassium 3.6 mEq/L (3.5-5.1); Sodium 138 mEq/L (136-145); eGFR For African Americans > 60 (> 60); eGFR For Non-African Americans > 60 (> 60)
--- NOTE | 2018-04-15 05:28 | Internal Med Progress Note ---
Date of Encounter: 04/14/18 Time of Encounter: 14:00 - Assessment and plan (1) FAMILIA (acute kidney injury) Status: Acute (2) Acute hypokalemia Status: Resolved (3) Hypomagnesemia Status: Acute (4) IBS (irritable bowel syndrome) Status: Acute Qualifiers: Irritable bowel syndrome type: with both diarrhea and constipation Qualified Code(s): K58.2 - Mixed irritable bowel syndrome (5) CAD (coronary artery disease), [place] coronary artery Status: Chronic Qualifiers: [place] vs. 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 The patient feels better. She is stronger. Denies chest pain.Denies abdominal pain. Denies nausea and vomiting. She has not had any bowel movements since admission to the hospital. OBJECTIVE: .. Constitutional: See below. Skin: Free of rash and discoloration ENMT: Oral/pharyngeal mucosa is normal in appearance. Eyes: Sclera is white. There is no discharge from eyes. Respiratory: Normal breath sounds; no crackles or wheezes. CV: Heart is regular; no gallop or murmur. GI: Abdomen is soft and not tender. There is no palpable mass or visceromegaly. Neuro: There is no focal deficits. ASSESSMENT AND PLAN: .. Acute kidney injury. Secondary to volume depletion in the course of her diarrhea. We will continue IV fluids. Creatinine is 1.28; was 1.44 yesterday. Acute hypokalemia. Today's potassium is 3.6; was 3.7 yesterday. We will continue supplemental potassium chloride. Hypomagnesemia. Magnesium is 1.2. We will give her 2 doses of IV magnesium sulfate. Irritable bowel syndrome. She had a run of diarrhea before this hospitalization. Not having any bowel movements in the last 24 hours. CAD/AF. Stable. She is on Lopressor.Pharmacy is dosing her warfarin. Type 2 diabetes mellitus. We will restart her metformin (was taking at home). She is on diabetic diet. NOTES: We will repeat her BMP and magnesium tomorrow morning. - Constitutional Vitals: Temp Pulse Resp BP Pulse Ox 98.4 F 60 18 147/71 94 04/15/18 04:11 04/15/18 04:11 04/15/18 04:11 04/15/18 04:11 04/15/18 04:11 General appearance: Present: A&O X 3, no acute distress Internal Medicine: Result - Labs CBC & Chem 7: 04/15/18 03:30 04/15/18 03:30 Labs: Short CBC 04/15/18 Range/Units 03:30 WBC 8.9 (4.3-11.1) K/mcL Hgb 12.2 (11.5-15.4) g/dL Hct 37.1 (35.3-44.9) % Plt Count 258 (140-400) K/mcL Neutrophils # 4.8 (1.6-8.9) K/mcL BMP 04/15/18 03:30 Sodium 138 Potassium 3.6 Chloride 103 Carbon Dioxide 25 BUN 15 Creatinine 0.71 Glucose 130 H Calcium 9.5 - ABG Interpretation ABG results: PT/INR, D-dimer PT 18.5 Seconds (9.4-12.1) H 04/15/18 03:30 - Impressions Impressions Echocardiogram Limited Views 04/14/18 08:49 Impressions: LVEF 60-65%. Normal right ventricular structure and function. Left Ventricular Wall Motion: Rest Echo Findings All wall segments showed normal motion. Findings: Study Quality * Technically adequate exam. ECG Findings * Sinus bradycardia. Left Ventricle * LVEF 60-65%. * Normal LV chamber size and wall thickness. Right Ventricle * Normal right ventricular structure and function. Aorta * Normally sized aortic root. Pericardium * There is no pericardial effusion present. Consult Discharge Plan - Plan Referrals: Fabiola Aguilar MD [Primary Care Provider] - (Web request 04/15/2018) Prescriptions: cloNIDine HCl [CloNIDine HCl] 0.1 mg PO BID #60 tablet Magnesium Oxide [Mag-Ox] 400 mg PO BID 30 Days #60 tablet Magnesium Oxide [Mag-Ox] 400 mg PO BID #60 tablet
[2018-04-15] MEDS ORDERED: Magnesium Oxide 400 MG TABLET PO SCH (09:00)
[2018-04-15] MEDS: Loratadine 10 MG TABLET PO SCH (10:05)
[2018-04-15] MEDS: Cholecalciferol (D-3) 1,000 UNIT TABLET PO SCH (10:05)
[2018-04-15] MEDS: amLODIPine 5 MG TABLET PO SCH (10:05)
[2018-04-15] MEDS: Ascorbic Acid 500 MG TABLET PO SCH (10:05)
[2018-04-15] MEDS: Aspirin 81 MG TAB.CHEW PO SCH (10:05)
[2018-04-15] MEDS: Fluticasone Propionate Nasal 50 MCG/SPRAY BOTTLE NS SCH (10:10)
[2018-04-15] MEDS ORDERED: clonazePAM 1 MG TABLET PO PRN (10:34)
[2018-04-15 11:29] VITALS: BP 132/65
[2018-04-15] MEDS ORDERED: *HR* Metformin 500 MG TABLET PO SCH (12:39)
--- NOTE | 2018-04-15 13:33 | Discharge Summary ---
- NOTES TO OUTPATIENT PROVIDER Notes to Outpatient Provider: The patient was admitted with acute kidney injury. Likely due to excessive diarrhea. She has underlying diabetes. Irritable bowel syndrome. She has periods of diarrhea and constipation. She told me about recently made diagnosis of Crohn's disease; she is not taking any medications for that problem. She is baseline. She will be taking when necessary Questran. Orders not resulted at time of discharge: Pending orders 04/14/18 16:14 EKG [ECG 12 lead ECG] [ECG] Stat 04/16/18 04:00 INR/PT [Prothrombin Time INR] [COAG] AM 0400 04/17/18 04:00 INR/PT [Prothrombin Time INR] [COAG] AM 0400 04/18/18 04:00 INR/PT [Prothrombin Time INR] [COAG] AM 0400 Date of Encounter: 04/15/18 Time of Encounter: 13:31 - Discharge Diagnosis (1) FAMILIA (acute kidney injury) Priority: Primary Status: Acute (2) Acute hypokalemia Priority: Secondary Status: Resolved (3) Hypomagnesemia Priority: Secondary Status: Acute (4) IBS (irritable bowel syndrome) Priority: Secondary Status: Acute Qualifiers: Irritable bowel syndrome type: with both diarrhea and constipation Qualified Code(s): K58.2 - Mixed irritable bowel syndrome Hospital course: Ms. Browning is a 68 year old female. The patient was admitted with acute kidney injury. Likely due to excessive diarrhea. She has underlying T2DM and irritable bowel syndrome with diarrhea/ constipation. She told me about recently made diagnosis of Crohn's disease; she is not taking any medications for that problem. We treated her with IV fluids. We gave her supplemental potassium chloride and magnesium sulfate to treat hypokalemia and hypomagnesemia. She is baseline at the time of her discharge. Denies abdominal pain, nausea and vomiting. She has not had any bowel movements in the hospital. He denies chest pain. Denies difficulty breathing. She has no problems with ambulation at all. She is discharged home. She will be taking when necessary Questran. Discharge discussed with: patient, nurse - Time Spent with Patient Total time spent providing and/or coordinating discharge services: Greater than 30 minutes (40 minutes) - Discharge Medications Prescriptions: cloNIDine HCl [CloNIDine HCl] 0.1 mg PO BID #60 tablet Magnesium Oxide [Mag-Ox] 400 mg PO BID 30 Days #60 tablet Magnesium Oxide [Mag-Ox] 400 mg PO BID #60 tablet Home Medications: Aspirin 81 mg PO DAILY 03/27/16 [History] Ascorbate Calcium [Vitamin C] 500 mg PO DAILY 05/21/16 [History] Calcium Carbonate/Vitamin D3 [Caltrate 600 + D Soft Chew Tab] 1 tab PO DAILY [History] Cholecalciferol (D-3) [Vitamin D] 1,000 unit PO DAILY 05/21/16 [History] Dicyclomine [Bentyl] 10 mg PO BID 05/21/16 [History] Esomeprazole Magnesium [Nexium] 40 mg PO HS 05/21/16 [History] Evolocumab [Repatha Syringe] 140 mg SQ Q2W 05/21/16 [History] Fluticasone Propionate Nasal [Flonase] 1 spray NS DAILY 05/21/16 [History] Furosemide [Lasix] 20 mg PO DAILY 05/21/16 [History] Loratadine [Claritin] 10 mg PO DAILY 05/21/16 [History] Nitroglycerin [Nitrostat] 0.4 mg SL Q5M PRN 05/21/16 [History] Gabapentin [Neurontin] 600 mg PO TID 06/11/16 [History] Levothyroxine Sodium 112.5 mcg PO QAM 03/29/17 [History] Potassium Chloride [K-Tab ER] 30 meq PO QAM 03/29/17 [History] Potassium Chloride [K-Tab ER] 20 meq PO QPM 04/06/17 [History] Warfarin [Coumadin] 1.5 mg PO MOTUWEFRSA 04/06/17 [History] Warfarin [Coumadin] 3 mg PO SUTH 04/06/17 [History] Oxybutynin [Ditropan] 2.5 mg PO BID #30 tablet 04/09/17 [Rx] Escitalopram [Lexapro] 10 mg PO DAILY #30 tablet 04/27/17 [Rx] Prazosin HCl [Minipress] 2 mg PO HS #30 capsule 04/27/17 [Rx] Losartan Potassium [Cozaar] 100 mg PO DAILY 07/05/17 [History] Metformin HCl [Glucophage] 1,000 mg PO BID 07/05/17 [History] Vitamin B Complex [B Complex] 1 each PO DAILY 07/05/17 [History] hydrOXYzine pamoate [HydrOXYzine Pamoate] 25 mg PO BID PRN #10 07/07/17 [Rx] Amlodipine Besylate 10 mg PO DAILY 12/09/17 [History] Duloxetine HCl [Cymbalta] 60 mg PO BID 12/09/17 [History] Metoprolol [Lopressor] 25 mg PO BID 12/09/17 [History] Hydrochlorothiazide [Microzide] 12.5 mg PO DAILY #30 04/15/18 [Rx] Magnesium Oxide [Mag-Ox] 400 mg PO BID #60 tablet 04/15/18 [Rx] Magnesium Oxide [Mag-Ox] 400 mg PO BID 30 Days #60 tablet 04/15/18 [Rx] cloNIDine HCl [CloNIDine HCl] 0.1 mg PO BID #60 tablet 04/15/18 [Rx] clonazePAM [Klonopin] 1 mg PO TID PRN 30 Days #90 tablet 04/15/18 [Rx] Allergies/Adverse Reactions: 3 Allergy/AdvReac Type Severity Reaction Status Date / Time acetaminophen [From Percocet] Allergy Hallucinati Verified 04/13/18 14:09 ng ibuprofen Allergy Nausea Verified 04/13/18 14:09 metoclopramide [From Reglan] Allergy Nausea Verified 04/13/18 14:09 morphine Allergy Difficulty Verified 04/13/18 14:09 Breathing Oxycodone [From Percocet] Allergy Difficulty Verified 04/13/18 14:09 Breathing propoxyphene Allergy Anxiety Verified 04/13/18 14:09 [From Darvocet-N] Ummovou-Cgy-Wva Reductase Allergy See Verified 04/13/18 14:09 Inhibitor Comments [Statins] amitriptyline [From Elavil] AdvReac Headache Verified 04/13/18 14:09 apixaban [From Eliquis] AdvReac Muscle Pain Verified 04/13/18 14:09 aripiprazole [From Abilify] AdvReac Anxiety Verified 04/13/18 14:09 codeine AdvReac Nausea Verified 04/13/18 14:09 guaifenesin [From Mucinex] AdvReac Headache Verified 04/13/18 14:09 Hydromorphone [From Dilaudid] AdvReac Chills Verified 04/13/18 14:09 isosorbide AdvReac Headache Verified 04/13/18 14:09 Methylphenidate AdvReac Diarrhea Verified 04/13/18 14:09 [From Ritalin] prednisone AdvReac Anxiety Verified 04/13/18 14:09 pregabalin [From Lyrica] AdvReac Diarrhea Verified 04/13/18 14:09 sucralfate AdvReac Diarrhea Verified 04/13/18 14:09 valsartan [From Diovan] AdvReac Muscle Pain Verified 04/13/18 14:09 Date of admission: 04/14/18 08:12 Primary care physician: Fabiola Aguilar Discharging clinician: Teodoro Talbert Anticipated date of discharge: 04/15/18 - Constitutional Vitals: Temp Pulse Resp BP Pulse Ox 98.6 F 66 16 132/65 94 04/15/18 11:25 04/15/18 11:25 04/15/18 11:25 04/15/18 11:25 04/15/18 11:25 General appearance: Present: A&O X 3, no acute distress - Respiratory Respiratory exam: Present: CTAB. Absent: accessory muscle use, rales, rhonchi, wheezes - Cardiovascular Cardiovascular exam: Present: RRR, +S1, +S2. Absent: diastolic murmur, gallop, rubs, systolic murmur - GI/Abdominal GI/Abdominal exam: Present: normal bowel sounds, soft, no peritoneal signs. Absent: distended, tenderness - Patient Status Disposition: Home, Self-Care Condition: Good Functional capacity at discharge: independent ambulation Overall status at discharge: patient is back to baseline - Discharge Instructions Follow Up With: Fabiola Aguilar MD [Primary Care Provider] - (Web request 04/15/2018) - Diet and Activity Activity: resume usual activities as tolerated - VTE Deep Vein Thrombosis/Pulmonary Embolism Present on Admission: No
[2018-04-15] MEDS ORDERED: Gabapentin 300 MG CAPSULE PO SCH (15:00)
--- NOTE | 2018-04-15 16:41 | Physician Discharge Referral ---
Home Health/Hosp Referral Info Transfer to: Home Health Attending Provider: Marley SIMS Provider in Charge Post Discharge: PCP - Diagnosis (1) FAMILIA (acute kidney injury) Priority: Primary Status: Acute (2) Acute hypokalemia Priority: Secondary Status: Resolved (3) Hypomagnesemia Priority: Secondary Status: Acute (4) IBS (irritable bowel syndrome) Priority: Secondary Status: Acute - Respiratory Orders None Smoking Cessation: Smoking cessation has been advised. For more information, call the [place] Tobacco Quit Line at 2-682-CACJ-NOW. - Diet/Nutrition Diet/Nutrition Orders: No Concentrated Sweets - Activity Activity Orders: Up ad renuka - Services Needed Following services are medically necessary services: Physical Therapy - Transfer Medications Prescriptions: cloNIDine HCl [CloNIDine HCl] 0.1 mg PO BID #60 tablet Magnesium Oxide [Mag-Ox] 400 mg PO BID 30 Days #60 tablet Magnesium Oxide [Mag-Ox] 400 mg PO BID #60 tablet Home Medications: Aspirin 81 mg PO DAILY 03/27/16 [History] Ascorbate Calcium [Vitamin C] 500 mg PO DAILY 05/21/16 [History] Calcium Carbonate/Vitamin D3 [Caltrate 600 + D Soft Chew Tab] 1 tab PO DAILY [History] Cholecalciferol (D-3) [Vitamin D] 1,000 unit PO DAILY 05/21/16 [History] Dicyclomine [Bentyl] 10 mg PO BID 05/21/16 [History] Esomeprazole Magnesium [Nexium] 40 mg PO HS 05/21/16 [History] Evolocumab [Repatha Syringe] 140 mg SQ Q2W 05/21/16 [History] Fluticasone Propionate Nasal [Flonase] 1 spray NS DAILY 05/21/16 [History] Furosemide [Lasix] 20 mg PO DAILY 05/21/16 [History] Loratadine [Claritin] 10 mg PO DAILY 05/21/16 [History] Nitroglycerin [Nitrostat] 0.4 mg SL Q5M PRN 05/21/16 [History] Gabapentin [Neurontin] 600 mg PO TID 06/11/16 [History] Levothyroxine Sodium 112.5 mcg PO QAM 03/29/17 [History] Potassium Chloride [K-Tab ER] 30 meq PO QAM 03/29/17 [History] Potassium Chloride [K-Tab ER] 20 meq PO QPM 04/06/17 [History] Warfarin [Coumadin] 1.5 mg PO MOTUWEFRSA 04/06/17 [History] Warfarin [Coumadin] 3 mg PO SUTH 04/06/17 [History] Oxybutynin [Ditropan] 2.5 mg PO BID #30 tablet 04/09/17 [Rx] Escitalopram [Lexapro] 10 mg PO DAILY #30 tablet 04/27/17 [Rx] Prazosin HCl [Minipress] 2 mg PO HS #30 capsule 04/27/17 [Rx] Losartan Potassium [Cozaar] 100 mg PO DAILY 07/05/17 [History] Metformin HCl [Glucophage] 1,000 mg PO BID 07/05/17 [History] Vitamin B Complex [B Complex] 1 each PO DAILY 07/05/17 [History] hydrOXYzine pamoate [HydrOXYzine Pamoate] 25 mg PO BID PRN #10 07/07/17 [Rx] Amlodipine Besylate 10 mg PO DAILY 12/09/17 [History] Duloxetine HCl [Cymbalta] 60 mg PO BID 12/09/17 [History] Metoprolol [Lopressor] 25 mg PO BID 12/09/17 [History] Hydrochlorothiazide [Microzide] 12.5 mg PO DAILY #30 04/15/18 [Rx] Magnesium Oxide [Mag-Ox] 400 mg PO BID #60 tablet 04/15/18 [Rx] Magnesium Oxide [Mag-Ox] 400 mg PO BID 30 Days #60 tablet 04/15/18 [Rx] cloNIDine HCl [CloNIDine HCl] 0.1 mg PO BID #60 tablet 04/15/18 [Rx] clonazePAM [Klonopin] 1 mg PO TID PRN 30 Days #90 tablet 04/15/18 [Rx] Allergies/Adverse Reactions: 3 Allergy/AdvReac Type Severity Reaction Status Date / Time acetaminophen [From Percocet] Allergy Hallucinati Verified 04/13/18 14:09 ng ibuprofen Allergy Nausea Verified 04/13/18 14:09 metoclopramide [From Reglan] Allergy Nausea Verified 04/13/18 14:09 morphine Allergy Difficulty Verified 04/13/18 14:09 Breathing Oxycodone [From Percocet] Allergy Difficulty Verified 04/13/18 14:09 Breathing propoxyphene Allergy Anxiety Verified 04/13/18 14:09 [From Darvocet-N] Mzwhmye-Oii-Kdf Reductase Allergy See Verified 04/13/18 14:09 Inhibitor Comments [Statins] amitriptyline [From Elavil] AdvReac Headache Verified 04/13/18 14:09 apixaban [From Eliquis] AdvReac Muscle Pain Verified 04/13/18 14:09 aripiprazole [From Abilify] AdvReac Anxiety Verified 04/13/18 14:09 codeine AdvReac Nausea Verified 04/13/18 14:09 guaifenesin [From Mucinex] AdvReac Headache Verified 04/13/18 14:09 Hydromorphone [From Dilaudid] AdvReac Chills Verified 04/13/18 14:09 isosorbide AdvReac Headache Verified 04/13/18 14:09 Methylphenidate AdvReac Diarrhea Verified 04/13/18 14:09 [From Ritalin] prednisone AdvReac Anxiety Verified 04/13/18 14:09 pregabalin [From Lyrica] AdvReac Diarrhea Verified 04/13/18 14:09 sucralfate AdvReac Diarrhea Verified 04/13/18 14:09 valsartan [From Diovan] AdvReac Muscle Pain Verified 04/13/18 14:09 Certification: Further, I certify that my clinical findings support that this patient is homebound (i.e. absences from home require considerable and taxing effort and are for medical reasons or roman cath[employer] services or infrequently or short duration when for other reasons) because: Homebound Reason: Patient requires assistance of a person or device to safely leave home Attestation: My signature below is to certify that this patient is under my care and that I, or nurse practitioner, or a physician's welder assistant working with me, has a face-to -face encounter with this patient.
[2018-04-15] MEDS ORDERED: *HR* Warfarin 3 MG TABLET PO ONE (18:00)
[2018-04-16] MEDS ORDERED: *HR* Warfarin 3 MG TABLET PO SCH (18:00)
--- NOTE | 2018-04-18 16:43 | Electrocardiograph Report ---
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
== END 2018-04-15 16:40 | disposition home or self-care (01) | DRG 683 ==
LOC: EMEROO 12:37 → 2ANU 12:37 → SUATTDRO 15:10 → 2ANU 15:26
PROVIDERS: ADMIT Hospitalist; ATTEND Internal Medicine

== ENCOUNTER 2018-12-25 14:23 | Observation (INO) ==
--- NOTE | 2018-12-25 14:46 | Emergency Department Note ---
Disposition Clinical Impression: Type 2 diabetes mellitus, Chest pain, PAF (paroxysmal atrial fibrillation), Coronary artery disease, Hyperlipidemia, Abnormal head CT, History of Coumadin therapy, Elevated INR, Frail elderly Disposition: Admitted As Inpatient Referrals: NONE,PCP [Primary Care Provider] - Forms: ED Satisfaction Letter General Adult HPI - General Chief complaint: ED Chest Pain Stated complaint: CP Source: patient Limitations: no limitations - History of Present Illness HPI Narrative: 68-year-old female with a history of coronary artery disease reports to the emergency department complaining of midsternal pressure which began on Tuesday. The pain has been recurrent. There is no history of trauma. No coughing of blood. No leg swelling or pain. The patient reports she takes Coumadin she has a history of atrial fibrillation. There is no history of bleeding. No strokelike symptoms. She denies any abdominal pain vomiting or diarrhea. No cough, no history of rash or flank or back pain. There is no history of confusion or fever. There is no history of weakness or numbness the arms or legs, no slurred speech or facial drooping. She describes a diffuse headache. There is no history of neck stiffness or rash. No convulsions. The patient called her primary care physician today who recommended she come to the ED for evaluation. She has a history of chronic recurrent migraine cephalgia as well as CHF. Pain Scale: 7 - Related Data Home Medications Medication Instructions Recorded Confirmed Aspirin 81 mg PO DAILY 03/27/16 04/13/18 Ascorbate Calcium [Vitamin C] 500 mg PO DAILY 05/21/16 04/13/18 Calcium Carbonate/Vitamin D3 1 tab PO DAILY 05/21/16 04/13/18 [Caltrate 600 + D Soft Chew Tab] Cholecalciferol (D-3) [Vitamin D] 1,000 unit PO DAILY 05/21/16 04/13/18 Dicyclomine [Bentyl] 10 mg PO BID 05/21/16 04/13/18 Esomeprazole Magnesium [Nexium] 40 mg PO HS 05/21/16 04/13/18 Evolocumab [Repatha Syringe] 140 mg SQ Q2W 05/21/16 04/13/18 Fluticasone Propionate Nasal 1 spray NS DAILY 05/21/16 04/13/18 [Flonase] Furosemide [Lasix] 20 mg PO DAILY 05/21/16 04/13/18 Loratadine [Claritin] 10 mg PO DAILY 05/21/16 04/13/18 Nitroglycerin [Nitrostat] 0.4 mg SL Q5M PRN 05/21/16 04/13/18 Gabapentin [Neurontin] 600 mg PO TID 06/11/16 04/13/18 Levothyroxine Sodium 112.5 mcg PO QAM 03/29/17 04/13/18 Potassium Chloride [K-Tab ER] 30 meq PO QAM 03/29/17 04/13/18 Potassium Chloride [K-Tab ER] 20 meq PO QPM 04/06/17 04/13/18 Warfarin [Coumadin] 1.5 mg PO [id number] 04/06/17 04/13/18 Warfarin [Coumadin] 3 mg PO SUTH 04/06/17 04/13/18 Losartan Potassium [Cozaar] 100 mg PO DAILY 07/05/17 04/13/18 Metformin HCl [Glucophage] 1,000 mg PO BID 07/05/17 04/13/18 Vitamin B Complex [B Complex] 1 each PO DAILY 07/05/17 04/13/18 Amlodipine Besylate 10 mg PO DAILY 12/09/17 04/13/18 Duloxetine HCl [Cymbalta] 60 mg PO BID 12/09/17 04/13/18 Metoprolol [Lopressor] 25 mg PO BID 12/09/17 04/13/18 Previous Rx's Medication Instructions Recorded Oxybutynin [Ditropan] 2.5 mg PO BID #30 tablet 04/09/17 Escitalopram [Lexapro] 10 mg PO DAILY #30 tablet 04/27/17 Prazosin HCl [Minipress] 2 mg PO HS #30 capsule 04/27/17 hydrOXYzine pamoate [HydrOXYzine 25 mg PO BID PRN #10 07/07/17 Pamoate] Hydrochlorothiazide [Microzide] 12.5 mg PO DAILY #30 04/15/18 Magnesium Oxide [Mag-Ox] 400 mg PO BID #60 tablet 04/15/18 Magnesium Oxide [Mag-Ox] 400 mg PO BID 30 Days #60 tablet 04/15/18 cloNIDine HCl [CloNIDine HCl] 0.1 mg PO BID #60 tablet 04/15/18 clonazePAM [Klonopin] 1 mg PO TID PRN 30 Days #90 tablet 04/15/18 Allergies Allergy/AdvReac Type Severity Reaction Status Date / Time acetaminophen [From Percocet] Allergy Hallucinati Verified 04/13/18 14:09 ng ibuprofen Allergy Nausea Verified 04/13/18 14:09 metoclopramide [From Reglan] Allergy Nausea Verified 04/13/18 14:09 morphine Allergy Difficulty Verified 04/13/18 14:09 Breathing oxycodone [From Percocet] Allergy Difficulty Verified 04/13/18 14:09 Breathing propoxyphene Allergy Anxiety Verified 04/13/18 14:09 [From Darvocet-N] [id number]-[id number]-Vfo Reductase Allergy See Verified 04/13/18 14:09 Inhibitor Comments [Statins] amitriptyline [From Elavil] AdvReac Headache Verified 04/13/18 14:09 apixaban [From Eliquis] AdvReac Muscle Pain Verified 04/13/18 14:09 aripiprazole [From Abilify] AdvReac Anxiety Verified 04/13/18 14:09 codeine AdvReac Nausea Verified 04/13/18 14:09 guaifenesin [From Mucinex] AdvReac Headache Verified 04/13/18 14:09 hydromorphone [From Dilaudid] AdvReac Chills Verified 04/13/18 14:09 isosorbide AdvReac Headache Verified 04/13/18 14:09 Methylphenidate AdvReac Diarrhea Verified 04/13/18 14:09 [From Ritalin] prednisone AdvReac Anxiety Verified 04/13/18 14:09 pregabalin [From Lyrica] AdvReac Diarrhea Verified 04/13/18 14:09 sucralfate AdvReac Diarrhea Verified 04/13/18 14:09 valsartan [From Diovan] AdvReac Muscle Pain Verified 04/13/18 14:09 All systems ED: reviewed and negative except as stated. Past Medical History - Past Medical History Medical history: Reports: arthritis, atrial fibrillation, CHF, coronary artery disease, diabetes, GERD, hyperlipidemia, hypertension, migraine, myocardial infarction, thyroid disease Surgical history: Reports: angioplasty/stent, cholecystectomy, coronary bypass (CABG), hysterectomy, other Psychiatric history: Reports: anxiety, depression, panic disorder, prior suicide attempt HAND PASTER history: Reports: no HAND PASTER history - Social History Smoking Status: Never smoker Smokeless Tobacco Status: No Alcohol use: Reports: none Drug use: Reports: none Physical Exam - General Limitations: no limitations General appearance: alert, in no apparent distress - Head Head exam: atraumatic - Eye Eye exam: Present: normal appearance, PERRL, EOMI - ENT ENT exam: normal exam, normal oropharynx, mucous membranes moist - Neck Neck exam: Present: normal inspection, full ROM, trachea midline - Chest Chest inspection: Present: normal inspection, symmetric chest wall rise - Respiratory Respiratory exam: Present: normal lung sounds bilaterally. Absent: respiratory distress, wheezes, prolonged expiratory phase - Cardiovascular Cardiovascular exam: Present: regular rate, normal rhythm, normal heart sounds - Abdominal Exam Abdominal exam: Present: soft, Non-Tender. Absent: tenderness, distention, guarding, rebound, rigidity - Extremities Exam Extremities exam: Present: normal inspection, full ROM, normal capillary refill. Absent: tenderness, pedal edema, joint swelling, calf tenderness - Expanded Lower Extremity Exam Lower leg exam: Absent: Homans' sign Neurovascular/Tendon exam: Present: normal capillary refill. Absent: motor deficit, sensory deficit, extremity cold to touch, pallor - Back Exam Back exam: Present: normal inspection, full ROM. Absent: tenderness, CVA tenderness (R), CVA tenderness (L), vertebral tenderness - Neurological Exam Neurological exam: Present: alert, oriented X3, CN II-XII intact. Absent: motor sensory deficit - Psychiatric Psychiatric exam: Present: normal affect, normal mood - Skin Skin exam: Present: warm, dry, intact, normal color Course Vital Signs Temperature 98.2 F 12/25/18 14:36 Pulse Rate 70 12/25/18 14:36 Respiratory Rate 18 12/25/18 14:36 Blood Pressure 0/0 12/25/18 14:36 O2 Sat by Pulse Oximetry 97 12/25/18 14:36 Temperature 98.2 F 12/25/18 14:36 Pulse Rate 70 12/25/18 15:50 Respiratory Rate 16 12/25/18 15:50 Blood Pressure 133/75 12/25/18 15:50 O2 Sat by Pulse Oximetry 97 12/25/18 15:50 Oxygen Delivery Oxygen Delivery Room Air Medical Decision Making - [facility] Narrative Medical decision making narrative: The patient has a known history of coronary artery disease with multiple v ascular comorbidities and has been complaining of chest pain since Tuesday. Her EKG shows no acute ST elevations. The pain has been intermittent. The patient does have slight T-wave inversions laterally. The patient also complains of a headache and the CT demonstrates what could be aneurysmal change. No acute bleeding noted. The patient denies any trauma. She demonstrates no evidence of acute neurologic defect. She has a history of recurrent migraines. She is anticoagulated. The patient was given aspirin emergency department and requested Tylenol, Tylenol was ordered. Based on the patient's known CAD, abnormal EKG, recurrent chest pain, abnormal CT study suggesting brain aneurysm with headache and anticoagulant therapy, I thought it would be appropriate to admit the patient the hospital. The patient's highly agreeable. I discussed the case with the hospitalist on-call whohas accepted the patient to their care. The patient is stable pending admission. - Lab Data Lab results reviewed: Yes I reviewed the patient's lab results. Result diagrams: 12/25/18 14:44 12/25/18 14:44 Lab Results 12/25/18 12/25/18 12/25/18 Range/Units 14:44 14:44 14:44 WBC 9.7 (4.3-11.1) K/mcL RBC 4.90 (3.82-4.97) M/mcL Hgb 14.0 (11.5-15.4) g/dL Hct 43.1 (35.3-44.9) % MCV 88.0 (83.0-100.0) fL MCH 28.6 (28.0-33.3) pg MCHC 32.5 (31.6-35.5) g/dL RDW 14.1 (11.5-14.5) % Plt Count 298 (140-400) K/mcL MPV 12.3 (9.4-12.4) fL Immature Gran % 0.4 (0-4) % Seg Neutrophils % 58.1 % Lymphocytes % 28.1 % Monocytes % 7.4 % Eosinophils % 5.0 % Basophils % 1.0 % Neutrophils # 5.6 (1.6-8.9) K/mcL Lymphocytes # 2.7 (0.6-4.6) K/mcL Monocytes # 0.7 (0.0-1.3) K/mcL Eosinophils # 0.5 (0.0-0.6) K/mcL Basophils # 0.1 (0.0-0.2) K/mcL PT 34.6 H (9.4-12.1) Seconds INR 3.1 APTT 50.3 H (26.0-36.0) Seconds Sodium 136 (136-145) mEq/L Potassium 3.8 (3.5-5.1) mEq/L Chloride 101 (98-107) mEq/L Carbon Dioxide 24 (23-29) mEq/L BUN 15 (8-23) mg/dL Creatinine 0.80 (0.60-1.20) mg/dL Est GFR ( Amer) > 60 (> 60) Est GFR (Non-Af Amer) > 60 (> 60) BUN/Creatinine Ratio 19 (6-26) Glucose 320 H (70-105) mg/dL Calculated Osmolality 295 (280-300) Calcium 9.8 (8.6-10.3) mg/dL Total Bilirubin 0.4 (0.3-1.0) mg/dL Direct Bilirubin 0.1 (0.0-0.2) mg/dL Indirect Bilirubin 0.3 (0.0-1.2) mg/dL AST 23 (13-39) Units/L ALT 30 (7-52) Units/L Alkaline Phosphatase 99 (34-104) Units/L Troponin I < 0.03 (< 0.04) ng/mL C-Reactive Protein 10 H (Less than 10) mg/L B-Natriuretic Peptide (Less than 100) pg/mL Serum Total Protein 7.3 (6.4-8.9) g/dL Albumin 4.3 (3.5-5.7) g/dL Globulin 3.0 (2.4-3.5) g/dL Albumin/Globulin Ratio 1.4 (1.1-2.2) Lipase 26 (11-82) Units/L /04/ Range/Units 15:22 WBC (4.3-11.1) K/mcL RBC (3.82-4.97) M/mcL Hgb (11.5-15.4) g/dL Hct (35.3-44.9) % MCV (83.0-100.0) fL MCH (28.0-33.3) pg MCHC (31.6-35.5) g/dL RDW (11.5-14.5) % Plt Count (140-400) K/mcL MPV (9.4-12.4) fL Immature Gran % (0-4) % Seg Neutrophils % % Lymphocytes % % Monocytes % % Eosinophils % % Basophils % % Neutrophils # (1.6-8.9) K/mcL Lymphocytes # (0.6-4.6) K/mcL Monocytes # (0.0-1.3) K/mcL Eosinophils # (0.0-0.6) K/mcL Basophils # (0.0-0.2) K/mcL PT (9.4-12.1) Seconds INR APTT (26.0-36.0) Seconds Sodium (136-145) mEq/L Potassium (3.5-5.1) mEq/L Chloride (98-107) mEq/L Carbon Dioxide (23-29) mEq/L BUN (8-23) mg/dL Creatinine (0.60-1.20) mg/dL Est GFR ( Amer) (> 60) Est GFR (Non-Af Amer) (> 60) BUN/Creatinine Ratio (6-26) Glucose (70-105) mg/dL Calculated Osmolality (280-300) Calcium (8.6-10.3) mg/dL Total Bilirubin (0.3-1.0) mg/dL Direct Bilirubin (0.0-0.2) mg/dL Indirect Bilirubin (0.0-1.2) mg/dL AST (13-39) Units/L ALT (7-52) Units/L Alkaline Phosphatase (34-104) Units/L Troponin I (< 0.04) ng/mL C-Reactive Protein (Less than 10) mg/L B-Natriuretic Peptide 65 (Less than 100) pg/mL Serum Total Protein (6.4-8.9) g/dL Albumin (3.5-5.7) g/dL Globulin (2.4-3.5) g/dL Albumin/Globulin Ratio (1.1-2.2) Lipase (11-82) Units/L - Radiology Data Radiology results reviewed: Yes I reviewed the patient's radiology results.
[2018-12-25 15:01] LABS: Basophils # 0.1 K/mcL (0.0-0.2); Eosinophils # 0.5 K/mcL (0.0-0.6); Hematocrit 43.1 % (35.3-44.9); Immature Granulocytes % 0.4 % (0-4); Lymphocytes # 2.7 K/mcL (0.6-4.6); Lymphocytes % 28.1 %; Mean Corpuscular HGB Conc 32.5 g/dL (31.6-35.5); Mean Corpuscular Hemoglobin 28.6 pg (28.0-33.3); Mean Platelet Volume 12.3 fL (9.4-12.4); Monocytes # 0.7 K/mcL (0.0-1.3); Monocytes % 7.4 %; Neutrophils # 5.6 K/mcL (1.6-8.9); Platelet Count 298 K/mcL (140-400); Red Cell Distribution Width 14.1 % (11.5-14.5); Segmented Neutrophils % 58.1 %
[2018-12-25 15:15] LABS: INR 3.1; Prothrombin Time 34.6 Seconds (9.4-12.1)
[2018-12-25 15:17] LABS: Activated Partial Thrombo Time 50.3 Seconds (26.0-36.0)
[2018-12-25] MEDS ORDERED: Aspirin 325 MG TABLET PO ONE (15:17)
[2018-12-25 15:23] LABS: Alanine Aminotransferase 30 Units/L (7-52); Albumin 4.3 g/dL (3.5-5.7); Albumin/Globulin Ratio 1.4 (1.1-2.2); Alkaline Phosphatase 99 Units/L (34-104); Aspartate Amino Transferase 23 Units/L (13-39); BUN/Creatinine Ratio 19 (6-26); Bilirubin,Direct 0.1 mg/dL (0.0-0.2); Bilirubin,Indirect 0.3 mg/dL (0.0-1.2); Bilirubin,Total 0.4 mg/dL (0.3-1.0); Blood Urea Nitrogen 15 mg/dL (8-23); C-Reactive Protein 10 mg/L (Less than 10); Calcium 9.8 mg/dL (8.6-10.3); Carbon Dioxide 24 mEq/L (23-29); Chloride 101 mEq/L (98-107); Glucose 320 mg/dL (70-105); Lipase 26 Units/L (11-82); Osmolality,Calculated 295 (280-300); Potassium 3.8 mEq/L (3.5-5.1); Sodium 136 mEq/L (136-145); Total Protein 7.3 g/dL (6.4-8.9); Troponin I < 0.03 ng/mL (< 0.04); eGFR For Non-African Americans > 60 (> 60)
[2018-12-25] MEDS ORDERED: Acetaminophen 325 MG TABLET PO PRN (20:51)
[2018-12-25] MEDS ORDERED: Naloxone 0.4 MG/ML INJ IVP PRN (20:51)
[2018-12-25] MEDS ORDERED: *HR* Dextrose 50 % in Water (Syg) 50 ML SYRINGE IVP PRN (21:20)
[2018-12-25] MEDS ORDERED: Dextrose 4 GM Chewable Tablets PO PRN ×2 (21:20)
[2018-12-25] MEDS ORDERED: Dextrose Gel 15 GM/37.5 ML TUBE PO PRN ×2 (21:20)
[2018-12-25] MEDS ORDERED: D5% in Water 1,000 ML IVC PRN (21:20)
--- NOTE | 2018-12-25 21:33 | Internal Med History&Physical ---
<LenBrianJake W - Last Filed: 12/25/18 22:48> Date of Encounter: 12/25/18 Time of Encounter: 21:25 Internal Medicine - H&P: HPI Chief complaint: Chest pain History of present illness: Ms. Browning is a 68 year old female past medical history of coronary artery disease, congestive heart failure, a fib presents with for 5 days of parasternal chest pressure. The pain waxes and wanes but is mostly consistent. Nothing really makes it worse or better. Does not radiate. No diaphoresis. Initial troponins within normal limits. Patient has history of A. fib however was in sinus rhythm. Patient denies any trauma, cough, leg swelling or pain. Patient denies any abdominal pain, vomiting, diarrhea, nausea, rash, fever, chills, numbness, weakness, change in vision. Patient does admit to having a headache. This is roughly began 2 years ago. However it is been worse over the past [address] of head found possible aneurysm of the MCA Past Med Surg Social Fam HX - Past Medical History Medical history: arthritis, atrial fibrillation, CHF, coronary artery disease, diabetes, GERD, hyperlipidemia, hypertension, migraine, myocardial infarction, thyroid disease Additional medical history: HYPOTHYROID, ABD PAIN, DIABETIC NEUROPATHY, DEPRESSION,SCOLIOSIS, BOJOR[place]Z/S PALSY. History of CABG, dyslipidemia, lateral meniscus tear, loose body in knee Psychiatric history: anxiety, depression, panic disorder, prior suicide attempt - Past Surgical History Surgical History: angioplasty/stent, cholecystectomy, coronary bypass (CABG), hysterectomy, other Additional surgical history: LEFT KNEE ARTHROSCOPY, LHC WITH STENTS, LUMBAR SPINAL INJECTIONS. CABG x2, left oopherectomy, knee surgery - Social History Smoking Status: Never smoker Smokeless Tobacco Status: No Alcohol use: none Drug use: none - Family History Father Living Status: Still Living Hx Family Cardiac Disorders: Yes Hx Family Cancer: Yes (skin cancer) Mother Adopted: No Family Member Ethnicity: Non- Living Status: Hx Family Cardiac Disorders: Yes Hx Family Neurologic Disorders: Yes (migraines) Internal Medicine - H&P: Meds RX: Aspirin 81 mg PO DAILY 03/27/16 [History] RX: Ascorbate Calcium [Vitamin C] 500 mg PO DAILY 05/21/16 [History] RX: Calcium Carbonate/Vitamin D3 [Caltrate 600 + D Soft Chew Tab] 1 tab PO DAILY 05/21/16 [History] RX: Cholecalciferol (D-3) [Vitamin D] 1,000 unit PO DAILY 05/21/16 [History] RX: Dicyclomine [Bentyl] 10 mg PO BID 05/21/16 [History] RX: Esomeprazole Magnesium [Nexium] 40 mg PO HS 05/21/16 [History] RX: Evolocumab [Repatha Syringe] 140 mg SQ Q2W 05/21/16 [History] RX: Fluticasone Propionate Nasal [Flonase] 1 spray NS DAILY 05/21/16 [History] RX: Furosemide [Lasix] 20 mg PO DAILY 05/21/16 [History] RX: Loratadine [Claritin] 10 mg PO DAILY 05/21/16 [History] RX: Nitroglycerin [Nitrostat] 0.4 mg SL Q5M PRN 05/21/16 [History] RX: Gabapentin [Neurontin] 600 mg PO TID 06/11/16 [History] RX: Levothyroxine Sodium 112.5 mcg PO QAM 03/29/17 [History] RX: Potassium Chloride [K-Tab ER] 30 meq PO QAM 03/29/17 [History] RX: Potassium Chloride [K-Tab ER] 20 meq PO QPM 04/06/17 [History] RX: Warfarin [Coumadin] 1.5 mg PO MOTUWEFRSA 04/06/17 [History] RX: Warfarin [Coumadin] 3 mg PO SUTH 04/06/17 [History] RX: Oxybutynin [Ditropan] 2.5 mg PO BID #30 tablet 04/09/17 [Rx] RX: Escitalopram [Lexapro] 10 mg PO DAILY #30 tablet 04/27/17 [Rx] RX: Prazosin HCl [Minipress] 2 mg PO HS #30 capsule 04/27/17 [Rx] RX: Losartan Potassium [Cozaar] 100 mg PO DAILY 07/05/17 [History] RX: Metformin HCl [Glucophage] 1,000 mg PO BID 07/05/17 [History] RX: Vitamin B Complex [B Complex] 1 each PO DAILY 07/05/17 [History] RX: hydrOXYzine pamoate [HydrOXYzine Pamoate] 25 mg PO BID PRN #10 07/07/17 [Rx] RX: Amlodipine Besylate 10 mg PO DAILY 12/09/17 [History] RX: Duloxetine HCl [Cymbalta] 60 mg PO BID 12/09/17 [History] RX: Metoprolol [Lopressor] 25 mg PO BID 12/09/17 [History] RX: Hydrochlorothiazide [Microzide] 12.5 mg PO DAILY #30 04/15/18 [Rx] RX: Magnesium Oxide [Mag-Ox] 400 mg PO BID #60 tablet 04/15/18 [Rx] RX: Magnesium Oxide [Mag-Ox] 400 mg PO BID 30 Days #60 tablet 04/15/18 [Rx] RX: cloNIDine HCl [CloNIDine HCl] 0.1 mg PO BID #60 tablet 04/15/18 [Rx] RX: clonazePAM [Klonopin] 1 mg PO TID PRN 30 Days #90 tablet 04/15/18 [Rx] Allergy/AdvReac Type Severity Reaction Status Date / Time acetaminophen [From Percocet] Allergy Hallucinati Verified 04/13/18 14:09 ng ibuprofen Allergy Nausea Verified 04/13/18 14:09 metoclopramide [From Reglan] Allergy Nausea Verified 04/13/18 14:09 morphine Allergy Difficulty Verified 04/13/18 14:09 Breathing oxycodone [From Percocet] Allergy Difficulty Verified 04/13/18 14:09 Breathing propoxyphene Allergy Anxiety Verified 04/13/18 14:09 [From Darvocet-N] Svagrbb-Ggb-Epg Reductase Allergy See Verified 04/13/18 14:09 Inhibitor Comments [Statins] amitriptyline [From Elavil] AdvReac Headache Verified 04/13/18 14:09 apixaban [From Eliquis] AdvReac Muscle Pain Verified 04/13/18 14:09 aripiprazole [From Abilify] AdvReac Anxiety Verified 04/13/18 14:09 codeine AdvReac Nausea Verified 04/13/18 14:09 guaifenesin [From Mucinex] AdvReac Headache Verified 04/13/18 14:09 hydromorphone [From Dilaudid] AdvReac Chills Verified 04/13/18 14:09 isosorbide AdvReac Headache Verified 04/13/18 14:09 Methylphenidate AdvReac Diarrhea Verified 04/13/18 14:09 [From Ritalin] prednisone AdvReac Anxiety Verified 04/13/18 14:09 pregabalin [From Lyrica] AdvReac Diarrhea Verified 04/13/18 14:09 sucralfate AdvReac Diarrhea Verified 04/13/18 14:09 valsartan [From Diovan] AdvReac Muscle Pain Verified 04/13/18 14:09 All Systems PM: A 10-system review of systems was performed and is negative for pertinent findings except as documented above in the HPI. - Constitutional Constitutional: as per HPI - EENT Eyes: as per HPI - Cardiovascular Cardiovascular ROS IM: as per HPI - Respiratory Respiratory: as per HPI - Gastrointestinal Gastrointestinal: as per HPI - Genitourinary Genitourinary: as per HPI - Musculoskeletal Musculoskeletal ROS IM: as per HPI - Integumentary Integumentary IM: as per HPI - Neurological Neurological ROS: as per HPI - Psychiatric Psychiatric: as per HPI - Endocrine Endocrine IM: as per HPI - Constitutional Vitals: Temp Pulse Resp BP Pulse Ox 98.2 F 71 16 163/83 96 12/25/18 14:36 12/25/18 19:33 12/25/18 19:33 12/25/18 19:33 12/25/18 20:34 General appearance: Present: A&O X 3, pleasant, no acute distress Exam: Patient is sitting in bed she is pleasantly conversational in no acute distress - Head Head exam: Present: atraumatic, normocephalic - Eye Eye exam: Present: PERRL, conjuntiva pink, sclera anicteric Pupils: Present: PERRL - Neck Neck exam general surgery: Present: supple, trachea midline. Absent: lymphadenopathy - Respiratory Respiratory exam: Present: CTAB. Absent: accessory muscle use, rales, rhonchi, wheezes - Cardiovascular Cardiovascular exam: Present: RRR, +S1, +S2. Absent: diastolic murmur, gallop, rubs, systolic murmur - GI/Abdominal GI/Abdominal exam: Present: normal bowel sounds, soft, tenderness (Mild tenderness diffusely), no peritoneal signs. Absent: distended - Extremities Exam Extremities exam: Present: warm, radial pulses palpable and symmetrical. Absent: calf tenderness, cyanotic, pedal edema - Neurological Exam Neurological exam: Present: CN II-XII intact, oriented X3, no focal deficits. Absent: pronater drift, facial droop, speech deficit - Psychiatric Psychiatric exam: Present: normal affect, normal mood - Skin Skin exam: Present: dry, intact Internal Med - H&P Results - Labs CBC & Chem 7: 12/25/18 14:44 12/25/18 14:44 Labs: Short CBC 12/25/18 Range/Units 14:44 WBC 9.7 (4.3-11.1) K/mcL Hgb 14.0 (11.5-15.4) g/dL Hct 43.1 (35.3-44.9) % Plt Count 298 (140-400) K/mcL Neutrophils # 5.6 (1.6-8.9) K/mcL BMP 12/25/18 14:44 Sodium 136 Potassium 3.8 Chloride 101 Carbon Dioxide 24 BUN 15 Creatinine 0.80 Glucose 320 H Calcium 9.8 Cardiac Enzymes 12/25/18 Range/Units 14:44 Troponin I < 0.03 (< 0.04) ng/mL Liver Function 12/25/18 Range/Units 14:44 Total Bilirubin 0.4 (0.3-1.0) mg/dL Direct Bilirubin 0.1 (0.0-0.2) mg/dL AST 23 (13-39) Units/L ALT 30 (7-52) Units/L Alkaline Phosphatase 99 (34-104) Units/L Albumin 4.3 (3.5-5.7) g/dL - Impressions ITS Impressions Chest X-Ray 12/25/18 14:45 IMPRESSION: 1. No active pulmonary disease. 2. Stable cardiomegaly without overt failure. D/ / Kevin Swann MD / Kevin Swann MD Interpreting Provider: Kevin Swann MD Head CT 12/25/18 15:21 IMPRESSION: Possible left MCA aneurysm. Additional evaluation with MRI brain without with gadolinium and MRA brain recommended. Senescent cerebral changes including mild cerebral cortical atrophy and white matter disease. RECOMMENDATIONS: MRI/MRA brain D/ / Peter Parra / Peter Parra Interpreting Provider: Peter Parra - Assessment and Plan (1) Chest pain Current Visit: No Status: Acute Assessment and plan: Significant history of coronary disease including 6 stents and CABG 4-5 days of chest pain Initial troponin within normal limits Last echo 04/14/18.ejection fraction of 66% with normal right ventricular structure and function Has had history CHF ECG found no ST segment elevation but had possible T-wave inversion Plan: Cardiac monitoring Repeat troponin Echocardiogram Cardio consulted, appreciate recs Continue medications once verified Qualifiers: Ischemic chest pain type: unspecified angina pectoris type Qualified Code(s): I25.9 - Chronic ischemic heart disease, unspecified (2) CAD (coronary artery disease), [place] coronary artery Current Visit: No Status: Chronic Assessment and plan: Plan as #1 above Qualifiers: [place] vs. transplanted heart: [place] heart Associated angina: without angina Qualified Code(s): I25.10 - Atherosclerotic heart disease of [place] coronary artery without angina pectoris (3) Atrial fibrillation with RVR Current Visit: No Status: Resolved Assessment and plan: History of A. fib Sinus rhythm upon presentation History of Coumadin use On metoprolol INR 3.1 Plan: Continue Coumadin with INR between 2 and 3 Continue home medications once verified Rest of plan as #1 above (4) Abnormal head CT Current Visit: Yes Status: Acute Assessment and plan: Patient has headache for the 2 years worsening in the past [address] head found possible 7.2 cm aneurysm of MCA Plan: MRI with and without contrast and MRA of head and neck At this point continue anticoagulation as risk of stroke from A. fib slightly greater than risk of aneurysm rupture Continue to evaluate as new diagnostic information becomes available (5) Type 2 diabetes mellitus Current Visit: No Status: Chronic Assessment and plan: Sliding scale insulin Qualifiers: Chronic kidney disease stage: unspecified stage Qualified Code(s): E11.22 - Type 2 diabetes mellitus with diabetic chronic kidney disease; Z79.4 - shelter (current) use of insulin (6) History of Coumadin therapy Current Visit: Yes Status: Acute Assessment and plan: Continue therapy with a goal INR 2.0-3.0 (7) Hypertension Current Visit: No Status: Chronic Assessment and plan: Continue home medications once verified Continue to monitor Qualifiers: Hypertension type: essential hypertension Qualified Code(s): I10 - Essential (primary) hypertension (8) DVT prophylaxis Current Visit: No Status: Acute Assessment and plan: On Coumadin - Time Spent With Patient Total time spent is greater than 50% in coordination of care (as documented) at patient's floor/unit and/or counseling patient: Dahiana Schwartz - Last Filed: 12/25/18 23:40> Date of Encounter: 12/25/18 Internal Medicine - H&P: HPI History of present illness: Ms. Browning is a 68 year old female All Systems PM: A 10-system review of systems was performed and is negative for pertinent findings except as documented above in the HPI. - Constitutional Vitals: Temp Pulse Resp BP Pulse Ox 97.8 F 69 16 145/82 94 12/25/18 21:39 12/25/18 21:39 12/25/18 21:39 12/25/18 21:39 12/25/18 21:39 Internal Med - H&P Results - Labs CBC & Chem 7: 12/25/18 14:44 12/25/18 14:44 Labs: Short CBC 12/25/18 Range/Units 14:44 WBC 9.7 (4.3-11.1) K/mcL Hgb 14.0 (11.5-15.4) g/dL Hct 43.1 (35.3-44.9) % Plt Count 298 (140-400) K/mcL Neutrophils # 5.6 (1.6-8.9) K/mcL BMP 12/25/18 14:44 Sodium 136 Potassium 3.8 Chloride 101 Carbon Dioxide 24 BUN 15 Creatinine 0.80 Glucose 320 H Calcium 9.8 Cardiac Enzymes 12/25/18 Range/Units 14:44 Troponin I < 0.03 (< 0.04) ng/mL Liver Function 12/25/18 Range/Units 14:44 Total Bilirubin 0.4 (0.3-1.0) mg/dL Direct Bilirubin 0.1 (0.0-0.2) mg/dL AST 23 (13-39) Units/L ALT 30 (7-52) Units/L Alkaline Phosphatase 99 (34-104) Units/L Albumin 4.3 (3.5-5.7) g/dL - Impressions ITS Impressions Chest X-Ray 12/25/18 14:45 IMPRESSION: 1. No active pulmonary disease. 2. Stable cardiomegaly without overt failure. D/ / Kevin Swann MD / Kevin Swann MD Interpreting Provider: Kevin Swann MD Head CT 12/25/18 15:21 IMPRESSION: Possible left MCA aneurysm. Additional evaluation with MRI brain without with gadolinium and MRA brain recommended. Senescent cerebral changes including mild cerebral cortical atrophy and white matter disease. RECOMMENDATIONS: MRI/MRA brain D/ / Peter Parra / Peter Parra Interpreting Provider: Peter Parra - Time Spent With Patient Total time spent is greater than 50% in coordination of care (as documented) at patient's floor/unit and/or counseling patient: - Attending Attestation I performed a history and physical exam of the patient on 12/25/18 and discussed management with the resident. I reviewed the resident's note and agree with the documented findings and plan of care. Kaylee Browning is a 68-year-old woman with a history of coronary artery disease status post CABG in 2013 and paroxysmal atrial fibrillation on warfarin presented to the emergency room complaining of midsternal chest pressure that began on Tuesday and has gradually continued to worsen. She described it as a pressure as though something were sitting on her chest. She was seen hemodynamically stable in the ER. EKG shows normal sinus rhythm. Lab work was grossly unremarkable. Chest x-ray revealed no anomalies. Of note she also complains of headache stating that she has been diagnosed with migraines in the past. A head CT was done showed the possibility of a left MCA aneurysm but no acute findings. We will admit for chest pain in a patient with risk factors to rule out ACS. She had a left heart cath done in 2015 showing the 2 bypass grafts patency. A negative stress test in February 2017. W e will also obtain a brain MRI/MRA for aneurysmal evaluation. RUSS HUGHES.
[2018-12-25] MEDS ORDERED: Gadolinium Contrast Agent (WT Based) IV PRN (22:30)
[2018-12-26] MEDS: Insulin LISPRO 300 UNITS/3 ML VIAL SQ SCH ×3 (08:26→16:36)
[2018-12-26 08:49] LABS: INR 3.8; Prothrombin Time 43.2 Seconds (9.4-12.1)
[2018-12-26] MEDS ORDERED: Aspirin 81 MG TAB.CHEW PO SCH (09:00)
[2018-12-26] MEDS ORDERED: Acetaminophen/Butalbital/CaffeineTABLET PO PRN (15:55)
[2018-12-26] MEDS ORDERED: Warfarin perPT PO PRN (18:00)
--- NOTE | 2018-12-26 18:06 | Discharge Summary ---
Orders not resulted at time of discharge: Pending orders 12/27/18 04:00 PT/INR [Prothrombin Time INR] [COAG] AM 0400 12/28/18 04:00 PT/INR [Prothrombin Time INR] [COAG] AM 0400 12/29/18 04:00 PT/INR [Prothrombin Time INR] [COAG] AM 0400 12/30/18 04:00 PT/INR [Prothrombin Time INR] [COAG] AM 0400 Date of Encounter: 12/26/18 Time of Encounter: 18:04 - Discharge Diagnosis (1) Atypical chest pain Priority: Primary Status: Acute (2) Coronary artery disease Priority: Primary Status: Chronic Qualifiers: Coronary Disease-Associated Artery/Lesion type: [place] artery [place] vs. transplanted heart: [place] heart Associated angina: without angina Qualified Code(s): I25.10 - Atherosclerotic heart disease of [place] coronary artery without angina pectoris (3) PAF (paroxysmal atrial fibrillation) Priority: Secondary Status: Chronic (4) Abnormal head CT Priority: Primary Status: Resolved (5) Depression with anxiety Priority: Secondary Status: Chronic Hospital course: HOSPITAL COURSE: The patient is a 68-year-old woman with a long-standing history of coronary artery disease; had CABG surgery in the past. She was admitted with atypical chest pain. Waxing and waning mild/moderate pain in the area of her sternum. Not getting worse with exertion. Subsided shortly after admitting her to the hospital floor. The patient has been under quite a bit of stress recently. EKG showed normal sinus rhythm. Her troponin was normal on 2 occasions. The patient had negative for ischemia stress test in February 2017. Together with normal echocardiogram showing ejection fraction of 65%. Her last cardiac catheterization was done in 2015showed the both of her bypass grafts patent. The patient complained of headacheoff and on in the last 2 years preceding this admission; with worsening in the last few days preceding this admission. CT of head/brain showed suspected brain aneurysm. We did MRI of brain. This one did not show any significant abnormalities. She had headache on the day of dischargetreated successfully with 2 tablets of Fioricet. CONDITION AT DISCHARGE: She feels good. Denies chest pain and difficulty breathing. Her headache subsided. Denies abdominal pain, nausea and vomiting. She has normal urination. Skin: Free of rash and discoloration. Respiratory: Normal breath sounds with no crackles and wheezes bilaterally. CV: Heart is regular with no gallop or murmur. GI: Abdomen is flat and soft with no palpable mass or visceromegaly. Neuro exam: There is no focal deficits. Normal speech, swallowing and gait. SEE DISCHARGE ORDERS/MEDICATIONS The patient received reassuranceI told her that her symptoms are not related to heart disease. Discharge discussed with: patient, family - Time Spent with Patient Total time spent providing and/or coordinating discharge services: Time spent: Less than 30 minutes - Discharge Medications Prescriptions: New Acetaminophen [Tylenol] 650 mg PO Q6HR PRN tablet PRN Reason: Mild Pain/Fever Continue Aspirin 81 mg PO DAILY Nitroglycerin [Nitrostat] 0.4 mg SL Q5M PRN PRN Reason: Chest Pain Esomeprazole Magnesium [Nexium] 40 mg PO HS Furosemide [Lasix] 20 mg PO DAILY Loratadine [Claritin] 10 mg PO DAILY Ascorbate Calcium [Vitamin C] 500 mg PO DAILY Cholecalciferol (D-3) [Vitamin D] 1,000 unit PO DAILY Fluticasone Propionate Nasal [Flonase] 1 spray NS DAILY Calcium Carbonate/Vitamin D3 [Caltrate 600 + D Soft Chew Tab] 1 tab PO DAILY Evolocumab [Repatha Syringe] 140 mg SQ Q2W Dicyclomine [Bentyl] 10 mg PO BID Gabapentin [Neurontin] 600 mg PO TID Potassium Chloride [K-Tab ER] 30 meq PO QAM Levothyroxine Sodium 112.5 mcg PO QAM Warfarin [Coumadin] 1.5 mg PO MOTUWEFRSA Warfarin [Coumadin] 3 mg PO SUTH Potassium Chloride [K-Tab ER] 20 meq PO QPM Oxybutynin [Ditropan] 2.5 mg PO BID #30 tablet Escitalopram [Lexapro] 10 mg PO DAILY #30 tablet Prazosin HCl [Minipress] 2 mg PO HS #30 capsule Losartan Potassium [Cozaar] 100 mg PO DAILY Vitamin B Complex [B Complex] 1 each PO DAILY Metformin HCl [Glucophage] 1,000 mg PO BID hydrOXYzine pamoate [HydrOXYzine Pamoate] 25 mg PO BID PRN #10 PRN Reason: Anxiety Amlodipine Besylate 10 mg PO DAILY Metoprolol [Lopressor] 25 mg PO BID Duloxetine HCl [Cymbalta] 60 mg PO BID clonazePAM [Klonopin] 1 mg PO TID PRN 30 Days #90 tablet PRN Reason: Anxiety Magnesium Oxide [Mag-Ox] 400 mg PO BID 30 Days #60 tablet cloNIDine HCl [CloNIDine HCl] 0.1 mg PO BID #60 tablet Hydrochlorothiazide [Microzide] 12.5 mg PO DAILY #30 Magnesium Oxide [Mag-Ox] 400 mg PO BID #60 tablet Home Medications: Aspirin 81 mg PO DAILY 03/27/16 [History] Ascorbate Calcium [Vitamin C] 500 mg PO DAILY 05/21/16 [History] Calcium Carbonate/Vitamin D3 [Caltrate 600 + D Soft Chew Tab] 1 tab PO DAILY 05/21/16 [History] Cholecalciferol (D-3) [Vitamin D] 1,000 unit PO DAILY 05/21/16 [History] Dicyclomine [Bentyl] 10 mg PO BID 05/21/16 [History] Esomeprazole Magnesium [Nexium] 40 mg PO HS 05/21/16 [History] Evolocumab [Repatha Syringe] 140 mg SQ Q2W 05/21/16 [History] Fluticasone Propionate Nasal [Flonase] 1 spray NS DAILY 05/21/16 [History] Furosemide [Lasix] 20 mg PO DAILY 05/21/16 [History] Loratadine [Claritin] 10 mg PO DAILY 05/21/16 [History] Nitroglycerin [Nitrostat] 0.4 mg SL Q5M PRN 05/21/16 [History] Gabapentin [Neurontin] 600 mg PO TID 06/11/16 [History] Levothyroxine Sodium 112.5 mcg PO QAM 03/29/17 [History] Potassium Chloride [K-Tab ER] 30 meq PO QAM 03/29/17 [History] Potassium Chloride [K-Tab ER] 20 meq PO QPM 04/06/17 [History] Warfarin [Coumadin] 1.5 mg PO MOTUWEFRSA 04/06/17 [History] Warfarin [Coumadin] 3 mg PO SUTH 04/06/17 [History] Oxybutynin [Ditropan] 2.5 mg PO BID #30 tablet 04/09/17 [Rx] Escitalopram [Lexapro] 10 mg PO DAILY #30 tablet 04/27/17 [Rx] Prazosin HCl [Minipress] 2 mg PO HS #30 capsule 04/27/17 [Rx] Losartan Potassium [Cozaar] 100 mg PO DAILY 07/05/17 [History] Metformin HCl [Glucophage] 1,000 mg PO BID 07/05/17 [History] Vitamin B Complex [B Complex] 1 each PO DAILY 07/05/17 [History] hydrOXYzine pamoate [HydrOXYzine Pamoate] 25 mg PO BID PRN #10 07/07/17 [Rx] Amlodipine Besylate 10 mg PO DAILY 12/09/17 [History] Duloxetine HCl [Cymbalta] 60 mg PO BID 12/09/17 [History] Metoprolol [Lopressor] 25 mg PO BID 12/09/17 [History] Hydrochlorothiazide [Microzide] 12.5 mg PO DAILY #30 04/15/18 [Rx] Magnesium Oxide [Mag-Ox] 400 mg PO BID #60 tablet 04/15/18 [Rx] Magnesium Oxide [Mag-Ox] 400 mg PO BID 30 Days #60 tablet 04/15/18 [Rx] cloNIDine HCl [CloNIDine HCl] 0.1 mg PO BID #60 tablet 04/15/18 [Rx] clonazePAM [Klonopin] 1 mg PO TID PRN 30 Days #90 tablet 04/15/18 [Rx] Acetaminophen [Tylenol] 650 mg PO Q6HR PRN tablet 12/26/18 [Rx] Allergies/Adverse Reactions: Allergy/AdvReac Type Severity Reaction Status Date / Time acetaminophen [From Percocet] Allergy Hallucinati Verified 04/13/18 14:09 ng ibuprofen Allergy Nausea Verified 04/13/18 14:09 metoclopramide [From Reglan] Allergy Nausea Verified 04/13/18 14:09 morphine Allergy Difficulty Verified 04/13/18 14:09 Breathing oxycodone [From Percocet] Allergy Difficulty Verified 04/13/18 14:09 Breathing propoxyphene Allergy Anxiety Verified 04/13/18 14:09 [From Darvocet-N] Xsruyuz-Has-Gwz Reductase Allergy See Verified 04/13/18 14:09 Inhibitor Comments [Statins] amitriptyline [From Elavil] AdvReac Headache Verified 04/13/18 14:09 apixaban [From Eliquis] AdvReac Muscle Pain Verified 04/13/18 14:09 aripiprazole [From Abilify] AdvReac Anxiety Verified 04/13/18 14:09 codeine AdvReac Nausea Verified 04/13/18 14:09 guaifenesin [From Mucinex] AdvReac Headache Verified 04/13/18 14:09 hydromorphone [From Dilaudid] AdvReac Chills Verified 04/13/18 14:09 isosorbide AdvReac Headache Verified 04/13/18 14:09 Methylphenidate AdvReac Diarrhea Verified 04/13/18 14:09 [From Ritalin] prednisone AdvReac Anxiety Verified 04/13/18 14:09 pregabalin [From Lyrica] AdvReac Diarrhea Verified 04/13/18 14:09 sucralfate AdvReac Diarrhea Verified 04/13/18 14:09 valsartan [From Diovan] AdvReac Muscle Pain Verified 04/13/18 14:09 Date of admission: 12/25/18 20:28 Primary care physician: PCP NONE Discharging clinician: Teodoro Talbert Anticipated date of discharge: 12/26/18 - Constitutional Vitals: Temp Pulse Resp BP Pulse Ox 98.7 F 92 16 147/82 94 12/26/18 16:07 12/26/18 16:07 12/26/18 16:07 12/26/18 16:07 12/26/18 16:07 General appearance: Present: A&O X 3, pleasant, no acute distress, answers questions appropriately Exam: xx - Patient Status Disposition: Home, Self-Care Condition: Good Functional capacity at discharge: independent ambulation Overall status at discharge: patient is back to baseline - Discharge Instructions Follow Up With: NONE,PCP [Primary Care Provider] - - Diet and Activity Activity: increase activity as tolerated Diet: diabetic diet - VTE Reasons for not Prescribing Prophylaxis: Not indicated-Anticoagulated or INR therapeutic Deep Vein Thrombosis/Pulmonary Embolism Present on Admission: No
[2018-12-26 18:43] VITALS: BP 173/86
[2018-12-26] MEDS ORDERED: Insulin LISPRO 300 UNITS/3 ML VIAL SQ SCH (21:00)
--- NOTE | 2018-12-26 21:36 | Electrocardiograph Report ---
[place] [id number] Test Date: 2018-12-25 Pat Name: Kaylee Browning Department: [id number] Room: Gender: F [employer] [place]: : 1950 Requested By: Noe Davis Order Number: [id number] Reading MD: Sandy Dietz Measurements Intervals [place] Rate: 75 P: 44 MO: 144 QRS: -9 QRSD: 107 T: 109 QT: 390 QTc: 436 Interpretive Statements Sinus rhythm LVH with secondary repolarization abnormality Electronically Signed On 12-26-2018 21:34:23 EST by Sandy Dietz
== END 2018-12-26 19:32 | disposition home or self-care (01) ==
LOC: 2ANU 14:23 → EMEROOARM 14:23 → SUATTDRO 20:28 → 2ANU 20:46
PROVIDERS: ADMIT Internal Medicine; ATTEND Internal Medicine

== ENCOUNTER 2019-03-10 16:02 | Observation (INO) ==
--- NOTE | 2019-03-10 16:13 | Emergency Department Note ---
Disposition Clinical Impression: Chest pain of uncertain etiology Disposition: Admitted As Inpatient Condition: Fair General Adult HPI - General Stated complaint: Chest Pain Time Seen by Provider: 03/10/19 16:10 Source: patient Mode of arrival: ambulatory Limitations: no limitations Nursing Notes Reviewed: Yes Vital Signs Reviewed: Yes - History of Present Illness HPI Narrative: 69-year-old female past medical history of CHF, 2 myocardial infarctions double bypass performed in 2003 presenting for 1 month history of gradually progressive and worsening dyspnea. Patient states in addition to shortness of breath that she is experiencing mild to moderate midsternal chest pain. Patient states that she has a long-standing history of panic attacks and states she believes that these symptoms are consistent with panic attacks in the past. Patient is agreeable to cardiac workup at this time. Onset (ago): month(s) Location: chest Radiation: non-radiation Pain Severity: moderate Pain Scale: 5 Quality: burning Consistency: intermittent, Worsening Associated symptoms: Reports: shortness of breath - Related Data Home Medications Medication Instructions Recorded Confirmed Aspirin 81 mg PO DAILY 03/27/16 03/11/19 Ascorbate Calcium [Vitamin C] 1,000 mg PO DAILY 05/21/16 03/11/19 Calcium Carbonate/Vitamin D3 1 tab PO DAILY 05/21/16 03/11/19 [Caltrate 600 + D Soft Chew Tab] Dicyclomine [Bentyl] 10 mg PO BID 05/21/16 03/11/19 Fluticasone Propionate Nasal 2 spray NS DAILY 05/21/16 03/11/19 [Flonase] Furosemide [Lasix] 20 mg PO DAILY 05/21/16 03/11/19 Loratadine [Claritin] 10 mg PO DAILY 05/21/16 03/11/19 Gabapentin [Neurontin] 600 mg PO BID 06/11/16 03/11/19 Levothyroxine Sodium 112.5 mcg PO QAM 03/29/17 03/11/19 Potassium Chloride [K-Tab ER] 20 meq PO QPM 04/06/17 03/11/19 Warfarin [Coumadin] 1.5 mg PO MOTUWEFRSA 04/06/17 03/11/19 Warfarin [Coumadin] 3 mg PO SUTH 04/06/17 03/11/19 Losartan Potassium [Cozaar] 100 mg PO DAILY 07/05/17 03/11/19 Metformin HCl [Glucophage] 1,000 mg PO BID 07/05/17 03/11/19 Amlodipine Besylate 10 mg PO DAILY 12/09/17 03/11/19 Metoprolol [Lopressor] 25 mg PO BID 12/09/17 03/11/19 Buspirone HCl [Buspar] 5 mg PO TID 03/11/19 03/11/19 Butalb/Acetaminophen/Caffeine 1 each PO Q6HR PRN 03/11/19 03/11/19 [Fioricet 50-300-40 mg Capsule] Calcium Carbonate/Vitamin D3 1 each PO 03/11/19 [Caltrate 600 + D Soft Chew Tab] Esomeprazole Magnesium [Nexium] 40 mg PO BID 03/11/19 03/11/19 Evolocumab [Repatha Syringe] 140 mg SQ Q2W 03/11/19 03/11/19 Fluvastatin Sodium [Lescol Xl] 80 mg PO DAILY 03/11/19 03/11/19 Hydrochlorothiazide [Microzide] 25 mg PO DAILY 03/11/19 03/11/19 Lactobacillus Acidophilus 1 mg PO BID 03/11/19 03/11/19 [Acidophilus Probiotic] Ondansetron HCl [Zofran] 4 mg PO Q8HR PRN 03/11/19 03/11/19 Oxybutynin [Ditropan] 10 mg PO DAILY 03/11/19 03/11/19 Previous Rx's Medication Instructions Recorded hydrOXYzine pamoate [HydrOXYzine 25 mg PO BID PRN #10 07/07/17 Pamoate] Magnesium Oxide [Mag-Ox] 400 mg PO BID 30 Days #60 tablet 04/15/18 cloNIDine HCl [CloNIDine HCl] 0.1 mg PO BID #60 tablet 04/15/18 Allergies Allergy/AdvReac Type Severity Reaction Status Date / Time acetaminophen [From Percocet] Allergy Hallucinati Verified 01/30/19 15:43 ng ibuprofen Allergy Nausea Verified 01/30/19 15:43 metoclopramide [From Reglan] Allergy Nausea Verified 01/30/19 15:43 morphine Allergy Difficulty Verified 01/30/19 15:43 Breathing oxycodone [From Percocet] Allergy Difficulty Verified 01/30/19 15:43 Breathing propoxyphene Allergy Anxiety Verified 01/30/19 15:43 [From Darvocet-N] Byorjsi-Khw-[id number] Reductase Allergy See Verified 01/30/19 15:43 Inhibitor Comments [Statins] amitriptyline [From Elavil] AdvReac Headache Verified 01/30/19 15:43 apixaban [From Eliquis] AdvReac Muscle Pain Verified 01/30/19 15:43 aripiprazole [From Abilify] AdvReac Anxiety Verified 01/30/19 15:43 codeine AdvReac Nausea Verified 01/30/19 15:43 guaifenesin [From Mucinex] AdvReac Headache Verified 01/30/19 15:43 hydromorphone [From Dilaudid] AdvReac Chills Verified 01/30/19 15:43 isosorbide AdvReac Headache Verified 01/30/19 15:43 Methylphenidate AdvReac Diarrhea Verified 01/30/19 15:43 [From Ritalin] prednisone AdvReac Anxiety Verified 01/30/19 15:43 pregabalin [From Lyrica] AdvReac Diarrhea Verified 01/30/19 15:43 sucralfate AdvReac Diarrhea Verified 01/30/19 15:43 valsartan [From Diovan] AdvReac Muscle Pain Verified 01/30/19 15:43 Review of Systems: Constitutional: Denies: fever, chills Cardiovascular: Admits chest pain Respiratory: Admits dyspnea Gastrointestinal: Denies: abdominal pain, nausea, vomiting, diarrhea, constipation, hematemesis, melena, hematochezia Genitourinary: Denies: hematuria Musculoskeletal: Denies: back pain, neck pain Neurological: Denies: headache, weakness, numbness, paresthesias Endocrine: Denies: fatigue All systems ED: reviewed and negative except as stated. 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 Anterior neck is supple without s welling. *Chest: Symmetric chest wall rise *Heart: Cardiac rhythm and rate are regular with S1 and S2 , no S3 or S4 appreciated, no murmurs, gallops, rubs, or clicks. *Lungs: Lungs are clear to auscultation bilaterally, without accessory muscle use or prolonged expiratory phase. No wheezes, rhonchi or stridor appreciated. Abdomen: Abdomen is flat, soft to palpation, normal bowel sounds. No abdominal bruit auscultated. Non-distended, non-rigid, no organomegaly, no ascites appreciated. No pulsatile mass, no tenderness or guarding to palpation in all four quadrants, no rebound Extremities: Normal capillary refill without evidence of pedal edema, joint swelling or erythema. Pulses/motor/sensory intact in all 4 extremities. Psychiatric exam: Patient displays a normal affect and mood for the environment. No overt signs of hallucination. Integumentary: warm, dry, intact, normal color. No rash, cyanosis, diaphoresis, erythema, or pallor - General Limitations: no limitations General appearance: alert, in no apparent distress Course Course Narrative: Concern for ACS CBC, BMP, BNP, troponin EKG/old EKG Chest x-ray Vital Signs Temperature 98.6 F 03/10/19 16:07 Pulse Rate 93 03/10/19 16:07 Respiratory Rate 22 03/10/19 16:07 Blood Pressure 172/73 03/10/19 16:07 O2 Sat by Pulse Oximetry 99 03/10/19 16:07 Temperature 98.6 F 03/10/19 16:07 Pulse Rate 100 03/10/19 19:43 Respiratory Rate 20 03/10/19 19:43 Blood Pressure 149/72 03/10/19 19:43 O2 Sat by Pulse Oximetry 98 03/10/19 19:43 Oxygen Delivery Oxygen Delivery Room Air Medical Decision Making - MDM Narrative Medical decision making narrative: Laboratory, imaging, EKG unremarkable for acute pathology Patient with continued chest pain in the ED Patient is requesting medication for the management of anxiety We will give 1 mg Ativan at this time Patient heart score 5-will be admitted to hospitalist medicine service for further evaluation and management of chest pain with concern for ACS. Patient and her son at bedside verbalizes understanding and agreement this plan - Lab Data Lab results reviewed: Yes I reviewed the patient's lab results. Result diagrams: 03/11/19 01:44 03/11/19 01:44 Lab Results 03/10/19 03/10/19 03/10/19 Range/Units 16:30 16:30 16:30 WBC 11.8 H (4.3-11.1) K/mcL RBC 4.76 (3.82-4.97) M/mcL Hgb 14.0 (11.5-15.4) g/dL Hct 41.9 (35.3-44.9) % MCV 88.0 (83.0-100.0) fL MCH 29.4 (28.0-33.3) pg MCHC 33.4 (31.6-35.5) g/dL RDW 13.7 (11.5-14.5) % Plt Count 334 (140-400) K/mcL MPV 11.5 (9.4-12.4) fL Immature Gran % 0.3 (0-4) % Seg Neutrophils % 63.4 % Lymphocytes % 25.3 % Monocytes % 6.5 % Eosinophils % 3.6 % Basophils % 0.9 % Neutrophils # 7.5 (1.6-8.9) K/mcL Lymphocytes # 3.0 (0.6-4.6) K/mcL Monocytes # 0.8 (0.0-1.3) K/mcL Eosinophils # 0.4 (0.0-0.6) K/mcL Basophils # 0.1 (0.0-0.2) K/mcL PT (9.4-12.1) Seconds INR Sodium 138 (136-145) mEq/L Potassium 3.7 (3.5-5.1) mEq/L Chloride 102 (98-107) mEq/L Carbon Dioxide 22 L (23-29) mEq/L BUN 15 (8-23) mg/dL Creatinine 0.83 (0.60-1.20) mg/dL Est GFR ( Amer) > 60 (> 60) Est GFR (Non-Af Amer) > 60 (> 60) BUN/Creatinine Ratio 18 (6-26) Glucose 204 H (70-105) mg/dL Calculated Osmolality 293 (280-300) Calcium 9.5 (8.6-10.3) mg/dL Troponin I 0.03 (< 0.04) ng/mL B-Natriuretic Peptide 62 (Less than 100) pg/mL 03/10/19 Range/Units 16:30 WBC (4.3-11.1) K/mcL RBC (3.82-4.97) M/mcL Hgb (11.5-15.4) g/dL Hct (35.3-44.9) % MCV (83.0-100.0) fL MCH (28.0-33.3) pg MCHC (31.6-35.5) g/dL RDW (11.5-14.5) % Plt Count (140-400) K/mcL MPV (9.4-12.4) fL Immature Gran % (0-4) % Seg Neutrophils % % Lymphocytes % % Monocytes % % Eosinophils % % Basophils % % Neutrophils # (1.6-8.9) K/mcL Lymphocytes # (0.6-4.6) K/mcL Monocytes # (0.0-1.3) K/mcL Eosinophils # (0.0-0.6) K/mcL Basophils # (0.0-0.2) K/mcL PT 21.3 H (9.4-12.1) Seconds INR 1.9 Sodium (136-145) mEq/L Potassium (3.5-5.1) mEq/L Chloride (98-107) mEq/L Carbon Dioxide (23-29) mEq/L BUN (8-23) mg/dL Creatinine (0.60-1.20) mg/dL Est GFR ( Amer) (> 60) Est GFR (Non-Af Amer) (> 60) BUN/Creatinine Ratio (6-26) Glucose (70-105) mg/dL Calculated Osmolality (280-300) Calcium (8.6-10.3) mg/dL Troponin I (< 0.04) ng/mL B-Natriuretic Peptide (Less than 100) pg/mL - Radiology Data Radiology results reviewed: Yes I reviewed the patient's radiology results. Chest X-Ray 03/10/19 16:11 IMPRESSION: No acute cardiopulmonary process. D/ / Neal Randle MD / Neal Randle MD Interpreting Provider: Neal Randle MD - EKG Data EKG #1 EKG attestation: Yes I reviewed and interpreted this EKG. EKG results narrative: Patient's EKG shows a sinus rhythm with a rate of 82 bpm, OK interval of 143 ms, QRS duration 80 ms, QT/QTc intervals 385/450 ms respectively. There are no significant ST segment elevations, depressions, pathologic Q waves, abnormal T- wave inversions, nor other signs of acute ischemic change. At this time there is no prior EKG available for comparison. Attestation Statement - Attestation Attestation: I have seen this patient with the resident physician, I have personally evaluated this patient. I had reviewed the chart and document dictation by the resident physician and aM in agreement with the information documented by the resident physician. Please see documentation by the resident physician for complete chart including past medical history, family medical history, review of systems, current history and physical and laboratory and imaging studies. I was present for all procedures, provided direct supervision for all procedures, was present for the entirety of all procedures and provided direct guidance during the procedures. Please see documentation by the resident physician for any procedures performed. I have reviewed all interpretations of EKGs, and reviewed all EKGs performed on patient's as well. I have also reviewed reports of imaging as provided by radiology.
[2019-03-10 16:39] LABS: Basophils # 0.1 K/mcL (0.0-0.2); Basophils % 0.9 %; Eosinophils # 0.4 K/mcL (0.0-0.6); Eosinophils % 3.6 %; Hematocrit 41.9 % (35.3-44.9); Immature Granulocytes % 0.3 % (0-4); Lymphocytes % 25.3 %; Mean Corpuscular HGB Conc 33.4 g/dL (31.6-35.5); Mean Corpuscular Hemoglobin 29.4 pg (28.0-33.3); Mean Platelet Volume 11.5 fL (9.4-12.4); Monocytes # 0.8 K/mcL (0.0-1.3); Monocytes % 6.5 %; Neutrophils # 7.5 K/mcL (1.6-8.9); Platelet Count 334 K/mcL (140-400); Red Blood Count 4.76 M/mcL (3.82-4.97); Red Cell Distribution Width 13.7 % (11.5-14.5); Segmented Neutrophils % 63.4 %
[2019-03-10 16:46] LABS: INR 1.9; Prothrombin Time 21.3 Seconds (9.4-12.1)
--- NOTE | 2019-03-10 16:47 | Emergency Department Note ---
Disposition Clinical Impression: Chest pain of uncertain etiology Disposition: Admitted As Inpatient Condition: Fair General Adult HPI - General Chief complaint: ED Chest Pain Stated complaint: Chest Pain Time Seen by Provider: 03/10/19 16:10 Source: patient, EMS Limitations: no limitations Nursing Notes Reviewed: Yes Vital Signs Reviewed: Yes - History of Present Illness Pain Scale: 5 - Related Data Home Medications Medication Instructions Recorded Confirmed Aspirin 81 mg PO DAILY 03/27/16 04/13/18 Ascorbate Calcium [Vitamin C] 500 mg PO DAILY 05/21/16 04/13/18 Calcium Carbonate/Vitamin D3 1 tab PO DAILY 05/21/16 04/13/18 [Caltrate 600 + D Soft Chew Tab] Cholecalciferol (D-3) [Vitamin D] 1,000 unit PO DAILY 05/21/16 04/13/18 Dicyclomine [Bentyl] 10 mg PO BID 05/21/16 04/13/18 Esomeprazole Magnesium [Nexium] 40 mg PO HS 05/21/16 04/13/18 Evolocumab [Repatha Syringe] 140 mg SQ Q2W 05/21/16 04/13/18 Fluticasone Propionate Nasal 1 spray NS DAILY 05/21/16 04/13/18 [Flonase] Furosemide [Lasix] 20 mg PO DAILY 05/21/16 04/13/18 Loratadine [Claritin] 10 mg PO DAILY 05/21/16 04/13/18 Nitroglycerin [Nitrostat] 0.4 mg SL Q5M PRN 05/21/16 04/13/18 Gabapentin [Neurontin] 600 mg PO TID 06/11/16 04/13/18 Levothyroxine Sodium 112.5 mcg PO QAM 03/29/17 04/13/18 Potassium Chloride [K-Tab ER] 30 meq PO QAM 03/29/17 04/13/18 Potassium Chloride [K-Tab ER] 20 meq PO QPM 04/06/17 04/13/18 Warfarin [Coumadin] 1.5 mg PO MOTUWEFRSA 04/06/17 04/13/18 Warfarin [Coumadin] 3 mg PO SUTH 04/06/17 04/13/18 Losartan Potassium [Cozaar] 100 mg PO DAILY 07/05/17 04/13/18 Metformin HCl [Glucophage] 1,000 mg PO BID 07/05/17 04/13/18 Vitamin B Complex [B Complex] 1 each PO DAILY 07/05/17 04/13/18 Amlodipine Besylate 10 mg PO DAILY 12/09/17 04/13/18 Duloxetine HCl [Cymbalta] 60 mg PO BID 12/09/17 04/13/18 Metoprolol [Lopressor] 25 mg PO BID 12/09/17 04/13/18 Previous Rx's Medication Instructions Recorded Oxybutynin [Ditropan] 2.5 mg PO BID #30 tablet 04/09/17 Escitalopram [Lexapro] 10 mg PO DAILY #30 tablet 04/27/17 Prazosin HCl [Minipress] 2 mg PO HS #30 capsule 04/27/17 hydrOXYzine pamoate [HydrOXYzine 25 mg PO BID PRN #10 07/07/17 Pamoate] Hydrochlorothiazide [Microzide] 12.5 mg PO DAILY #30 04/15/18 Magnesium Oxide [Mag-Ox] 400 mg PO BID #60 tablet 04/15/18 Magnesium Oxide [Mag-Ox] 400 mg PO BID 30 Days #60 tablet 04/15/18 cloNIDine HCl [CloNIDine HCl] 0.1 mg PO BID #60 tablet 04/15/18 clonazePAM [Klonopin] 1 mg PO TID PRN 30 Days #90 tablet 04/15/18 Acetaminophen [Tylenol] 650 mg PO Q6HR PRN tablet 12/26/18 cephALEXin [Keflex] 500 mg PO TID #21 capsule 01/30/19 Allergies Allergy/AdvReac Type Severity Reaction Status Date / Time acetaminophen [From Percocet] Allergy Hallucinati Verified 01/30/19 15:43 ng ibuprofen Allergy Nausea Verified 01/30/19 15:43 metoclopramide [From Reglan] Allergy Nausea Verified 01/30/19 15:43 morphine Allergy Difficulty Verified 01/30/19 15:43 Breathing oxycodone [From Percocet] Allergy Difficulty Verified 01/30/19 15:43 Breathing propoxyphene Allergy Anxiety Verified 01/30/19 15:43 [From Darvocet-N] Yhhmfyy-[id number]-Wts Reductase Allergy See Verified 01/30/19 15:43 Inhibitor Comments [Statins] amitriptyline [From Elavil] AdvReac Headache Verified 01/30/19 15:43 apixaban [From Eliquis] AdvReac Muscle Pain Verified 01/30/19 15:43 aripiprazole [From Abilify] AdvReac Anxiety Verified 01/30/19 15:43 codeine AdvReac Nausea Verified 01/30/19 15:43 guaifenesin [From Mucinex] AdvReac Headache Verified 01/30/19 15:43 hydromorphone [From Dilaudid] AdvReac Chills Verified 01/30/19 15:43 isosorbide AdvReac Headache Verified 01/30/19 15:43 Methylphenidate AdvReac Diarrhea Verified 01/30/19 15:43 [From Ritalin] prednisone AdvReac Anxiety Verified 01/30/19 15:43 pregabalin [From Lyrica] AdvReac Diarrhea Verified 01/30/19 15:43 sucralfate AdvReac Diarrhea Verified 01/30/19 15:43 valsartan [From Diovan] AdvReac Muscle Pain Verified 01/30/19 15:43 Past Medical History - Past Medical History Medical history: Reports: arthritis, atrial fibrillation, CHF, coronary artery disease, diabetes, GERD, hyperlipidemia, hypertension, migraine, myocardial infarction, thyroid disease Surgical history: Reports: angioplasty/stent, cholecystectomy, coronary bypass (CABG), hysterectomy, other Psychiatric history: Reports: anxiety, depression, panic disorder, prior suicide attempt [employer] 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 - Social History Smoking Status: Never smoker Smokeless Tobacco Status: No Alcohol use: Reports: none Drug use: Reports: none Physical Exam - General Limitations: no limitations General appearance: alert, anxious Course Vital Signs Temperature 98.6 F 03/10/19 16:07 Pulse Rate 93 03/10/19 16:07 Respiratory Rate 22 03/10/19 16:07 Blood Pressure 172/73 03/10/19 16:07 O2 Sat by Pulse Oximetry 99 03/10/19 16:07 Temperature 98.6 F 03/10/19 16:07 Pulse Rate 93 03/10/19 16:07 Respiratory Rate 22 03/10/19 16:07 Blood Pressure 172/73 03/10/19 16:07 O2 Sat by Pulse Oximetry 99 03/10/19 16:07 Oxygen Delivery Oxygen Delivery Room Air Medical Decision Making - Lab Data Result diagrams: 03/10/19 16:30 Lab Results 03/10/19 Range/Units 16:30 WBC 11.8 H (4.3-11.1) K/mcL RBC 4.76 (3.82-4.97) M/mcL Hgb 14.0 (11.5-15.4) g/dL Hct 41.9 (35.3-44.9) % MCV 88.0 (83.0-100.0) fL MCH 29.4 (28.0-33.3) pg MCHC 33.4 (31.6-35.5) g/dL RDW 13.7 (11.5-14.5) % Plt Count 334 (140-400) K/mcL MPV 11.5 (9.4-12.4) fL Immature Gran % 0.3 (0-4) % Seg Neutrophils % 63.4 % Lymphocytes % 25.3 % Monocytes % 6.5 % Eosinophils % 3.6 % Basophils % 0.9 % Neutrophils # 7.5 (1.6-8.9) K/mcL Lymphocytes # 3.0 (0.6-4.6) K/mcL Monocytes # 0.8 (0.0-1.3) K/mcL Eosinophils # 0.4 (0.0-0.6) K/mcL Basophils # 0.1 (0.0-0.2) K/mcL Attestation Statement - Attestation Attestation: I have seen this patient with the resident physician, I have personally evaluated this patient. I had reviewed the chart and document dictation by the resident physician and aM in agreement with the information documented by the resident physician. Please see documentation by the resident physician for complete chart including past medical history, family medical history, review of systems, current history and physical and laboratory and imaging studies. I was present for all procedures, provided direct supervision for all procedures, was present for the entirety of all procedures and provided direct guidance during the procedures. Please see documentation by the resident physician for any procedures performed. I have also reviewed the EKG and reviewed EKG interpretation in agreement with Dr. park with the resident physician. EKG was performed for this patient presented with chest pain, this was a normal sinus rhythm, no evidence of acute change from prior EKG, there is downsloping ST T-wave abnormality within leads 1 and aVL but unchanged from prior, and borderline poor R-wave progression but again unchanged from prior EKG. The patient had presented to the ER with chief complaint of 3 weeks of shortness of breath, with some intermittent chest heaviness, worse over the last 24 hours, with some increased orthopnea and paroxysmal nocturnal dyspnea. No significant peripheral edema. She states that today her symptoms worsened and so she decided to come to the emergency department. She reports intermittent nausea and some chills no significant cough or sputum production no actual fever. She thought potentially that originally her symptoms were related to being taken off her clonazepam, she did contact her doctor who is managing this and told her that she should not have symptoms for this prolonged period of time related to that. The patient does state that she feels somewhat anxious, and that she states some of this seems like her anxiety but she also states a similar symptoms are similar to when she has had problems with her heart and congestive heart failure in the past. She reports that it has been a couple of years at least and she had a stress test which an echocardiogram last year. On physical exam she is alert oriented 3 nontoxic in appearance and in no acute distress, no obvious JVD, cranial nerves are intact, heart regular rate and rhythm, 2/6 systolic murmur no rubs no gallops. No crackles in the lungs no focal adventitious sound O increased work of breathing. Abdomen soft and nontender. There is trace bilateral lower Bridges pedal edema, with no significant swelling above the ankle, no unilateral swelling calf tenderness Homans sign or clinical evidence of DVT. Patient is on Coumadin for A. fib in the past, no significant bruising or bleeding from the gums noted. Workup was initiated for congestive heart failure and acute coronary syndrome, she has already had aspirin and Coumadin today, she requested something for anx iety for which she was given oral anxiety medication. Patient will be admitted to the hospital for further evaluation and management, pending her completed workup In the emergency department.
[2019-03-10 17:03] LABS: BUN/Creatinine Ratio 18 (6-26); Blood Urea Nitrogen 15 mg/dL (8-23); Calcium 9.5 mg/dL (8.6-10.3); Carbon Dioxide 22 mEq/L (23-29); Chloride 102 mEq/L (98-107); Glucose 204 mg/dL (70-105); Osmolality,Calculated 293 (280-300); Potassium 3.7 mEq/L (3.5-5.1); Sodium 138 mEq/L (136-145); Troponin I 0.03 ng/mL (< 0.04); eGFR For Non-African Americans > 60 (> 60)
[2019-03-10] MEDS ORDERED: *HR* LORazepam 0.5 MG TABLET PO ONE (17:53)
[2019-03-10] MEDS ORDERED: Naloxone 0.4 MG/ML INJ IVP PRN (19:31)
[2019-03-10] MEDS ORDERED: Dextrose Gel 15 GM/37.5 ML TUBE PO PRN ×2 (20:11)
[2019-03-10] MEDS ORDERED: *HR* Dextrose 50 % in Water (Syg) 50 ML SYRINGE IVP PRN (20:11)
[2019-03-10] MEDS ORDERED: D5% in Water 1,000 ML IVC PRN (20:11)
--- NOTE | 2019-03-10 20:16 | Internal Med History&Physical ---
<Manan Hanna S - Last Filed: 03/10/19 21:47> Date of Encounter: 03/10/19 Time of Encounter: 20:14 Internal Medicine - H&P: HPI Chief complaint: chest pain Admitted From: Home Plans for Post Hospital Care: Home History of present illness: Ms. Browning is a 69 year old female with PMH of anxiety/depression, CAD, CABG in 2013, [place] x 2 (2000,2011), GERD, seasonal allergies, multiple medical allergies, T2DM, gastroparesis, HLD, HTN, and a fib. She is here with chest pain that started at 2am and is substernal and dull without radiation. It awoke her from her sleep while she was napping and she states that she felt very anxious so she decided to come into the ER. She states that her chest pain is not reproducible and that it has largely resolved. She states that she has a history of severe anxiety/depression and suffers from panic attacks. She gets chest pain sometimes with her panic attacks and that she feels that she had a panic attack today. She also states that she has had no recent/new/changing stressors in her life. She denies any diaphoresis, crushing chest pain. She has chronic nausea and ab dominal pain secondary to her gastroparesis but states that she denies any changing symptoms in her gastroparesis. She also has a hx of GERD but states that she hasn't eaten today. She did have [employer] last night with her friend and states that this often does give her heart burn. She denies any fevers/chills. In the ER she was found to have a negative troponin and EKG was without change. She will be admitted for further workup given the concerning history and HEART score of 5. Past Med Surg Social Fam HX - Past Medical History Medical history: arthritis, atrial fibrillation, CHF, coronary artery disease, diabetes, GERD, hyperlipidemia, hypertension, migraine, myocardial infarction, thyroid disease Additional medical history: HYPOTHYROID, ABD PAIN, DIABETIC NEUROPATHY, DEPRESSION,SCOLIOSIS, [place]. History of CABG, dyslipidemia, lateral meniscus tear, loose body in knee Psychiatric history: anxiety, depression, panic disorder, prior suicide attempt - Past Surgical History Surgical History: angioplasty/stent, cholecystectomy, coronary bypass (CABG), hysterectomy, other Additional surgical history: LEFT KNEE ARTHROSCOPY, LHC WITH STENTS, LUMBAR SPINAL INJECTIONS. CABG x2, left oopherectomy, knee surgery - Social History Smoking Status: Never smoker Smokeless Tobacco Status: No Alcohol use: none Drug use: none - Family History Mother Adopted: No Family Member Ethnicity: Non- Living Status: Hx Family Cardiac Disorders: Yes Hx Family Neurologic Disorders: Yes (migraines) Father Living Status: Still Living Hx Family Cardiac Disorders: Yes Hx Family Cancer: Yes (skin cancer) Hx Family Endocrine Disorder: Yes Internal Medicine - H&P: Meds Aspirin 81 mg PO DAILY 03/27/16 [History] Ascorbate Calcium [Vitamin C] 500 mg PO DAILY 05/21/16 [History] Calcium Carbonate/Vitamin D3 [Caltrate 600 + D Soft Chew Tab] 1 tab PO DAILY 05/21/16 [History] Cholecalciferol (D-3) [Vitamin D] 1,000 unit PO DAILY 05/21/16 [History] Dicyclomine [Bentyl] 10 mg PO BID 05/21/16 [History] Esomeprazole Magnesium [Nexium] 40 mg PO HS 05/21/16 [History] Evolocumab [Repatha Syringe] 140 mg SQ Q2W 05/21/16 [History] Fluticasone Propionate Nasal [Flonase] 1 spray NS DAILY 05/21/16 [History] Furosemide [Lasix] 20 mg PO DAILY 05/21/16 [History] Loratadine [Claritin] 10 mg PO DAILY 05/21/16 [History] Nitroglycerin [Nitrostat] 0.4 mg SL Q5M PRN 05/21/16 [History] Gabapentin [Neurontin] 600 mg PO TID 06/11/16 [History] Levothyroxine Sodium 112.5 mcg PO QAM 03/29/17 [History] Potassium Chloride [K-Tab ER] 30 meq PO QAM 03/29/17 [History] Potassium Chloride [K-Tab ER] 20 meq PO QPM 04/06/17 [History] Warfarin [Coumadin] 1.5 mg PO [id number] 04/06/17 [History] Warfarin [Coumadin] 3 mg PO SUTH 04/06/17 [History] Oxybutynin [Ditropan] 2.5 mg PO BID #30 tablet 04/09/17 [Rx] Escitalopram [Lexapro] 10 mg PO DAILY #30 tablet 04/27/17 [Rx] Prazosin HCl [Minipress] 2 mg PO HS #30 capsule 04/27/17 [Rx] Losartan Potassium [Cozaar] 100 mg PO DAILY 07/05/17 [History] Metformin HCl [Glucophage] 1,000 mg PO BID 07/05/17 [History] Vitamin B Complex [B Complex] 1 each PO DAILY 07/05/17 [History] hydrOXYzine pamoate [HydrOXYzine Pamoate] 25 mg PO BID PRN #10 07/07/17 [Rx] Amlodipine Besylate 10 mg PO DAILY 12/09/17 [History] Duloxetine HCl [Cymbalta] 60 mg PO BID 12/09/17 [History] Metoprolol [Lopressor] 25 mg PO BID 12/09/17 [History] Hydrochlorothiazide [Microzide] 12.5 mg PO DAILY #30 04/15/18 [Rx] Magnesium Oxide [Mag-Ox] 400 mg PO BID #60 tablet 04/15/18 [Rx] Magnesium Oxide [Mag-Ox] 400 mg PO BID 30 Days #60 tablet 04/15/18 [Rx] cloNIDine HCl [CloNIDine HCl] 0.1 mg PO BID #60 tablet 04/15/18 [Rx] clonazePAM [Klonopin] 1 mg PO TID PRN 30 Days #90 tablet 04/15/18 [Rx] Acetaminophen [Tylenol] 650 mg PO Q6HR PRN tablet 12/26/18 [Rx] cephALEXin [Keflex] 500 mg PO TID #21 capsule 01/30/19 [Rx] Allergy/AdvReac Type Severity Reaction Status Date / Time acetaminophen [From Percocet] Allergy Hallucinati Verified 01/30/19 15:43 ng ibuprofen Allergy Nausea Verified 01/30/19 15:43 metoclopramide [From Reglan] Allergy Nausea Verified 01/30/19 15:43 morphine Allergy Difficulty Verified 01/30/19 15:43 Breathing oxycodone [From Percocet] Allergy Difficulty Verified 01/30/19 15:43 Breathing propoxyphene Allergy Anxiety Verified 01/30/19 15:43 [From Darvocet-N] Aoembne-Fjg-Qeo Reductase Allergy See Verified 01/30/19 15:43 Inhibitor Comments [Statins] amitriptyline [From Elavil] AdvReac Headache Verified 01/30/19 15:43 apixaban [From Eliquis] AdvReac Muscle Pain Verified 01/30/19 15:43 aripiprazole [From Abilify] AdvReac Anxiety Verified 01/30/19 15:43 codeine AdvReac Nausea Verified 01/30/19 15:43 guaifenesin [From Mucinex] AdvReac Headache Verified 01/30/19 15:43 hydromorphone [From Dilaudid] AdvReac Chills Verified 01/30/19 15:43 isosorbide AdvReac Headache Verified 01/30/19 15:43 Methylphenidate AdvReac Diarrhea Verified 01/30/19 15:43 [From Ritalin] prednisone AdvReac Anxiety Verified 01/30/19 15:43 pregabalin [From Lyrica] AdvReac Diarrhea Verified 01/30/19 15:43 sucralfate AdvReac Diarrhea Verified 01/30/19 15:43 valsartan [From Diovan] AdvReac Muscle Pain Verified 01/30/19 15:43 All Systems PM: A 10-system review of systems was performed and is negative for pertinent findings except as documented above in the HPI. - Constitutional Constitutional: chills, fatigue, fever(s), weakness - EENT Eyes: no blurry vision, no change in vision Ears: no tinnitus - Cardiovascular Cardiovascular ROS IM: chest pain, dyspnea, dyspnea on exertion, no lighthe adedness, no palpitations - Respiratory Respiratory: dyspnea on exertion, no cough, no pain on inspiration, no chest congestion, no excessive phlegm production, no change in phlegm color - Gastrointestinal Gastrointestinal: abdominal pain, bloating, no diarrhea, no nausea, no vomiting - Musculoskeletal Musculoskeletal ROS IM: back pain, no numbness, no tingling - Integumentary Integumentary IM: no pruritus, no rash, no skin ulcer - Neurological Neurological ROS: weakness, no dizziness, no numbness, no tremor(s) - Psychiatric Psychiatric: anxiety, depression - Endocrine Endocrine IM: fatigue - Hematologic/Lymphatic Hematologic/Lymphatic: easy bruising, no easy bleeding - Constitutional Vitals: Temp Pulse Resp BP Pulse Ox 98.6 F 100 20 149/72 98 03/10/19 16:07 03/10/19 19:43 03/10/19 19:43 03/10/19 19:43 03/10/19 19:43 General appearance: Present: cooperative, mild distress, A&O X 3, pleasant, obese Exam: general - aox3, mild distress, laying in bed, pleasant heent - ncat, MMM, no scleral icterus neck - no jvd, trachea midline cardio - tacycardia s1s2 cta no MRG lungs - ctab, no wheeze/rhonchi/rales, not in respiratory distress abd - mild TTP, no peritoneal signs, no rebound or guarding extremities - moves all UE/LE equally and without difficulty, strength 5/5 neuro - sensation intact, follows command, CN2-12 grossly intact skin - warm,dry,intact psych - anxious appearing Internal Med - H&P Results - Labs CBC & Chem 7: 03/10/19 16:30 03/10/19 16:30 Labs: Short CBC 03/10/19 Range/Units 16:30 WBC 11.8 H (4.3-11.1) K/mcL Hgb 14.0 (11.5-15.4) g/dL Hct 41.9 (35.3-44.9) % Plt Count 334 (140-400) K/mcL Neutrophils # 7.5 (1.6-8.9) K/mcL BMP 03/10/19 16:30 Sodium 138 Potassium 3.7 Chloride 102 Carbon Dioxide 22 L BUN 15 Creatinine 0.83 Glucose 204 H Calcium 9.5 Cardiac Enzymes 03/10/19 Range/Units 16:30 Troponin I 0.03 (< 0.04) ng/mL - Impressions ITS Impressions Chest X-Ray 03/10/19 16:11 IMPRESSION: No acute cardiopulmonary process. D/ / Neal Randle MD / Neal Randle MD Interpreting Provider: Neal Randle MD - Assessment and Plan (1) Chest pain Current Visit: Yes Status: Acute Assessment and plan: Pt presents with chest pain that awoke her from sleep - substernal, dull chest pain without radiation - pain relieved by rest - has extensive cardiac hx, including [place] in 2000 and 2011, s/p CABG in 2013 XR negative for acute cardiopulmonary process EKG on admission showed NSR, no acute changes, and borderline LVH; no ST elevation/depression or T wave inversion Troponin negative x 1 in the ER BNP 62 Previous ECHO from 12/2018 LVEF 60% Mild left ventricular diastolic dysfunction, normal right ventricular structure and function. Mild tricuspid regurgitation, no pulmonary hypertension. Note that the pt does have a hx of anixety and depression, states she gets multiple panic attacks a month and that this felt like a panic attack Plan: - resume aspirin, cozaar in AM pt reports allergy to statins - hold beta blockers due to stress testing - trend troponin x3 - pharmacologic stress test in the AM - will consult cardiology if abnormal - FEN: cardiac diet, NPO at midnight - DVT prophylaxis: on coumadin, SCD - dispo: obs pt, pending stress test results Qualifiers: Chest pain type: other chest pain Qualified Code(s): R07.89 - Other chest pain; R07.8 - Other chest pain (2) Obesity Current Visit: No Status: Chronic Assessment and plan: BMI 35.7, counseled. Chronic. Qualifiers: Obesity type: due to excess calories Obesity classification: adult class 2 (BMI 35 - 39.9) Serious obesity comorbidity presence: with serious comorbidity Body mass index: BMI 35.0-35.9 Qualified Code(s): E66.01 - Morbid (severe) obesity due to excess calories; Z68.35 - Body mass index (BMI) 35.0-35.9, adult (3) Gastroparesis Current Visit: No Status: Chronic Assessment and plan: Has hx of gastroparesis not on home medications. Says abdominal pain is around baseline. (4) Subtherapeutic international normalized ratio (INR) Current Visit: Yes Status: Acute Assessment and plan: Pt [facility], last visit was Tuesday and INR was 1.7 at that time. Today INR 1.9, will continue to monitor. Pharmacy to dose coumadin. (5) Hypertension Current Visit: No Status: Chronic Assessment and plan: Chronic. Continue home medications once reconciled. Qualifiers: Hypertension type: essential hypertension Qualified Code(s): I10 - Essential (primary) hypertension (6) Type 2 diabetes mellitus Current Visit: No Status: Chronic Assessment and plan: Glucose 204 on admission. Accuchecks. ADA/Cardiac diet. Hold home medications. MDSS. Accucheck q6hr when NPO. Qualifiers: Diabetes mellitus intermediate project manager insulin use: without intermediate project manager use Diabetes mellitus complication status: without complication Qualified Code(s): E11.9 - Type 2 diabetes mellitus without complications (7) GERD (gastroesophageal reflux disease) Current Visit: No Status: Chronic Assessment and plan: Continue home medications once reconciled. Qualifiers: Esophagitis presence: esophagitis presence not specified Qualified Code(s): K21.9 - Gastro-esophageal reflux disease without esophagitis (8) Coronary artery disease Current Visit: No Status: Chronic Assessment and plan: Pt with extensive CAD hx. CABG double bypass 2013. [place] 2000, 2011. Qualifiers: Coronary Disease-Associated Artery/Lesion type: unspecified vessel or lesion type [place] vs. transplanted heart: [place] heart Associated angina: with unstable angina Qualified Code(s): I25.110 - Atherosclerotic heart disease of [place] coronary artery with unstable angina pectoris (9) Anxiety Current Visit: No Status: Chronic Assessment and plan: Pt with hx of depression/anxiety. Will continue home meds when reconciled. (10) Depression Current Visit: No Status: Chronic Assessment and plan: Pt with hx of depression/anxiety. Will continue home meds when reconciled. Qualifiers: Depression Type: unspecified Qualified Code(s): F32.9 - Major depressive disorder, single episode, unspecified (11) Atrial fibrillation Current Visit: No Status: Chronic Assessment and plan: Pt on coumadin and BB. EKG showed NSR. Monitored at coumadin clinic, last INR was 1.7 and today 1.9. Qualifiers: Atrial fibrillation type: paroxysmal Qualified Code(s): I48.0 - Paroxysmal atrial fibrillation (12) CKD (chronic kidney disease) stage 3, GFR 30-59 ml/min Current Visit: No Status: Chronic Assessment and plan: Pt with stable kidney fxn. Continue to monitor renal fxn thru hospital stay. (13) DVT prophylaxis Current Visit: Yes Status: Acute Assessment and plan: on coumadin. Add SCD until INR theraputic. (14) Hypothyroidism Current Visit: No Status: Chronic Assessment and plan: on synthroid, chronic. Qualifiers: Hypothyroidism type: acquired Qualified Code(s): E03.9 - Hypothyroidism, unspecified - Time Spent With Patient Total time spent is greater than 50% in coordination of care (as documented) at patient's floor/unit and/or counseling patient: 25 - 35 minutes <Marco Garcia Jeanne - Last Filed: 03/11/19 00:10> Date of Encounter: 03/10/19 Internal Medicine - H&P: HPI History of present illness: Ms. Browning is a 69 year old female All Systems PM: A 10-system review of systems was performed and is negative for pertinent findings except as documented above in the HPI. - Constitutional Vitals: Temp Pulse Resp BP Pulse Ox 98.4 F 85 18 133/78 97 03/10/19 23:33 03/10/19 23:33 03/10/19 23:33 03/10/19 23:33 03/10/19 23:33 Internal Med - H&P Results - Labs CBC & Chem 7: 03/10/19 16:30 03/10/19 16:30 Labs: Short CBC 03/10/19 Range/Units 16:30 WBC 11.8 H (4.3-11.1) K/mcL Hgb 14.0 (11.5-15.4) g/dL Hct 41.9 (35.3-44.9) % Plt Count 334 (140-400) K/mcL Neutrophils # 7.5 (1.6-8.9) K/mcL BMP 03/10/19 16:30 Sodium 138 Potassium 3.7 Chloride 102 Carbon Dioxide 22 L BUN 15 Creatinine 0.83 Glucose 204 H Calcium 9.5 Cardiac Enzymes 03/10/19 03/10/19 Range/Units 16:30 20:27 Troponin I 0.03 < 0.03 (< 0.04) ng/mL - Impressions ITS Impressions Chest X-Ray 03/10/19 16:11 IMPRESSION: No acute cardiopulmonary process. D/ / Neal Randle MD / Neal Randle MD Interpreting Provider: Neal Randle MD - Time Spent With Patient Total time spent is greater than 50% in coordination of care (as documented) at patient's floor/unit and/or counseling patient: - Attending Attestation I saw and evaluated the patient. I reviewed the residents note, performed my own physical examination and agree with findings and plan as documented in the residents note. Patient seen and examined on 03/10/19. Patient presented to the ER with chest pain, now nearly resolved. Patient recently had an echo 2 months ago, we will consider stress test as well. Patient has history of anxiety and panic attacks. We will continue to monitor, trend troponins, pharmacy to dose coumadin.
[2019-03-10] MEDS ORDERED: Insulin LISPRO 300 UNITS/3 ML VIAL SQ SCH (21:00)
[2019-03-10] MEDS: Insulin LISPRO 300 UNITS/3 ML VIAL SQ SCH (22:21)
[2019-03-11] MEDS ORDERED: *HR* Warfarin 3 MG TABLET PO ONE (00:15)
[2019-03-11 02:14] LABS: Hematocrit 39.7 % (35.3-44.9); Mean Corpuscular HGB Conc 32.7 g/dL (31.6-35.5); Mean Corpuscular Hemoglobin 29.3 pg (28.0-33.3); Mean Corpuscular Volume 89.6 fL (83.0-100.0); Mean Platelet Volume 11.8 fL (9.4-12.4); Platelet Count 277 K/mcL (140-400); Red Blood Count 4.43 M/mcL (3.82-4.97); Red Cell Distribution Width 13.9 % (11.5-14.5)
[2019-03-11 02:24] LABS: INR 1.9; Prothrombin Time 21.5 Seconds (9.4-12.1)
[2019-03-11 02:32] LABS: BUN/Creatinine Ratio 16 (6-26); Blood Urea Nitrogen 15 mg/dL (8-23); Calcium 8.7 mg/dL (8.6-10.3); Carbon Dioxide 25 mEq/L (23-29); Chloride 104 mEq/L (98-107); Glucose 135 mg/dL (70-105); Osmolality,Calculated 291 (280-300); Potassium 3.1 mEq/L (3.5-5.1); Sodium 139 mEq/L (136-145); eGFR For Non-African Americans 58 (> 60)
[2019-03-11] MEDS ORDERED: Regadenoson 0.4 MG/5 ML SYRINGE IVP ONE (07:29)
[2019-03-11] MEDS: Insulin LISPRO 300 UNITS/3 ML VIAL SQ SCH ×2 (07:44→13:12)
[2019-03-11] MEDS ORDERED: Aspirin 81 MG TAB.CHEW PO SCH (09:00)
[2019-03-11] MEDS ORDERED: Gabapentin 300 MG CAPSULE PO SCH (09:00)
[2019-03-11] MEDS ORDERED: amLODIPine 5 MG TABLET PO SCH (09:00)
[2019-03-11] MEDS ORDERED: Furosemide 40 MG TABLET PO SCH (09:00)
--- NOTE | 2019-03-11 10:40 | Internal Med Progress Note ---
Hospitalist Progress Note - Encounter Date of Encounter: 03/11/19 Time of Encounter: 10:39 - Subjective Interval History: Seen and examined at bedside. Patient resting in bed, appears comfortable, her daughther is present. Reports some chest discomfort, but not pain, just left of her sternum and rates it as 3 out of 10, which is improved since presentation. Denies shortness of breath, fevers, abdominal pain, vomiting. Admits to some nausea, but states it is at her baselline. - Exam Vitals: Temp Pulse Resp BP Pulse Ox 98.4 F 85 18 133/78 97 03/10/19 23:33 03/10/19 23:33 03/10/19 23:33 03/10/19 23:33 03/10/19 23:33 - Summary of Assessment and Plan Summary of Assessment and Plan: Ms. Browning is a 69 F with hx of CAD s/p 2 vessel CABG 2013 and stents, [place] x 2, Afib, CHF, DM, thryroid disease, GERD, anxiety, and panic disorder presenting with complaints of substernal chest pain that woke her from sleep, making her very anxious. CXR negative for acute cardiopulmonary process, EKG without evidence of acute ischemia, troponin 0.03, BNP 62. She was admitted for further evaluation of her chest pain. A/P: Chest pain: Improved. CXR unremarkable, no ischemic changes on EKG, and troponin neg x 3. Nuclear stress test negative for ischemia or infarct, patient reported pain/pressure during test. CAD: Continue CCB, ASA, BB Afib: Continue coumadin CHF: Continue Lasix 20mg PO daily. Not fluid overloaded on exam. GERD Gastroparesis DM: insulin sliding scale with diabetic diet CKD Stage III: Anxiety: Change in anxiolytics prior to admission, benzodiazepine discontinued and substituted for buspar Hypothyroid: Takes synthroid at home - Check TSH level - Time Spent with Patient Total time spent is greater than 50% in coordination of care (as documented) at patient's floor/unit and/or counseling patient: less than 15 minutes Plan of Care Discussed with: patient Internal Medicine: Result - Labs CBC & Chem 7: 03/11/19 01:44 03/11/19 01:44 Labs: Short CBC 03/10/19 03/11/19 Range/Units 16:30 01:44 WBC 11.8 H 10.5 (4.3-11.1) K/mcL Hgb 14.0 13.0 (11.5-15.4) g/dL Hct 41.9 39.7 (35.3-44.9) % Plt Count 334 277 (140-400) K/mcL Neutrophils # 7.5 (1.6-8.9) K/mcL BMP 03/10/19 03/11/19 16:30 01:44 Sodium 138 139 Potassium 3.7 3.1 L Chloride 102 104 Carbon Dioxide 22 L 25 BUN 15 15 Creatinine 0.83 0.95 Glucose 204 H 135 H Calcium 9.5 8.7 Cardiac Enzymes 03/10/19 03/10/19 03/11/19 Range/Units 16:30 20:27 01:44 Troponin I 0.03 < 0.03 < 0.03 (< 0.04) ng/mL - ABG Interpretation ABG results: PT/INR, D-dimer PT 21.5 Seconds (9.4-12.1) H 03/11/19 01:44 - Impressions Impressions Chest X-Ray 03/10/19 16:11 IMPRESSION: No acute cardiopulmonary process. D/ / Neal Randle MD / Neal Randle MD Interpreting Provider: Neal Randle MD Consult Discharge Plan - Plan Referrals: Fabiola Aguilar MD [Primary Care Provider] -
[2019-03-11 12:20] VITALS: BP 171/97
--- NOTE | 2019-03-11 13:40 | Discharge Summary ---
<Joseph Leal - Last Filed: 03/11/19 18:56> Date of Encounter: 03/11/19 - Discharge Medications Prescriptions: Continued Aspirin 81 mg PO DAILY Furosemide [Lasix] 20 mg PO DAILY Loratadine [Claritin] 10 mg PO DAILY Ascorbate Calcium [Vitamin C] 1,000 mg PO DAILY Fluticasone Propionate Nasal [Flonase] 2 spray NS DAILY Calcium Carbonate/Vitamin D3 [Caltrate 600 + D Soft Chew Tab] 1 tab PO DAILY Dicyclomine [Bentyl] 10 mg PO BID Gabapentin [Neurontin] 600 mg PO BID Levothyroxine Sodium 112.5 mcg PO QAM Warfarin [Coumadin] 1.5 mg PO WE Warfarin [Coumadin] 3 mg PO SUMOTUTHFRSA Potassium Chloride [K-Tab ER] 20 meq PO QPM Losartan Potassium [Cozaar] 100 mg PO DAILY Metformin HCl [Glucophage] 1,000 mg PO BID hydrOXYzine pamoate [HydrOXYzine Pamoate] 25 mg PO BID PRN #10 PRN Reason: Anxiety Amlodipine Besylate 10 mg PO DAILY Metoprolol [Lopressor] 25 mg PO BID Magnesium Oxide [Mag-Ox] 400 mg PO BID 30 Days #60 tablet cloNIDine HCl [CloNIDine HCl] 0.1 mg PO BID #60 tablet Buspirone HCl [Buspar] 5 mg PO TID Butalb/Acetaminophen/Caffeine [Fioricet 50-300-40 mg Capsule] 1 each PO Q6HR PRN PRN Reason: Headache Esomeprazole Magnesium [Nexium] 40 mg PO BID Evolocumab [Repatha Syringe] 140 mg SQ Q2W Fluvastatin Sodium [Lescol Xl] 80 mg PO DAILY Hydrochlorothiazide [Microzide] 25 mg PO DAILY Lactobacillus Acidophilus [Acidophilus Probiotic] 1 mg PO BID Ondansetron HCl [Zofran] 4 mg PO Q8HR PRN PRN Reason: Nausea Oxybutynin [Ditropan] 10 mg PO DAILY No Action Calcium Carbonate/Vitamin D3 [Caltrate 600 + D Soft Chew Tab] 1 each PO Home Medications: Aspirin 81 mg PO DAILY 03/27/16 [History] Ascorbate Calcium [Vitamin C] 1,000 mg PO DAILY 05/21/16 [History] Calcium Carbonate/Vitamin D3 [Caltrate 600 + D Soft Chew Tab] 1 tab PO DAILY 05/21/16 [History] Dicyclomine [Bentyl] 10 mg PO BID 05/21/16 [History] Fluticasone Propionate Nasal [Flonase] 2 spray NS DAILY 05/21/16 [History] Furosemide [Lasix] 20 mg PO DAILY 05/21/16 [History] Loratadine [Claritin] 10 mg PO DAILY 05/21/16 [History] Gabapentin [Neurontin] 600 mg PO BID 06/11/16 [History] Levothyroxine Sodium 112.5 mcg PO QAM 03/29/17 [History] Potassium Chloride [K-Tab ER] 20 meq PO QPM 04/06/17 [History] Warfarin [Coumadin] 1.5 mg PO WE 04/06/17 [History] Warfarin [Coumadin] 3 mg PO SUMOTUTHFRSA 04/06/17 [History] Losartan Potassium [Cozaar] 100 mg PO DAILY 07/05/17 [History] Metformin HCl [Glucophage] 1,000 mg PO BID 07/05/17 [History] hydrOXYzine pamoate [HydrOXYzine Pamoate] 25 mg PO BID PRN #10 07/07/17 [Rx] Amlodipine Besylate 10 mg PO DAILY 12/09/17 [History] Metoprolol [Lopressor] 25 mg PO BID 12/09/17 [History] Magnesium Oxide [Mag-Ox] 400 mg PO BID 30 Days #60 tablet 04/15/18 [Rx] cloNIDine HCl [CloNIDine HCl] 0.1 mg PO BID #60 tablet 04/15/18 [Rx] Buspirone HCl [Buspar] 5 mg PO TID 03/11/19 [History] Butalb/Acetaminophen/Caffeine [Fioricet 50-300-40 mg Capsule] 1 each PO Q6HR PRN 03/11/19 [History] Calcium Carbonate/Vitamin D3 [Caltrate 600 + D Soft Chew Tab] 1 each PO 03/11/19 [History] Esomeprazole Magnesium [Nexium] 40 mg PO BID 03/11/19 [History] Evolocumab [Repatha Syringe] 140 mg SQ Q2W 03/11/19 [History] Fluvastatin Sodium [Lescol Xl] 80 mg PO DAILY 03/11/19 [History] Hydrochlorothiazide [Microzide] 25 mg PO DAILY 03/11/19 [History] Lactobacillus Acidophilus [Acidophilus Probiotic] 1 mg PO BID 03/11/19 [History] Ondansetron HCl [Zofran] 4 mg PO Q8HR PRN 03/11/19 [History] Oxybutynin [Ditropan] 10 mg PO DAILY 03/11/19 [History] Allergies/Adverse Reactions: Allergy/AdvReac Type Severity Reaction Status Date / Time acetaminophen [From Percocet] Allergy Hallucinati Verified 01/30/19 15:43 ng ibuprofen Allergy Nausea Verified 01/30/19 15:43 metoclopramide [From Reglan] Allergy Nausea Verified 01/30/19 15:43 morphine Allergy Difficulty Verified 01/30/19 15:43 Breathing oxycodone [From Percocet] Allergy Difficulty Verified 01/30/19 15:43 Breathing propoxyphene Allergy Anxiety Verified 01/30/19 15:43 [From Darvocet-N] Gqauijm-Klf-Sub Reductase Allergy See Verified 01/30/19 15:43 Inhibitor Comments [Statins] amitriptyline [From Elavil] AdvReac Headache Verified 01/30/19 15:43 apixaban [From Eliquis] AdvReac Muscle Pain Verified 01/30/19 15:43 aripiprazole [From Abilify] AdvReac Anxiety Verified 01/30/19 15:43 codeine AdvReac Nausea Verified 01/30/19 15:43 guaifenesin [From Mucinex] AdvReac Headache Verified 01/30/19 15:43 hydromorphone [From Dilaudid] AdvReac Chills Verified 01/30/19 15:43 isosorbide AdvReac Headache Verified 01/30/19 15:43 Methylphenidate AdvReac Diarrhea Verified 01/30/19 15:43 [From Ritalin] prednisone AdvReac Anxiety Verified 01/30/19 15:43 pregabalin [From Lyrica] AdvReac Diarrhea Verified 01/30/19 15:43 sucralfate AdvReac Diarrhea Verified 01/30/19 15:43 valsartan [From Diovan] AdvReac Muscle Pain Verified 01/30/19 15:43 Date of admission: 03/10/19 19:03 Primary care physician: Fabiola Aguilar Consults: 03/10/19 21:04 Consult to Occupational Therapy [CONS] Routine Comment: Evaluate, develop and implement POC Reason for Consult: weakness, ptot eval Does patient have active BEDREST order?: No Is patient medically & hemodynamically stable?: Yes Patient assessed for mobility or mobilized this visit?: No Consult to Physical Therapy [CONS] Routine Comment: Evaluate, develop and implement POC Reason for Consult: weakness, ptot eval Does patient have active BEDREST order?: No Is patient medically & hemodynamically stable?: Yes Patient assessed for mobility or mobilized this visit?: No - Patient Status Disposition: Home, Self-Care Condition: Fair - Discharge Instructions Instructions: Chest Pain (DC) Follow Up With: Fabiola Aguilar MD [Primary Care Provider] - Additional Instructions: Please follow up with your primary provider within 1 week of discharge - Diet and Activity Activity: resume usual activities as tolerated Diet: diabetic diet - Attending Attestation Patient seen and examined. I agree with the discharge plan as documented above by the resident. In summary, Kaylee Browning is a 69 F w hx CAD s/p CABG '14, HTN, A-Fib, but also GERD and anxiety, who p/w atypical chest pain. ECG, trops, and CXR unremarkble but with HEART score elevated merited inpatient stress. CP free during admission. Went for nuc pharm stress which was negative for ischemia. Pt will be discharged to follow up with outpatient Cardio and PCP. <Ginger Neves - Last Filed: 03/12/19 07:51> Orders not resulted at time of discharge: Pending orders 03/10/19 20:13 NM lino perf SPECT multi [NM] Routine 03/12/19 04:00 INR/PT [Prothrombin Time INR] [COAG] AM 0400 03/13/19 04:00 INR/PT [Prothrombin Time INR] [COAG] AM 0400 03/14/19 04:00 INR/PT [Prothrombin Time INR] [COAG] AM 0400 Date of Encounter: 03/12/19 Time of Encounter: 13:37 Hospital course: Ms. Browning is a 69 F with hx of CAD s/p 2 vessel CABG 2013 and stents, DE x 2, Afib, CHF, DM, thryroid disease, GERD, anxiety, and panic disorder presenting with complaints of substernal chest pain that woke her from sleep, making her v rashid anxious. CXR negative for acute cardiopulmonary process, EKG without evidence of acute ischemia, troponin negative x 4, BNP 62. She was admitted for further evaluation of her chest pain. Nuclear stress test was negative for ischemia or infarct. Patient to continue her CCB, BB, ASA, coumadin, and lasix as prescribed. Recommended follow up with primary provider in 1 week of discharge. - Time Spent with Patient Total time spent providing and/or coordinating discharge services: Date of admission: 03/10/19 19:03 Primary care physician: Fabiola Aguilar Consults: 03/10/19 21:04 Consult to Occupational Therapy [CONS] Routine Comment: Evaluate, develop and implement POC Reason for Consult: weakness, ptot eval Does patient have active BEDREST order?: No Is patient medically & hemodynamically stable?: Yes Patient assessed for mobility or mobilized this visit?: No Consult to Physical Therapy [CONS] Routine Comment: Evaluate, develop and implement POC Reason for Consult: weakness, ptot eval Does patient have active BEDREST order?: No Is patient medically & hemodynamically stable?: Yes Patient assessed for mobility or mobilized this visit?: No - Constitutional Vitals: Temp Pulse Resp BP Pulse Ox 98.0 F 91 16 171/97 98 03/11/19 12:19 03/11/19 12:19 03/11/19 12:19 03/11/19 12:19 03/11/19 12:19 General appearance: Present: cooperative, mild distress, A&O X 3, pleasant, obese Exam: general - aox3, no acute distress, laying in bed, pleasant heent - ncat, MMM, no scleral icterus neck - no jvd, trachea midline cardio - s1s2 cta no MRG lungs - ctab, no wheeze/rhonchi/rales, not in respiratory distress abd - mild TTP, no peritoneal signs, no rebound or guarding extremities - moves all UE/LE equally and without difficulty, strength 5/5 neuro - sensation intact, follows command, CN2-12 grossly intact skin - warm,dry,intact - Patient Status Functional capacity at discharge: independent ambulation Overall status at discharge: patient is progressing back to baseline
[2019-03-11] MEDS ORDERED: Warfarin perPT PO PRN (18:00)
[2019-03-11] MEDS ORDERED: *HR* Warfarin 3 MG TABLET PO SCH (18:00)
--- NOTE | 2019-03-12 10:04 | Electrocardiograph Report ---
[address] [place], [place] [address] Test Date: 2019-03-10 Pat Name: Kaylee Browning Department: [id number] Room: 3B14 Gender: F [employer]ice: : [id number] Requested By: Tadeo Mills Order Number: [id number] Reading MD: Eyad Miramontes Measurements Intervals Boaz Rate: 85 P: 24 [place]: 117 QRS: -10 QRSD: 83 T: 112 QT: 375 QTc: 446 Interpretive Statements Sinus rhythm Borderline short [place] interval Possible left atrial enlargement Lateral ST-T changes, consider ischemia Electronically Signed On 03-12-2019 10:02:25 EDT by Eyad Miramontes
[2019-03-14] MEDS ORDERED: *HR* Warfarin 3 MG TABLET PO SCH (18:00)
== END 2019-03-11 16:50 | disposition home or self-care (01) ==
LOC: EMEROOARM 16:02 → 3BNU 16:02 → SUATTDRO 19:03 → 3BNU 20:03
PROVIDERS: ADMIT Internal Medicine Nephrology; ATTEND Internal Medicine

== ENCOUNTER 2019-08-07 11:35 | Observation (INO) ==
[2019-08-07 12:52] LABS: Bilirubin,Urine Negative (Negative); Blood,Urine Negative (Negative); Clarity,Urine Clear (Clear); Color,Urine Yellow (Yellow); Glucose,Urine (UA) 500 mg/dL (Normal); Ketones,Urine Negative (Negative); Leukocyte Esterase,Urine Negative (Negative); Nitrite,Urine Negative (Negative); Protein,Urine Negative (Neg-Trace); Specific Gravity,Urine 1.027 (1.010-1.025); Urobilinogen,Urine Normal (Normal)
[2019-08-07 13:10] LABS: Basophils # 0.1 K/mcL (0.0-0.2); Basophils % 0.8 %; Eosinophils # 0.7 K/mcL (0.0-0.6); Hematocrit 41.5 % (35.3-44.9); Hemoglobin 13.7 g/dL (11.5-15.4); Immature Granulocytes % 0.9 % (0-4); Lymphocytes % 28.8 %; Mean Corpuscular Hemoglobin 30.2 pg (28.0-33.3); Mean Corpuscular Volume 91.4 fL (83.0-100.0); Mean Platelet Volume 11.6 fL (9.4-12.4); Monocytes # 0.8 K/mcL (0.0-1.3); Monocytes % 7.4 %; Neutrophils # 5.7 K/mcL (1.6-8.9); Platelet Count 305 K/mcL (140-400); Red Blood Count 4.54 M/mcL (3.82-4.97); Red Cell Distribution Width 12.8 % (11.5-14.5); Segmented Neutrophils % 55.1 %; White Blood Count 10.3 K/mcL (4.3-11.1)
[2019-08-07 13:18] LABS: INR 1.2; Prothrombin Time 14.1 Seconds (9.4-12.1)
[2019-08-07 13:21] LABS: Activated Partial Thrombo Time 34.5 Seconds (26.0-36.0)
[2019-08-07 13:33] LABS: BUN/Creatinine Ratio 22 (6-26); Blood Urea Nitrogen 19 mg/dL (8-23); Carbon Dioxide 24 mEq/L (23-29); Chloride 100 mEq/L (98-107); Glucose 318 mg/dL (70-105); Osmolality,Calculated 296 (280-300); Potassium 3.9 mEq/L (3.5-5.1); Sodium 136 mEq/L (136-145); Troponin I < 0.03 ng/mL (< 0.04); eGFR For African Americans > 60 (> 60); eGFR For Non-African Americans > 60 (> 60)
[2019-08-07] MEDS ORDERED: Ondansetron 4 MG/2 ML VIAL IVP PRN (14:45)
[2019-08-07] MEDS ORDERED: Naloxone 0.4 MG/ML INJ IVP PRN (14:45)
[2019-08-07] MEDS ORDERED: 0.9 % Sodium Chloride 1,000 ML IVC SCH (15:15)
[2019-08-07] MEDS ORDERED: *HR* Dextrose 50 % in Water (Syg) 50 ML SYRINGE IVP PRN (15:24)
[2019-08-07] MEDS ORDERED: Dextrose Gel 15 GM/37.5 ML TUBE PO PRN ×2 (15:24)
[2019-08-07] MEDS ORDERED: D5% in Water 1,000 ML IVC PRN (15:24)
[2019-08-07] MEDS ORDERED: Warfarin perPT PO PRN (18:00)
[2019-08-07] MEDS ORDERED: Warfarin 2.5 MG, Warfarin 2 MG PO ONE (18:00)
[2019-08-07] MEDS: Insulin LISPRO 300 UNITS/3 ML VIAL SQ SCH ×2 (18:07→21:17)
[2019-08-08 05:03] LABS: Hematocrit 40.5 % (35.3-44.9); Hemoglobin 13.7 g/dL (11.5-15.4); Mean Corpuscular HGB Conc 33.8 g/dL (31.6-35.5); Mean Corpuscular Hemoglobin 30.7 pg (28.0-33.3); Mean Corpuscular Volume 90.8 fL (83.0-100.0); Mean Platelet Volume 12.2 fL (9.4-12.4); Platelet Count 244 K/mcL (140-400); Red Blood Count 4.46 M/mcL (3.82-4.97); Red Cell Distribution Width 12.7 % (11.5-14.5); White Blood Count 10.3 K/mcL (4.3-11.1)
[2019-08-08 05:10] LABS: INR 1.4; Prothrombin Time 16.4 Seconds (9.4-12.1)
[2019-08-08 05:24] LABS: BUN/Creatinine Ratio 18 (6-26); Blood Urea Nitrogen 12 mg/dL (8-23); Calcium 9.2 mg/dL (8.6-10.3); Carbon Dioxide 21 mEq/L (23-29); Chloride 103 mEq/L (98-107); Glucose 177 mg/dL (70-105); Magnesium 1.2 mg/dL (1.6-2.6); Osmolality,Calculated 286 (280-300); Potassium 3.8 mEq/L (3.5-5.1); Sodium 136 mEq/L (136-145); eGFR For African Americans > 60 (> 60); eGFR For Non-African Americans > 60 (> 60)
[2019-08-08] MEDS: Insulin LISPRO 300 UNITS/3 ML VIAL SQ SCH ×4 (07:50→21:43)
[2019-08-08] MEDS: cloNIDine HCl 0.1 MG TABLET PO SCH ×2 (08:09→21:44)
[2019-08-08] MEDS ORDERED: *HR* Warfarin 3 MG TABLET PO ONE (18:00)
[2019-08-08] MEDS ORDERED: Insulin DETEMIR 100 UNIT/ML X5UNITS SQ SCH (21:00)
[2019-08-09 04:35] LABS: INR 1.8; Prothrombin Time 20.5 Seconds (9.4-12.1)
[2019-08-09 06:53] VITALS: BP 123/71
[2019-08-09] MEDS ORDERED: Aspirin Enteric Coated 81 MG Tablet PO SCH (09:00)
[2019-08-09] MEDS ORDERED: Furosemide 20 MG TABLET PO SCH (09:00)
[2019-08-09] MEDS: Insulin LISPRO 300 UNITS/3 ML VIAL SQ SCH (09:54)
[2019-08-09] MEDS: cloNIDine HCl 0.1 MG TABLET PO SCH (10:00)
[2019-08-09] MEDS ORDERED: FLU Vac QV 19-20 (6Month+)/PF 0.5 ML SYRINGE IM ONE (10:19)
[2019-08-09 10:42] LABS: BUN/Creatinine Ratio 20 (6-26); Blood Urea Nitrogen 15 mg/dL (8-23); Calcium 9.3 mg/dL (8.6-10.3); Carbon Dioxide 22 mEq/L (23-29); Chloride 102 mEq/L (98-107); Glucose 354 mg/dL (70-105); Magnesium 1.4 mg/dL (1.6-2.6); Osmolality,Calculated 295 (280-300); Potassium 3.6 mEq/L (3.5-5.1); Sodium 135 mEq/L (136-145); eGFR For African Americans > 60 (> 60); eGFR For Non-African Americans > 60 (> 60)
[2019-08-09] MEDS ORDERED: Magnesium Oxide 400 MG TABLET PO ONE (13:45)
[2019-08-09] MEDS ORDERED: *HR* Warfarin 3 MG TABLET PO ONE (18:00)
== END 2019-08-09 15:56 | disposition home or self-care (01) ==
LOC: EMEROOARM 11:35 → 3BNU 11:35 → SUATTDRO 14:53 → 3BNU 15:34
PROVIDERS: ADMIT Internal Medicine; ATTEND Internal Medicine

== ENCOUNTER 2019-11-06 00:03 | Observation (INO) ==
[2019-11-06 01:55] LABS: Basophils % 0.3 %; Eosinophils # 0.2 K/mcL (0.0-0.6); Eosinophils % 2.3 %; Immature Granulocytes % 0.5 % (0-4); Lymphocytes # 1.9 K/mcL (0.6-4.6); Lymphocytes % 19.2 %; Mean Corpuscular HGB Conc 34.1 g/dL (31.6-35.5); Mean Corpuscular Hemoglobin 30.2 pg (28.0-33.3); Mean Corpuscular Volume 88.4 fL (83.0-100.0); Mean Platelet Volume 11.7 fL (9.4-12.4); Monocytes # 0.8 K/mcL (0.0-1.3); Monocytes % 7.9 %; Platelet Count 266 K/mcL (140-400); Red Blood Count 4.64 M/mcL (3.82-4.97); Red Cell Distribution Width 13.4 % (11.5-14.5); Segmented Neutrophils % 69.8 %; White Blood Count 10.1 K/mcL (4.3-11.1)
[2019-11-06 02:20] LABS: Calcium 9.4 mg/dL (8.6-10.3); Potassium 3.7 mEq/L (3.5-5.1)
[2019-11-06 02:32] LABS: INR 5.1
[2019-11-06 02:39] LABS: Troponin I 0.04 ng/mL (< 0.04)
[2019-11-06] MEDS ORDERED: Aspirin 81 MG TAB.CHEW PO STA (02:39)
[2019-11-06] MEDS ORDERED: 0.9 % Sodium Chloride 1,000 ML ONE (02:53)
[2019-11-06] MEDS: 0.9 % Sodium Chloride 1,000 ML IVC SCH (02:58)
[2019-11-06 04:45] LABS: Bilirubin,Urine Small (Negative); Blood,Urine Negative (Negative); Clarity,Urine Cloudy (Clear); Color,Urine Dark Yellow (Yellow); Glucose,Urine (UA) Normal (Normal); Ketones,Urine Negative (Negative); Leukocyte Esterase,Urine Large (Negative); Nitrite,Urine Negative (Negative); Protein,Urine 30 mg/dL (Neg-Trace); Urobilinogen,Urine Normal (Normal)
[2019-11-06 04:49] LABS: Bacteria,Urine None Seen per hpf (None-Few); Squamous Epithelial Cell,Urine Moderate per lpf (None-Few); WBC,Urine TNTC per hpf (0-3)
[2019-11-06] MEDS ORDERED: Nystatin Cream 15 GM TUBE TP STA (05:23)
[2019-11-06] MEDS ORDERED: Acetaminophen/Butalbital/CaffeineTABLET PO PRN (07:35)
[2019-11-06] MEDS ORDERED: MOM Conc 10 ML UD.LIQ PO PRN (07:41)
[2019-11-06] MEDS ORDERED: Naloxone 0.4 MG/ML INJ IVP PRN (07:41)
[2019-11-06] MEDS ORDERED: Ondansetron 4 MG/2 ML VIAL IVP PRN (07:41)
[2019-11-06] MEDS ORDERED: *HR* Promethazine 25 MG/ML VIAL IVP PRN (07:41)
[2019-11-06] MEDS ORDERED: Mag Hydrox/Al Hydrox/Simeth 30 ML UDC PO PRN (07:41)
[2019-11-06] MEDS ORDERED: *HR* Warfarin 3 MG TABLET PO SCH (07:45)
[2019-11-06] MEDS ORDERED: cefTRIAXone 2,000 MG in 0.9 % Sodium Chloride Mini Bag 100 ML IVPB SCH (08:00)
[2019-11-06] MEDS ORDERED: Furosemide 40 MG TABLET PO SCH (09:00)
[2019-11-06] MEDS: cloNIDine HCl 0.1 MG TABLET PO SCH ×2 (10:38→20:17)
[2019-11-06] MEDS: Gabapentin 400 MG CAPSULE PO SCH ×2 (10:38→20:17)
[2019-11-06] MEDS: Fluticasone Propionate Nasal 50 MCG/SPRAY BOTTLE NS SCH (10:38)
[2019-11-06] MEDS: Aspirin Enteric Coated 81 MG Tablet PO SCH (10:38)
[2019-11-06] MEDS: hydroCHLOROthiazide 25 MG TABLET PO SCH (10:38)
[2019-11-06] MEDS: cefTRIAXone 2,000 MG in Water for inj. (sterile) 20 ML IVP SCH (10:40)
[2019-11-06] MEDS: Magnesium Oxide 400 MG TABLET PO SCH (11:16)
[2019-11-06] MEDS: Cholecalciferol (D-3) 1,000 UNIT (25MCG) TABLET PO SCH (11:16)
[2019-11-06] MEDS: amLODIPine 5 MG TABLET PO SCH (11:16)
[2019-11-06] MEDS: Loratadine 10 MG TABLET PO SCH (11:16)
[2019-11-06] MEDS ORDERED: Dextrose Gel 15 GM/37.5 ML TUBE PO PRN ×2 (17:02)
[2019-11-06] MEDS ORDERED: D5% in Water 1,000 ML IVC PRN (17:02)
[2019-11-06] MEDS ORDERED: *HR* Dextrose 50 % in Water (Syg) 50 ML SYRINGE IVP PRN (17:02)
[2019-11-06] MEDS: Insulin LISPRO 300 UNITS/3 ML VIAL SQ SCH (20:20)
[2019-11-07] MEDS: 0.9 % Sodium Chloride 1,000 ML IVC SCH (01:13)
[2019-11-07 01:19] LABS: Basophils # 0.1 K/mcL (0.0-0.2); Basophils % 0.7 %; Eosinophils # 0.5 K/mcL (0.0-0.6); Eosinophils % 7.4 %; Hematocrit 36.8 % (35.3-44.9); Immature Granulocytes % 0.4 % (0-4); Lymphocytes # 1.9 K/mcL (0.6-4.6); Mean Corpuscular HGB Conc 32.6 g/dL (31.6-35.5); Mean Corpuscular Hemoglobin 29.8 pg (28.0-33.3); Mean Corpuscular Volume 91.3 fL (83.0-100.0); Mean Platelet Volume 11.5 fL (9.4-12.4); Monocytes # 0.6 K/mcL (0.0-1.3); Monocytes % 8.3 %; Platelet Count 211 K/mcL (140-400); Red Blood Count 4.03 M/mcL (3.82-4.97); Red Cell Distribution Width 13.1 % (11.5-14.5); Segmented Neutrophils % 56.2 %; White Blood Count 7.2 K/mcL (4.3-11.1)
[2019-11-07 01:40] LABS: BUN/Creatinine Ratio 33 (6-26); Blood Urea Nitrogen 35 mg/dL (8-23); Calcium 8.6 mg/dL (8.6-10.3); Carbon Dioxide 23 mEq/L (23-29); Chloride 104 mEq/L (98-107); Glucose 177 mg/dL (70-105); Osmolality,Calculated 298 (280-300); Potassium 3.4 mEq/L (3.5-5.1); Sodium 138 mEq/L (136-145); eGFR For African Americans > 60 (> 60); eGFR For Non-African Americans 52 (> 60)
[2019-11-07] MEDS: hydroCHLOROthiazide 25 MG TABLET PO SCH (08:33)
[2019-11-07] MEDS: Aspirin Enteric Coated 81 MG Tablet PO SCH (08:33)
[2019-11-07] MEDS: Magnesium Oxide 400 MG TABLET PO SCH (08:33)
[2019-11-07] MEDS: amLODIPine 5 MG TABLET PO SCH (08:33)
[2019-11-07] MEDS: Gabapentin 400 MG CAPSULE PO SCH ×2 (08:33→20:10)
[2019-11-07] MEDS: Cholecalciferol (D-3) 1,000 UNIT (25MCG) TABLET PO SCH (08:33)
[2019-11-07] MEDS: Fluticasone Propionate Nasal 50 MCG/SPRAY BOTTLE NS SCH (08:34)
[2019-11-07] MEDS: cloNIDine HCl 0.1 MG TABLET PO SCH ×2 (08:34→20:11)
[2019-11-07] MEDS: Loratadine 10 MG TABLET PO SCH (08:34)
[2019-11-07] MEDS: Insulin LISPRO 300 UNITS/3 ML VIAL SQ SCH ×4 (08:53→20:13)
[2019-11-07 09:37] LABS: Prothrombin Time 56.9 Seconds (9.4-12.1)
[2019-11-07] MEDS: cefTRIAXone 2,000 MG in Water for inj. (sterile) 20 ML IVP SCH (09:59)
[2019-11-07] MEDS ORDERED: Benzonatate 100 MG CAPSULE PO PRN (18:14)
[2019-11-07] MEDS: Nystatin POWDER 30 GM BOTTLE TP SCH (20:12)
[2019-11-08 04:54] LABS: INR 3.6; Prothrombin Time 41.1 Seconds (9.4-12.1)
[2019-11-08 05:27] LABS: BUN/Creatinine Ratio 24 (6-26); Blood Urea Nitrogen 19 mg/dL (8-23); Calcium 9.5 mg/dL (8.6-10.3); Carbon Dioxide 23 mEq/L (23-29); Chloride 103 mEq/L (98-107); Glucose 143 mg/dL (70-105); Osmolality,Calculated 293 (280-300); Potassium 3.5 mEq/L (3.5-5.1); Sodium 139 mEq/L (136-145); eGFR For African Americans > 60 (> 60); eGFR For Non-African Americans > 60 (> 60)
[2019-11-08] MEDS: Aspirin Enteric Coated 81 MG Tablet PO SCH (08:51)
[2019-11-08] MEDS: cloNIDine HCl 0.1 MG TABLET PO SCH (08:51)
[2019-11-08] MEDS: cefTRIAXone 2,000 MG in Water for inj. (sterile) 20 ML IVP SCH (08:52)
[2019-11-08] MEDS: Magnesium Oxide 400 MG TABLET PO SCH (08:52)
[2019-11-08] MEDS: Loratadine 10 MG TABLET PO SCH (08:52)
[2019-11-08] MEDS: Cholecalciferol (D-3) 1,000 UNIT (25MCG) TABLET PO SCH (08:52)
[2019-11-08] MEDS: Gabapentin 400 MG CAPSULE PO SCH (08:52)
[2019-11-08] MEDS: Nystatin POWDER 30 GM BOTTLE TP SCH (08:54)
[2019-11-08] MEDS: Insulin LISPRO 300 UNITS/3 ML VIAL SQ SCH (08:54)
[2019-11-08] MEDS: Fluticasone Propionate Nasal 50 MCG/SPRAY BOTTLE NS SCH (11:22)
[2019-11-08 11:36] VITALS: BP 100/61
== END 2019-11-08 14:35 ==
LOC: EMEROOARM 00:03 → CDU 00:03 → SUATTDRO 07:37 → CDU 07:52 → 3NENU 15:35
PROVIDERS: ADMIT Internal Medicine; ATTEND Student in an Organized Health Care Education/Training Program

== ENCOUNTER 2019-12-14 15:53 | Inpatient (IN) ==
[2019-12-14] MEDS ORDERED: *HR* Etomidate 20 MG/10 ML AMPUL IVP ONE ×2 (16:20→16:39)
[2019-12-14] MEDS ORDERED: 0.9 % Sodium Chloride 1,000 ML ONE (16:40)
[2019-12-14] MEDS ORDERED: *HR* FentaNYL (PF) 100 MCG/2 ML VIAL ONE (16:58)
[2019-12-14] MEDS ORDERED: *HR* FentaNYL (PF) 100 MCG/2 ML VIAL IVP ONE (17:08)
[2019-12-14] MEDS ORDERED: 0.9 % Sodium Chloride 1,000 ML IVC ONE (17:08)
[2019-12-14 17:19] LABS: Basophils # 0.1 K/mcL (0.0-0.2); Basophils % 0.6 %; Eosinophils # 0.6 K/mcL (0.0-0.6); Eosinophils % 6.6 %; Hematocrit 37.3 % (35.3-44.9); Hemoglobin 12.1 g/dL (11.5-15.4); Immature Granulocytes % 0.3 % (0-4); Lymphocytes # 2.8 K/mcL (0.6-4.6); Lymphocytes % 29.1 %; Mean Corpuscular HGB Conc 32.4 g/dL (31.6-35.5); Mean Corpuscular Hemoglobin 30.1 pg (28.0-33.3); Mean Corpuscular Volume 92.8 fL (83.0-100.0); Mean Platelet Volume 11.4 fL (9.4-12.4); Monocytes # 0.7 K/mcL (0.0-1.3); Monocytes % 7.5 %; Neutrophils # 5.4 K/mcL (1.6-8.9); Platelet Count 291 K/mcL (140-400); Red Blood Count 4.02 M/mcL (3.82-4.97); Segmented Neutrophils % 55.9 %; White Blood Count 9.7 K/mcL (4.3-11.1)
[2019-12-14 17:29] LABS: INR 1.7; Prothrombin Time 19.2 Seconds (9.4-12.1)
[2019-12-14 17:32] LABS: Activated Partial Thrombo Time 34.6 Seconds (26.0-36.0)
[2019-12-14 17:39] LABS: BUN/Creatinine Ratio 25 (6-26); Blood Urea Nitrogen 25 mg/dL (8-23); Calcium 9.4 mg/dL (8.6-10.3); Carbon Dioxide 27 mEq/L (23-29); Chloride 102 mEq/L (98-107); Glucose 197 mg/dL (70-105); Osmolality,Calculated 296 (280-300); Potassium 3.6 mEq/L (3.5-5.1); Sodium 138 mEq/L (136-145); eGFR For African Americans > 60 (> 60); eGFR For Non-African Americans 54 (> 60)
[2019-12-14 17:40] LABS: Troponin I < 0.03 ng/mL (< 0.04)
[2019-12-14 17:44] LABS: Bilirubin,Urine Negative (Negative); Blood,Urine Negative (Negative); Clarity,Urine Clear (Clear); Color,Urine Yellow (Yellow); Glucose,Urine (UA) 100 mg/dL (Normal); Ketones,Urine Negative (Negative); Leukocyte Esterase,Urine Negative (Negative); Nitrite,Urine Negative (Negative); PH,Urine 5.5 pH Units (5.0-8.0); Protein,Urine Negative (Neg-Trace); Urobilinogen,Urine Normal (Normal)
[2019-12-14] MEDS ORDERED: Acetaminophen/Butalbital/CaffeineTABLET PO PRN (19:39)
[2019-12-14] MEDS ORDERED: Mag Hydrox/Al Hydrox/Simeth 30 ML UDC PO PRN (19:39)
[2019-12-14] MEDS ORDERED: Benzonatate 100 MG CAPSULE PO PRN (19:39)
[2019-12-14] MEDS ORDERED: MOM Conc 10 ML UD.LIQ PO PRN (19:39)
[2019-12-14] MEDS ORDERED: EVOLOCUMAB 140 MG SQ SCH (19:45)
[2019-12-14] MEDS ORDERED: Naloxone 0.4 MG/ML INJ IVP PRN (19:47)
[2019-12-14] MEDS ORDERED: 0.9 % Sodium Chloride 1,000 ML IVC SCH (21:00)
[2019-12-14] MEDS ORDERED: Warfarin perPT PO PRN (21:05)
[2019-12-14] MEDS ORDERED: Acetaminophen 325 MG TABLET PO PRN (21:10)
[2019-12-14] MEDS ORDERED: *HR* Warfarin 3 MG TABLET PO ONE (21:15)
[2019-12-14] MEDS: Gabapentin 400 MG CAPSULE PO SCH (21:46)
[2019-12-14] MEDS: Nystatin POWDER 30 GM BOTTLE TP SCH (21:47)
[2019-12-15 02:47] LABS: Basophils # 0.1 K/mcL (0.0-0.2); Basophils % 0.6 %; Eosinophils # 0.7 K/mcL (0.0-0.6); Eosinophils % 5.3 %; Hematocrit 36.9 % (35.3-44.9); Hemoglobin 11.6 g/dL (11.5-15.4); Immature Granulocytes % 0.5 % (0-4); Lymphocytes # 2.8 K/mcL (0.6-4.6); Lymphocytes % 21.6 %; Mean Corpuscular HGB Conc 31.4 g/dL (31.6-35.5); Mean Corpuscular Volume 92.3 fL (83.0-100.0); Mean Platelet Volume 11.8 fL (9.4-12.4); Monocytes % 7.6 %; Neutrophils # 8.2 K/mcL (1.6-8.9); Platelet Count 266 K/mcL (140-400); Red Cell Distribution Width 13.1 % (11.5-14.5); Segmented Neutrophils % 64.4 %; White Blood Count 12.7 K/mcL (4.3-11.1)
[2019-12-15 03:03] LABS: INR 1.7; Prothrombin Time 18.9 Seconds (9.4-12.1)
[2019-12-15 03:17] LABS: BUN/Creatinine Ratio 28 (6-26); Blood Urea Nitrogen 24 mg/dL (8-23); Carbon Dioxide 26 mEq/L (23-29); Chloride 103 mEq/L (98-107); Glucose 197 mg/dL (70-105); Osmolality,Calculated 296 (280-300); Potassium 3.3 mEq/L (3.5-5.1); Sodium 138 mEq/L (136-145); eGFR For African Americans > 60 (> 60); eGFR For Non-African Americans > 60 (> 60)
[2019-12-15] MEDS: *HR* HYDROcodone/Acet 5/325 mg TABLET PO PRN ×2 (04:56→21:53)
[2019-12-15] MEDS ORDERED: NON-FORMULARY MEDICATION 1 EACH EACH (Potassium Chloride [K-Tab Er] 20 MEQ) PO SCH (09:00)
[2019-12-15] MEDS ORDERED: Loratadine 10 MG TABLET PO SCH (09:00)
[2019-12-15] MEDS ORDERED: Furosemide 40 MG TABLET PO SCH (09:00)
[2019-12-15] MEDS ORDERED: Mirtazapine 15 MG TABLET PO SCH (09:00)
[2019-12-15] MEDS ORDERED: amLODIPine 5 MG TABLET PO SCH (09:00)
[2019-12-15] MEDS ORDERED: Aspirin Enteric Coated 81 MG Tablet PO SCH (09:00)
[2019-12-15] MEDS ORDERED: Magnesium Oxide 400 MG TABLET PO SCH (09:00)
[2019-12-15] MEDS ORDERED: Cholecalciferol (D-3) 1,000 UNIT (25MCG) TABLET PO SCH (09:00)
[2019-12-15] MEDS: *HR* OxyCODONE Immed Rel 5 MG TABLET PO PRN ×2 (09:57→16:00)
[2019-12-15] MEDS: Gabapentin 400 MG CAPSULE PO SCH ×2 (09:57→21:53)
[2019-12-15] MEDS: Nystatin POWDER 30 GM BOTTLE TP SCH ×3 (10:01→22:30)
[2019-12-15] MEDS ORDERED: *HR* Dextrose 50 % in Water (Syg) 50 ML SYRINGE IVP PRN (13:47)
[2019-12-15] MEDS ORDERED: Dextrose Gel 15 GM/37.5 ML TUBE PO PRN ×2 (13:47)
[2019-12-15] MEDS ORDERED: D5% in Water 1,000 ML IVC PRN (13:47)
[2019-12-15] MEDS ORDERED: Insulin LISPRO 300 UNITS/3 ML VIAL SQ SCH ×2 (16:30→21:00)
[2019-12-15] MEDS ORDERED: Fluticasone Propionate Nasal 50 MCG/SPRAY BOTTLE NS SCH (18:00)
[2019-12-15] MEDS ORDERED: *HR* Warfarin 1 MG TABLET PO ONE (18:00)
[2019-12-16] MEDS: *HR* OxyCODONE Immed Rel 5 MG TABLET PO PRN (00:16)
[2019-12-16 00:28] LABS: Basophils # 0.1 K/mcL (0.0-0.2); Basophils % 0.6 %; Eosinophils # 0.8 K/mcL (0.0-0.6); Eosinophils % 7.2 %; Hematocrit 37.4 % (35.3-44.9); Hemoglobin 12.2 g/dL (11.5-15.4); Immature Granulocytes % 0.5 % (0-4); Lymphocytes # 2.3 K/mcL (0.6-4.6); Lymphocytes % 20.4 %; Mean Corpuscular HGB Conc 32.6 g/dL (31.6-35.5); Mean Corpuscular Hemoglobin 29.9 pg (28.0-33.3); Mean Corpuscular Volume 91.7 fL (83.0-100.0); Mean Platelet Volume 11.5 fL (9.4-12.4); Monocytes # 1.1 K/mcL (0.0-1.3); Monocytes % 9.8 %; Neutrophils # 6.8 K/mcL (1.6-8.9); Platelet Count 277 K/mcL (140-400); Red Blood Count 4.08 M/mcL (3.82-4.97); Red Cell Distribution Width 12.9 % (11.5-14.5); Segmented Neutrophils % 61.5 %
[2019-12-16 00:37] LABS: INR 2.3; Prothrombin Time 25.6 Seconds (9.4-12.1)
[2019-12-16 00:49] LABS: BUN/Creatinine Ratio 18 (6-26); Blood Urea Nitrogen 17 mg/dL (8-23); Calcium 9.2 mg/dL (8.6-10.3); Carbon Dioxide 23 mEq/L (23-29); Chloride 101 mEq/L (98-107); Glucose 273 mg/dL (70-105); Osmolality,Calculated 289 (280-300); Potassium 3.7 mEq/L (3.5-5.1); Sodium 134 mEq/L (136-145); eGFR For African Americans > 60 (> 60); eGFR For Non-African Americans 60 (> 60)
[2019-12-16] MEDS ORDERED: Lidocaine 1% 20 ML MDV ONE (07:18)
[2019-12-16] MEDS ORDERED: *HR* Propofol 200 MG/20 ML VIAL IVP ONE (07:32)
[2019-12-16] MEDS ORDERED: *HR* FentaNYL (PF) 100 MCG/2 ML VIAL ONE (07:32)
[2019-12-16] MEDS ORDERED: *HR* Midazolam HCl 2 MG/2 ML VIAL ONE (07:32)
[2019-12-16] MEDS ORDERED: Dexamethasone 4 MG/ML VIAL ONE (07:33)
[2019-12-16] MEDS ORDERED: Ondansetron 4 MG/2 ML VIAL ONE (07:33)
[2019-12-16] MEDS ORDERED: CeFAZolin Syr 2,000MG/20 ML 2,000 MG/20 ML SYRINGE IVPB ONE (07:33)
[2019-12-16] MEDS ORDERED: Lidocaine -MPF 2% 2 ML VIAL ONE (07:33)
[2019-12-16] MEDS ORDERED: Ropivacaine/PF 0.5% 30 ML VIAL ONE (07:36)
[2019-12-16] MEDS ORDERED: *HR* PHENYLEPHRINE 1,000 MCG/10 ML SYRINGE IVP ONE ×3 (08:41→09:39)
[2019-12-16] MEDS ORDERED: MOM Conc 10 ML UD.LIQ PO PRN (10:50)
[2019-12-16] MEDS ORDERED: Dextrose Gel 15 GM/37.5 ML TUBE PO PRN ×2 (10:50)
[2019-12-16] MEDS ORDERED: Naloxone 0.4 MG/ML INJ IVP PRN (10:50)
[2019-12-16] MEDS ORDERED: Acetaminophen 325 MG TABLET PO PRN (10:50)
[2019-12-16] MEDS ORDERED: Mag Hydrox/Al Hydrox/Simeth 30 ML UDC PO PRN (10:50)
[2019-12-16] MEDS ORDERED: Benzonatate 100 MG CAPSULE PO PRN (10:50)
[2019-12-16] MEDS ORDERED: D5% in Water 1,000 ML IVC PRN (10:50)
[2019-12-16] MEDS ORDERED: Acetaminophen/Butalbital/CaffeineTABLET PO PRN (10:50)
[2019-12-16] MEDS ORDERED: Patient Taking Own Medication 1 EACH SQ SCH (10:50)
[2019-12-16] MEDS ORDERED: *HR* Dextrose 50 % in Water (Syg) 50 ML SYRINGE IVP PRN (10:50)
[2019-12-16] MEDS: Insulin LISPRO 300 UNITS/3 ML VIAL SQ SCH ×2 (12:46→16:48)
[2019-12-16] MEDS: Nystatin POWDER 30 GM BOTTLE TP SCH ×2 (16:45→20:42)
[2019-12-16] MEDS: ceFAZolin 2,000 MG in 0.9 % Sodium Chloride 100 ML IVPB SCH (16:45)
[2019-12-16] MEDS: Fluticasone Propionate Nasal 50 MCG/SPRAY BOTTLE NS SCH (17:59)
[2019-12-16] MEDS: Gabapentin 400 MG CAPSULE PO SCH (20:41)
[2019-12-16] MEDS ORDERED: Insulin LISPRO 300 UNITS/3 ML VIAL SQ SCH (21:00)
[2019-12-17] MEDS: ceFAZolin 2,000 MG in 0.9 % Sodium Chloride 100 ML IVPB SCH (00:57)
[2019-12-17 05:27] LABS: Basophils % 0.2 %; Hematocrit 34.8 % (35.3-44.9); Hemoglobin 11.3 g/dL (11.5-15.4); Immature Granulocytes % 0.7 % (0-4); Lymphocytes # 1.3 K/mcL (0.6-4.6); Lymphocytes % 9.9 %; Mean Corpuscular HGB Conc 32.5 g/dL (31.6-35.5); Mean Corpuscular Hemoglobin 29.7 pg (28.0-33.3); Mean Corpuscular Volume 91.6 fL (83.0-100.0); Mean Platelet Volume 12.1 fL (9.4-12.4); Monocytes # 0.5 K/mcL (0.0-1.3); Monocytes % 4.1 %; Neutrophils # 10.8 K/mcL (1.6-8.9); Platelet Count 275 K/mcL (140-400); Red Cell Distribution Width 12.6 % (11.5-14.5); Segmented Neutrophils % 85.1 %; White Blood Count 12.6 K/mcL (4.3-11.1)
[2019-12-17 05:38] LABS: Prothrombin Time 23.1 Seconds (9.4-12.1)
[2019-12-17 06:08] LABS: BUN/Creatinine Ratio 24 (6-26); Blood Urea Nitrogen 19 mg/dL (8-23); Calcium 9.4 mg/dL (8.6-10.3); Carbon Dioxide 27 mEq/L (23-29); Chloride 102 mEq/L (98-107); Glucose 285 mg/dL (70-105); Osmolality,Calculated 293 (280-300); Potassium 4.3 mEq/L (3.5-5.1); Sodium 135 mEq/L (136-145); eGFR For African Americans > 60 (> 60); eGFR For Non-African Americans > 60 (> 60)
[2019-12-17] MEDS: Insulin LISPRO 300 UNITS/3 ML VIAL SQ SCH ×3 (07:35→16:50)
[2019-12-17] MEDS: Aspirin Enteric Coated 81 MG Tablet PO SCH (07:36)
[2019-12-17] MEDS: Cholecalciferol (D-3) 1,000 UNIT (25MCG) TABLET PO SCH (07:36)
[2019-12-17] MEDS: Mirtazapine 15 MG TABLET PO SCH (07:36)
[2019-12-17] MEDS: Gabapentin 400 MG CAPSULE PO SCH ×2 (07:36→20:05)
[2019-12-17] MEDS: Magnesium Oxide 400 MG TABLET PO SCH (07:37)
[2019-12-17] MEDS: Loratadine 10 MG TABLET PO SCH (07:37)
[2019-12-17] MEDS: amLODIPine 5 MG TABLET PO SCH (07:37)
[2019-12-17] MEDS: Nystatin POWDER 30 GM BOTTLE TP SCH ×3 (07:38→22:28)
[2019-12-17] MEDS: *HR* HYDROcodone/Acet 5/325 mg TABLET PO PRN ×2 (14:54→22:29)
[2019-12-17] MEDS: Fluticasone Propionate Nasal 50 MCG/SPRAY BOTTLE NS SCH (17:19)
[2019-12-17] MEDS ORDERED: Warfarin perPT PO PRN (18:00)
[2019-12-17] MEDS: *HR* OxyCODONE Immed Rel 5 MG TABLET PO PRN (20:05)
[2019-12-17] MEDS ORDERED: Insulin DETEMIR 100 UNIT/ML X5UNITS SQ SCH (21:00)
[2019-12-17] MEDS ORDERED: *HR* Warfarin 3 MG TABLET PO ONE (21:30)
[2019-12-18 05:54] LABS: INR 1.6; Prothrombin Time 18.4 Seconds (9.4-12.1)
[2019-12-18] MEDS: Insulin LISPRO 300 UNITS/3 ML VIAL SQ SCH (08:28)
[2019-12-18] MEDS: amLODIPine 5 MG TABLET PO SCH (08:37)
[2019-12-18] MEDS: Aspirin Enteric Coated 81 MG Tablet PO SCH (08:37)
[2019-12-18] MEDS: Loratadine 10 MG TABLET PO SCH (08:37)
[2019-12-18] MEDS: *HR* OxyCODONE Immed Rel 5 MG TABLET PO PRN (08:37)
[2019-12-18] MEDS: Mirtazapine 15 MG TABLET PO SCH (08:38)
[2019-12-18] MEDS: Cholecalciferol (D-3) 1,000 UNIT (25MCG) TABLET PO SCH (08:38)
[2019-12-18] MEDS: Gabapentin 400 MG CAPSULE PO SCH (08:38)
[2019-12-18] MEDS: Magnesium Oxide 400 MG TABLET PO SCH (08:38)
[2019-12-18] MEDS: Nystatin POWDER 30 GM BOTTLE TP SCH (08:39)
[2019-12-18] MEDS ORDERED: hydroCHLOROthiazide 25 MG TABLET PO SCH (09:00)
[2019-12-18 11:15] VITALS: BP 156/71
== END 2019-12-18 11:40 | DRG 493 ==
LOC: EMEROOARM 15:53 → 3NENU 15:53 → SUATTDRO 12-15 13:50
PROVIDERS: ADMIT Internal Medicine; ATTEND Internal Medicine